=== PATIENT | male | born 1975 | race Caucasian/White ===

== ENCOUNTER → 2023-05-13 | Emergency (ER) | payer SELFPAY ==
[~2023-05-13] MED LIST: AZITHROMYCIN 500 MG INJ IVPB ONE; CEFTRIAXONE 1000 MG/VIAL ONE; EPINEPHRINE INH 0.5 ML VIAL IH ONE; IPRATROPIUM BROM 0.5MG/2.5ML ONE; LEVALBUTEROL 1.25 MG/3 ML NEB ONE; METHYLPREDNISOLONE 125 MG INJ ONE; NA CHLORIDE 0.9% 250 ML ONE; NS 0.9% VIAL 10 ML ONE
[2023-05-13 12:35] LABS: Absolute Lymphocytes (CBC) 1.3 K/uL (0.7-4.9); Hematocrit 36.7 % (39.6-49.0); Lymphocytes % 9.1 % (15.3-44.8); MCV 81.8 fL (80-100); MPV 6.8 fL (7.6-11.3); Platelets 666 thou/uL (152-406); RBC Red Blood Cell Count 4.48 M/uL (4.33-5.43)
[2023-05-13 12:47] LABS: Protime INR 1.26
[2023-05-13 12:55] LABS: Albumin 3.1 g/dL (3.4-5.0); Bilirubin Total 0.5 mg/dL (0.2-1.0); Potassium 4.2 mEq/L (3.5-5.1); Protein, Total 8.4 g/dL (6.4-8.2); Troponin High Sensitivity 4.7 pg/mL (<58.9)
[2023-05-13 13:06] LABS: SARS-CoV-2 Antigen Rapid Res Negative (Negative)
--- NOTE | 2023-05-13 13:45 | RAD REPORT ---
EXAM DESCRIPTION: CT - Soft Tissue Neck W/Contr - 05/13/2023 1:13 pm CLINICAL HISTORY: Neck pain, shortness of breath, stridor COMPARISON: None. TECHNIQUE: Computed axial tomography of the neck was obtained. 50 cc Isovue 300 was administered in travenously. Coronal and sagittal reconstruction was performed. All CT scans are performed using dose optimization technique as appropriate and may include automated exposure control or mA/KV adjustment according to patient size. FINDINGS: Thickening of the left area epiglottic fold with medialization. Anteromedial deviation of the arachnoid cartilage. Prominent left piriform sinus. These findings can be seen with left vocal c ord paralysis. Remainder of the airway unremarkable The parotid, submandibular and thyroid glands appear unremarkable. 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
--- NOTE | 2023-05-13 13:47 | ER ---
Nurse's Notes [facility] Name: Yeison Zheng Age: 48 yrs Sex: Male : 1975 Arrival Date: 05/13/2023 Time: 12:02 Bed 17 Private MD: Diagnosis: Pleural effusion, not elsewhere classified;Dyspnea, unspecified Presentation: 05/13 12:10 Chief complaint: Patient states: SOB x 4-5 days. Pt reports quitting smoking 3 months ld1 ago. Coronavirus screen: Client presents with at least one sign or symptom that may indicate coronavirus-19. Standard/surgical mask placed on the client. Ebola Screen: No symptoms or risks identified at this time. Initial Sepsis Screen: Does the patient meet any 2 criteria? No. Patient's initial sepsis screen is negative. Does the patient have a suspected source of infection? No. Patient's initial sepsis screen is negative. Risk Assessment: Do you want to hurt yourself or someone else? Patient reports no desire to harm self or others. Onset of symptoms was May 13, 2023. 12:10 Method Of Arrival: Ambulatory ld1 12:10 Acuity: JOEL 2 ld1 Triage Assessment: 12:11 General: Appears in no apparent distress. comfortable, Behavior is calm, cooperative, ld1 appropriate for age. Pain: Denies pain. EENT: No signs and/or symptoms were reported regarding the EENT system. Neuro: Level of Consciousness is awake, alert, obeys commands, Oriented to person, place, time, situation. Cardiovascular: Capillary refill < 3 seconds Patient's skin is warm and dry. Rhythm is sinus tachycardia. Respiratory: Reports shortness of breath at rest on exertion Airway is patent Respiratory effort is even, labored, Onset: The symptoms/episode began/occurred 5 days, the patient has moderate shortness of breath. GI: Abdomen is round non-distended. : No signs and/or symptoms were reported regarding the genitourinary system. Derm: No signs and/or symptoms reported regarding the dermatologic system. Musculoskeletal: No signs and/or symptoms reported regarding the musculoskeletal system. 12:11 Respiratory: Breath sounds with wheezes bilaterally. ld1 Historical: - Allergies: 12:11 No Known Allergies; ld1 - Home Meds: 12:11 None [Active]; ld1 - PMHx: 12:11 None; ld1 - PSHx: 12:11 None; ld1 - Immunization history:: Adult Immunizations up to date. - Social history:: Smoking status: Patient/guardian denies using tobacco, Stopped _ months ago 3 Patient/guardian denies using alcohol. - Family history:: not pertinent. - Hospitalizations: : No recent hospitalization is reported. Screenin:10 [facility] ED Fall Risk Assessment (Adult) History of falling in the last 3 months, rs5 including since admission No falls in past 3 months (0 pts) Confusion or Disorientation No (0 pts) Intoxicated or Sedated No (0 pts) Impaired Gait No (0 pts) Mobility Assist Device Used No (0 pt) Altered Elimination No (0 pt) Score/Fall Risk Level 0 - 2 = Low Risk Oriented to surroundings, Maintained a safe environment. Abuse screen: Denies threats or abuse. Nutritional screening: No deficits noted. Tuberculosis screening: No symptoms or risk factors identified. Assessment: 12:10 General: Appears in no apparent distress. uncomfortable, Behavior is cooperative, rs5 anxious. 12:10 Pain: Complains of pain in chest Pain does not radiate. Pt states "my chest only hurts rs5 when I cough" Pain currently is 6 out of 10 on a pain scale. Quality of pain is described as aching, Pain began 5 days ago, worse today, Is intermittent. Neuro: Level of Consciousness is awake, alert, obeys commands, Oriented to person, place, time, situation. Cardiovascular: Heart tones S1 S2 present Patient's skin is warm and dry. Rhythm is regular. Respiratory: Reports shortness of breath at rest cough that is non-productive. Respiratory: Airway is patent Respiratory effort is even, labored, Respiratory pattern is regular, symmetrical, Breath sounds are diminished in left lower lobe Stridor noted. GI: Bowel sounds present X 4 quads. Abd is soft and non tender X 4 quads. : No signs and/or symptoms were reported regarding the genitourinary system. EENT: No signs and/or symptoms were reported regarding the EENT system. Derm: Skin is intact, Skin is pink, warm \\T\\ dry. Musculoskeletal: Capillary refill < 3 seconds, is brisk, in bilateral fingers. toes. Range of motion: intact in all extremities. 13:01 Reassessment: Patient and/or family updated on plan of care and expected duration. Pain rs5 level reassessed. Patient is alert, oriented x 3, equal unlabored respirations, skin warm/dry/pink. Reassessment: Patient states feeling better. Patient states symptoms have improved. Pt states "my chest only hurts when I cough". Pain: Complains of pain in chest Pain does not radiate. Pain currently is 3 out of 10 on a pain scale. Quality of pain is described as aching, Is intermittent. Cardiovascular: Heart tones S1 S2 present Patient's skin is warm and dry. Rhythm is regular. Respiratory: Airway is patent Respiratory effort is even, unlabored, Respiratory pattern is regular, symmetrical, Breath sounds are diminished in left lower lobe. 14:10 Reassessment: No changes from previously documented assessment. rs5 14:38 Reassessment: Provider at bedside. rs5 16:15 Reassessment: Patient and/or family updated on plan of care and expected duration. Pain rs5 level reassessed. Patient is alert, oriented x 3, equal unlabored respirations, skin warm/dry/pink. Reassessment: Patient states feeling better. Cardiovascular: Denies chest pain, Rhythm is regular. Respiratory: Respiratory effort is even, unlabored, Respiratory pattern is regular, symmetrical. 17:10 Reassessment: Patient and/or family updated on plan of care and expected duration. Pain rs5 level reassessed. Patient is alert, oriented x 3, equal unlabored respirations, skin warm/dry/pink. 18:11 Reassessment: No changes from previously documented assessment. rs5 19:00 Pain: Denies pain. Cardiovascular: Rhythm is regular. Respiratory: Airway is patent rs5 Respiratory effort is even, unlabored, Respiratory pattern is regular, symmetrical. Vital Signs: 12:06 BP 153 / 94; Pulse 98; Resp 20; Temp 98.3(O); Pulse Ox 98% on R/A; rs5 12:10 BP 153 / 94; Pulse 109; Resp 20; Temp 98.4(TE); Pulse Ox 99% on R/A; Weight 81.65 kg; ld1 Height 5 ft. 8 in. ; Pain 0/10; 13:05 BP 129 / 82; Pulse 91; Resp 19; Pulse Ox 98% on R/A; rs5 14:00 BP 125 / 86; Pulse 93; Resp 18; Pulse Ox 98% on R/A; rs5 15:01 BP 115 / 67; Pulse 86; Resp 18; Pulse Ox 98% on R/A; rs5 16:17 BP 117 / 76; Pulse 85; Resp 18; Pulse Ox 97% on R/A; rs5 18:40 BP 125 / 81; Pulse 80; Resp 18; Pulse Ox 99% on R/A; rs5 12:10 Body Mass Index 27.37 (81.65 kg, 172.72 cm) ld1 12:10 Pain Scale: Adult ld1 ED Course: 12:06 Patient arrived in ED. ld1 12:07 Andrey Louis MD is Attending Physician. rn 12:10 Patient has correct armband on for positive identification. Placed in gown. Bed in low rs5 position. Call light in reach. Side rails up X2. 12:10 No provider procedures requiring assistance completed. rs5 12:11 Triage completed. ld1 12:11 Arm band placed on right wrist. EKG completed in triage. Results shown to MD. ld1 12:17 Spenser De Anda, ASHLEY is Primary Nurse. rs5 12:19 Inserted saline lock: 20 gauge in right antecubital area, using aseptic technique. rs5 Blood collected. 12:54 SARS RAPID Sent. rs5 12:54 Flu Sent. rs5 13:07 Chest Single View XRAY In Process Unspecified. EDMS 13:15 CT Soft Tissue Neck W/contr In Process Unspecified. EDMS 13:15 CT Chest For PE Angio In Process Unspecified. EDMS 14:11 transfer initiated with [facility] transfer center; transfer denied due to em1 capacity. 14:17 transfer initiated with [facility] transfer center; transfer denied due to em1 capacity. 19:00 Patient transferred, IV remains in place. rs5 Administered Medications: 12:28 Drug: Racepinephrine Inhalation 0.5 ml Inhalation once Route: Inhalation; rs5 13:01 Follow up: Response: No adverse reaction; Wheezing diminished rs5 12:28 Drug: MethylPrednisoLONE IVP 125 mg IVP once Route: IVP; Site: right antecubital; rs5 13:01 Follow up: Response: No adverse reaction rs5 12:45 Drug: Levalbuterol Inhalation 1.25 mg Inhalation once Route: Inhalation; rs5 13:01 Follow up: Response: No adverse reaction; Wheezing diminished rs5 12:45 Drug: Ipratropium Inhalation Aerosol 0.5 mg Inhalation once Route: Inhalation; rs5 13:01 Follow up: Response: No adverse reaction; Wheezing diminished rs5 13:40 Drug: Rocephin IV 1 grams IV at calculated rate once; Given slow IV push per pharmacy rs5 instructions Route: IV; Rate: calculated rate; Site: right antecubital; 14:00 Follow up: Response: No adverse reaction rs5 13:40 Drug: Zithromax IVPB 500 mg IVPB once over 1 hrs; mix in 250 mL NS Route: IVPB; Infused rs5 Over: 1 hrs; Site: right antecubital; 14:04 Follow up: Response: No adverse reaction rs5 Medication: 12:10 VIS not applicable for this client. rs5 Outcome: 13:47 ER care complete, transfer ordered by . rn 19:00 Transferred by ground EMS to [facility], Transfer form rs5 completed. X-rays sent w/ patient. 19:00 Condition: stable 19:00 Instructed on the need for transfer, Demonstrated understanding of instructions, follow-up care, 19:19 Patient left the ED. rs5 Signatures: Dispatcher [employer] EDMS Andrey Louis MD MD rn Martinez, Eric em1 Kelly Barros RN RN ld1 Spenser De Anda RN RN rs5 Corrections: (The following items were deleted from the chart) 16:15 12:10 Respiratory: Airway is patent Respiratory effort is even, labored, Respiratory rs5 pattern is regular, symmetrical, Breath sounds are diminished in left lower lobe rs5
--- NOTE | 2023-05-13 13:47 | EDPHYS ---
Physician Documentation [facility] Name: Yeison Zheng Age: 48 yrs Sex: Male : 1975 Arrival Date: 05/13/2023 Time: 12:02 Bed 17 Private MD: ED Physician Andrey Louis HPI: 05/13 12:15 This 48 yrs old Male presents to ER via Ambulatory with complaints of Shortness Of rn Breath. 12:15 The patient has shortness of breath at rest, with light activity. Onset: The rn symptoms/episode began/occurred 2 week(s) ago. Duration: The symptoms are continuous. The patient's shortness of breath is aggravated by exertion, light activity, is alleviated by nothing. Severity of symptoms: At their worst the symptoms were moderate in the emergency department the symptoms are unchanged. The patient has not experienced similar symptoms in the past. Patient reports shortness of breath that began 2 weeks ago, getting worse, associated with productive cough and feeling ill. Reports 30-year smoking history. No history of cancer. Reports worse with exertion. No chest pain. No hemoptysis. No history of DVT or PE. No trauma. No recent surgery.. Historical: - Allergies: 12:11 No Known Allergies; ld1 - Home Meds: 12:11 None [Active]; ld1 - PMHx: 12:11 None; ld1 - PSHx: 12:11 None; ld1 - Immunization history:: Adult Immunizations up to date. - Social history:: Smoking status: Patient/guardian denies using tobacco, Stopped _ months ago 3 Patient/guardian denies using alcohol. - Family history:: not pertinent. - Hospitalizations: : No recent hospitalization is reported. ROS: 12:15 Constitutional: Negative for fever, chills, and weight loss, ENT: Positive for rn congestion Neck: Negative for neck swelling or difficulty swallowing Cardiovascular: Negative for chest pain, palpitations, and edema, Respiratory: Positive for cough and shortness of breath Abdomen/GI: Negative for abdominal pain, nausea, vomiting, diarrhea, and constipation, MS/Extremity: Negative for injury and deformity, Skin: Negative for injury, rash, and discoloration, Neuro: Positive for generalized weakness Exam: 12:15 Constitutional: This is a well developed, well nourished patient who is awake, alert, rn moderate tachypnea with stridor Head/Face: Normocephalic, atraumatic. ENT: Positive for stridor, no oral swelling noted. No tongue swelling. No evidence of peritonsillar abscess Neck: No asymmetric neck swelling or significant lymphadenopathy noted. No crepitus. No meningismus. Cardiovascular: Tachycardic, regular. Respiratory: Moderate tachypnea with inspiratory and expiratory wheezing noted Abdomen/GI: Soft, non-tender MS/ Extremity: Pulses equal, no cyanosis. Neurovascular intact. Full, normal range of motion. Equal circumference. Neuro: Awake and alert, GCS 15 17:13 ECG was reviewed by the Attending Physician. rn Vital Signs: 12:06 BP 153 / 94; Pulse 98; Resp 20; Temp 98.3(O); Pulse Ox 98% on R/A; rs5 12:10 BP 153 / 94; Pulse 109; Resp 20; Temp 98.4(TE); Pulse Ox 99% on R/A; Weight 81.65 kg; ld1 Height 5 ft. 8 in. ; Pain 0/10; 13:05 BP 129 / 82; Pulse 91; Resp 19; Pulse Ox 98% on R/A; rs5 14:00 BP 125 / 86; Pulse 93; Resp 18; Pulse Ox 98% on R/A; rs5 15:01 BP 115 / 67; Pulse 86; Resp 18; Pulse Ox 98% on R/A; rs5 16:17 BP 117 / 76; Pulse 85; Resp 18; Pulse Ox 97% on R/A; rs5 18:40 BP 125 / 81; Pulse 80; Resp 18; Pulse Ox 99% on R/A; rs5 12:10 Body Mass Index 27.37 (81.65 kg, 172.72 cm) ld1 12:10 Pain Scale: Adult ld1 MDM: 12:07 Patient medically screened. rn 13:45 Differential diagnosis: Myocardial Infarction Pneumothorax pulmonary edema, Pulmonary rn Embolism . Data reviewed: vital signs, nurses notes, lab test result(s), EKG, radiologic studies, plain films, and as a result, I will admit patient. Consideration of Admission/Observation Patient was admitted/placed on observation. Escalation of care including admission/observation considered. Independent interpretation of the following test(s) in the Emergency Department X-Ray: My interpretation is X-ray chest shows complete opacification of the left hemithorax per my interpretation. Counseling: I had a detailed discussion with the patient and/or guardian regarding the historical points, exam findings, and any diagnostic results supporting the discharge/admit diagnosis, lab results, radiology results, the need for further work-up and treatment in the hospital. 05/13 12:13 Order name: Blood Culture Adult (2) rn 05/13 12:13 Order name: CBC with Diff; Complete Time: 12:57 rn 05/13 12:13 Order name: CMP; Complete Time: 12: rn 05/13 12:13 Order name: Lactate w/ 2H reflex if indic.; Complete Time: 13: rn 05/13 12:13 Order name: Protime (+inr); Complete Time: 12: rn 05/13 12:13 Order name: Ptt, Activated; Complete Time: 12: rn 05/13 12:13 Order name: Flu; Complete Time: 13: rn 05/13 12:13 Order name: SARS RAPID; Complete Time: 13: rn 05/13 12:14 Order name: BNP; Complete Time: 12: rn 05/13 12:14 Order name: Troponin High Sensitivity; Complete Time: 12: rn 05/13 12:13 Order name: Chest Single View XRAY; Complete Time: 13:55 rn 05/13 12:13 Order name: CT Soft Tissue Neck W/contr; Complete Time: 13:47 rn 05/13 12:13 Order name: CT Chest For PE Angio; Complete Time: 13:55 rn 05/13 12:13 Order name: EKG; Complete Time: 12: rn 05/13 12:13 Order name: Cardiac monitoring; Complete Time: 12: rn 05/13 12:13 Order name: EKG - Nurse/Tech; Complete Time: 12: rn 05/13 12:13 Order name: IV Saline Lock - Large Bore; Complete Time: 13: rn 05/13 12:13 Order name: Labs collected and sent; Complete Time: 13: rn 05/13 12:13 Order name: O2 Per Protocol; Complete Time: 12: rn 05/13 12:13 Order name: O2 Sat Monitoring; Complete Time: 12: rn 05/13 12:13 Order name: Vital Signs; Complete Time: 12:14 rn EC:13 Rate is 101 beats/min. Rhythm is regular. QRS [place] is Normal. DC interval is normal. rn QRS interval is normal. QT interval is normal. No Q waves. T waves are Normal. No ST changes noted. Clinical impression: Sinus tachycardia. Interpreted by me. Reviewed by me. Administered Medications: 12:28 Drug: Racepinephrine Inhalation 0.5 ml Inhalation once Route: Inhalation; rs5 13:01 Follow up: Response: No adverse reaction; Wheezing diminished rs5 12:28 Drug: MethylPrednisoLONE IVP 125 mg IVP once Route: IVP; Site: right antecubital; rs5 13:01 Follow up: Response: No adverse reaction rs5 12:45 Drug: Levalbuterol Inhalation 1.25 mg Inhalation once Route: Inhalation; rs5 13:01 Follow up: Response: No adverse reaction; Wheezing diminished rs5 12:45 Drug: Ipratropium Inhalation Aerosol 0.5 mg Inhalation once Route: Inhalation; rs5 13:01 Follow up: Response: No adverse reaction; Wheezing diminished rs5 13:40 Drug: Rocephin IV 1 grams IV at calculated rate once; Given slow IV push per pharmacy rs5 instructions Route: IV; Rate: calculated rate; Site: right antecubital; 14:00 Follow up: Response: No adverse reaction rs5 13:40 Drug: Zithromax IVPB 500 mg IVPB once over 1 hrs; mix in 250 mL NS Route: IVPB; Infused rs5 Over: 1 hrs; Site: right antecubital; 14:04 Follow up: Response: No adverse reaction rs5 Disposition Summary: 05/13/23 13:47 Transfer Ordered Notes: Reason: Higher level of care rn Condition: Fair rn Problem: new rn 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 bills rs5
--- NOTE | 2023-05-13 13:52 | RAD REPORT ---
EXAM DESCRIPTION: [place] Single View05/13/2023 1:06 pm CLINICAL HISTORY: cough COMPARISON: none FINDINGS: Complete opacification left hemithorax. The right lung appears clear of acute infiltrate. Heart size cannot accurately be evaluated IMPRESSION: Complete opacification left hemithorax represents a combination of atelectasis and large pleural effusion
--- NOTE | 2023-05-13 13:52 | RAD REPORT ---
EXAM DESCRIPTION: CT - Chest For Pe Angio - 05/13/2023 1:13 pm CLINICAL HISTORY: sob COMPARISON: None. TECHNIQUE: Dynamically enhanced axial 3 mm thick images of the chest were obtained during administra tion of 100 mL Isovue 370 IV contrast. Coronal and oblique reconstruction images were generated and r eviewed. Exam utilizes a protocol for optimal evaluation of pulmonary arterial tree. Maximum intensity projections 3D imaging was utilized All CT scans are performed using dose optimization technique as appropriate and may include automated exposure control or mA/KV adjustment according to patient size. FINDINGS: Suboptimal opacification of pulmonary artery. No gross pulmonary embolus seen. 7.5 centimeter mass posterior mediastinum extends into the left lower lobe. Soft tissue fills the lef t mainstem bronchus and more distal left tracheobronchial tree. Left main pulmonary artery is encased by the mass. Soft tissue is present in the region of left recurrent laryngeal nerve There is marked additional mediastinal and left hilar lymphadenopathy. Soft tissue surrounds the mid and distal esophagus. Left lung atelectasis with large left pleural effusion. Right lung is clear. Several small hypodense hepatic lesions. Most inferior slice demonstrates possible pancreatic body mass. Mild upper abdominal lymphadenopathy IMPRESSION: Suboptimal opacification of pulmonary artery. No gross pulmonary embolus seen Large mediastinal mass extends into the left lower lobe infiltrating the left mainstem bronchus and l eft tracheobronchial tree. Additional mediastinal and left hilar lymphadenopathy Left lung atelectasis with large left pleural effusion Soft tissue is present in the region of left recurrent laryngeal nerve near the AP window which may r esult in paralysis of the left vocal cord Several small hypodense hepatic lesions may represent metastases Possible pancreatic mass with mild upper abdominal lymphadenopathy
[2023-05-13 20:43] VITALS: TEMP 98.4
[2023-05-13 21:09] VITALS: BP 117/76; O2SAT 97
== END ==
LOC: ER 12:02
DX: J90 Pleural effusion, not elsewhere classified (principal); Z87.891 Personal history of nicotine dependence; Z11.52 Encounter for screening for COVID-19
CPT/HCPCS: 36415; 70491; 71045; 71275; 80053; 83605; 83880; 84484; 85025; 85610; 85730; 87040; 87804; 87811; 93005; A4216; J0696; J2930; J7050; J7614; J7644; Q9967

== ENCOUNTER 2024-02-07 14:06 | Emergency (ER) | payer OTHER, SELFPAY ==
[2024-02-07] MEDS ORDERED: KETOROLAC 30 MG/ML INJ ONE (14:38)
[2024-02-07] MEDS ORDERED: MORPHINE 4 MG/ML SYR ONE (15:50)
[2024-02-07] MEDS ORDERED: ONDANSETRON 4 MG/2 ML VIAL ONE (15:50)
--- OUTSIDE RECORDS SUMMARY | 2024-02-07 16:38 | XMS REPORT | Continuity of Care Document ---
Author Name Unknown Address [address] [facility] [address] [place] [address] [facility] thconnect Address [address] [facility] [address] [place] [address] Care Team Providers Care Manhole Builder Name Role Phone Pcp, Patient Does Not Have A Primary Care Physic elisa HIMA LOMBARDO Attending Clinician Unavailable HIMA LOMBARDO Attending Clinician Unavailable Doctor Unassigned, [place] Attending Clinician U renny Foster [facility] Clinician Hima Fox MD Attending Clinician [phone] Rudy Ca MD Attending Clinician + [phone] RUDY CA Attending Clinician Unavaila ble 9, [facility] Infusion Chair Attending Clinician MARIANNE Allan Attending Clinician UnavailMarianne العراقي PA-C Attending Clinician [phone], [facility] Attending Clinician Unavailable Lynn Rodriguez RN Attending Clinician [phone], [facility] Infusion Chair Attending Clinician LUKASZ Wolfe Attending Clinician Unavailable Lukasz Kyle MD Attending Clinician [phone] [facility] Attending Clinician Unavailable 4, [facility] Infusion Chair Attending Clinician Lynn Marques RN Attending Clinician [phone] [facility] Attending Clinician Unavailable Minerva Gutierrez Attending Clinician Misha velez 2, [facility] Attending Clinician Unavailable OSEI LOMBARDO Attending Clinician Unavailable OSEI LOMBARDO Attending Clinician Unavailable 6, [facility] Infusion Chair Attending Clinician Misha Raza MD, Erendira Attending Clinician [phone] Aileen BURK, Rudy Graff Attending Clinician + [phone] Regan BURK, Danielito Attending Clinician [phone], [facility] Infusion Chair Attending Clinician ERENDIRA Crump Attending Clinician Unavailkamila Clement MD, Erendira Attending Clinician [phone] Doctor Unassigned, [place] Attending Clinician U renny Tilley PA-C, Marianne Attending Clinician [phone] Osei Lombardo DO Attending Clinician [phone] YUMIKO HESS Attending Clinician UnavailYUMIKO Celaya Attending Clinician Unavailabl NOY Mojica Attending Clinician Unavailable Ifeanyi BURK, Lucia Attending Clinician [phone] Shanell BURK, Betty White Attending Clinician [phone] Moe Byers MD Attending Clinician [phone] Jennyfer Maynard DO Attending Clinician [phone] Vladimir [facility], Manish Quintanilla Attending Clinician U renny Price [employer]OR, Fatuma Guerrero Attending Clinician Unaanthony GAXIOLA, Jose Manuel Attending Clinician +- [phone] Diana Garcia LVN Attending Clinician [phone] Sandip Mullins MD Attending Clinician [phone] Erendira Main MD Attending Clinician [phone] ERENDIRA MAIN Attending Clinician Unavailkamila Bautista MD, Sung Kerr Attending Clinician [phone] DENNIS SHELTON Admitting Clinician Unavailab Sandip Carmen MD Admitting Clinician [phone] SANDIP MULLINS Admitting Clinician Unavailable Payers Payer Name Policy Type Policy Number Effective Date Expirati on Date Source [facility] [id number] 2023 00:00:00 Problems Condition Name Condition Details Condition Category Status Onset Date Resolution Date Last Treatment Date Treating Clinician Comments Source Squamous cell lung cancer, right Squamous cell lung cancer, right Disease Active 06-27 00:00: 00 [facility] E46 Unspecifie d severe protein-ca kaitlynn malnutriti on E46 Unspecifie d severe protein-ca kaitlynn malnutriti on Disease Active 06-27 00:00: 00 [facility] Cardiac arrest Cardiac arrest Disease Active 06-27 00:00: 00 [facility] 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 Disease Active 06-25 00:00: 00 [facility] 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 Disease Active 06-25 00:00: 00 [facility] Metastatic malignant neoplasm, unspecifie d site Metastatic malignant neoplasm, unspecifie d site Disease Active 06-25 00:00: 00 [facility] Mediastina l mass Mediastina l mass Disease Active 06-25 00:00: 00 [facility] Leukocytos is, unspecifie d type Leukocytos is, unspecifie d type Disease Active 06-25 00:00: 00 [facility] SOB (shortness of breath) SOB (shortness of breath) Disease Active 06-25 00:00: 00 [facility] 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 Disease Active 06-25 00:00: 00 [facility] Pancreatic mass Pancreatic mass Disease Active 06-25 00:00: 00 [facility] E44.0 Moderate protein calorie malnutriti on E44.0 Moderate protein calorie malnutriti on Disease Active 05-16 00:00: 00 [facility] Stridor Stridor Disease Active - 00:00: 00 [facility] Mass of lower lobe of left lung Mass of lower lobe of left lung Disease Active 05-13 00:00: 00 [facility] Allergies, Adverse Reactions, Alerts Allergy Name Allergy Type Status Severity Reaction(s) Onset Date Inactive Date Treating Clinician Comments Source NO KNOWN ALLERGIE S Drug Class Active [facility] Social History Social Habit Start Date Stop Date Quantity Comments Source History of tobacco use Cigarette Smoker [facility] Sexual orientation [facility] Tobacco use and exposure 2023-09-22 00:00:00 2023-09-22 00:00:00 Smokeless tobacco non-user [facility] Cigarettes smoked current (pack per day) - Reported 2023-09-22 00:00:00 2023-09-22 00:00:00 [facility] Cigarette pack-years 2023-09-22 00:00:00 2023-09-22 00:00:00 [facility] History of Social function 2023-05-20 00:00:00 2023-05-20 00:00:00 [facility] Sex assigned at 1975 00:00:00 1975 00:00:00 [facility] Smoking Status Start Date Stop Date Source Ex-smoker 2023-09-22 00:00:00 2023-09-22 00:00:00 [facility] Medications Ordered Medication Name Filled Medication Name Start Date Stop Date Current Medication? Ordering Clinician Indication Dosage Frequency Signature (SIG) Comments Components Source HYDROcodone -acetaminop hen 10-325 mg tablet 2023-04 0-04 00:00: 00 Yes 2745 1{tbl} Take 1 tablet by mouth every 6 (six) hours as needed for Pain (scale 4-6) or Pain (scale 7-10). Indication s: chronic pain, Metastatic Cancer [facility] FENTanyl 25 mcg/hr patch 01-06 00:00: 00 Yes 5224 1{patch } Apply 1 Patch to skin every 72 (seventy-t wo) hours. Indication s: chronic pain [facility] dexAMETHaso ne 2 mg tablet 12-28 00:00: 00 Yes [id number] 2mg Take 1 tablet by mouth in the morning and 1 tablet in the evening. Take with meals. [facility] dexAMETHaso ne 1 mg tablet 12-28 00:00: 00 Yes [id number] 2mg Take 2 tablets by mouth in the morning and 2 tablets in the evening. Take with meals. [facility] gadobenate dimeglumine (MULTIHANCE -15 mL) injection 12.8 mL 12-22 20:30: 00 12-22 20:23 :00 No [id number] .2mL/kg 12.8 mL (0.2 mL/kg ?64 kg), Intravenou s, ONCE, 1 dose, On Wed12/23/23 at 1530, Routine [facility] gadobenate dimeglumine (MULTIHANCE -15 mL) injection 12.8 mL 12-21 19:45: 00 12-21 19:32 :00 No [id number] .2mL/kg 12.8 mL (0.2 mL/kg ?64 kg), Intravenou s, ONCE, 1 dose, On Wed12/22/23 at 1445, Routine [facility] DOCEtaxeL (TAXOTERE) 132.76 mg in NaCl 0.9% (NS) 250 mL infusion 12-20 18:15: 00 12-20 20:32 :00 No [id number] 75mg/m2 132.76 mg (rounded from 132.75 mg = 75 mg/m2 ?1.77 m2 Treatment Plan BSA from Recorded weight), IV Infusion, ONCE, Administer over 60 Minutes, On Wed12/21/23 at 1315, For 1 dose, Non-DEHP tubing required. Non-PVC bag required. Do not use inline filter. [facility] atropine injection 0.25 mg 12-20 17:54: 40 12-21 17:53 :40 Yes [id number] .25mg 0.25 mg, IV Push, PRN, Starting on Wed12/21/23 at 1254, Until Wed12/22/23 at 1253, Routine, Stomach cramping, acute flushing. [facility] albuterol (PROVENTIL) 2.5 mg /3 mL (0.083 %) nebulizer solution 2.5 mg 12-20 17:54: 40 12-21 17:53 :40 Yes [id number] 2.5mg 2.5 mg, Inhalation , PRN - SEE INSTRUCTIO NS, Starting on Wed12/21/23 at 1254, Until Wed12/22/23 at 1253, Routine, Shortness of Breath, Wheezing, As needed for chemothera py reactions [facility] methylpredn isolone sod succ (SOLU-MEDRO L) injection 125 mg 12-20 17:54: 40 12-21 17:53 :40 Yes [id number] 125mg 125 mg, Slow IV Push, Administer over 3 Minutes, PRN - SEE INSTRUCTIO NS, Starting on Wed12/21/23 at 1254, Until Wed12/22/23 at 1253, Routine, As needed for chemothera py reactions [facility] EPINEPHrine (EPIPEN AUTO-INJECT OR) 0.3 mg/0.3 mL injection 0.3 mg 12-20 17:54: 40 12-21 17:53 :40 Yes [id number] .3mg 0.3 mg, Intramuscu lar, PRN - SEE INSTRUCTIO NS, Starting on Wed12/21/23 at 1254, Until Wed12/22/23 at 1253, Routine, As needed for chemothera py reactions [facility] diphenhydrA MINE (BENADRYL) injection 50 mg 12-20 17:54: 40 12-21 17:53 :40 Yes [id number] 50mg 50 mg, Slow IV Push, Administer over 2 Minutes, PRN - SEE INSTRUCTIO NS, Starting on Wed12/21/23 at 1254, Until Wed12/22/23 at 1253, Routine, As needed for chemothera py reactions, INDICATION : ANAPHYLAXI S [facility] proCHLORper azine (COMPAZINE) tablet 10 mg 12-20 17:54: 40 12-21 17:53 :40 Yes [id number] 10mg 10 mg, Oral, Q6HPRN, Starting on Wed12/21/23 at 1254, Until Wed12/22/23 at 1253, Routine, Nausea and Vomiting (N/V) [facility] heparin lock flush (HEPARIN LOCKFLUSH(P ORCINE)(PF) ) 100 unit/mL injection 500 Units 12-20 17:54: 40 12-21 17:53 :40 Yes [id number] 500U 500 Units, IV Push, PRN, Starting on Wed12/21/23 at 1254, Until Wed12/22/23 at 1253, Routine [facility] ramucirumab (CYRAMZA) 650 mg in NaCl 0.9% (NS) 250 mL infusion 12-20 17:15: 00 12-20 19:00 :00 No [id number] 10mg/kg 650 mg (10 mg/kg ?65 kg Treatment plan Recorded weight), IV Infusion, ONCE, Administer over 60 Minutes, On Wed12/21/23 at 1215, For 1 dose, Administer over 60 minutes through a separate infusion line. 0.22 micron filter is recommende d. For intravenou s infusion only. Do not administer as an intravenou s push or bolus. [facility] diphenhydrA MINE (BENADRYL) injection 25 mg 12-20 16:45: 00 12-20 16:55 :00 No [id number] 25mg 25 mg, Slow IV Push, ONCE, 1 dose, On Wed12/21/23 at 1145, Routine [facility] dexamethaso ne sod phos PF injection 10 mg 12-20 16:45: 00 12-20 16:59 :00 No [id number] 10mg 10 mg, Slow IV Push, ONCE, 1 dose, On Wed12/21/23 at 1145, 1 mL [facility] zoledronic ac-mannitol -0.9NaCl 4 mg/100 mL RTU IV Piggyback 4 mg 12-20 16:45: 00 12-20 17:27 :00 No [id number] 4mg 4 mg, IV Piggyback, ONCE, 1 dose, On Wed12/21/23 at 1145, Administer over 30 Minutes, 100 mL, merchandise flow team member approving Restricted medication : HIMA LOMBARDO [facility] NaCl 0.9% (NS) bolus infusion 1,000 mL 12-20 16:45: 00 12-20 17:36 :00 No [id number] 1000mL at 999 mL/hr, 1,000 mL, IV Piggyback, ONCE, 1 dose, On Wed12/21/23 at 1145, STAT [facility] dexAMETHaso ne 4 mg tablet 12-16 00:00: 00 Yes [id number] Take 1 tab every 8 hours for 7 days then 1 tab every 12 hours for 7 days then 1 tab daily for 7 days. [facility] pantoprazol e 40 mg EC tablet 12-16 00:00: 00 Yes [id number] 40mg Take 1 tablet by mouth in the morning. [facility] sulfamethox azole-trime thoprim (BACTRIM DS) 800-160 mg per tablet 12-16 00:00: 00 Yes [id number] 1{tbl} Take 1 tablet by mouth every Wednesday, Wednesday and Wednesday. [facility] sulfamethox azole-trime thoprim (BACTRIM DS) 800-160 mg per tablet 12-14 00:00: 00 12-16 00:00 :00 No [id number] 1{tbl} Take 1 tablet by mouth every Wednesday, Wednesday and Wednesday for 30 days. [facility] dexAMETHaso ne 4 mg tablet 12-13 00:00: 00 12-16 00:00 :00 No [id number] Take 1 tab every 8 hours for 7 days then 1 tab every 12 hours for 7 days then 1 tab daily for 7 days. [facility] pantoprazol e 40 mg EC tablet 12-13 00:00: 00 2024- 08-30 00:00 :00 No [id number] 40mg Take 1 tablet by mouth in the morning for 60 days. [facility] fludeoxyglu cose F-18 (FDG) injection 10 millicurie 12-12 19:47: 00 12-12 19:54 :00 No [id number] 10mCi 10 millicurie , Intravenou s, ONCE, 1 dose, On Wed12/13/23 at 1500, Routine [facility] HYDROcodone -acetaminop hen 10-325 mg tablet 12-06 00:00: 00 01-19 00:00 :00 Yes [id number] 1{tbl} Take 1 tablet by mouth every 4 (four) hours as needed for Pain (scale 7-10). Indication s: acute pain, chronic pain [facility] FENTanyl 25 mcg/hr patch 12-06 00:00: 00 01-05 00:00 :00 No [id number] 1{patch } Apply 1 Patch to skin every 72 (seventy-t wo) hours. Indication s: chronic pain [facility] pembrolizum ab (KEYTRUDA) 200 mg in NaCl 0.9% (NS) 100 mL infusion 11-25 20:30: 00 11-25 20:41 :00 No [id number] 200mg 200 mg, IV Infusion, ONCE, Administer over 30 Minutes, On Wed11/26/23 at 1530, For 1 dose, Administer through a low-protei n binding 0.2 to 5 micron in-line filter. [facility] atropine injection 0.25 mg 11-25 19:59: 37 11-26 19:58 :37 Yes [id number] .25mg 0.25 mg, IV Push, PRN, Starting on Wed11/26/23 at 1459, Until 11/27/23 at 1458, Routine, Stomach cramping, acute flushing. [facility] albuterol (PROVENTIL) 2.5 mg /3 mL (0.083 %) nebulizer solution 2.5 mg 11-25 19:59: 37 11-26 19:58 :37 Yes [id number] 2.5mg 2.5 mg, Inhalation , PRN - SEE INSTRUCTIO NS, Starting on Wed11/26/23 at 1459, Until 11/27/23 at 1458, Routine, Shortness of Breath, Wheezing, As needed for chemothera py reactions [facility] methylpredn isolone sod succ (SOLU-MEDRO L) injection 125 mg 11-25 19:59: 37 11-26 19:58 :37 Yes [id number] 125mg 125 mg, Slow IV Push, Administer over 3 Minutes, PRN - SEE INSTRUCTIO NS, Starting on Wed11/26/23 at 1459, Until 11/27/23 at 1458, Routine, As needed for chemothera py reactions [facility] EPINEPHrine (EPIPEN AUTO-INJECT OR) 0.3 mg/0.3 mL injection 0.3 mg 11-25 19:59: 37 11-26 19:58 :37 Yes [id number] .3mg 0.3 mg, Intramuscu lar, PRN - SEE INSTRUCTIO NS, Starting on Wed11/26/23 at 1459, Until 11/27/23 at 1458, Routine, As needed for chemothera py reactions [facility] diphenhydrA MINE (BENADRYL) injection 50 mg 11-25 19:59: 37 11-26 19:58 :37 Yes [id number] 50mg 50 mg, Slow IV Push, Administer over 2 Minutes, PRN - SEE INSTRUCTIO NS, Starting on Wed11/26/23 at 1459, Until 11/27/23 at 1458, Routine, As needed for chemothera py reactions, INDICATION : ANAPHYLAXI S [facility] heparin lock flush (HEPARIN LOCKFLUSH(P ORCINE)(PF) ) 100 unit/mL injection 500 Units 11-25 19:59: 37 11-26 19:58 :37 Yes [id number] 500U 500 Units, IV Push, PRN, Starting on Wed11/26/23 at 1459, Until 11/27/23 at 1458, Routine [facility] NaCl 0.9% (NS) bolus infusion 1,000 mL 11-25 19:00: 00 11-25 19:37 :00 No 1000mL at 999 mL/hr, 1,000 mL, IV Infusion, ONCE, 1 dose, On Wed11/26/23 at 1400, MOMO [facility] HYDROcodone -acetaminop hen 10-325 mg tablet 11-15 00:00: 00 12-06 00:00 :00 No [id number] 1{tbl} Take 1 tablet by mouth every 6 (six) hours as needed for Pain (scale 4-6) or Pain (scale 7-10). Indication s: chronic pain, Metastatic Cancer [facility] pembrolizum ab (KEYTRUDA) 200 mg in NaCl 0.9% (NS) 100 mL infusion 11-03 20:30: 00 11-03 20:41 :00 No [id number] 200mg 200 mg, IV Infusion, ONCE, Administer over 30 Minutes, On Wed11/04/23 at 1530, For 1 dose, Administer through a low-protei n binding 0.2 to 5 micron in-line filter. [facility] atropine injection 0.25 mg 11-03 19:53: 50 11-04 19:52 :50 No [id number] .25mg 0.25 mg, IV Push, PRN, Starting on Wed11/04/23 at 1453, Until Wed11/05/23 at 1452, Routine, Stomach cramping, acute flushing. [facility] albuterol (PROVENTIL) 2.5 mg /3 mL (0.083 %) nebulizer solution 2.5 mg 11-03 19:53: 50 11-04 19:52 :50 No [id number] 2.5mg 2.5 mg, Inhalation , PRN - SEE INSTRUCTIO NS, Starting on Wed11/04/23 at 1453, Until Wed11/05/23 at 1452, Routine, Shortness of Breath, Wheezing, As needed for chemothera py reactions [facility] methylpredn isolone sod succ (SOLU-MEDRO L) injection 125 mg 11-03 19:53: 50 11-04 19:52 :50 No [id number] 125mg 125 mg, Slow IV Push, Administer over 3 Minutes, PRN - SEE INSTRUCTIO NS, Starting on Wed11/04/23 at 1453, Until Wed11/05/23 at 1452, Routine, As needed for chemothera py reactions [facility] EPINEPHrine (EPIPEN AUTO-INJECT OR) 0.3 mg/0.3 mL injection 0.3 mg 11-03 19:53: 50 11-04 19:52 :50 No [id number] [id number] .3mg 0.3 mg, Intramuscu lar, PRN - SEE INSTRUCTIO NS, Starting on Wed11/04/23 at 1453, Until Wed11/05/23 at 1452, Routine, As needed for chemothera py reactions [facility] diphenhydrA MINE (BENADRYL) injection 50 mg 11-03 19:53: 50 11-04 19:52 :50 No [id number] 50mg 50 mg, Slow IV Push, Administer over 2 Minutes, PRN - SEE INSTRUCTIO NS, Starting on Wed11/04/23 at 1453, Until Wed11/05/23 at 1452, Routine, As needed for chemothera py reactions, INDICATION : ANAPHYLAXI S [facility] heparin lock flush (HEPARIN LOCKFLUSH(P ORCINE)(PF) ) 100 unit/mL injection 500 Units 11-03 19:53: 50 11-04 19:52 :50 No [id number] 500U 500 Units, IV Push, PRN, Starting on Wed11/04/23 at 1453, Until Wed11/05/23 at 1452, Routine [facility] HYDROcodone -acetaminop hen 10-325 mg tablet 10-13 00:00: 00 Yes [id number] 1{tbl} Take 1 tablet by mouth every 6 (six) hours as needed for Pain (scale 4-6) or Pain (scale 7-10). Indication s: chronic pain, Metastatic Cancer [facility] pembrolizum ab (KEYTRUDA) 200 mg in NaCl 0.9% (NS) 100 mL infusion 10-06 16:45: 00 10-06 16:50 :00 No [id number] 200mg 200 mg, IV Infusion, ONCE, Administer over 30 Minutes, On Catina 10/07/23 at 1145, For 1 dose, Administer through a low-protei n binding 0.2 to 5 micron in-line filter. [facility] HYDROcodone -acetaminop hen 10-325 mg tablet 09-19 00:00: 00 10-12 00:00 :00 No 2745 1{tbl} Take 1 tablet by mouth every 6 (six) hours as needed for Pain (scale 4-6) or Pain (scale 7-10). Indication s: chronic pain, Metastatic Cancer [facility] CARBOplatin (PARAPLATIN ) 750 mg in NaCl 0.9% (NS) 250 mL infusion 09-15 17:30: 00 09-15 19:25 :00 No [id number] 750mg 750 mg (Target AUC = 5), IV Infusion, ONCE, Administer over 60 Minutes, On Wed09/16/23 at 1230, For 1 dose, Taxane derivative s should be given before [place] derivative s. [facility] PACLitaxeL (TAXOL) 299.28 mg in NaCl 0.9% (NS) 250 mL IV infusion 09-15 14:30: 00 09-15 18:15 :00 No [id number] 175mg/m 2 299.28 mg (rounded from 299.25 mg = 175 mg/m2 ?1.71 m2 Treatment Plan BSA from Recorded weight), IV Infusion, ONCE, Administer over 180 Minutes, On Catina 09/16/23 at 0930, For 1 dose, Administer taxanes prior to [place] compounds. Administer through a 0.22 micron in-line filter and nonsorbing administra tion set. [facility] sodium polystyrene sulf-sorbtL (SPS (WITH SORBITOL)) 15-20 gram/60 mL suspension 15 g 09-15 14:00: 00 09-16 01:59 :00 No [id number] [facility] pembrolizum ab (KEYTRUDA) 200 mg in NaCl 0.9% (NS) 100 mL infusion 09-15 14:00: 00 09-15 15:10 :00 No [id number] 200mg 200 mg, IV Infusion, ONCE, Administer over 30 Minutes, On Catina 09/16/23 at 0900, For 1 dose, Administer with an infusion set and 0.2 to 1.2 micron filter. [facility] palonosetro n (ALOXI) injection 0.25 mg 09-15 14:00: 09-15 13:59 :00 No [id number] .25mg 0.25 mg, Intravenou s, ONCE, 1 dose, On Catina 09/16/23 at 0900, Routine, merchandise flow team member approving Restricted medication : [facility] famotidine (PEPCID (PF)) injection 20 mg 09-15 14:00: 09-15 13:57 :00 No [id number] 20mg 20 mg, Slow IV Push, ONCE, 1 dose, On Wed09/16/23 at 0900, Routine [facility] diphenhydrA MINE (BENADRYL) injection 25 mg 09-15 14:00: 09-15 13:53 :00 No [id number] 25mg 25 mg, Slow IV Push, ONCE, 1 dose, On Catina 09/16/23 at 0900, Routine [facility] dexamethaso ne 20 mg in 0.9% NaCl 50 mL IV piggyback (CNR) 09-15 14:00: 00 09-15 14:33 :00 No [id number] 20mg 20 mg, IV Piggyback, ONCE, 1 dose, On Catina 09/16/23 at 0900, Administer over 20 Minutes, 50 mL [facility] atropine injection 0.25 mg 09-15 13:45: 03 09-16 13:44 :03 No [id number] .25mg 0.25 mg, IV Push, PRN, Starting on Wed09/16/23 at 0845, Until Wed09/17/23 at 0844, Routine, Stomach cramping, acute flushing. [facility] albuterol (PROVENTIL) 2.5 mg /3 mL (0.083 %) nebulizer solution 2.5 mg 09-15 13:45: 03 09-16 13:44 :03 No [id number] 2.5mg 2.5 mg, Inhalation , PRN - SEE INSTRUCTIO NS, Starting on Wed09/16/23 at 0845, Until Wed09/17/23 at 0844, Routine, Shortness of Breath, Wheezing, As needed for chemothera py reactions [facility] methylpredn isolone sod succ (SOLU-MEDRO L) injection 125 mg 09-15 13:45: 03 09-16 13:44 :03 No [id number] 125mg 125 mg, Slow IV Push, Administer over 3 Minutes, PRN - SEE INSTRUCTIO NS, Starting on Wed09/16/23 at 0845, Until Wed09/17/23 at 0844, Routine, As needed for chemothera py reactions [facility] EPINEPHrine (EPIPEN AUTO-INJECT OR) 0.3 mg/0.3 mL injection 0.3 mg 09-15 13:45: 03 09-16 13:44 :03 No [id number] [id number] .3mg 0.3 mg, Intramuscu lar, PRN - SEE INSTRUCTIO NS, Starting on Wed09/16/23 at 0845, Until Wed09/17/23 at 0844, Routine, As needed for chemothera py reactions [facility] diphenhydrA MINE (BENADRYL) injection 50 mg 09-15 13:45: 03 09-16 13:44 :03 No [id number] 50mg 50 mg, Slow IV Push, Administer over 2 Minutes, PRN - SEE INSTRUCTIO NS, Starting on Wed09/16/23 at 0845, Until Wed09/17/23 at 0844, Routine, As needed for chemothera py reactions, INDICATION : ANAPHYLAXI S [facility] heparin lock flush (HEPARIN LOCKFLUSH(P ORCINE)(PF) ) 100 unit/mL injection 500 Units 09-15 13:45: 02 09-16 13:44 :02 No [id number] 500U 500 Units, IV Push, PRN, Starting on Wed09/16/23 at 0845, Until Wed09/17/23 at 0844, Routine [facility] fludeoxyglu cose F-18 (FDG) injection 12.09 millicurie 08-23 15:00: 00 08-23 14:01 :00 No [id number] 12.09mC i 12.09 millicurie , Intravenou s, ONCE, 1 dose, On Wed08/24/23 at 1000, Routine [facility] CARBOplatin (PARAPLATIN ) 750 mg in NaCl 0.9% (NS) 250 mL infusion 08-22 20:15: 00 08-22 22:02 :00 No [id number] 750mg 750 mg (Target AUC = 5), IV Infusion, ONCE, Administer over 60 Minutes, On Wed08/23/23 at 1515, For 1 dose, Taxane derivative s should be given before [place] derivative s. [facility] PACLitaxeL (TAXOL) 299.28 mg in NaCl 0.9% (NS) 250 mL IV infusion 08-22 17:15: 00 08-22 20:50 :00 No [id number] 175mg/m 2 299.28 mg (rounded from 299.25 mg = 175 mg/m2 ?1.71 m2 Treatment Plan BSA from Recorded weight), IV Infusion, ONCE, Administer over 180 Minutes, On Wed08/23/23 at 1215, For 1 dose, Administer taxanes prior to [place] compounds. Administer through a 0.22 micron in-line filter and nonsorbing administra tion set. [facility] pembrolizum ab (KEYTRUDA) 200 mg in NaCl 0.9% (NS) 100 mL infusion 08-22 16:45: 00 08-22 17:42 :00 No [id number] 200mg 200 mg, IV Infusion, ONCE, Administer over 30 Minutes, On Wed08/23/23 at 1145, For 1 dose, Administer with an infusion set and 0.2 to 1.2 micron filter. [facility] palonosetro n (ALOXI) injection 0.25 mg 08-22 16:45: 00 08-22 16:39 :00 No [id number] .25mg 0.25 mg, Intravenou s, ONCE, 1 dose, On Wed08/23/23 at 1145, Routine, merchandise flow team member approving Restricted medication : [facility] famotidine (PEPCID (PF)) injection 20 mg 08-22 16:45: 00 08-22 16:36 :00 No [id number] 20mg 20 mg, Slow IV Push, ONCE, 1 dose, On Wed08/23/23 at 1145, Routine [facility] diphenhydrA MINE (BENADRYL) injection 25 mg 08-22 16:45: 00 08-22 16:32 :00 No [id number] 25mg 25 mg, Slow IV Push, ONCE, 1 dose, On Wed08/23/23 at 1145, Routine [facility] dexamethaso ne 20 mg in 0.9% NaCl 50 mL IV piggyback (CNR) 08-22 16:45: 00 08-22 17:03 :00 No [id number] 20mg 20 mg, IV Piggyback, ONCE, 1 dose, On Wed08/23/23 at 1145, Administer over 20 Minutes, 50 mL [facility] heparin lock flush (HEPARIN LOCKFLUSH(P ORCINE)(PF) ) 100 unit/mL injection 500 Units 08-22 16:37: 10 08-23 16:36 :10 No [id number] 500U 500 Units, IV Push, PRN, Starting on Wed08/23/23 at 1137, Until Wed08/24/23 at 1136, Routine [facility] HYDROcodone -acetaminop hen 10-325 mg tablet 08-19 00:00: 00 09-16 00:00 :00 No [id number] 1{tbl} Take 1 tablet by mouth every 6 (six) hours as needed for Pain (scale 4-6) or Pain (scale 7-10). Indication s: chronic pain, Metastatic Cancer [facility] CARBOplatin (PARAPLATIN ) 750 mg in NaCl 0.9% (NS) 250 mL infusion 08-01 17:30: 00 08-01 20:38 :00 No [id number] 750mg 750 mg (Target AUC = 5), IV Infusion, ONCE, Administer over 60 Minutes, On Wed08/02/23 at 1230, For 1 dose
Ta xane derivative s should be given before [place] derivative s.
[facility] PACLitaxeL (TAXOL) 327.24 mg in NaCl 0.9% (NS) 500 mL IV infusion 08-01 14:30: 00 08-01 19:35 :00 No [id number] 175mg/m 2 327.24 mg (rounded from 327.25 mg = 175 mg/m2 ?1.87 m2 Treatment Plan BSA from Recorded weight), IV Infusion, ONCE, Administer over 180 Minutes, On Wed08/02/23 at 0930, For 1 dose
Ad control center operator taxanes prior to [place] compounds. &nbs p;Administ er through a 0.22 micron in-line filter and nonsorbing administra tion set.
[facility] palonosetro n (ALOXI) injection 0.25 mg 08-01 14:00: 00 08-01 14:46 :00 No [id number] .25mg 0.25 mg, Intravenou s, ONCE, 1 dose, On Wed08/02/23 at 0900, Routine
merchandise flow team member approving Restricted medication : [facility] famotidine (PEPCID (PF)) injection 20 mg 08-01 14:00: 00 08-01 14:49 :00 No [id number] 20mg 20 mg, Slow IV Push, ONCE, 1 dose, On Wed08/02/23 at 0900, Routine [facility] diphenhydrA MINE (BENADRYL) injection 25 mg 08-01 14:00: 00 08-01 14:42 :00 No [id number] 25mg 25 mg, Slow IV Push, ONCE, 1 dose, On Wed08/02/23 at 0900, Routine [facility] dexamethaso ne 20 mg in 0.9% NaCl 50 mL IV piggyback (CNR) 08-01 14:00: 00 08-01 15:10 :00 No [id number] 20mg 20 mg, IV Piggyback, ONCE, 1 dose, On Wed08/02/23 at 0900, Administer over 20 Minutes, 50 mL [facility] pembrolizum ab (KEYTRUDA) 200 mg in NaCl 0.9% (NS) 100 mL infusion 08-01 14:00: 00 08-01 15:55 :00 No [id number] 200mg 200 mg, IV Infusion, ONCE, Administer over 30 Minutes, On Wed08/02/23 at 0900, For 1 dose
Ad control center operator with an infusion set and 0.2 to 1.2 micron filter.
[facility] ondansetron 4 mg disintegrat ing tablet 07-28 00:00: 00 Yes [id number] 4mg Take 1 tablet by mouth every 8 (eight) hours as needed for Nausea and Vomiting (N/V). [facility] proCHLORper azine (COMPAZINE) 10 mg tablet 07-28 00:00: 00 Yes [id number] 10mg Take 1 tablet by mouth every 6 (six) hours as needed for Nausea and Vomiting (N/V). [facility] mirtazapine 7.5 mg tablet 07-28 00:00: 00 Yes [id number] 15mg Take 2 tablets by mouth at bedtime. [facility] HYDROcodone -acetaminop hen 10-325 mg tablet 07-11 00:00: 00 08-19 00:00 :00 No [id number] 1{tbl} Take 1 tablet by mouth every 6 (six) hours as needed for Pain (scale 4-6) or Pain (scale 7-10). Indication s: chronic pain, Metastatic Cancer [facility] predniSONE (DELTASONE) tablet 30 mg 06-29 14:00: 00 07-01 13:59 :00 No 30mg [Order 1 Start] Name: predniSONE (DELTASONE ) tablet 30 mg Signed Summary: 30 mg, Oral, DAILY, 2 doses, First dose on Wed06/30/23 at 0900, Last dose on Wed07/01/23 at 0900, Routine [Order 1 End] [Order 2 Start] Name: predniSONE (DELTASONE ) tablet 20 mg Signed Summary: 20 mg, Oral, DAILY, 2 doses, First dose on Wed07/02/23 at 0900, Last dose on Wed07/03/23 at 0900, Routine [Order 2 End] [Order 3 Start] Name: predniSONE (DELTASONE ) tablet 10 mg Signed Summary: 10 mg, Oral, DAILY, 2 doses, First dose on Wed07/04/23 at 0900, Last dose on Wed07/05/23 at 0900, Routine [Order 3 End] [facility] midazolam (VERSED) STD 50mg in NaCl 0.9% (NS) 50 mL infusion RTU 06-28 16:29: 55 Yes 1mg/h 1-10 mg/hr (1-10 mL/hr), IV Infusion, TITRATE, Sedation-R ASS score (-1 to -2), Starting on Wed06/29/23 at 1129
In itiate infusion at 2 mg/hr and titrate by 1 mg/hr every 3 minutes to 10 minutes to goal sedation score. Maximum dose = 10 mg/hr.&nbs p; If goal not maintained at maximum allowed dose, contact prescriber .
[facility] pantoprazol e (PROTONIX) injection 40 mg 06-28 15:30: 00 Yes 40mg 40 mg, Slow IV Push, Q24H, First dose on Wed06/29/23 at 1030, Until Discontinu ed [facility] chlorhexidi ne (PERIDEX) 0.12 % mouthwash 15 mL 06-28 13:00: 00 Yes 15mL 15 mL, Oral (Swish And Spit Out), BID, First dose on Wed06/29/23 at 0800, Until Discontinu ed, Routine [facility] NORepinephr ine 16 mg in NS 250 mL infusion RTU 06-28 02:50: 59 Yes .05ug/k g/min 0.05-1.5 mcg/kg/min ?72.6 kg (3.4031-10 2.0938 mL/hr, rounded to 3.4-102.09 mL/hr), IV Infusion, TITRATE, MAP Goal > or = 65 mmHg, Starting on Wed06/28/23 at 2150
In itiate titration at 0.05 mcg/kg/min . &nb sp;Increas e by 0.01 mcg/kg/min every 30 seconds to 5 minutes as needed to reach and maintain goal blood pressure.& nbsp;&nbsp ;Maximum dose = 1.5 mcg/kg/min .&nbsp ; If goal not maintained at maximum allowed dose, contact prescriber .
[facility] dexMEDEtomi dine 200 mcg in 0.9 % NaCl 50 mL (PRECEDEX) RTU IV infusion 06-28 01:40: 41 Yes .2ug/kg /h 0.2-1.5 mcg/kg/hr ?72.6 kg (3.63-27.2 25 mL/hr, rounded to 3.63-27.23 mL/hr), IV Infusion, TITRATE, Sedation-R ASS score (0 to -1), Starting on Wed06/28/23 at 2040
In itiate infusion at 0.4 mcg/kg/hr and titrate by 0.1 mcg/kg/hr every 30 minutes to goal sedation score. Maximum dose = 1.5 mcg/kg/hr. If goal not maintained at maximum allowed dose, contact prescriber .
[facility] fentaNYL PF (SUBLIMAZE) STD 2,500 mcg in NaCl 0.9% (NS) 250 mL infusion RTU 06-28 01:40: 12 Yes 25ug/h 25-200 mcg/hr (2.5-20 mL/hr), IV Infusion, TITRATE, Sedation-R ASS score (0 to -1), Starting on Wed06/28/23 at 2039
In itiate infusion at 25 mcg/hr. Titrate by 50 mcg/hr every 1 minute to 15 minutes to identified goal pain and/or sedation scores. Maximum dose = 200 mcg/hr. If goal not maintained at maximum allowed dose, contact prescriber .
[facility] propofoL IV infusion 06-28 01:36: 21 Yes 5ug/kg/ min 5-50 mcg/kg/min ?72.6 kg (2.178-21. 78 mL/hr, rounded to 2.18-21.78 mL/hr), IV Infusion, TITRATE, Sedation-R ASS score (-3 to -4), Starting on Wed06/28/23 at 2035
In itiate infusion at 10 mcg/kg/min and titrate by 5 mcg/kg/min every 30 seconds to 10 minutes to goal sedation score. Maximum dose = 50 mcg/kg/min . If goal not maintained at maximum allowed dose, contact prescriber . &amp ;nbsp;Tubi ng and unused portions of vials should be discarded after 12 hours.
[facility] albuterol (PROVENTIL) 2.5 mg /3 mL (0.083 %) nebulizer solution 2.5 mg 06-28 01:00: 00 Yes 2.5mg 2.5 mg, Inhalation , Q4H, First dose on Wed06/28/23 at 2000, Until Discontinu ed, Routine [facility] albuterol (VENTOLIN) inhaler 06-27 23:40: 00 06-28 01:07 :40 No Inhalation , ONCE INTRA PROCEDURE, Starting on Wed06/28/23 at 1840, Until Discontinu ed, Routine, [facility]op [facility] rocuronium (ZEMURON) injection 06-27 23:32: 00 06-28 01:07 :40 No IV Push, ONCE INTRA PROCEDURE, Starting on Wed06/28/23 at 1832, Until Discontinu ed, Routine, Intra-op [facility] NORepinephr ine (LEVOPHED) 16 mg in NaCl 0.9% (NS) 250 mL infusion 06-27 23:04: 00 06-28 01:07 :40 No IV Infusion, CONTINUOUS PRN, Starting on Wed06/28/23 at 1804, Intra-op [facility] dexamethaso ne (DECADRON PHOSPHATE) injection 06-27 22:57: 00 06-28 01:07 :40 No Intravenou s, ONCE INTRA PROCEDURE, Starting on Wed06/28/23 at 1757, Until Discontinu ed, Routine, Intra-op [facility] EPINEPHrine 1:1,000 (1 mg/mL) (ADRENALIN) injection 06-27 22:51: 00 06-28 01:07 :40 No Buccal, ONCE INTRA PROCEDURE, Starting on Wed06/28/23 at 1751, Until Discontinu ed, Routine, Intra-op [facility] atropine injection 06-27 22:45: 00 06-28 01:07 :40 No Intravenou s, ONCE INTRA PROCEDURE, Starting on Wed06/28/23 at 1745, Until Discontinu ed, Routine, Intra-op [facility] propofoL IV infusion 06-27 22:40: 00 06-28 01:07 :40 No Intravenou s, CONTINUOUS PRN, Starting on Wed06/28/23 at 1740, Until Discontinu ed, Routine, Intra-op [facility] remifentani L (ULTIVA) injection 06-27 22:39: 00 06-28 01:07 :40 No Slow IV Push, CONTINUOUS PRN, Starting on Wed06/28/23 at 1739, Until Discontinu ed, Routine, Intra-op [facility] succinylcho line (QUELICIN) injection 06-27 22:31: 00 06-28 01:07 :40 No IV Push, ONCE INTRA PROCEDURE, Starting on Wed06/28/23 at 1731, Until Discontinu ed, Routine, Intra-op [facility] lactated ringers IV infusion 06-27 22:23: 00 06-28 01:07 :40 No IV Infusion, CONTINUOUS PRN, Starting on Wed06/28/23 at 1723, Until Discontinu ed, Routine, Intra-op [facility] ketamine (KETALAR) 50 mg/5 mL (10 mg/mL) injection 06-27 22:23: 00 06-28 01:07 :40 No Intravenou s, ONCE INTRA PROCEDURE, Starting on Wed06/28/23 at 1723, Until Discontinu ed, Routine, Intra-op [facility] dexmedeTOMI Dine (PRECEDEX) injection 06-27 22:15: 00 06-28 01:07 :40 No Intravenou s, ONCE INTRA PROCEDURE, Starting on Wed06/28/23 at 1715, Until Discontinu ed, Routine, Intra-op [facility] lactated ringers IV infusion 06-27 22:05: 00 06-28 01:07 :40 No IV Infusion, CONTINUOUS PRN, Starting on Wed06/28/23 at 1705, Until Discontinu ed, Routine, Intra-op [facility] midazolam (VERSED) injection 06-27 22:01: 00 06-28 01:07 :40 No IV Push, ONCE INTRA PROCEDURE, Starting on Wed06/28/23 at 1701, Until Discontinu ed, Routine, Intra-op [facility] glycopyrrol ate (ROBINUL) injection 06-27 22:01: 00 06-28 01:07 :40 No Intravenou s, ONCE INTRA PROCEDURE, Starting on Wed06/28/23 at 1701, Until Discontinu ed, Routine, Intra-op [facility] atropine injection 0.25 mg 06-27 19:59: 55 06-28 19:58 :55 No [id number] .25mg 0.25 mg, IV Push, PRN, Starting on Wed06/28/23 at 1459, Until Wed06/29/23 at 1458, Routine, Stomach cramping, acute flushing. [facility] albuterol (PROVENTIL) 2.5 mg /3 mL (0.083 %) nebulizer solution 2.5 mg 06-27 19:59: 55 06-28 19:58 :55 No [id number] 2.5mg 2.5 mg, Inhalation , PRN - SEE INSTRUCTIO NS, Starting on Wed06/28/23 at 1459, Until Wed06/29/23 at 1458, Routine, Shortness of Breath, Wheezing, As needed for chemothera py reactions [facility] methylpredn isolone sod succ (SOLU-MEDRO L) injection 125 mg 06-27 19:59: 55 06-28 19:58 :55 No [id number] 125mg 125 mg, Slow IV Push, Administer over 3 Minutes, PRN - SEE INSTRUCTIO NS, Starting on Wed06/28/23 at 1459, Until Wed06/29/23 at 1458, Routine, As needed for chemothera py reactions [facility] EPINEPHrine (EPIPEN AUTO-INJECT OR) 0.3 mg/0.3 mL injection 0.3 mg 06-27 19:59: 55 06-28 19:58 :55 No [id number] .3mg 0.3 mg, Intramuscu lar, PRN - SEE INSTRUCTIO NS, Starting on Wed06/28/23 at 1459, Until Wed06/29/23 at 1458, Routine, As needed for chemothera py reactions [facility] diphenhydrA MINE (BENADRYL) injection 50 mg 06-27 19:59: 55 06-28 19:58 :55 No [id number] 50mg 50 mg, Slow IV Push, Administer over 2 Minutes, PRN - SEE INSTRUCTIO NS, Starting on Wed06/28/23 at 1459, Until Wed06/29/23 at 1458, Routine, As needed for chemothera py reactions< br>INDICAT ION: ANAPHYLAXI S [facility] heparin lock flush (HEPARIN LOCKFLUSH(P ORCINE)(PF) ) 100 unit/mL injection 500 Units 06-27 19:59: 55 06-28 19:58 :55 No [id number] 500U 500 Units, IV Push, PRN, Starting on Wed06/28/23 at 1459, Until Wed06/29/23 at 1458, Routine [facility] sodium chloride 7% (HYPER-WILEY) nebulizer solution 4 mL 06-27 18:00: 00 Yes 4mL 4 mL, Inhalation , BID, First dose on Wed06/28/23 at 1300, Until Discontinu ed, MOMO [facility] mirtazapine (REMERON) tablet 15 mg 06-27 02:00: 00 Yes 15mg 15 mg, Oral, QHS, First dose on 06/27/23 at 2100, Until Discontinu ed, Routine [facility] Lidocaine (LIDOCARE) 4 % patch 1 Patch 06-26 14:00: 00 Yes 1{patch } 1 Patch, Topical, Administer over 12 Hours, DAILY, First dose on 06/27/23 at 0900, Until Discontinu ed, Routine [facility] multivitami n tablet 06-26 14:00: 00 Yes 1{tbl} 1 tablet, Oral, DAILY, First dose on 06/27/23 at 0900, Until Discontinu ed, Routine [facility] enoxaparin (LOVENOX) injection 40 mg 06-26 14:00: 00 Yes 40mg 40 mg, Subcutaneo us, DAILY, First dose on 06/27/23 at 0900, Until Discontinu ed, Routine [facility] polyethylen e glycol 3350 powder 17 g 06-26 13:00: 00 Yes 17g 17 g, Oral, BID, First dose on 06/27/23 at 0800, Until Discontinu ed, Routine [facility] ipratropium (ATROVENT) 0.02 % nebulizer solution 0.5 mg 06-26 13:00: 00 Yes .5mg 0.5 mg, Inhalation , QID, First dose on 06/27/23 at 0800, Until Discontinu ed [facility] HYDROcodone -acetaminop hen (NORCO) 10-325 mg tablet 1 tablet 06-26 05:03: 51 Yes 1{tbl} 1 tablet, Oral, Q6HPRN, Starting on 06/26/23 at 2303, Until Discontinu ed, Routine, Pain (scale 7-10) [facility] benzonatate (TESSALON PERLES) capsule 100 mg 06-26 05:03: 28 Yes 100mg 100 mg, Oral, Q8HPRN, Starting on 06/26/23 at 2303, Until Discontinu ed, Routine, Cough [facility] guaiFENesin 100 mg/5 mL solution 200 mg 06-26 05:03: 28 Yes 200mg 200 mg, Oral, Q4HPRN, Starting on 06/26/23 at 2303, Until Discontinu ed, Routine, Cough [facility] albuterol (VENTOLIN) inhaler 2 Puff 06-26 05:03: 28 Yes 2{puff} 2 Puff, Inhalation , Q4HPRN, Starting on 06/26/23 at 2303, Until Discontinu ed, Routine, Wheezing, Shortness of Breath [facility] acetaminoph en (TYLENOL) tablet 650 mg 06-26 05:03: 28 Yes 650mg 650 mg, Oral, Q6HPRN, Starting on 06/26/23 at 2303, Until Discontinu ed, Routine, Pain (scale 1-3) [facility] HYDROcodone -acetaminop hen 10-325 mg tablet 2- 00:00: 00 Yes [id number] 1{tbl} Take 1 tablet by mouth every 4 (four) hours as needed for Pain (scale 4-6) or Pain (scale 7-10). Indication s: chronic pain, Metastatic Cancer [facility] albuterol 90 mcg/actuati on inhaler 06-09 00:00: 00 Yes [id number] 2{puff} Inhale 2 Puffs every 4 (four) hours as needed for Wheezing or Shortness of Breath. [facility] ipratropium 17 mcg/actuati on inhaler 06-09 00:00: 00 Yes [id number] 2{puff} Inhale 2 Puffs 4 (four) times daily. [facility] guaiFENesin 100 mg/5 mL solution 06-09 00:00: 00 12-20 00:00 :00 No [id number] 200mg Take 10 mL by mouth every 4 (four) hours as needed for Cough. [facility] mirtazapine 7.5 mg tablet 06-09 00:00: 00 07-28 00:00 :00 No [id number] 15mg Take 2 tablets by mouth at bedtime. [facility] polyethylen e glycol 3350 powder 17 g 05-21 02:00: 00 Yes 17g 17 g, Oral, BID, First dose (after last modificati on) on Wed05/20/23 at 1999, Until Discontinu ed, Routine [facility] sennosides- docusate sodium (SENOKOT-S) 8.6-50 mg per tablet 1 tablet 05-21 02:00: 00 Yes 1{tbl} 1 tablet, Oral, BID, First dose on Wed05/20/23 at 1999, Until Discontinu ed, Routine [facility] sennosides- docusate sodium 8.6-50 mg per tablet 05-21 00:00: 00 Yes [id number] 1{tbl} Take 1 tablet by mouth in the morning and 1 tablet in the evening. [facility] polyethylen e glycol 3350 (CLEARLAX) 17 gram/dose powder 05-21 00:00: 00 Yes [id number] 17g Take 17 g by mouth in the morning and 17 g in the evening. [facility] mirtazapine 7.5 mg tablet 05-21 00:00: 00 Yes [id number] 15mg Take 2 tablets by mouth at bedtime. [facility] ipratropium 17 mcg/actuati on inhaler 05-21 00:00: 00 Yes [id number] 2{puff} Inhale 2 Puffs 4 (four) times daily. [facility] albuterol 90 mcg/actuati on inhaler 05-21 00:00: 00 Yes [id number] 2{puff} Inhale 2 Puffs every 4 (four) hours for Wheezing or Shortness of Breath. [facility] guaiFENesin 100 mg/5 mL solution 05-21 00:00: 00 Yes [id number] 200mg Take 10 mL by mouth every 4 (four) hours as needed for Cough. [facility] HYDROcodone -acetaminop hen 10-325 mg tablet 05-21 00:00: 00 06-20 05:59 :00 No [id number] 1{tbl} Take 1 tablet by mouth every 6 (six) hours as needed for Pain (scale 4-6) or Pain (scale 7-10) for up to 30 days. Indication s: chronic pain, Metastatic Cancer [facility] albuterol (PROVENTIL) 2.5 mg /3 mL (0.083 %) nebulizer solution 2.5 mg 05-20 17:00: 05-20 17:35 :00 No 2.5mg 2.5 mg, Inhalation , ONCE NOW, 1 dose, On Catina 05/20/23 at 1100, Routine [facility] albuterol (PROVENTIL) 2.5 mg /3 mL (0.083 %) nebulizer solution 05-20 16:01: 00 05-20 16:56 :23 No PRN, Starting on Catina 05/20/23 at 1001, Until Catina 05/20/23 at 1056, Routine, Intra-op [facility] EPINEPHrine 1:1,000 (1 mg/mL) (ADRENALIN) injection 05-20 15:35: 00 05-20 16:56 :23 No PRN, Starting on Catina 05/20/23 at 0935, Until Catina 05/20/23 at 1056, Routine[facility] 05-20 15:14: 00 05-20 16:56 :23 No CONTINUOUS PRN, Starting on Catina 05/20/23 at 0914, Until Catina 05/20/23 at 1056, Routine, Intra-op [facility] lidocaine (XYLOCAINE) 2 % mucosal jelly 05-20 15:14: 00 05-20 16:56 :23 No PRN, Starting on Catina 05/20/23 at 0914, Until Catina 05/20/23 at 1056, Routine, [facility] lidocaine 1% (PF) (XYLOCAINE) injection 05-20 15:14: 00 05-20 16:56 :23 No PRN, Starting on Catina 05/20/23 at 0914, Until Catina 05/20/23 at 1056, Routine, Intra-op [facility] mirtazapine (REMERON) tablet 7.5 mg 05-20 03:00: 00 Yes 7.5mg 7.5 mg, Oral, QHS, First dose on Wed05/19/23 at 2100, Until Discontinu ed, Routine [facility] morpHINE (2 mg/mL) injection 2 mg 05-18 13:48: 07 Yes 2mg 2 mg, Slow IV Push, Q6HPRN, Starting on Wed05/18/23 at 0748, Until Discontinu ed, Routine, Pain (scale 7-10) [facility] HYDROcodone -acetaminop hen (NORCO) 10-325 mg tablet 1 tablet 05-18 13:47: 49 Yes 1{tbl} 1 tablet, Oral, Q6HPRN, Starting on Wed05/18/23 at 0747, Until Discontinu ed, Routine, Pain (scale 4-6), Pain (scale 7-10) [facility] barium sulfate-NO CHARGE- (VARIBAR NECTOR) 40 % (w/v) oral suspension 30 mL 05-17 19:15: 00 05-17 19:15 :00 No [id number] 30mL 30 mL, Oral, ONCE, 1 dose, On Wed05/17/23 at 1315, [facility] barium sulfate (VARIBAR THIN LIQUID) 81 % (w/w) oral powder 40 g 05-17 19:15: 00 05-17 19:15 :00 No [id number] 40g 40 g, Oral, ONCE, 1 dose, On Wed05/17/23 at 1315, Routine [facility] acetaminoph en (TYLENOL) tablet 650 mg 05-17 14:49: 48 Yes 650mg 650 mg, Oral, Q6HPRN, Starting on Wed05/17/23 at 0849, Until Discontinu ed, Routine, Pain (scale 1-3) [facility] HYDROcodone -acetaminop hen (NORCO 5) 5-325 mg tablet 1 tablet 05-17 14:49: 30 05-18 13:47 :58 No 1{tbl} 1 tablet, Oral, Q6HPRN, Starting on Wed05/17/23 at 0849, Until Wed05/18/23 at 0747, Routine, Pain (scale 4-6), Pain (scale 7-10) [facility] gadobenate dimeglumine (MULTIHANCE -15 mL) injection 16.32 mL 05-17 05:45: 00 05-17 05:10 :00 No [id number] .2mL/kg 16.32 mL (0.2 mL/kg ?81.6 kg), Intravenou s, ONCE, 1 dose, On Wed05/16/23 at 2345, Routine [facility] morpHINE (2 mg/mL) injection 2 mg 05-16 21:50: 39 05-17 14:49 :55 No 2mg 2 mg, Slow IV Push, Q4HPRN, Starting on 05/16/23 at 1550, Until 05/17/23 at 0849, Routine, Pain (scale 7-10) [facility] HYDROcodone -acetaminop hen (NORCO 5) 5-325 mg tablet 1 tablet 05-16 21:50: 27 05-17 14:49 :55 No 1{tbl} 1 tablet, Oral, Q6HPRN, Starting on 05/16/23 at 1550, Until 05/17/23 at 0849, Routine, Pain (scale 4-6) [facility] ipratropium -albuteroL (DUONEB) 0.5 mg-3 mg(2.5 mg base)/3 mL nebulizer solution 3 mL 05-15 23:20: 18 Yes 3mL 3 mL, Inhalation , QIDPRN, Starting on 05/15/23 at 1720, Until Discontinu ed, Routine, Wheezing, Shortness of Breath [facility] guaiFENesin 100 mg/5 mL solution 200 mg 05-15 16:55: 41 Yes 200mg 200 mg, Oral, Q4HPRN, Starting on 05/15/23 at 1055, Until Discontinu ed, Routine, Cough [facility] iopamidol (ISOVUE 370-500 mL) injection 80 mL 05-15 16:35: 00 05-15 16:35 :00 No [id number] 80mL 80 mL, Intravenou s, ONCE, 1 dose, On 05/15/23 at 1100, Routine [facility] acetaminoph en (TYLENOL) tablet 650 mg 05-15 15:25: 29 05-17 14:49 :55 No 650mg 650 mg, Oral, Q6HPRN, Starting on 05/15/23 at 0925, Until 05/17/23 at 0849, Routine, Pain (scale 1-3), Pain (scale 4-6) [facility] polyethylen e glycol 3350 powder 17 g 05-15 15:00: 00 05-21 01:13 :52 No 17g 17 g, Oral, DAILY, First dose on Wed05/15/23 at 0900, Until Discontinu ed, Routine [facility] enoxaparin (LOVENOX) injection 40 mg 05-14 15:00: 00 Yes 40mg 40 mg, Subcutaneo us, DAILY, First dose on Wed05/14/23 at 0900, Until Discontinu ed, Routine [facility] ipratropium -albuteroL (DUONEB) 0.5 mg-3 mg(2.5 mg base)/3 mL nebulizer solution 3 mL 05-14 14:00: 00 Yes 3mL 3 mL, Inhalation , QID, First dose on Wed05/14/23 at 0800, Until Discontinu ed, Routine [facility] famotidine (PEPCID AC) tablet 20 mg 05-14 14:00: 00 Yes 20mg 20 mg, Oral, BID, First dose on Wed05/14/23 at 0800, Until Discontinu ed, Routine
Indicatio n for use: None of the above [facility] racEPINEPHr ine (S2 RACEMIC) 2.25 % nebulizer solution 0.25 mL 05-14 03:33: 45 Yes .25mL 0.25 mL, Inhalation , Q15MIN PRN, Starting on Catina 05/13/23 at 2133, Until Discontinu ed, Routine, Stridor [facility] Vital Signs Vital Name Observation Time Observation Value Comments Nini stallings Systolic blood pressure 2023-12-29 13:55:00 99 mm[Hg] Dr. Huston made aware [facility] Diastolic blood pressure 2023-12-29 13:55:00 65 mm[Hg] Dr. Huston made aware [facility] Heart rate 2023-12-29 13:47:00 99 /min [facility] Body temperature 2023-12-29 13:47:00 36.56 Emilie [facility] Respiratory rate 2023-12-29 13:47:00 16 /min [facility] Body height 2023-12-29 13:47:00 170.5 cm verified by TARIQ Varma [facility] Body weight 2023-12-29 13:47:00 63.095 kg verified by TARIQ Varma [facility] BMI 2023-12-29 13:47:00 21.70 kg/m2 [facility] Oxygen saturation in Arterial blood by Pulse oximetry 2023-12-29 13:47:00 100 /min [facility] Systolic blood pressure 2023-12-21 15:55:00 113 mm[Hg] [facility] Diastolic blood pressure 2023-12-21 15:55:00 70 mm[Hg] [facility] Heart rate 2023-12-21 15:55:00 85 /min [facility] Body temperature 2023-12-21 15:55:00 36.67 Emilie [facility] Respiratory rate 2023-12-21 15:55:00 16 /min [facility] Body height 2023-12-21 15:55:00 169.5 cm verified with Art Curiel RN [facility] Body weight 2023-12-21 15:55:00 64 kg verified with Art Curiel RN [facility] BMI 2023-12-21 15:55:00 22.28 kg/m2 [facility] Oxygen saturation in Arterial blood by Pulse oximetry 2023-12-21 15:55:00 96 /min [facility] Systolic blood pressure 2023-12-21 14:16:00 103 mm[Hg] [facility] Diastolic blood pressure 2023-12-21 14:16:00 64 mm[Hg] [facility] Heart rate 2023-12-21 14:16:00 85 /min [facility] Body temperature 2023-12-21 14:16:00 36.94 Emilie [facility] Respiratory rate 2023-12-21 14:16:00 16 /min [facility] Body weight 2023-12-21 14:16:00 64.955 kg [facility] BMI 2023-12-21 14:16:00 21.77 kg/m2 [facility] Oxygen saturation in Arterial blood by Pulse oximetry 2023-12-21 14:16:00 100 /min [facility] Systolic blood pressure 2023-12-07 15:24:00 119 mm[Hg] [facility] Diastolic blood pressure 2023-12-07 15:24:00 77 mm[Hg] [facility] Heart rate 2023-12-07 15:24:00 95 /min [facility] Body temperature 2023-12-07 15:24:00 36.39 Emilie [facility] Respiratory rate 2023-12-07 15:24:00 18 /min [facility] Body height 2023-12-07 15:24:00 172.7 cm [facility] Body weight 2023-12-07 15:24:00 65 kg [facility] BMI 2023-12-07 15:24:00 21.79 kg/m2 [facility] Oxygen saturation in Arterial blood by Pulse oximetry 2023-12-07 15:24:00 100 /min [facility] Systolic blood pressure 2023-11-26 19:54:00 120 mm[Hg] [facility] Diastolic blood pressure 2023-11-26 19:54:00 78 mm[Hg] [facility] Heart rate 2023-11-26 19:54:00 90 /min [facility] Body temperature 2023-11-26 19:54:00 35.72 Emilie [facility] Respiratory rate 2023-11-26 19:54:00 18 /min [facility] Body weight 2023-11-26 19:54:00 66.588 kg [facility] BMI 2023-11-26 19:54:00 22.32 kg/m2 [facility] Oxygen saturation in Arterial blood by Pulse oximetry 2023-11-26 19:54:00 100 /min [facility] Systolic blood pressure 2023-11-26 18:12:00 120 mm[Hg] [facility] Diastolic blood pressure 2023-11-26 18:12:00 78 mm[Hg] [facility] Heart rate 2023-11-26 18:12:00 83 /min [facility] Body temperature 2023-11-26 18:12:00 36.39 Emilie [facility] Respiratory rate 2023-11-26 18:12:00 16 /min [facility] Oxygen saturation in Arterial blood by Pulse oximetry 2023-11-26 18:12:00 98 /min [facility] Body height 2023-11-26 18:10:00 172.7 cm [facility] Body weight 2023-11-26 18:10:00 68.04 kg [facility] BMI 2023-11-26 18:10:00 22.81 kg/m2 [facility] Systolic blood pressure 2023-11-16 19:14:00 100 mm[Hg] [facility] Diastolic blood pressure 2023-11-16 19:14:00 64 mm[Hg] [facility] Heart rate 2023-11-16 19:14:00 86 /min [facility] Body temperature 2023-11-16 19:14:00 36.22 Emilie [facility] Respiratory rate 2023-11-16 19:14:00 17 /min [facility] Body height 2023-11-16 19:14:00 171.5 cm [facility] Body weight 2023-11-16 19:14:00 67.314 kg [facility] BMI 2023-11-16 19:14:00 22.89 kg/m2 [facility] Oxygen saturation in Arterial blood by Pulse oximetry 2023-11-16 19:14:00 100 /min [facility] Systolic blood pressure 2023-11-04 19:35:00 118 mm[Hg] [facility] Diastolic blood pressure 2023-11-04 19:35:00 64 mm[Hg] [facility] Heart rate 2023-11-04 19:35:00 86 /min [facility] Body temperature 2023-11-04 19:35:00 36.39 Emilie [facility] Respiratory rate 2023-11-04 19:35:00 17 /min [facility] Body weight 2023-11-04 19:35:00 68.493 kg [facility] BMI 2023-11-04 19:35:00 23.29 kg/m2 [facility] Oxygen saturation in Arterial blood by Pulse oximetry 2023-11-04 19:35:00 98 /min [facility] Systolic blood pressure 2023-10-07 15:19:00 118 mm[Hg] [facility] Diastolic blood pressure 2023-10-07 15:19:00 73 mm[Hg] [facility] Heart rate 2023-10-07 15:19:00 83 /min [facility] Body temperature 2023-10-07 15:19:00 36.72 Emilie [facility] Respiratory rate 2023-10-07 15:19:00 17 /min [facility] Body weight 2023-10-07 15:19:00 68.901 kg [facility] BMI 2023-10-07 15:19:00 23.43 kg/m2 [facility] Oxygen saturation in Arterial blood by Pulse oximetry 2023-10-07 15:19:00 100 /min [facility] Systolic blood pressure 2023-10-07 15:46:00 123 mm[Hg] [facility] Diastolic blood pressure 2023-10-07 15:46:00 85 mm[Hg] [facility] Heart rate 2023-10-07 15:46:00 87 /min [facility] Body temperature 2023-10-07 15:46:00 35.94 Emilie [facility] Respiratory rate 2023-10-07 15:46:00 17 /min [facility] Body weight 2023-10-07 15:46:00 69.219 kg [facility] BMI 2023-10-07 15:46:00 23.53 kg/m2 [facility] Oxygen saturation in Arterial blood by Pulse oximetry 2023-10-07 15:46:00 98 /min [facility] Systolic blood pressure 2023-09-22 14:02:00 125 mm[Hg] [facility] Diastolic blood pressure 2023-09-22 14:02:00 72 mm[Hg] [facility] Heart rate 2023-09-22 14:02:00 96 /min [facility] Body temperature 2023-09-22 14:02:00 36.06 Emilie [facility] Respiratory rate 2023-09-22 14:02:00 14 /min [facility] Body height 2023-09-22 14:02:00 171.5 cm verified by ASHLEY KIM [facility] Body weight 2023-09-22 14:02:00 65.137 kg verified by ASHLEY KIM [facility] BMI 2023-09-22 14:02:00 22.15 kg/m2 [facility] Oxygen saturation in Arterial blood by Pulse oximetry 2023-09-22 14:02:00 97 /min [facility] Systolic blood pressure 2023-09-16 13:21:00 122 mm[Hg] [facility] Diastolic blood pressure 2023-09-16 13:21:00 74 mm[Hg] [facility] Heart rate 2023-09-16 13:21:00 83 /min [facility] Body temperature 2023-09-16 13:21:00 36.44 Emilie [facility] Respiratory rate 2023-09-16 13:21:00 18 /min [facility] Body weight 2023-09-16 13:21:00 66.906 kg [facility] BMI 2023-09-16 13:21:00 23.09 kg/m2 [facility] Oxygen saturation in Arterial blood by Pulse oximetry 2023-09-16 13:21:00 99 /min [facility] Body height 2023-09-09 15:23:00 170.2 cm [facility] Body weight 2023-09-09 15:23:00 66.134 kg [facility] BMI 2023-09-09 15:23:00 22.83 kg/m2 [facility] Oxygen saturation in Arterial blood by Pulse oximetry 2023-09-09 15:23:00 99 /min [facility] Systolic blood pressure 2023-09-09 15:23:00 121 mm[Hg] [facility] Diastolic blood pressure 2023-09-09 15:23:00 82 mm[Hg] [facility] Heart rate 2023-09-09 15:23:00 92 /min [facility] Body temperature 2023-09-09 15:23:00 36.78 Emilie [facility] Respiratory rate 2023-09-09 15:23:00 17 /min [facility] Systolic blood pressure 2023-08-23 16:28:00 109 mm[Hg] [facility] Diastolic blood pressure 2023-08-23 16:28:00 73 mm[Hg] [facility] Heart rate 2023-08-23 16:28:00 91 /min [facility] Body temperature 2023-08-23 16:28:00 36.11 Emilie [facility] Respiratory rate 2023-08-23 16:28:00 18 /min [facility] Body weight 2023-08-23 16:28:00 62.007 kg [facility] BMI 2023-08-23 16:28:00 21.40 kg/m2 [facility] Oxygen saturation in Arterial blood by Pulse oximetry 2023-08-23 16:28:00 98 /min [facility] Systolic blood pressure 2023-08-20 14:28:00 115 mm[Hg] [facility] Diastolic blood pressure 2023-08-20 14:28:00 80 mm[Hg] [facility] Heart rate 2023-08-20 14:28:00 103 /min [facility] Body temperature 2023-08-20 14:28:00 36.67 Emilie [facility] Respiratory rate 2023-08-20 14:28:00 18 /min [facility] Body height 2023-08-20 14:28:00 170.2 cm [facility] Body weight 2023-08-20 14:28:00 60.782 kg [facility] BMI 2023-08-20 14:28:00 20.98 kg/m2 [facility] Oxygen saturation in Arterial blood by Pulse oximetry 2023-08-20 14:28:00 98 /min [facility] Systolic blood pressure 2023-08-02 13:49:00 109 mm[Hg] [facility] Diastolic blood pressure 2023-08-02 13:49:00 73 mm[Hg] [facility] Heart rate 2023-08-02 13:49:00 89 /min [facility] Body temperature 2023-08-02 13:49:00 36.28 Emilie [facility] Respiratory rate 2023-08-02 13:49:00 18 /min [facility] Body weight 2023-08-02 13:49:00 61.1 kg [facility] BMI 2023-08-02 13:49:00 21.09 kg/m2 [facility] Oxygen saturation in Arterial blood by Pulse oximetry 2023-08-02 13:49:00 100 /min [facility] Systolic blood pressure 2023-07-29 15:16:00 111 mm[Hg] [facility] Diastolic blood pressure 2023-07-29 15:16:00 69 mm[Hg] [facility] Heart rate 2023-07-29 15:16:00 105 /min [facility] Body temperature 2023-07-29 15:16:00 35.78 Emilie [facility] Respiratory rate 2023-07-29 15:16:00 18 /min [facility] Body height 2023-07-29 15:16:00 170.2 cm [facility] Body weight 2023-07-29 15:16:00 59.603 kg [facility] BMI 2023-07-29 15:16:00 20.58 kg/m2 [facility] Oxygen saturation in Arterial blood by Pulse oximetry 2023-07-29 15:16:00 98 /min [facility] Systolic blood pressure 2023-06-28 17:56:00 126 mm[Hg] [facility] Diastolic blood pressure 2023-06-28 17:56:00 75 mm[Hg] [facility] Heart rate 2023-06-28 17:56:00 116 /min [facility] Body temperature 2023-06-28 17:56:00 36.44 Emilie [facility] Oxygen saturation in Arterial blood by Pulse oximetry 2023-06-28 17:56:00 99 /min [facility] Respiratory rate 2023-06-28 17:49:00 20 /min [facility] Body height 2023-06-27 05:48:00 172.7 cm [facility] Body weight 2023-06-27 05:48:00 72.576 kg [facility] BMI 2023-06-27 05:48:00 24.33 kg/m2 [facility] Heart rate 2023-05-21 21:10:00 98 /min [facility] Respiratory rate 2023-05-21 21:10:00 18 /min [facility] Oxygen saturation in Arterial blood by Pulse oximetry 2023-05-21 21:10:00 95 /min [facility] Systolic blood pressure 2023-05-21 18:13:00 119 mm[Hg] [facility] Diastolic blood pressure 2023-05-21 18:13:00 67 mm[Hg] [facility] Body temperature 2023-05-21 18:13:00 37.28 Emilie [facility] Body height 2023-05-20 14:12:00 172.7 cm [facility] Body weight 2023-05-20 14:12:00 81.647 kg [facility] BMI 2023-05-20 14:12:00 27.37 kg/m2 [facility] Systolic blood pressure 2023-05-20 14:12:00 111 mm[Hg] [facility] Diastolic blood pressure 2023-05-20 14:12:00 66 mm[Hg] [facility] Heart rate 2023-05-20 14:12:00 96 /min [facility] Body temperature 2023-05-20 14:12:00 36.11 Emilie [facility] Respiratory rate 2023-05-20 14:12:00 18 /min [facility] Body height 2023-05-20 14:12:00 172.7 cm [facility] Body weight 2023-05-20 14:12:00 81.647 kg [facility] BMI 2023-05-20 14:12:00 27.37 kg/m2 [facility] Oxygen saturation in Arterial blood by Pulse oximetry 2023-05-20 14:12:00 98 /min [facility] Procedures Procedure Date / Time Performed Performing Clinician Source MR CERVICAL SPINE W WO CONTRAST 2023-12-23 20:53:18 Hima Lombardo [facility] MR LUMBAR SPINE W WO CONTRAST 2023-12-23 20:22:30 Hima Lombardo [facility] MR THORACIC SPINE W WO CONTRAST 2023-12-22 19:34:18 Hima Lombardo [facility] MR BRAIN W WO CONTRAST 2023-12-22 19:28:51 Bhavin Lombardo [facility] BASIC METABOLIC PANEL (NA, K, CL, CO2, GLUCOSE, BUN, CREATININE, CA) 2023-11-26 18:48:00 Jorge Barker [facility] BASIC METABOLIC PANEL (NA, K, CL, CO2, GLUCOSE, BUN, CREATININE, CA) 2023-09-16 13:35:00 Hima Lombardo [facility] POCT GLUCOSE (AUTOMATED) 2023-08-24 13:27:00 Alton Lombardo [facility] HB ABO GROUPING 2023-08-02 14:25:00 Hima Lombardo [facility] LACTIC ACID WHOLE BLOOD 2023-06-29 14:04:00 Blaze Austin [facility] AC PANEL 20 + LACTIC ACID 2023-06-29 07:39:00 Julius Calhoun [facility] ACUTE CARE ARTERIAL BLOOD GAS 2023-06-29 03:34:00 Sravan Gardiner [facility] MRSA / MSSA SCREEN BY PCR, ANUPAMA 2023-06-29 03:12:00 Jackeline Austin [facility] XR CHEST 1 VW 2023-06-29 01:00:00 Herbie Mcdonald [facility] INTUBATION 2023-06-28 22:34:00 Betty Reece [facility] ARTERIAL LINE 2023-06-28 22:19:00 Betty Reece [facility] ABORH CONFIRMATION (LAB ONLY) 2023-06-28 21:50:00 Betty Reece [facility] RIGID BRONCHOSCOPY 2023-06-28 21:48:00 Osei [facility] HB ABO GROUPING 2023-06-28 21:34:00 Betty Reece i [facility] LACTATE DEHYDROGENASE 2023-06-28 16:34:00 Elio Shaw [facility] TRANSTHORACIC ECHO (TTE) COMPLETE W/ CONTRAST 2023-06-28 15:30:00 Pam Hollins [facility] URIC ACID 2023-06-28 09:41:00 Alf Shaw [facility] BASIC METABOLIC PANEL (NA, K, CL, CO2, GLUCOSE, BUN, CREATININE, CA) 2023-06-28 09:41:00 Uzair Louis [facility] CBC WITH DIFF 2023-06-28 09:41:00 Lala Louis [facility] HIV 1/2 AG-AB WITH REFLEX 2023-06-28 09:41:00 Yumiko Hi [facility] OSMOLALITY URINE 2023-06-27 22:37:00 Uzair Louis [facility] SODIUM, URINE RANDOM 2023-06-27 22:37:00 Uzair Martinez Levy [facility] LACTATE DEHYDROGENASE 2023-06-27 09:08:00 Pam Hollins [facility] MAGNESIUM 2023-06-27 09:08:00 Pam Hollisn [facility] OSMOLALITY, SERUM OR PLASMA 2023-06-27 09:08:00 Uzair Louis [facility] BASIC METABOLIC PANEL (NA, K, CL, CO2, GLUCOSE, BUN, CREATININE, CA) 2023-06-27 09:08:00 Pam Hollins [facility] DIFF CONSULT BY PATHOLOGIST 2023-06-27 09:08:00 Pam Hollins [facility] CBC WITH DIFF 2023-06-27 09:08:00 Pam Hollins [facility] PROTHROMBIN TIME / INR 2023-06-27 09:08:00 Jacob Hollins i [facility] DIFF CONSULT INTERPRETATION 2023-06-27 09:08:00 Pam Hollisn [facility] CT THORAX W CONTRAST 2023-06-26 23:44:00 Chava Luna [facility] MAGNESIUM 2023-06-26 23:28[facility] 23:28:[address] [facility] VITAMIN B12, LEVEL 2023-06-26 23:28:00 [facility] 2023-06-26 23:28:00 Gurvinder, Shini [facility] HAPTOGLOBIN, SERUM 2023-06-26 23:28:00 [facility] COMP. METABOLIC PANEL (54412) 2023-06-26 23:28:00 Anita Luna [facility] IRON PANEL 2023-06-26 23:28:00 Pam Hollins [facility] CBC WITH DIFF 2023-06-26 23:28:00 [facility]TIBODY 2023-06-26 23:28:00 DeshawnYumiko frias Jennifer [facility] RETICULOCYTES AUTOMATED 2023-06-26 23:28:00 Milagros Hollins [facility] CONSENT/REFUSAL FOR DIAGNOSIS AND TREATMENT 2023-06-26 22:53:38 Doctor Unassigned, [place] [facility] EXTERNAL PROVIDER RECORDS 2023-05-26 06:01:00 Do ctor Unassigned, [place] [facility] MAGNESIUM 2023-05-21 10:23:00 Judith Bryant [facility] BASIC METABOLIC PANEL (NA, K, CL, CO2, GLUCOSE, BUN, CREATININE, CA) 2023-05-21 10:23:00 Judith Bryant [facility] CBC WITH DIFF 2023-05-21 10:23:00 Judith Bryant [facility] MAGNESIUM 2023-05-21 10:23:00 Judith Bryant [facility] BASIC METABOLIC PANEL (NA, K, CL, CO2, GLUCOSE, BUN, CREATININE, CA) 2023-05-21 10:23:00 Judith Bryant [facility] CBC WITH DIFF 2023-05-21 10:23:00 Judith Bryant [facility] FUNGUS (ROUTINE) CULTURE 2023-05-20 16:03:00 Sung Potter [facility] TISSUE CULTURE(AEROBIC/ANAEROBIC) 2023-05-20 16:03:00 Erendira Main [facility] FUNGUS (ROUTINE) CULTURE 2023-05-20 16:03:00 Sung Potter [facility] TISSUE CULTURE(AEROBIC/ANAEROBIC) 2023-05-20 16:03:00 Erendira Main [facility] FLEXIBLE BRONCHOSCOPY 2023-05-20 14:48:00 Sung Mathur [facility] FLEXIBLE BRONCHOSCOPY 2023-05-20 14:48:00 Sung Mathur [facility] BRONCHOSCOPY (ENDO) 2023-05-20 14:42:41 Josef Main [facility] BRONCHOSCOPY (ENDO) 2023-05-20 14:42:41 Josef Main [facility] MAGNESIUM 2023-05-20 10:31:00 Judith Bryant [facility] BASIC METABOLIC PANEL (NA, K, CL, CO2, GLUCOSE, BUN, CREATININE, CA) 2023-05-20 10:31:00 Judith Bryant [facility] CBC WITH DIFF 2023-05-20 10:31:00 Judith Bryant [facility] MAGNESIUM 2023-05-20 10:31:00 Judith Bryant [facility] BASIC METABOLIC PANEL (NA, K, CL, CO2, GLUCOSE, BUN, CREATININE, CA) 2023-05-20 10:31:00 Judith Bryant [facility] CBC WITH DIFF 2023-05-20 10:31:00 Judith Bryant [facility] ENDOSCOPY PROCEDURE DOCUMENTATION 2023-05-20 06:01:00 Doctor Unassigned, [place] [facility] ENDOSCOPY PROCEDURE DOCUMENTATION 2023-05-20 06:01:00 Doctor Unassigned, [place] [facility] MAGNESIUM 2023-05-19 10:55:00 Judith Bryant [facility] BASIC METABOLIC PANEL (NA, K, CL, CO2, GLUCOSE, BUN, CREATININE, CA) 2023-05-19 10:55:00 Judith Bryant [facility] CBC WITH DIFF 2023-05-19 10:55:00 Judith Bryant [facility] MAGNESIUM 2023-05-19 10:55:00 Judith Bryant [facility] BASIC METABOLIC PANEL (NA, K, CL, CO2, GLUCOSE, BUN, CREATININE, CA) 2023-05-19 10:55:00 Judith Bryant [facility] CBC WITH DIFF 2023-05-19 10:55:00 Judith Bryant [facility] CANCER ANTIGEN-GI (CA 19-9) 2023-05-18 21:04:00 Judith Bryant [facility] CARCINOEMBRYONIC ANTIGEN 2023-05-18 21:04:00 Sarai Bryant garrett [place] [facility] CANCER ANTIGEN-GI (CA 19-9) 2023-05-18 21:04:00 Judith Bryant [facility] CARCINOEMBRYONIC ANTIGEN 2023-05-18 21:04:00 Sarai Bryant [facility] BASIC METABOLIC PANEL (NA, K, CL, CO2, GLUCOSE, BUN, CREATININE, CA) 2023-05-18 15:47:00 Judith Bryant [facility] CBC WITH DIFF 2023-05-18 15:47:00 Judith Bryant [facility] BASIC METABOLIC PANEL (NA, K, CL, CO2, GLUCOSE, BUN, CREATININE, CA) 2023-05-18 15:47:00 Judith Bryant [facility] CBC WITH DIFF 2023-05-18 15:47:00 Judith Bryant [facility] PROTHROMBIN TIME / INR 2023-05-18 08:55:00 Blackt javier [facility] PROTHROMBIN TIME / INR 2023-05-18 08:55:00 Blackt javier Tapia [facility] FL MODIFIED BARIUM SWALLOW 2023-05-17 17:31:00 Dharmesh Watt [facility] [place] MODIFIED BARIUM SWALLOW 2023-05-17 17:31:00 Dharmesh Watt [facility] MAGNESIUM 2023-05-17 07:50:00 Judith Bryant [facility] HEPATIC FUNCTION PANEL ([id number]) (ALB,T.PRO,BILI T,BU/BC,ALT,AST,ALK PHOS) 2023-05-17 07:50:00 Willie Jolly [facility] BASIC METABOLIC PANEL (NA, K, CL, CO2, GLUCOSE, BUN, CREATININE, CA) 2023-05-17 07:50:00 Judith Bryant [facility] CBC WITH DIFF 2023-05-17 07:50:00 Judith Bryant [facility] MAGNESIUM 2023-05-17 07:50:00 Judith Bryant [facility] HEPATIC FUNCTION PANEL ([id number]) (ALB,T.PRO,BILI T,BU/BC,ALT,AST,ALK PHOS) 2023-05-17 07:50:00 Mady Jollymad [facility] BASIC METABOLIC PANEL (NA, K, CL, CO2, GLUCOSE, BUN, CREATININE, CA) 2023-05-17 07:50:00 Judith Bryant [facility] CBC WITH DIFF 2023-05-17 07:50:00 Judith Bryant [facility] MR BRAIN W WO CONTRAST 2023-05-17 05:15:00 Sidiq [facility] MR BRAIN W WO CONTRAST 2023-05-17 05:15:00 Cathy [facility] MAGNESIUM 2023-05-17 01:18:00 [facility] BASIC METABOLIC PANEL (NA, K, CL, CO2, GLUCOSE, BUN, CREATININE, CA) 2023-05-17 01:18:00 Willie Jolly [facility] CBC WITH DIFF 2023-05-17 01:18:00 Eren Jolly [facility] MAGNESIUM 2023-05-17 01:18:00 Eren Jolly [facility] BASIC METABOLIC PANEL (NA, K, CL, CO2, GLUCOSE, BUN, CREATININE, CA) 2023-05-17 01:18:00 Willie Jolly [facility] CBC WITH DIFF 2023-05-17 01:18[facility] 2023-05-15 16:39:00 Cathy [facility] ABDOMEN PELVIS W CONTRAST 2023-05-15 16:39:00 Cathy Jose Torres [facility] XR CHEST 1 VW 2023-05-15 16:13:00 Neal Chanel [facility] XR CHEST 1 VW 2023-05-15 16:13:00 Nela Chanel [facility] MAGNESIUM 2023-05-15 09:30:00 Humera Pacheco [facility] BASIC METABOLIC PANEL (NA, K, CL, CO2, GLUCOSE, BUN, CREATININE, CA) 2023-05-15 09:30:00 Tara [facility] CBC WITH DIFF 2023-05-15 09:30:00 Tara [facility] MAGNESIUM 2023-05-15 09:30:00 Humera Pacheco [facility] BASIC METABOLIC PANEL (NA, K, CL, CO2, GLUCOSE, BUN, CREATININE, CA) 2023-05-15 09:30:00 Tara [facility] CBC WITH DIFF 2023-05-15 09:30:00 Tara [facility] XR CHEST 1 VW 2023-05-14 21:38:00 Herbie Mcdonald [facility] XR CHEST 1 VW 2023-05-14 21:38:00 Herbie Mcdonald Alexey [facility] CYTO PLEURAL FLUID 2023-05-14 21:21:00 Akhil Wheeler [facility] CYTO PLEURAL FLUID 2023-05-14 21:21:00 Liam [facility] BODY FLUID (BACTEC BOTTLE) 2023-05-14 21:07:00 Sandip Mullins [facility] WOUND/ASPIRATE OR ABSCESS CULTURE 2023-05-14 21:07:00 Akhil Wheeler [facility] LDH TOTAL BODY FLUID 2023-05-14 21:07:00 Luann Wheeler [facility] GLUCOSE BODY FLUID 2023-05-14 21:07:00 Akhil Wheeler [facility] TRIGLYCERIDE BODY FLUID 2023-05-14 21:07:00 Pat Wheeler [facility] T.PROTEIN BODY FLUID 2023-05-14 21:07:00 Luann Wheeler [facility] BODY FLUID DIRECT COUNT 2023-05-14 21:07:00 Pat [facility] FLOW CYTOMETRY IMMUNOPHENOTYP 2023-05-14 21:07:00 Akhil [facility] ASPIRATE OR ABSCESS CULTURE(AEROBIC/ANAEROBIC) 2023-05-14 21:07:00 Akhil [facility] BODY FLUID (BACTEC BOTTLE) 2023-05-14 21:07:00 Sandip Mullins [facility] WOUND/ASPIRATE OR ABSCESS CULTURE 2023-05-14 21:07:00 Liam [facility] LDH TOTAL BODY FLUID 2023-05-14 21:07:00 Luann [facility] GLUCOSE BODY FLUID 2023-05-14 21:07:00 Liam [facility] TRIGLYCERIDE BODY FLUID 2023-05-14 21:07:00 Pat [facility] T.PROTEIN BODY FLUID 2023-05-14 21:07:00 Luann Wheeler [facility] BODY FLUID DIRECT COUNT 2023-05-14 21:07:00 Pat [facility] FLOW CYTOMETRY IMMUNOPHENOTYP 2023-05-14 21:07:00 Liam [facility] ASPIRATE OR ABSCESS CULTURE(AEROBIC/ANAEROBIC) 2023-05-14 21:07:00 Akhil Wheeler [facility] COVID-19 (MOLECULAR TESTING NUCLEIC ACID AMPLIFICATION) 2023-05-14 20:32:00 Dharmesh Watt [facility] LAB ONLY COVID INTERPRETATION 2023-05-14 20:32:00 Dharmesh Watt [facility] COVID-19 (MOLECULAR TESTING NUCLEIC ACID AMPLIFICATION) 2023-05-14 20:32:00 Alysa Dharmesh [facility] LAB ONLY COVID INTERPRETATION 2023-05-14 20:32:00 Dharmesh Watt [facility] ACTIVATED PARTIAL THRMPLAS MARIA D 2023-05-14 17:01:[facility] MARIA D 2023-05-14 17:01:00 Dharmesh Watt [facility] BLOOD CULTURE SCREEN 2023-05-14 12:41:00 [facility]14 12:41[facility]00 [facility] 2023-05-14 12:34:00 [facility] 2023-05-14 12:34:00 Lala Pacheco [facility] PROTEIN TOTAL 2023-05-14 10:14:00 Akhil Wheeler [facility] MAGNESIUM 2023-05-14 10:14:00 Lala Louis [facility] BASIC METABOLIC PANEL (NA, K, CL, CO2, GLUCOSE, BUN, CREATININE, CA) 2023-05-14 10:14:00 Uzair Louis [facility] CBC WITH DIFF 2023-05-14 10:14:[facility] 2023-05-14 10:14:00 Akhil Wheeler [facility] MAGNESIUM 2023-05-14 10:14:00 Lala Louis [facility] BASIC METABOLIC PANEL (NA, K, CL, CO2, GLUCOSE, BUN, CREATININE, CA) 2023-05-14 10:14:00 Uzair Louis [facility] CBC WITH DIFF 2023-05-14 10:14:00 Lala Louis [facility] MRSA / MSSA SCREEN BY PCRANUPAMA 2023-05-14 03:50:00 Tara [facility] PHOSPHORUS 2023-05-14 03:50:00 Humera Pacheco [facility] LACTATE DEHYDROGENASE 2023-05-14 03:50:00 Tara [facility] MAGNESIUM 2023-05-14 03:50:00 Humera Pacheco [facility] THYROID STIMULATING HORMONE 2023-05-14 03:50:00 Tara [facility] HEPATIC FUNCTION PANEL (58232) (ALB,T.PRO,BILI T,BU/BC,ALT,AST,ALK PHOS) 2023-05-14 03:50:00 Tara [facility] BASIC METABOLIC PANEL (NA, K, CL, CO2, GLUCOSE, BUN, CREATININE, CA) 2023-05-14 03:50:00 Tara [facility] CBC WITH DIFF 2023-05-14 03:50:00 Tara [facility] GLYCOSYLATED HEMOGLOBIN (A1C) 2023-05-14 03:50:00 Tara [facility] PROTHROMBIN TIME / INR 2023-05-14 03:50:00 Tara [facility] ACTIVATED PARTIAL THRMPLAS MARIA D 2023-05-14 03:50:00 Tara [facility] URINALYSIS 2023-05-14 03:50:00 [facility] MRSA / MSSA SCREEN BY PCR, ANUPAMA 2023-05-14 03:50:00 Tara [facility] PHOSPHORUS 2023-05-14 03:50:00 [facility] LACTATE DEHYDROGENASE 2023-05-14 03:50:00 Tara [facility] MAGNESIUM 2023-05-14 03:50:00 [facility] THYROID STIMULATING HORMONE 2023-05-14 03:50:00 Tara [facility] HEPATIC FUNCTION PANEL (53709) (ALB,T.PRO,BILI T,BU/BC,ALT,AST,ALK PHOS) 2023-05-14 03:50:00 Tara [facility] BASIC METABOLIC PANEL (NA, K, CL, CO2, GLUCOSE, BUN, CREATININE, CA) 2023-05-14 03:50:00 Tara [facility] CBC WITH DIFF 2023-05-14 03:50:00 Tara [facility] GLYCOSYLATED HEMOGLOBIN (A1C) 2023-05-14 03:50:00 Tara [facility] PROTHROMBIN TIME / INR 2023-05-14 03:50:00 Tara [facility] ACTIVATED PARTIAL THRMPLAS MARIA D 2023-05-14 03:50:00 Tara [facility] URINALYSIS 2023-05-14 03:50:00 [facility] T[facility]UE NEC[facility] W CONTRAST 2023-05-14 03:07:24 Uzair Louis [facility] CT SOFT TISSUE NECK W CONTRAST 2023-05-14 03:07:24 Uzair Louis [facility] CT CHEST PULMONARY ANGIOGRAM 2023-05-14 03:06:50 Uzair Louis [facility] CT CHEST PULMONARY ANGIOGRAM 2023-05-14 03:06:50 Uzair Louis [facility] Encounters Start Date/Time End Date/Time Encounter Type Admission Type Attending Clinicians Care Facility Care Department Encounter ID Source 2024-02-08 13:00:00 2024-02-08 13:00:00 Outpatient HIMA REICH CHINTAN [facility] [id number] [facility] 2024-02-07 11:15:00 2024-02-07 11:15:00 Outpatient HIMA REICH CHINTAN [facility] [id number] [facility] 2024-01-04 00:00:00 2024-02-05 18:22:12 Patient Secure Msg Doctor Unassigned, [place] Doctor Unassigned, [place] [facility] 1.2.840.114 350.1.13.10 4.2.7.2.686 [id number] [facility] 2024-01-21 00:00:00 2024-01-25 16:08:55 Patient Outreach [facility] 1.2.840.114 350.1.13.10 4.2.7.2.686 [id number] [facility] 2024-01-17 11:15:00 2024-01-17 11:15:00 Outpatient R [facility] [id number] [facility] 2024-01-11 13:00:00 2024-01-11 13:00:00 Outpatient R HIMA LOMBARDO CHINTAN [facility] [id number] [facility] 2024-01-10 11:15:00 2024-01-10 11:15:00 Outpatient R HIMA LOMBARDO CHINTAN [facility] [id number] [facility] 2024-01-06 00:00:00 2024-01-07 09:35:31 [facility] 1.2.840.114 350.1.13.10 4.2.7.2.686 [id number] [id number] [facility] 2024-01-04 10:00:00 2024-01-04 10:00:00 Outpatient R [facility] [id number] [facility] 2024-01-04 00:00:00 2024-01-04 09:23:27 [facility] 1.2.840.114 350.1.13.10 4.2.7.2.686 [id number] [facility] 2023-12-29 09:00:00 2023-12-29 11:47:37 Outpatient R RUDY CA [facility] [id number] [facility] 2023-12-29 09:00:00 2023-12-29 11:47:37 [facility] 1..840.114 350.1.13.10 4.2.7.2.686 [id number] [facility] 2023-11-23 00:00:00 2023-12-25 18:20:25 Patient Secure Msg Doctor Unassigned, [place] Doctor Unassigned, [place] [facility] 1.2.840.114 350.1.13.10 4.2.7.2.686 [id number] [facility] 2023-12-23 12:11:19 2023-12-23 23:59:00 Hospital Encounter [facility] 1.2.840.114 350.1.13.10 4.2.7.2.686 [id number] [facility] 2023-12-23 12:10:58 2023-12-23 12:10:58 Outpatient R HIMA LOMBARDO CHINTAN [facility] [id number] [facility] 2023-12-23 12:10:58 2023-12-23 12:10:58 Hospital Encounter [facility] 1.2.840.114 350.1.13.10 4.2.7.2.686 [id number] [facility] 2023-12-22 12:16:36 2023-12-22 23:59:00 Hospital Encounter [facility] 1.2.840.114 350.1.13.10 4.2.7.2.686 [id number] [facility] 2023-12-17 00:00:00 2023-12-22 14:39:18 Telephone [facility] 1.2.840.114 350.1.13.10 4.2.7.2.686 [id number] [facility] 2023-12-22 12:15:34 2023-12-22 12:15:34 Outpatient R HIMA LOMBARDO CHINTAN [facility] [id number] [facility] 2023-12-22 12:15:34 2023-12-22 12:15:34 Hospital Encounter [facility] 1.2.840.114 350.1.13.10 4.2.7.2.686 [id number] [facility] 2023-12-21 10:30:00 2023-12-21 15:37:59 Outpatient R HIMA LOMBARDO CHINTAN [facility] [id number] [facility] 2023-12-21 10:30:00 2023-12-21 15:37:59 Nurse Visit 9, [facility] In[facility] 9, [facility] In[facility] 1.2.840.114 350.1.13.10 4.2.7.2.686 [id number] 053 [id number] [facility] 2023-12-20 00:00:00 2023-12-21 15:02:22 Case Management [facility] 1.2.840.114 350.1.13.10 4.2.7.2.686 [id number] [facility] 2023-12-21 13:30:00 2023-12-21 13:30:00 Outpatient R MARIANNE TILLEY [facility] [id number] [facility] 2023-12-21 09:30:00 2023-12-21 10:00:43 Office Visit Marianne Tilley BUILDING 1.2.840.114 350.1.13.10 4.2.7.2.686 [id number] [id number] [facility] 2023-12-17 00:00:00 2023-12-17 12:54:54 Case Management [facility] 1.2.840.114 350.1.13.10 4.2.7.2.686 [id number] [facility] 2023-12-17 00:00:00 2023-12-17 12:53:43 Case Management [facility] 1.2.840.114 350.1.13.10 4.2.7.2.686 [id number] [id number] [facility] 2023-12-17 11:30:00 2023-12-17 11:45:00 Punch Card Operator Visit 2, [facility] 2, [facility] 1.2.840.114 350.1.13.10 4.2.7.2.686 [id number] [facility] 2023-12-17 11:30:00 2023-12-17 11:30:00 Outpatient R HIMA LOMBARDO CHINTAN [facility] [id number] [facility] 2023-12-16 09:30:00 2023-12-16 09:30:00 Outpatient R MARIANNE TILLEY [facility] [id number] [facility] 2023-12-14 00:00:00 2023-12-14 22:05:39 Case Management [facility] 1.2.840.114 350.1.13.10 4.2.7.2.686 [id number] [facility] 2023-12-14 11:00:00 2023-12-14 11:00:00 Outpatient R HIMA LOMBARDO CHINTAN [facility] [id number] [facility] 2023-12-13 14:08:36 2023-12-13 23:59:00 Hospital Encounter Marianne Tilley [facility] 1.2.840.114 350.1.13.10 4.2.7.2.686 [id number] [facility] 2023-12-13 14:08:21 2023-12-13 14:07:00 Outpatient R MARIANNE TILLEY [facility] [id number] [facility] 2023-12-13 14:00:00 2023-12-13 14:07:00 Hospital Encounter Jarek Marianne [facility] 1.2.840.114 350.1.13.10 4.2.7.2.686 [id number] [facility] 2023-12-07 00:00:00 2023-12-07 14:50:33 Telephone [facility] 1.2.840.114 350.1.13.10 4.2.7.2.686 [id number] 080 [id number] [facility] 2023-12-07 11:00:00 2023-12-07 11:15:07 Outpatient R HIMA LOMBARDO CHINTAN [facility] [id number] [facility] 2023-12-07 11:00:00 2023-12-07 11:15:07 Office Visit [facility] 1.2.840.114 350.1.13.10 4.2.7.2.686 [id number] 080 [id number] [facility] 2023-12-06 00:00:00 2023-12-06 16:12:35 Patient Outreach Lynn Rodriguez Mary [facility] 1.2.840.114 350.1.13.10 4.2.7.2.686 [id number] [facility] 2023-12-06 00:00:00 2023-12-06 00:00:00 Outpatient R MARIANNE TILLEY [facility] [id number] [facility] 2023-11-26 15:00:00 2023-11-26 15:54:20 Outpatient R HIMA LOMBARDO CHINTAN [facility] [id number] [facility] 2023-11-26 15:00:00 2023-11-26 15:54:20 Nurse Visit 1, [facility] Infusion Chair [facility] 1.2.840.114 350.1.13.10 4.2.7.2.686 [id number] [facility] 2023-11-26 13:11:00 2023-11-26 14:41:00 Emergency X LUKASZ KYLE [facility] [id number] [facility] 2023-11-26 13:11:00 2023-11-26 14:41:00 Emergency Lukasz Kyle [facility] 1.2.840.114 350.1.13.10 4.2.7.2.686 [id number] [facility] 2023-11-26 00:00:00 2023-11-26 12:59:01 Case Management [facility] Lomb[facility] 1.2.840.114 350.1.13.10 4.2.7.2.686 [id number] [id number] [facility] 2023-11-26 11:00:00 2023-11-26 11:15:00 Punch Card Operator Visit [facility] 1.2.840.114 350.1.13.10 4.2.7.2.686 [id number] [facility] 2023-11-25 14:00:00 2023-11-25 14:00:00 Outpatient R HIMA LOMBARDO CHINTAN [facility] [id number] [facility] 2023-11-23 11:00:00 2023-11-23 11:00:00 Outpatient R HIMA LOMBARDO CHINTAN [facility] [id number] [facility] 2023-11-16 14:40:00 2023-11-16 14:44:22 Outpatient R HIMA LOMBARDO CHINTAN [facility] [id number] [facility] 2023-11-16 14:40:00 2023-11-16 14:44:22 Office Visit [facility] 1.840.114 350.1.13.10 4.2.7.2.686 [id number] [facility] 2023-11-12 13:00:00 2023-11-12 13:00:00 Outpatient R [facility] [id number] [facility] 2023-11-09 13:15:00 2023-11-09 13:15:00 Outpatient R [facility] [id number] [facility] 2023-11-08 13:15:00 2023-11-08 13:15:00 Outpatient R [facility] [id number] [facility] 2023-11-04 15:00:00 2023-11-04 16:03:56 Outpatient R HIMA LOMBARDO CHINTAN [facility] [id number] [facility] 2023-11-04 15:00:00 2023-11-04 16:00:00 Nurse Visit 4, [facility] Infusion Chair [facility] 1..114 350.1.13.10 4.2.7.2.686 [id number] [id number] [facility] 2023-11-04 00:00:00 2023-11-04 11:00:56 Case Management [facility] 1.2840.114 350.1.13.10 4.2.7.2.686 [id number] [facility] 2023-11-03 00:00:00 2023-11-03 10:20:35 Patient Outreach Lynn Rodriguez 1.2840.114 350.1.13.10 4.2.7.2.686 [id number] [facility] 2023-11-02 00:00:00 2023-11-03 08:59:10 Patient Outreach Lynn Rodriguez [facility] 1.2.840.114 350.1.13.10 4.2.7.2.686 [id number] [facility] 2023-11-02 11:00:00 2023-11-02 11:15:00 Punch Card Operator Visit [facility] 1.2840.114 350.1.13.10 4.2.7.2.686 [id number] [facility] 2023-11-02 11:00:00 2023-11-02 11:00:00 Outpatient HIMA REICH CHINTAN [facility] [id number] [facility] 2023-10-28 00:00:00 2023-10-28 12:36:43 Case Management [facility] Lomb[facility] 1.2840.114 350.1.13.10 4.2.7.2.686 [id number] 080 [id number] [facility] 2023-10-28 00:00:00 2023-10-28 11:32:19 Patient Outreach Minerva Emery [facility] 1.2.840.114 350.1.13.10 4.2.7.2.686 [id number] [facility] 2023-10-28 11:30:00 2023-10-28 11:30:00 Outpatient HIMA REICH CHINTAN [facility] [id number] [facility] 2023-10-27 00:00:00 2023-10-27 14:14:02 Patient Outreach Lynn Rodriguez [facility] 1.2.840.114 350.1.13.10 4.2.7.2.686 [id number] [facility] 2023-10-26 11:00:00 2023-10-26 11:00:00 Outpatient HIMA REICH CHINTAN [facility] [id number] [facility] 2023-10-13 00:00:00 2023-10-14 11:11:12 Refill [facility] 1.2.840.114 350.1.13.10 4.2.7.2.686 [id number] [facility] 2023-10-11 14:00:00 2023-10-11 14:15:00 Punch Card Operator Visit 2, [facility] 1.2.840.114 350.1.13.10 4.2.7.2.686 [id number] [facility] 2023-10-11 14:00:00 2023-10-11 14:01:35 Outpatient R HIMA LOMBARDO CHINTAN [facility] [id number] [facility] 2023-10-08 00:00:00 2023-10-11 10:21:24 Case Management [facility] 1.2840.114 350.1.13.10 4.2.7.2.686 [id number] [facility] 2023-10-08 00:00:00 2023-10-08 11:28:12 Patient Outreach Lynn Rodriguez 1.2840.114 350.1.13.10 4.2.7.2.686 [id number] [facility] 2023-10-07 10:40:00 2023-10-07 12:12:25 Outpatient R HIMA LOMBARDO CHINTAN [facility] [id number] [facility] 2023-10-07 10:40:00 2023-10-07 12:12:25 [facility] 1.2840.114 350.1.13.10 4.2.7.2.686 [id number] 080 [id number] [facility] 2023-10-07 11:00:00 2023-10-07 12:00:00 Nurse Visit 6, [facility] Infusion Chair Altagracia [facility] 1.2.840.114 350.1.13.10 4.2.7.2.686 [id number] 053 [id number] [facility] 2023-10-05 10:45:00 2023-10-05 11:00:00 Punch Card Operator Visit [facility] 1.2.840.114 350.1.13.10 4.2.7.2.686 [id number] [facility] 2023-10-05 10:45:00 2023-10-05 10:45:00 Outpatient R HIMA LOMBARDO CHINTAN [facility] [id number] [facility] 2023-09-29 00:00:00 2023-09-29 13:30:55 Patient Outreach Minerva Emery 1.2.840.114 350.1.13.10 4.2.7.2.686 [id number] [facility] 2023-09-27 00:00:00 2023-09-27 12:29:15 Patient Outreach Minerva Emery 1.2.840.114 350.1.13.10 4.2.7.2.686 [id number] [facility] 2023-08-20 00:00:00 2023-09-25 18:04:14 Patient Secure MsErendira Byrnes [facility] 1.2.840.114 350.1.13.10 4.2.7.2.686 [id number] 084 [id number] [facility] 2023-09-22 09:30:00 2023-09-22 13:29:29 Outpatient R RUDY CA [facility] [id number] [facility] 2023-09-22 09:30:00 2023-09-22 13:29:29 [facility] 1.2.840.114 350.1.13.10 4.2.7.2.686 [id number] [facility] 2023-09-17 00:00:00 2023-09-20 11:08:07 Danielito Blanca [facility] 1.2.840.114 350.1.13.10 4.2.7.2.686 [id number] 080 [id number] [facility] 2023-09-16 08:00:00 2023-09-16 14:45:35 Nurse Visit 12, [facility] Infusion Chair [facility] 1.2.840.114 350.1.13.10 4.2.7.2.686 [id number] 053 [id number] [facility] 2023-09-16 08:00:00 2023-09-16 14:45:35 Outpatient R HIMA LOMBARDO CHINTAN [facility] [id number] [facility] 2023-09-16 00:00:00 2023-09-16 08:08:01 Case Management [facility] 1.2.840.114 350.1.13.10 4.2.7.2.686 [id number] [facility] 2023-09-15 00:00:00 2023-09-15 15:11:23 Patient Outreach Lynn Rodriguez 1.2.840.114 350.1.13.10 4.2.7.2.686 [id number] [facility] 2023-09-15 14:30:00 2023-09-15 15:03:04 Outpatient R ERENDIRA CLEMENT [facility] [id number] [facility] 2023-09-15 14:30:00 2023-09-15 15:03:04 Punch Card Operator Visit 2, [facility] Erendira Clement [facility] JAYDEN [facility] BU[facility] 1..114 350.1.13.10 4.2.7.2.686 [id number] [facility] 2023-09-14 00:00:00 2023-09-14 11:32:48 Patient Outreach Lynn Rodriguez 1..114 350.1.13.10 4.2.7.2.686 [id number] [facility] 2023-09-14 00:00:00 2023-09-14 10:18:18 Case Management [facility] 1.114 350.1.13.10 4.2.7.2.686 [id number] [facility] 2023-09-14 08:45:00 2023-09-14 08:45:00 Outpatient R HIMA LOMBARDO CHINTAN [facility] [id number] [facility] 2023-08-09 00:00:00 2023-09-11 18:09:12 Patient Secure Msg Doctor Unassigned, [place] [facility] 1.114 350.1.13.10 4.2.7.2.686 [id number] [id number] [facility] 2023-09-10 10:30:00 2023-09-10 10:30:00 Outpatient R OSEI LOMBARDO SHIWAN [facility] [id number] [facility] 2023-09-09 10:40:00 2023-09-09 11:02:09 Outpatient R HIMA LOMBARDO CHINTAN [facility] [id number] [facility] 2023-09-09 10:40:00 2023-09-09 11:02:09 Office Visit [facility] 1..114 350.1.13.10 4.2.7.2.686 [id number] 080 [id number] [facility] 2023-09-07 00:00:00 2023-09-07 15:10:45 Patient Outreach Lynn Rodriguez 1.2.840.114 350.1.13.10 4.2.7.2.686 [id number] [facility] 2023-09-07 10:00:00 2023-09-07 10:00:00 Outpatient R RUDY CA [facility] [id number] [facility] 2023-07-30 00:00:00 2023-09-04 18:09:43 Patient Secure Msg Doctor Unassigned, [place] [facility] 1.2840.114 350.1.13.10 4.2.7.2.686 [id number] [facility] 2023-08-24 08:19:35 2023-08-24 23:59:00 Hospital Encounter [facility] 1.840.114 350.1.13.10 4.2.7.2.686 [id number] [facility] 2023-08-24 08:18:48 2023-08-24 08:18:48 Outpatient R HIMA LOMBARDO CHINTAN [facility] [id number] [facility] 2023-08-24 08:18:48 2023-08-24 08:18:48 Hospital Encounter [facility] 1.840.114 350.1.13.10 4.2.7.2.686 [id number] [facility] 2023-08-23 11:30:00 2023-08-24 07:44:51 Outpatient R HIMA LOMBARDO CHINTAN [facility] [id number] [facility] 2023-08-23 11:30:00 2023-08-23 16:00:00 Nurse Visit 1, [facility] Infusion Chair [facility] 1.2.840.114 350.1.13.10 4.2.7.2.686 [id number] [facility] 2023-08-23 00:00:00 2023-08-23 11:50:34 Patient Outreach Minerva Emery 1.2.840.114 350.1.13.10 4.2.7.2.686 [id number] [facility] 2023-08-20 10:30:00 2023-08-20 11:00:00 [facility] 1.2.840.114 350.1.13.10 4.2.7.2.686 [id number] [facility] 2023-08-20 09:15:00 2023-08-20 09:30:00 Punch Card Operator [facility] 1.2840.114 350.1.13.10 4.2.7.2.686 [id number] [facility] 2023-08-20 09:15:00 2023-08-20 09:15:00 Outpatient R HIMA LOMBARDO CHINTAN [facility] [id number] [facility] 2023-08-20 00:00:00 2023-08-20 00:00:00 Patient Outreach Minerva Emery 1.2.840.114 350.1.13.10 4.2.7.2.686 [id number] [facility] 2023-08-20 00:00:00 2023-08-20 00:00:00 Patient Outreach Minerva Emery 1.2.840.114 350.1.13.10 4.2.7.2.686 [id number] [facility] 2023-08-19 00:00:00 2023-08-19 00:00:00 Patient Outreach Lynn Rodriguez 1.2.840.114 350.1.13.10 4.2.7.2.686 [id number] [facility] 2023-08-18 00:00:00 2023-08-18 00:00:00 Patient Outreach Minerva Emery 1.2.840.114 350.1.13.10 4.2.7.2.686 [id number] [facility] [facility]:00 2023-08-17 00:00:00 Patient Outreach Lynn Rodriguez 1.2.840.114 350.1.13.10 4.2.7.2.686 [id number] 403 [id number] [facility] 2023-08-17 00:00:00 2023-08-17 00:00:00 Patient Outreach Minerva Emery 1.2.840.114 350.1.13.10 4.2.7.2.686 [id number] 403 [id number] [facility] 2023-08-16 00:00:00 2023-08-16 00:00:00 Patient Outreach Minerva Emery 1.2.840.114 350.1.13.10 4.2.7.2.686 [id number] 403 [id number] [facility] 2023-08-16 00:00:00 2023-08-16 00:00:00 Patient Outreach Lynn Rodriguez 1.2.840.114 350.1.13.10 4.2.7.2.686 [id number] [facility] 2023-08-16 00:00:00 2023-08-16 00:00:00 Patient Outreach Minerva Emery [facility] 1.2.840.114 350.1.13.10 4.2.7.2.686 [id number] 403 [id number] [facility] 2023-08-11 13:00:00 2023-08-11 13:00:00 [facility] 1.2.840.114 350.1.13.10 4.2.7.2.686 [id number] [facility] 2023-08-11 00:00:00 2023-08-11 00:00:00 Outpatient R HIMA LOMBARDO CHINTAN [facility] [id number] [facility] 2023-08-10 00:00:00 2023-08-10 00:00:00 Patient Outreach EmeryMinerva green [place] 1.2.840.114 350.1.13.10 4.2.7.2.686 [id number] [facility] 2023-08-10 00:00:00 2023-08-10 00:00:00 Telephone Osei Lombardo [facility] 1.2.840.114 350.1.13.10 4.2.7.2.686 [id number] [facility] 2023-08-06 00:00:00 2023-08-06 00:00:00 Patient Outreach Minerva Emery [place] 1.2.840.114 350.1.13.10 4.2.7.2.686 [id number] 403 [id number] [facility] 2023-08-06 00:00:00 2023-08-06 00:00:00 Patient Outreach Minerva Emery [place] 1.2.840.114 350.1.13.10 4.2.7.2.686 [id number] [facility] 2023-08-05 10:00:00 2023-08-05 10:45:00 Patient Outreach Minerva Emery 1.2840.114 350.1.13.10 4.2.7.2.686 [id number] [facility] 2023-08-05 10:00:00 2023-08-05 10:30:00 Patient Outreach Lynn Rodriguez 1.2840.114 350.1.13.10 4.2.7.2.686 [id number] [facility] 2023-08-04 13:00:00 2023-08-04 13:00:00 Outpatient R [facility] [id number] [facility] 2023-08-02 08:00:00 2023-08-02 15:43:13 Outpatient R YUMIKO HESS ROHIT [facility] [id number] [facility] 2023-08-02 08:00:00 2023-08-02 15:43:13 Nurse Visit 12, [facility] Infusion Chair Yumiko Hess [facility] 1.0.114 350.1.13.10 4.2.7.2.686 [id number] [facility] 2023-08-02 00:00:00 2023-08-02 00:00:00 Patient Outreach Lynn Rodriguez 1.2840.114 350.1.13.10 4.2.7.2.686 [id number] 403 [id number] [facility] 2023-08-02 00:00:00 2023-08-02 00:00:00 Case Management [facility]ima Lombardo [facility] 1.2840.114 350.1.13.10 4.2.7.2.686 [id number] [facility] 2023-07-30 12:30:00 2023-07-30 13:00:00 Patient Outreach Lynn RodriguezLg LEVINE [facility] 1.2840.114 350.1.13.10 4.2.7.2.686 [id number] [facility] 2023-07-30 08:30:00 2023-07-30 08:31:45 Outpatient R DESHAWN YUMIKODEISI DELAROSADESHAWN, ROHIT [facility] [id number] [facility] 2023-07-30 08:30:00 2023-07-30 08:31:45 Punch Card Operator Visit 2, [facility] 1.2.840.114 350.1.13.10 4.2.7.2.686 [id number] [facility] 2023-07-29 10:00:00 2023-07-29 10:40:00 Office Visit [facility] 1.2840.114 350.1.13.10 4.2.7.2.686 [id number] [facility] 2023-07-29 10:00:00 2023-07-29 10:00:00 Outpatient R HIMA LOMBARDO CHINTAN [facility] [id number] [facility] 2023-07-29 00:00:00 2023-07-29 00:00:00 Patient Outreach Minerva Emery 1.2840.114 350.1.13.10 4.2.7.2.686 [id number] [facility] 2023-07-29 00:00:00 2023-07-29 00:00:00 Patient Outreach Minerva Emery [facility] 1.2840.114 350.1.13.10 4.2.7.2.686 [id number] 403 [id number] [facility] 2023-07-28 00:00:2023-07-28 00:00:00 Case Management [facility] Lombardo [facility] 1.2.840.114 350.1.13.10 4.2.7.2.686 [id number] 053 [id number] [facility] 2023-07-28 00:00:00 2023-07-28 00:00:00 Patient Outreach Lynn Rodriguez [facility] 1.2.840.114 350.1.13.10 4.2.7.2.686 [id number] [facility] 2023-07-27 00:00:00 2023-07-27 00:00:00 Patient Outreach Lynn RodriguezIsrael [facility] 1.2.840.114 350.1.13.10 4.2.7.2.686 [id number] [facility] 2023-07-23 00:00:00 2023-07-23 00:00:00 Patient Outreach Minerva EmeryIsrael [place] 1.2.840.114 350.1.13.10 4.2.7.2.686 [id number] 403 [id number] [facility] 2023-06-26 16:58:00 2023-07-12 17:02:00 Inpatient X NOY MALCOLM [facility] [id number] [facility] 2023-07-09 00:00:00 2023-07-09 00:00:00 Patient Outreach Lynn RodriguezIsrael [place] 1.2.840.114 350.1.13.10 4.2.7.2.686 [id number] [facility] 2023-07-07 00:00:00 2023-07-07 00:00:00 Patient Outreach Lynn RodriguezLg LEVINE [place]AS[place]I 1.2.840.114 350.1.13.10 4.2.7.2.686 [id number] [facility] 2023-06-28 17:04:00 2023-06-28 19:20:00 Anesthesia Event Lucia Suggs Betty Carmeni [facility] 1.2.840.114 350.1.13.10 4.2.7.2.686 [id number] [facility] 2023-06-28 15:51:00 2023-06-28 19:07:00 Surgery Osei Lombardo [facility] 1.2.840.114 350.1.13.10 4.2.7.2.686 [id number] [facility] 2023-06-28 00:00:00 2023-06-28 00:00:00 Patient Outreach Minerva Emery 1.2.840.114 350.1.13.10 4.2.7.2.686 [id number] [facility] 2023-06-23 00:00:00 2023-06-23 00:00:00 Patient Outreach Minerva Emery 1.2.840.114 350.1.13.10 4.2.7.2.686 [id number] [facility] 2023-06-21 00:00:00 2023-06-21 00:00:00 Patient Outreach Minerva Emery 1.2.840.114 350.1.13.10 4.2.7.2.686 [id number] [facility] 2023-06-18 00:00:00 2023-06-18 00:00:00 Patient Outreach Minerva Emery 1.2.840.114 350.1.13.10 4.2.7.2.686 [id number] [facility] 2023-06-17 00:00:00 2023-06-17 00:00:00 Patient Outreach Minerva Emery 1.2.840.114 350.1.13.10 4.2.7.2.686 [id number] [facility] 2023-06-15 00:00:00 2023-06-15 00:00:00 Telephone Altagracia Aimeelg [facility] 1.2.840.114 350.1.13.10 4.2.7.2.686 [id number] [facility] 2023-06-14 00:00:00 2023-06-14 00:00:00 Telephone Moe Byers [facility] 1.2.840.114 350.1.13.10 4.2.7.2.686 [id number] [facility] 2023-06-11 00:00:00 2023-06-11 00:00:00 Patient Outreach Minerva Emery 1.2.840.114 350.1.13.10 4.2.7.2.686 [id number] [facility] 2023-06-09 00:00:00 2023-06-09 00:00:00 Patient Outreach Lynn Rodriguez 1.2.840.114 350.1.13.10 4.2.7.2.686 [id number] [facility] 2023-06-08 00:00:00 2023-06-08 00:00:00 Case Management Jennyfer Maynard [facility] 1.2.840.114 350.1.13.10 4.2.7.2.686 [id number] [facility] 2023-06-07 11:45:00 2023-06-07 12:45:00 Patient Outreach Lynn Rodriguez 1.2.840.114 350.1.13.10 4.2.7.2.686 [id number] [facility] 2023-06-07 11:30:00 2023-06-07 12:15:00 Patient Outreach Emery, Minerva DEANNE LEVINE [place] 1.2.840.114 350.1.13.10 4.2.7.2.686 [id number] [facility] 2023-06-07 00:00:00 2023-06-07 00:00:00 Patient Outreach Manish Gilbert 1.2.840.114 350.1.13.10 4.2.7.2.686 [id number] [facility] 2023-06-03 00:00:00 2023-06-03 00:00:00 Patient Outreach Fatuma Price [facility] 1.2840.114 350.1.13.10 4.2.7.2.686 [id number] [facility] 2023-06-03 00:00:00 2023-06-03 00:00:00 Case Management Osei Lombardo [facility] 1.2.840.114 350.1.13.10 4.2.7.2.686 [id number] [id number] [facility] 2023-06-03 00:00:00 2023-06-03 00:00:00 Patient Outreach Emery, Minerva DEANNE LEVINE [place] 1.2840.114 350.1.13.10 4.2.7.2.686 [id number] [facility] 2023-06-02 00:00:00 2023-06-02 00:00:00 Telephone Ry [facility] 1.2840.114 350.1.13.10 4.2.7.2.686 [id number] [id number] [facility] 2023-06-02 00:00:00 2023-06-02 00:00:00 Case Management Ry [facility] 1.2.840.114 350.1.13.10 4.2.7.2.686 [id number] [facility] 2023-05-26 00:00:00 2023-05-26 00:00:00 Telephone Jose Manuel Huynh [facility] 1.2.840.114 350.1.13.10 4.2.7.2.686 [id number] [id number] [facility] 2023-05-26 00:00:00 2023-05-26 00:00:00 Orders Only Doctor Unassigned, [place] [facility] 1.2.840.114 350.1.13.10 4.2.7.2.686 [id number] [facility] 2023-05-25 00:00:00 2023-05-25 00:00:00 Transition of Care GarciaVirgen arriazaDiana DUSTINLg [facility]IL[facility] 1.2.840.114 350.1.13.10 4.2.7.2.686 [id number] [facility] 2023-05-25 00:00:00 2023-05-25 00:00:00 Patient Outreach Lynn Rodriguez DEANNE [facility] 1.2.840.114 350.1.13.10 4.2.7.2.686 [id number] [facility] 2023-05-24 00:00:00 2023-05-24 00:00:00 Transition of Care Diana Garcia DEANNE LEVINEIsrael [facility] 1.2.840.114 350.1.13.10 4.2.7.2.686 [id number] [facility] 2023-05-13 20:15:00 2023-05-21 16:35:00 Hospital Encounter [facility] 1.2.840.114 350.1.13.10 4.2.7.2.686 [id number] [facility] 2023-05-13 20:15:00 2023-05-21 16:35:00 Inpatient ERENDIRA CHILDRESS [facility] [id number] [facility] 2023-05-20 09:00:00 2023-05-20 10:08:00 Surgery Sung Bautista [facility] 1.2.840.114 350.1.13.10 4.2.7.2.686 [id number] [facility] Results Test Description Test Time Test Comments Results Result Comments Source MR LUMBAR SPINE W WO CONTRAST 22:31:49 MR CERVICAL SPINE W WO CONTRAST, MR LUMBAR SPINE W WO CONTRAST HISTORY: 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 TECHNIQUE: Multiplanar multisequence MRI cervical and lumbar spines wasperformed with and without extrusion of IV contrast. FINDINGS: Slight reversal of the normal cervical curvature. The vertebral bodies arenormal in height and in normal alignment. The cervical cord is normal incaliber and demonstrates normal signal intensity.No focus of abnormal cordenhancement is present. The background marrow signal is unremarkable. T1 hypo-/T2 isointenseenhancing lesions involving the anterior arch of C1, C5 vertebral body, W0hlldyub process represent metastatic lesions. Modic type II degenerativechanges are noted at C6-C7. Disc desiccation is associated with mild discheight loss at this level. C2/C3: Right facet arthrosis result in mild right and no left neuralforaminal narrowing. No significant spinal canal stenosis. C3/C4: No significant spinal canal stenosis or neural foraminal narrowing. C4/C5: Posterior disc osteophyte complex, facet and uncovertebral arthrosisresult in mild spinal canal stenosis, moderate right and no left neuralforaminal narrowing. C5/C6: No significant spinal canal stenosis or neural foraminal narrowing. C6/C7: Posterior disc osteophyte complex, bilateral facet and uncovertebralarthrosis result in no significant spinal canal stenosis and mild bilateralneural foraminal narrowing. C7/T1: No significant spinal canal stenosis or neural foraminal narrowing. Partially visualized enhancing T1/T2 isointense lesion involving theposterior elements of C4 vertebra is best evaluated on MRI thoracic spinedated 12/22/2023. T1 isointense left upper lobe masses partially visualized. LUMBAR SPINE: The lumbar curvature is normal. Grade 1 anterior listhesis of L5 over S1with chronic bilateral L5 pars interarticularis defects. The vertebralbodies are normal in height. The conus medullaris terminates at the levelof L1. The cauda equina nerve roots are unremarkable. No enhancement isseen within the conus or along the cauda equina. The background marrow signal is unremarkable. Disc desiccation is noted atL4-L5/L5-S1 with associated mild to moderate disc height loss. Partiallyimaged T12 vertebral body T1 hypo-/T2 isointense enhancing lesion is bestevaluated on MR thoracic spine dated 12/22/2023. Additional T1 hypo-/P1pdlwujrods enhancing lesions involving the iliac bones bilaterally. Thesedemonstrate early extraosseous extension into the adjacent musculature. At L5-S1, spondylolisthesis results in uncovering of the intervertebraldisc. Spondylolisthesis and disc height loss at this level result in nosignificant spinal canal stenosis and moderate to severe bilateral neuralforaminal narrowing, more pronounced on the left. 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 TECHNIQUE: Multiplanar multisequence MRI cervical and lumbar spines wasperformed with and without extrusion of IV contrast. FINDINGS: Slight reversal of the normal cervical curvature. The vertebral bodies arenormal in height and in normal alignment. The cervical cord is normal incaliber and demonstrates normal signal intensity.No focus of abnormal cordenhancement is present. The background marrow signal is unremarkable. T1 hypo-/T2 isointenseenhancing lesions involving the anterior arch of C1, C5 vertebral body, R2dnzpgcr process represent metastatic lesions. Modic type II degenerativechanges are noted at C6-C7. Disc desiccation is associated with mild discheight loss at this level. C2/C3: Right facet arthrosis result in mild right and no left neuralforaminal narrowing. No significant spinal canal stenosis. C3/C4: No significant spinal canal stenosis or neural foraminal narrowing. C4/C5: Posterior disc osteophyte complex, facet and uncovertebral arthrosisresult in mild spinal canal stenosis, moderate right and no left neuralforaminal narrowing. C5/C6: No significant spinal canal stenosis or neural foraminal narrowing. C6/C7: Posterior disc osteophyte complex, bilateral facet and uncovertebralarthrosis result in no significant spinal canal stenosis and mild bilateralneural foraminal narrowing. C7/T1: No significant spinal canal stenosis or neural foraminal narrowing. Partially visualized enhancing T1/T2 isointense lesion involving theposterior elements of C4 vertebra is best evaluated on MRI thoracic spinedated 12/22/2023. T1 isointense left upper lobe masses partially visualized. LUMBAR SPINE: The lumbar curvature is normal. Grade 1 anterior listhesis of L5 over S1with chronic bilateral L5 pars interarticularis defects. The vertebralbodies are normal in height. The conus medullaris terminates at the levelof L1. The cauda equina nerve roots are unremarkable. No enhancement isseen within the conus or along the cauda equina. The background marrow signal is unremarkable. Disc desiccation is noted atL4-L5/L5-S1 with associated mild to moderate disc height loss. Partiallyimaged T12 vertebral body T1 hypo-/T2 isointense enhancing lesion is bestevaluated on MR thoracic spine dated 12/22/2023. Additional T1 hypo-/M7pryherctaj enhancing lesions involving the iliac bones bilaterally. Thesedemonstrate early extraosseous extension into the adjacent musculature. At L5-S1, spondylolisthesis results in uncovering of the intervertebraldisc. Spondylolisthesis and disc height loss at this level result in nosignificant spinal canal stenosis and moderate to severe bilateral neuralforaminal narrowing, more pronounced on the left. [facility] MR BRAIN W WO CONTRAST 20:29:10 MR BRAIN W WO CONTRAST COMPARISON: MRI brain dated 05/16/2023. HISTORY: non small cell lung cancer; staging. TECHNIQUE: Multiplanar multisequence MRI brain with and withoutadministration of IV contrast was performed. FINDINGS: The ventricles and cerebral sulci are normal in caliber and configuration.No midline shift, hydrocephalus or pathological extra-axial fluidcollection is present. The basal cisterns are unremarkable. No restricted diffusion is present to suggest acute infarct. Small chronicinfarct in the left postcentral gyrus. Scattered deep white matter andperiventricular T2/FLAIR hyperintensities, nonspecific, likely sequelae ofminimal ischemic microvascular disease. No abnormal gradient blooming. Noabnormal parenchymal enhancement. There is a new T2 hyperintense enhancing lesion measuring approximately 10mm in the right parietal bone. The T2 flow voids for the major intracranial vessels are unremarkable. Noabnormal fluid signal is present in the mastoid air cells or paranasal airsinuses. [facility] MR THORACIC SPINE W WO CONTRAST 19:59:21 EXAM: MR THORACIC SPINE W WO CONTRAST HISTORY: back pain, neck pain. non small cell lung cancer. with vertebralmetastasis TECHNIQUE: MRI of thoracic spine was performed on 1.5 Rissa before andafter intravenous administration of contrast. COMPARISON: PET CT scan dated . FINDINGS: Normal thoracic kyphosis. Thoracic dextroscoliosis noted. The vertebralbodies are normal in height and alignment. An expansile enhancing T1/T2 isointense lesion is involving the C4 pedicle,transverse process, lamina on the left side with extension into the spinousprocess. Extension into the epidural space with mild narrowing of thespinal canal noted. Enhancing lesions with STIR hyperintensity is noted in T10 and P79xvacbkjsf body likely representing additional metastasis. Focal abnormalenhancement of the right T8 rib which correlates to abnormal uptake andlytic lesion on the comparison PET CT scan. The thoracic spinal cord is normal in morphology and signal intensity. Thoracic discs are normal in height and signal intensity. No posterior discherniation, high-grade spinal canal stenosis or significant neuralforaminal narrowing. Partially imaged hilar and mediastinal mass and left lung collapse withloculated pleural effusion. [facility] Lkbsi3785-12-31 14:10:26* Test Item Value Reference Range Interpretation Comme nts LACTIC ACID (test code = 1412811657) 2.91 mmol/L 0.50-2.20 H QUES Lab Interpretation (test cod e = 07146-2) [facility]normal [facility] + Lactic Aagn2540-17-12 07:44:16* Test Item Value Reference Range Interpretation Comme nts PH (test code = 2) 7.41 7.35-7.45 PCO2 (test code = 9894167931) 44 35-45 PO2 (test code = 7978058368) 121 80-100 H HCO3 (test code = 7686876996) 27 22-26 H BE (test code = 9713767903) 2.0 -3.0-3.0 THB (test code = 3247905050) 10.0 g/dL 13.5-18.0 L %O2HB (test code = 8172852811) 98.2 % 94.0-99.0 %COHB ART (test code = 2662604650) 0.3 % 0.0-1.5 %METHB ART (test code = 3299799764) 0.1 % 0.4-1.5 L VOL%O2 ART (test code = 4976018129) 14.0 % 15.0-23.0 L NA (test code = 7876520873) 132 mmol/L 135-145 L K+ (test code = 3516384126) 5.1 mmol/L 3.5-5.0 H AC CA IONZ (test code = 5364585048) 5.70 mg/dL 4.50-5.30 H GLUCOSE (test code = 7342686458) 182 mg/dL 70-110 H LACTIC ACID (test code = 0403760614) 3.35 mmol/L 0.50-2.20 H QUES Lab Interpretation (test cod e = 51695-9) Abnormal [facility] Arterial Blood Gas.2023-06-29 03:37:55* Test Item Value Reference Range Interpretation Comme nts PH (test code = 2) 7.45 7.35-7.45 PCO2 (test code = 5534616262) 41 35-45 PO2 (test code = 6095652751) 85 80-100 QUES HCO3 (test code = 4203177115) 28 22-26 H BE (test code = 4448863019) 3.4 -3.0-3.0 H Lab Interpretation (test cod e = 65557-1) Abnormal [facility] Hospital[facility] CHEST 1 [id number] 03:09:11EXAM: XR CHEST 1 VW COMPARISON: 05/15/2023. CT 04/27/2023 HISTORY: codeResolute [facility] HospitalIntubation2024-03-11 22:34:00Betty Reece MD ? ? 06/28/2023 ?8:12 PMIntubationDate/Time: 06/28/2023 5:34 PMUrgency: emergent Airway not difficult General Information and Staff Patient location during procedure: ORPerformed: resident/COUNTER STITCHER Performed by: Betty Reece MDAuthorized by: Betty Reece MD ? Consent for Airway (if performed for an anesthetic, see related documentation for consents)Consent: The procedure was performed in an emergent situation. Verbal consent obtained. Written consent obtained.Risks and benefits: risks, benefits and alternatives were discussedConsent given by: patient Indications and Patient ConditionIndications for airway management: anesthesiaSpontaneous ventilation: presentSedation level: deepPreoxygenated: yesPatient position: sniffingMILS maintained throughoutMask difficulty assessment: 0 - not attempted Final Airway DetailsFinal airway type: endotracheal airway Successful airway: ETTCuffed: yes Successful intubation technique: video laryngoscopyFacilitating devices/methods: intubating styletEndotracheal tube insertion site: oralBlade: MacintoshBlade size: #3ETT s ize (mm): 8.0Cormack-Lehane Classification: grade I - full view of glottisPlacement verified by: chest auscultation and capnometry Measured from: gumsETT to gums (cm): 24Number of attempts at approach: 1Ventilation between attempts: noneNumber of other approaches attempted: 0 Additional CommentsSmooth, atraumatic, dentition and lips unchanged from pre-op.[facility] HospitalIntubation2024-03-11 22:34:00Betty Reece MD ? ? 06/28/2023 ?8:12 PMIntubationDate/Time: 06/28/2023 5:34 PMUrgency: emergent Airway not difficult General Information and Staff Patient location during procedure: ORPerformed: resident/COUNTER STITCHER Performed by: Betty Reece MDAuthorized by: Betty Reece MD ? Consent for Airway (if performed for an anesthetic, see related documentation for consents)Consent: The procedure was performed in an emergent situation. Verbal consent obtained. Written consent obtained.Risks and benefits: risks, benefits and alternatives were discussedConsent given by: patient Indications and Patient ConditionIndications for airway management: anesthesiaSpontaneous ventilation: presentSedation level: deepPreoxygenated: yesPatient position: sniffingMILS maintained throughoutMask difficulty assessment: 0 - not attempted Final Airway DetailsFinal airway type: endotracheal airway Successful airway: ETTCuffed: yes Successful intubation technique: video laryngoscopyFacilitating devices/methods: intubating styletEndotracheal tube insertion site: oralBlade: MacintoshBlade size: #3ETT s ize (mm): 8.0Cormack-Lehane Classification: grade I - full view of glottisPlacement verified by: chest auscultation and capnometry Measured from: gumsETT to gums (cm): 24Number of attempts at approach: 1Ventilation between attempts: noneNumber of other approaches attempted: 0 Additional CommentsSmooth, atraumatic, dentition and lips unchanged from pre-op.[facility] HospitalHcv Ozjpxzlh9280-32-17 22:25:15* Test Item Value Reference Range Interpretation Comme nts HCV Ab (test code = 06211-4) Negative HCV Semi-Quantitative (test code = 50536-7) 0.01 [facility] HospitalArterial [id number] 22:19:00Betty Reece MD ? ? 06/28/2023 ?8:11 PM Arterial Line Date/Time: 06/28/2023 5:19 PM Performedby: Betty Reece MDArterial Line Placement: ?Ultrasound-Guided: ultrasound guided and surface landmarks ? ?Indication: continuous blood pressure monitoring and blood sampling needed ?Staff: ?Supervising Anesthesiologist: ?Betty Reece MD ?Resident: ?Phong Mohan, MDProcedure Detail:?Catheter Size: ?20 gauge ?Catheter Length: ?1 and 1/4 inch ?Catheter Type: ?Arrow ?Seldinger Technique?: Yes ? ?Laterality: ?Right ?Site: ?Radial artery ?Line Secured: ?Tape, Tegaderm and biopatch ?Preparation: ?Chloroprep, sterile gloves, guidewire removed intact, biopatch applied and drapeEvents: ?Events: ?Patient tolerated procedure well with no complications and all wires accounted forComments: ? (+) Local infiltration with Lidocaine, STF, smooth and atraumatic. [facility] BranchArterial Cter6180-11-12 22:19:00Betty Reece MD ? ? 06/28/2023 ?8:11 PM Arterial Line Date/Time: 06/28/2023 5:19 PM Performedby: Betty Reece MDArtsierra vista hospitalrebecca Line Placement: ?Ultrasound-Guided: ultrasound guided and surface landmarks ? ?Indication: continuous blood pressure monitoring and blood sampling needed ?Staff: ?Supervising Anesthesiologist: ?Betty Reece MD ?Resident: ?Phong Mohan, MDProcedure Detail:?Catheter Size: ?20 gauge ?Catheter Length: ?1 and 1/4 inch ?Catheter Type: ?Arrow ?Seldinger Technique?: Yes ? ?Laterality: ?Right ?Site: ?Radial artery ?Line Secured: ?Tape, Tegaderm and biopatch ?Preparation: ?Chloroprep, sterile gloves, guidewire removed intact, biopatch applied and drapeEvents: ?Events: ?Patient tolerated procedure well with no complications and all wires accounted forComments: ? (+) Local infiltration with Lidocaine, STF, smooth and atraumatic. [facility] HospitalTransthoracic echo (TTE)2023-06-28 20:31:20* Test Item Value Reference Range Interpretation Comme nts Height (test code = 0392675278) 68 in Weight (test code = 0942651494) 160 lbs Systolic BP (test code = 8255789519) 127 mmHg Diastolic BP (test code = 6776607421) 78 mmHg Heart Rate (test code = 8814842243) 114 bpm LVOT stroke volume (test code = 1368814165) 50.80 cm3 EF(Teich) (test code = 7189859078) 67.20 % LVIDD (test code = 3144032637) 4.10 cm LVIDS (test code = 9106054291) 2.60 cm Left Ventricular End Systolic Volume by Teichholz Method (test code = 2707865) 24.8 mL Left Ventricular End Diastolic Volume by Teichholz Method (test code = 1241682) 75.4 mL IVS (test code = 0529518970) 0.98 cm LVPWD (test code = 8136223902) 0.96 cm LVOT diameter (test code = 5013472852) 2.05 cm LVOT area (test code = 4018414551) 3.30 cm2 FS (test code = 2368755814) 37 % MV Peak E Alexi (test code = 7368384871) 117.4 cm/s MV Peak A Alexi (test code = 0311958831) 102.9 cm/s E/A ratio (test code = 9514760125) 1.14 ratio E wave decelartion time (test code = 2097803922) 0.08 s MV E/e' septal (test code = 6314017914) 10.7 cm/s LVOT peak alexi (test code = 2262003781) 89.3 cm/s LVOT mn grad (test code = 6092158494) 1.7 mmHg BSA (test code = 0094057087) 1.86 m2 LA size (test code = 5429066299) 3.3 cm LAV(MOD-sp4) (test code = 0994478296) 13.60 mL Tapse (test code = 7594473533) 3.4 cm AV LVOT peak gradient (test code = 5792348707) 3.2 mmHg LVOT peak VTI (test code = 7149014412) 15.5 cm LV V1 mean (test code = 1824893625) 61.80 cm/s MV Prop V (test code = 4956265320) 44.10 cm/s Ao root diam (test code = 9563807769) 3.20 cm Aortic root (test code = 9867688983) 3.2 cm Ao root annulus (test code = 3033479517) 3.2 cm PW (test code = 2968601841) 0.96 cm 0.6-1.1 EF - 2D (test code = 13247016) 67.20 % Interventricular Septum Diastolic Thickness by 2D (test code = 0921039) 0.98 cm A4C EF (test code = 0752213176) 84.30 % EF(sp4-el) (test code = 0541255269) 84.40 % SV(MOD-sp4) (test code = 2279372368) 71.80 mL SV(sp4-el) (test code = 3003435365) 73.80 mL LV Diastolic Volume (BP) (test code = 2206194061) 78.4 mL A2C EF (test code = 4819372891) 60.80 % EF(MOD-bp) (test code = 0169500812) 76.60 % EF(sp2-el) (test code = 7984649130) 61.60 % LV Systolic Volume (BP) (test code = 2340585530) 18.3 mL SV(MOD-bp) (test code = 3111114799) 60.10 mL SV(MOD-sp2) (test code = 9956611882) 39.90 mL EF (test code = 8013425155) 77 Left Ventricular Stroke Volume by 2-D Biplane-MOD (test code = 4409601) 60.1 mL LA Volume Index (BP) (test code = 3891240111) 8.4 mL/m2 LA volume (BP) (test code = 6293320411) 15.6 mL LAV(MOD-sp2) (test code = 9389490728) 15.30 mL LV Diastolic Volume Index (BP) (test code = 2436973722) 42.2 mL/m2 LV Systolic Volume Index (BP) (test code = 9590185130) 9.8 mL/m2 Radiology Study observation (narrative) (test code = 03436-1) NIYAH (test code = NIYAH) ?Left?Ventricle: Left ventricle size is normal. Normal wall thickness. Normal wall motion. Hyperdynamic systolic function with a visually estimated EF of greater than 65%. EF by 2D Aguilera biplane is 77%. Indeterminate diastolic function. ?Right?Ventricle: Right ventricle size is normal. Normal systolic function. ?Left?Atrium: Left atrium size is normal. Left atrium volume index is 8.4 mL/m2. ?IVC/SVC: IVC diameter is less than or equal to 21 mm and decreases less than 50% during inspiration; therefore the estimated right atrial pressure is intermediate (~8 mmHg). ?Pericardium: Small pericardial effusion present. No indication of cardiac tamponade. Left pleural effusion. Darci Leavitt MD, FESCCardiology FellowDivision of Cardiovascular MedicineEastern New Mexico Medical Center VentricleLeft ventricle size is normal. Normal wall thickness. Normal wall motion. Hyperdynamic systolic function with a visually estimated EF of greater than 65%. EF by 2D Aguilera biplane is 77%. Indeterminate diastolic function.Right VentricleRight ventricle size is normal. Normal systolic function.Left AtriumLeft atrium size is normal. Left atrium volume index is 8.4 mL/m2.Right AtriumRight atrium size is normal.IVC/SVCIVC diameter is less than or equal to 21 mm and decreases less than 50% during inspiration; therefore the estimated right atrial pressure is intermediate (~8 mmHg).Mitral ValveMitral valve is normal in structure and function.Tricuspid ValveTricuspid valve structure is normal. No transvalvular regurgitation. Insufficient tricuspid regurgitation jet to estimate RVSP . No stenosis.Aortic ValveTricuspid. No restricted motion. No transvalvular regurgitation. No hemodynamically significant .Pulmonic ValveNot well visualized. Trace transvalvular regurgitation. No stenosis.Ascending AortaNormal sized annulus and aortic root.PericardiumSmall pericardial effusion present. No indication of cardiac tamponade. Left pleural effusion.Study DetailsStudy quality experienced technical difficulty. A complete echocardiogram was performed using 2D, color flow Doppler and spectral Doppler. 5 mL of Lumason ultrasound enhancing agent used. Technical difficulties due to patient's clinical status.Wall Scoring BaselineScore Index: 1.00The left ventricular wall motion is globally hyperkinetic. [facility] HospitalCT THORAX W [id number] 15:10:36 PROCEDURE: CT CHEST WITH CONTRAST - CHEST PROTOCOL CLINICAL INDICATION: ?48 years-old Male; lung mass with worsening sob ? Comparison: ?05/13/2023 TECHNIQUE: Volumetric images of the chest were acquired (from lung apicesto bases) following administration of iodine contrast. Images werereconstructed at 2.5 mm slice thickness. MIP axial images, coronal andsagittal reformats were also submitted for interpretation. FINDINGS: Devices: None LUNGS AND PLEURA: Redemonstrated complete collapse and atelectasis of theleft lung. Grossly unchanged size of the 12.0 x 10.6 x 13.5 cm (AP x TR xCC) left lung hilar and mediastinal mass with significant mass effect onthe distal trachea and severe narrowing of the left main pulmonary artery.Redemonstrated left large pleural effusion. There has been intervalincrease in the degree of adjacent pleural wall thickening with developmentof pleural irregularity. There is also an intraluminal soft tissue density likely extending from thetumor to the tabby and theproximal right bronchus (3:53) that couldindicate further tumor extension. The mass also encases the esophagus withslight upstream dilatation and some fluid.The right lung is well-expanded and clear.LYMPH NODES: There are diffusely enlarged lymph nodes in both sides of themediastinum, increased from prior exam, for example right lowerparatracheal lymph node now measures 2.5 cm and previously 1.8cm.Additional right proximal paratracheal lymph node enlargement up to 1.6 cmand previously 1.3 cm.MEDIASTINUM AND LOWER NECK: There has been interval . The esophagus iswithin normal limits. The included thyroid gland appears normal. HEART AND GREAT VESSELS: The heart is normal in size. There has beeninterval development of a small pericardial effusion. The RV to LV isnormal. The thoracic aorta is normal in caliber with no significant atheroscleroticplaque. No significant atherosclerotic calcifications of the coronary vessels. The main pulmonary trunk is normal in caliber. VISUALIZED UPPER ABDOMEN: The hypoattenuating pancreatic mass is betterdelineated on the recent CT abdomen on 05/15/2023. There is a 6 mmhypoattenuating incompletely characterized spleen lesion (3:136). OSSEOUS STRUCTURES AND SOFT TISSUES: No focal osseous lesions are detected.The soft tissues appear normal.[facility] HospitalHaptoglobin, [id number] 14:11:30* Test Item Value Reference Range Interpretation Comme nts HAPTOGLOB (test code = 2554685416) 705 mg/dL 16-200 H Lab Interpretation (test cod e = 65264-3) Abnormal [facility] HospitalVitamin B12, [id number] 08:20:17* Test Item Value Reference Range Interpretation Comme nts VIT B12 (test code = 1708293467) 314 pg/mL 240-930 NIYAH (test code = NIYAH) Biotin has been reported to cause a positive bias, interpret results relative to patient's use of biotin. Lab Interpretation (test code = 24076-8) Normal [facility] HospitalFolate2024-03-10 08:20:17* Test Item Value Reference Range Interpretation Comme nts FOLATE SER (test code = 9266853918) 4.6 ng/mL 3.0-20.0 Lab Interpretation (test cod e = 45475-6) Normal [facility] HospitalFerritin Iqjrh3502-33-59 07:48:55* Test Item Value Reference Range Interpretation Comme nts FERRITIN (test code = 8174719735) 561.0 ng/mL 18.0-464.0 H NIYAH (test code = NIYAH) Biotin has been reported to cause a negative bias, interpret results relative to patient's use of biotin. Lab Interpretation (test code = 20675-9) Abnormal [facility] HospitalIron Ekwtz3119-57-23 07:21:55* Test Item Value Reference Range Interpretation Comme nts IRON (test code = 7822803228) 29 ug/dL 50-160 L TIBC (test code = 9132550904) 196 ug/dL 250-410 L % FE SAT (test code = 8725158584) 15 % 20-50 L Lab Interpretation (test cod e = 46121-4) Abnormal [facility] HospitalMagnesium2024-03-10 07:12:32* Test Item Value Reference Range Interpretation Comme nts MAGNESIUM (test code = 9718456162) 2.1 mg/dL 1.7-2.4 Lab Interpretation (test cod e = 86359-5) Normal [facility] HospitalReticulocytes Zwunsccwh2618-13-07 06:44:52* Test Item Value Reference Range Interpretation Comme nts RETIC Count Automated (test code = 8876824907) 2.53 % 0.59-2.24 H RETIC Absolute Count (test c ode = 0007903379) 0.1012 0.0260-0.1170 IRF % (test code = 2118116642) 32.20 % 2.00-19.10 H RETIC-HE (test code = 8820765828) 24.6 pg 27.3-36.4 L Lab Interpretation (test cod e = 07758-5) Abnormal [facility]. METABOLIC PANEL (20734)2023-06-26 23:55:15* Test Item Value Reference Range Interpretation Comme nts NA (test code = 9531498730) 133 mmol/L 135-145 L K (test code = 2233903019) 5.1 mmol/L 3.5-5.0 H CL (test code = 4232066792) 94 mmol/L 98-108 L CO2 TOTAL (test code = 5979871296) 30 mmol/L 23-31 AGAP (test code = 4567916171) 9 2-16 BUN (test code = 5690512248) 21 mg/dL 7-23 GLUCOSE (test code = 4797369236) 100 mg/dL 70-110 CREATININE (test code = 2160-0) 0.52 mg/dL 0.60-1.25 L TOTAL BILI (test code = 2147887998) 0.6 mg/dL 0.1-1.1 CALCIUM (test code = 4503631101) 11.4 mg/dL 8.6-10.6 H T PROTEIN (test code = 7621392210) 7.3 g/dL 6.3-8.2 ALBUMIN (test code = 3713813748) 3.7 g/dL 3.5-5.0 ALK PHOS (test code = 4698923910) 174 U/L 34-122 H ALTv (test code = 1742-6) 36 U/L 5-50 AST(SGOT) (test code = 6040095794) 23 U/L 13-40 eGFR (test code = 42814-8) 123.6 mL/min/1.73m2 CKD-EPI eGFR (2020). Assuming creatinine has been stable day-to-day for at least three months, the eGFR indicates Category G1 (>= 90 mL/min/1.73 m2) Lab Interpretation (test code = 56267-9) Abnormal [facility] WITH [id number] 23:38:53* Test Item Value Reference Range Interpretation Comme nts WBC (test code = 6690-2) 17.33 4.20-10.70 H RBC (test code = 789-8) 4.02 4.26-5.52 L HGB (test code = 718-7) 9.8 g/dL 12.2-16.4 L HCT (test code = 4544-3) 32.7 % 38.4-49.3 L MCV (test code = 787-2) 81.3 fL 81.7-95.6 L MCH (test code = 785-6) 24.4 pg 26.1-32.7 L MCHC (test code = 786-4) 30.0 g/dL 31.2-35.0 L RDW-SD (test code = 66476-9) 40.7 fL 38.5-51.6 RDW-CV (test code = 788-0) 13.9 % 12.1-15.4 PLT (test code = 777-3) 891 150-328 H MPV (test code = 53420-0) 8.9 fL 9.8-13.0 L NRBC/100 WBC (test code = 9553088670) 0.0 0.0-10.0 NRBC x10^3 (test code = 7572031018) See_Comment [Automated message] The system which generated this result transmitted reference range: 10*3/?L. The reference range was not used to interpret this result as normal/abnormal. GRAN MAT (NEUT) % (test code = 770-8) 83.7 % IMM GRAN % (test code = 5459641523) 0.40 % LYMPH % (test code = 736-9) 7.7 % MONO % (test code = 5905-5) 7.4 % EOS % (test code = 713-8) 0.6 % BASO % (test code = 706-2) 0.2 % GRAN MAT x10^3(ANC) (test code = 8876604459) 14.50 10*3/uL 1.99-6.95 H IMM GRAN x10^3 (test code = 7879539822) 0.07 10*3/uL 0.00-0.06 H LYMPH x10^3 (test code = 731-0) 1.33 10*3/uL 1.09-3.23 MONO x10^3 (test code = 742-7) 1.29 10*3/uL 0.36-1.02 H EOS x10^3 (test code = 711-2) 0.11 10*3/uL 0.06-0.53 BASO x10^3 (test code = 704-7) 0.03 10*3/uL 0.01-0.09 Lab Interpretation (test code = 35716-9) Abnormal [facility] with [id number] 11:41:46* Test Item Value Reference Range Interpretation Comme nts WBC (test code = 6690-2) 11.72 4.20-10.70 H RBC (test code = 789-8) 4.41 4.26-5.52 HGB (test code = 718-7) 11.4 g/dL 12.2-16.4 L HCT (test code = 4544-3) 35.9 % 38.4-49.3 L MCV (test code = 787-2) 81.4 fL 81.7-95.6 L MCH (test code = 785-6) 25.9 pg 26.1-32.7 L MCHC (test code = 786-4) 31.8 g/dL 31.2-35.0 RDW-SD (test code = 99105-2) 37.6 fL 38.5-51.6 L RDW-CV (test code = 788-0) 12.6 % 12.1-15.4 PLT (test code = 777-3) 485 150-328 H MPV (test code = 77025-3) 8.8 fL 9.8-13.0 L NRBC/100 WBC (test code = 8543077808) 0.0 0.0-10.0 NRBC x10^3 (test code = 0943405657) See_Comment [Automated messa ge] The system which generated this result transmitted reference range: 10*3/?L. The reference range was not used to interpret this result as normal/abnormal. GRAN MAT (NEUT) % (test code = 770-8) 67.1 % IMM GRAN % (test code = 8719330191) 0.60 % LYMPH % (test code = 736-9) 13.7 % MONO % (test code = 5905-5) 14.8 % EOS % (test code = 713-8) 3.2 % BASO % (test code = 706-2) 0.6 % GRAN MAT x10^3(ANC) (test code = 9100907357) 7.85 10*3/uL 1.99-6.95 H IMM GRAN x10^3 (test code = 0554629767) 0.07 10*3/uL 0.00-0.06 H LYMPH x10^3 (test code = 731-0) 1.61 10*3/uL 1.09-3.23 MONO x10^3 (test code = 742-7) 1.74 10*3/uL 0.36-1.02 H EOS x10^3 (test code = 711-2) 0.38 10*3/uL 0.06-0.53 BASO x10^3 (test code = 704-7) 0.07 10*3/uL 0.01-0.09 REACT LYMPHS (test code = 6383533013) Rare Lab Interpretation (test code = 01182-3) Abnormal [facility] with [id number] 11:41:46* Test Item Value Reference Range Interpretation Comme nts WBC (test code = 6690-2) 11.72 4.20-10.70 H RBC (test code = 789-8) 4.41 4.26-5.52 HGB (test code = 718-7) 11.4 g/dL 12.2-16.4 L HCT (test code = 4544-3) 35.9 % 38.4-49.3 L MCV (test code = 787-2) 81.4 fL 81.7-95.6 L MCH (test code = 785-6) 25.9 pg 26.1-32.7 L MCHC (test code = 786-4) 31.8 g/dL 31.2-35.0 RDW-SD (test code = 54911-9) 37.6 fL 38.5-51.6 L RDW-CV (test code = 788-0) 12.6 % 12.1-15.4 PLT (test code = 777-3) 485 150-328 H MPV (test code = 29681-0) 8.8 fL 9.8-13.0 L NRBC/100 WBC (test code = 7942452279) 0.0 0.0-10.0 NRBC x10^3 (test code = 0176303828) See_Comment [Automated messa ge] The system which generated this result transmitted reference range: 10*3/?L. The reference range was not used to interpret this result as normal/abnormal. GRAN MAT (NEUT) % (test code = 770-8) 67.1 % IMM GRAN % (test code = 7051173265) 0.60 % LYMPH % (test code = 736-9) 13.7 % MONO % (test code = 5905-5) 14.8 % EOS % (test code = 713-8) 3.2 % BASO % (test code = 706-2) 0.6 % GRAN MAT x10^3(ANC) (test code = 0374549186) 7.85 10*3/uL 1.99-6.95 H IMM GRAN x10^3 (test code = 3264713585) 0.07 10*3/uL 0.00-0.06 H LYMPH x10^3 (test code = 731-0) 1.61 10*3/uL 1.09-3.23 MONO x10^3 (test code = 742-7) 1.74 10*3/uL 0.36-1.02 H EOS x10^3 (test code = 711-2) 0.38 10*3/uL 0.06-0.53 BASO x10^3 (test code = 704-7) 0.07 10*3/uL 0.01-0.09 REACT LYMPHS (test code = 4019561116) Rare Lab Interpretation (test code = 20119-0) Abnormal [facility] Metabolic Panel (NA, K, CL, CO2, GLUCOSE, BUN, CREATININE, CA)2023-05-21 11:34:48* Test Item Value Reference Range Interpretation Comme nts NA (test code = 3788706583) 133 mmol/L 135-145 L K (test code = 7002093327) 4.6 mmol/L 3.5-5.0 CL (test code = 0294447833) 99 mmol/L 98-108 CO2 TOTAL (test code = 7982463616) 28 mmol/L 23-31 AGAP (test code = 3228835226) 6 2-16 BUN (test code = 6660047707) 18 mg/dL 7-23 GLUCOSE (test code = 5231704449) 113 mg/dL 70-110 H CREATININE (test code = 8481147999) 0.64 mg/dL 0.60-1.25 CALCIUM (test code = 0000274227) 10.4 mg/dL 8.6-10.6 eGFR (test code = 36870-2) 116.1 mL/min/1.73m2 CKD-EPI eGFR (2020). Assuming creatinine has been stable day-to-day for at least three months, the eGFR indicates Category G1 (>= 90 mL/min/1.73 m2) Lab Interpretation (test code = 87979-0) Abnormal [facility] HospitalMagnesium2024-02-02 11:34:48* Test Item Value Reference Range Interpretation Comme nts MAGNESIUM (test code = 4193072249) 2.4 mg/dL 1.7-2.4 Lab Interpretation (test cod e = 10463-2) Normal [facility] (NA, K, CL, CO2, GLUCOSE, BUN, CREATININE, CA)2023-05-21 11:34:48* Test Item Value Reference Range Interpretation Comme nts NA (test code = 3696307319) 133 mmol/L 135-145 L K (test code = 8688883188) 4.6 mmol/L 3.5-5.0 CL (test code = 7528129104) 99 mmol/L 98-108 CO2 TOTAL (test code = 3894247488) 28 mmol/L 23-31 AGAP (test code = 4257715852) 6 2-16 BUN (test code = 6760584325) 18 mg/dL 7-23 GLUCOSE (test code = 3118497981) 113 mg/dL 70-110 H CREATININE (test code = 8735809921) 0.64 mg/dL 0.60-1.25 CALCIUM (test code = 2571439421) 10.4 mg/dL 8.6-10.6 eGFR (test code = 17196-0) 116.1 mL/min/1.73m2 CKD-EPI eGFR (2020). Assuming creatinine has been stable day-to-day for at least three months, the eGFR indicates Category G1 (>= 90 mL/min/1.73 m2) Lab Interpretation (test code = 42579-6) Abnormal [facility] HospitalMagnesium2024-02-02 11:34:48* Test Item Value Reference Range Interpretation Comme nts MAGNESIUM (test code = 7143239804) 2.4 mg/dL 1.7-2.4 Lab Interpretation (test cod e = 37526-4) Normal [facility] HospitalBody Fluid (Bactec Bottle)2023-05-20 01:01:56 * Test Item Value Reference Range Interpretation Comme nts Body Fluid Culture Screen-Aerobic (test code = 7308022573) No organisms isolated No growth Previous preliminary verified result was Culture In Progress on 05/14/2023 at 2203 CSTPrevious preliminary verified result was No growth at 24 hours on 05/15/2023 at 1901 CSTPrevious preliminary verified result was No growth at 48 hours on 05/16/2023 at 1901 CSTPrevious preliminary verified result was No growth at 72 hours on 05/17/2023 at 1901 CSTPrevious preliminary verified result was No growth at 4 days on 05/18/2023 at 1901 MANAGER [employer] Body Fluid Culture Screen-Anaerobic (test code = 9482524566) No organisms isolated No growth Previous preliminary verified result was Culture In Progress on 05/14/2023 at 2203 CSTPrevious preliminary verified result was No growth at 24 hours on 05/15/2023 at 1901 CSTPrevious preliminary verified result was No growth at 48 hours on 05/16/2023 at 1901 CSTPrevious preliminary verified result was No growth at 72 hours on 05/17/2023 at 1901 CSTPrevious preliminary verified result was No growth at 4 days on 05/18/2023 at 1901 MANAGER E[employer]ER[employer] DIRECTOR [facility] HospitalBody Fluid (Bactec Bottle)2023-05-20 01:01:56 * Test Item Value Reference Range Interpretation Comme [facility] Body Fluid Culture Screen-Aerobic (test code = 7697119476) No organisms isolated No growth Previous preliminary verified result was Culture In Progress on 05/14/2023 at 2203 CSTPrevious preliminary verified result was No growth at 24 hours on 05/15/2023 at 1901 CSTPrevious preliminary verified result was No growth at 48 hours on 05/16/2023 at 1901 CSTPrevious preliminary verified result was No growth at 72 hours on 05/17/2023 at 1901 CSTPrevious preliminary verified result was No growth at 4 days on 05/18/2023 at 1901 MANAGER [employer] DIRECT[employer] Body Fluid Culture Screen-Anaerobic (test code = 7227542559) No organisms isolated No growth Previous preliminary verified result was Culture In Progress on 05/14/2023 at 2203 CSTPrevious preliminary verified result was No growth at 24 hours on 05/15/2023 at 1901 CSTPrevious preliminary verified result was No growth at 48 hours on 05/16/2023 at 1901 CSTPrevious preliminary verified result was No growth at 72 hours on 05/17/2023 at 1901 CSTPrevious preliminary verified result was No growth at 4 days on 05/18/2023 at 1901 MANAGER [employer] DIRECTOR [facility] HospitalBLOOD CULTURE [id number] 13:02:07* Test Item Value Reference Range Interpretation Comme nts Blood Culture-Aerobic (test code = 17878-6) No organisms isolated No growth Previous preliminary verified result was Culture In Progress on 05/14/2023 at 1001 CSTPrevious preliminary verified result was No growth at 24 hours on 05/15/2023 at 0701 CSTPrevious preliminary verified result was No growth at 48 hours on 05/16/2023 at 0701 CSTPrevious preliminary verified result was No growth at 72 hours on 05/17/2023 at 0701 MANAGER [employer] DIRECT[employer] Blood Culture-Anaerobic (test code = 77808-5) No organisms isolated No growth Previous preliminary verified result was Culture In Progress on 05/14/2023 at 1001 CSTPrevious preliminary verified result was No growth at 24 hours on 05/15/2023 at 0701 CSTPrevious preliminary verified result was No growth at 48 hours on 05/16/2023 at 0701 CSTPrevious preliminary verified result was No growth at 72 hours on 05/17/2023 at 0701 MANAGER [employer] DIRECTOR Lab Interpretation (test code = 67506-5) Normal [facility] HospitalBLOOD CULTURE [id number] 13:02:07* Test Item Value Reference Range Interpretation Comme nts Blood Culture-Aerobic (test code = 80669-7) No organisms isolated No growth Previous preliminary verified result was Culture In Progress on 05/14/2023 at 1001 CSTPrevious preliminary verified result was No growth at 24 hours on 05/15/2023 at 0701 CSTPrevious preliminary verified result was No growth at 48 hours on 05/16/2023 at 0701 CSTPrevious preliminary verified result was No growth at 72 hours on 05/17/2023 at 0701 MANAGER [employer] DIRECT[employer] Blood Culture-Anaerobic (test code = 35998-5) No organisms isolated No growth Previous preliminary verified result was Culture In Progress on 05/14/2023 at 1001 CSTPrevious preliminary verified result was No growth at 24 hours on 05/15/2023 at 0701 CSTPrevious preliminary verified result was No growth at 48 hours on 05/16/2023 at 0701 CSTPrevious preliminary verified result was No growth at 72 hours on 05/17/2023 at 0701 MANAGER [employer] DIRECTOR Lab Interpretation (test code = 63436-7) Normal [facility] HospitalXR CHEST 1 [id number] 06:28:22EXAM: XR CHEST 1 VW COMPARISON: CT chest 05/13/2023 HISTORY: Assess prior left pleural effusion FINDINGS: Lungs: The right lung is well-expanded and clear. Complete collapse of theleft lung with largepleural effusion/empyema. Underlying lung pneumoniacannot be assessed. No pneumothorax is seen. Heart/Mediastinum: The cardiac silhouette is obscured. Stable leftwardmediastinal shift. Bones and softtissues: Advanced degenerative changes of the left shoulderwith cystic lucencies in the glenoid andhumeral head. Osseous metastasisis in the differential.[facility] [id number] 06:28:22EXAM: XR CHEST 1 VW COMPARISON: CT chest 05/13/2023 HISTORY: Assess prior left pleural effusion FINDINGS: Lungs: The right lung is well-expanded and clear. Complete collapse of theleft lung with largepleural effusion/empyema. Underlying lung pneumoniacannot be assessed. No pneumothorax is seen. Heart/Mediastinum: The cardiac silhouette is obscured. Stable leftwardmediastinal shift. Bones and softtissues: Advanced degenerative changes of the left shoulderwith cystic lucencies in the glenoid andhumeral head. Osseous metastasisis in the differential.[facility] with [id number] 16:47:14* Test Item Value Reference Range Interpretation Comme nts WBC (test code = 6690-2) 15.04 4.20-10.70 H RBC (test code = 789-8) 4.52 4.26-5.52 HGB (test code = 718-7) 11.7 g/dL 12.2-16.4 L HCT (test code = 4544-3) 36.5 % 38.4-49.3 L MCV (test code = 787-2) 80.8 fL 81.7-95.6 L MCH (test code = 785-6) 25.9 pg 26.1-32.7 L MCHC (test code = 786-4) 32.1 g/dL 31.2-35.0 RDW-SD (test code = 45184-7) 36.2 fL 38.5-51.6 L RDW-CV (test code = 788-0) 12.4 % 12.1-15.4 PLT (test code = 777-3) 583 150-328 H MPV (test code = 27062-0) 8.8 fL 9.8-13.0 L NRBC/100 WBC (test code = 6429599600) 0.0 0.0-10.0 NRBC x10^3 (test code = 0246732756) See_Comment [Automated message] The system which generated this result transmitted reference range: 10*3/?L. The reference range was not used to interpret this result as normal/abnormal. GRAN MAT (NEUT) % (test code = 770-8) 79.4 % IMM GRAN % (test code = 2601940978) 0.70 % LYMPH % (test code = 736-9) 6.9 % MONO % (test code = 5905-5) 10.1 % EOS % (test code = 713-8) 2.5 % BASO % (test code = 706-2) 0.4 % GRAN MAT x10^3(ANC) (test code = 5674684025) 11.95 10*3/uL 1.99-6.95 H IMM GRAN x10^3 (test code = 7949672714) 0.10 10*3/uL 0.00-0.06 H LYMPH x10^3 (test code = 731-0) 1.04 10*3/uL 1.09-3.23 L MONO x10^3 (test code = 742-7) 1.52 10*3/uL 0.36-1.02 H EOS x10^3 (test code = 711-2) 0.37 10*3/uL 0.06-0.53 BASO x10^3 (test code = 704-7) 0.06 10*3/uL 0.01-0.09 Lab Interpretation (test code = 51778-0) Abnormal [facility] with [id number] 16:47:14* Test Item Value Reference Range Interpretation Comme nts WBC (test code = 6690-2) 15.04 4.20-10.70 H RBC (test code = 789-8) 4.52 4.26-5.52 HGB (test code = 718-7) 11.7 g/dL 12.2-16.4 L HCT (test code = 4544-3) 36.5 % 38.4-49.3 L MCV (test code = 787-2) 80.8 fL 81.7-95.6 L MCH (test code = 785-6) 25.9 pg 26.1-32.7 L MCHC (test code = 786-4) 32.1 g/dL 31.2-35.0 RDW-SD (test code = 76309-9) 36.2 fL 38.5-51.6 L RDW-CV (test code = 788-0) 12.4 % 12.1-15.4 PLT (test code = 777-3) 583 150-328 H MPV (test code = 46328-7) 8.8 fL 9.8-13.0 L NRBC/100 WBC (test code = 2800783008) 0.0 0.0-10.0 NRBC x10^3 (test code = 6522762580) See_Comment [Automated message] The system which generated this result transmitted reference range: 10*3/?L. The reference range was not used to interpret this result as normal/abnormal. GRAN MAT (NEUT) % (test code = 770-8) 79.4 % IMM GRAN % (test code = 5645349168) 0.70 % LYMPH % (test code = 736-9) 6.9 % MONO % (test code = 5905-5) 10.1 % EOS % (test code = 713-8) 2.5 % BASO % (test code = 706-2) 0.4 % GRAN MAT x10^3(ANC) (test code = 6050524053) 11.95 10*3/uL 1.99-6.95 H IMM GRAN x10^3 (test code = 9763215975) 0.10 10*3/uL 0.00-0.06 H LYMPH x10^3 (test code = 731-0) 1.04 10*3/uL 1.09-3.23 L MONO x10^3 (test code = 742-7) 1.52 10*3/uL 0.36-1.02 H EOS x10^3 (test code = 711-2) 0.37 10*3/uL 0.06-0.53 BASO x10^3 (test code = 704-7) 0.06 10*3/uL 0.01-0.09 Lab Interpretation (test code = 39481-0) Abnormal [facility] Metabolic Panel (NA, K, CL, CO2, GLUCOSE, BUN, CREATININE, CA)2023-05-18 16:18:49* Test Item Value Reference Range Interpretation Comme nts NA (test code = 6990591690) 132 mmol/L 135-145 L K (test code = 2010725723) 4.6 mmol/L 3.5-5.0 CL (test code = 0779388817) 99 mmol/L 98-108 CO2 TOTAL (test code = 0268809430) 26 mmol/L 23-31 AGAP (test code = 1830939372) 7 2-16 BUN (test code = 8638638922) 18 mg/dL 7-23 GLUCOSE (test code = 2900497845) 109 mg/dL 70-110 CREATININE (test code = 1885884345) 0.61 mg/dL 0.60-1.25 CALCIUM (test code = 1203996398) 11.1 mg/dL 8.6-10.6 H eGFR (test code = 76077-6) 117.7 mL/min/1.73m2 CKD-EPI eGFR (2020). Assuming creatinine has been stable day-to-day for at least three months, the eGFR indicates Category G1 (>= 90 mL/min/1.73 m2) Lab Interpretation (test code = 69976-0) Abnormal [facility] (NA, K, CL, CO2, GLUCOSE, BUN, CREATININE, CA)2023-05-18 16:18:49* Test Item Value Reference Range Interpretation Comme nts NA (test code = 9179612109) 132 mmol/L 135-145 L K (test code = 7318701073) 4.6 mmol/L 3.5-5.0 CL (test code = 6284847446) 99 mmol/L 98-108 CO2 TOTAL (test code = 1810346718) 26 mmol/L 23-31 AGAP (test code = 7545851000) 7 2-16 BUN (test code = 3980271119) 18 mg/dL 7-23 GLUCOSE (test code = 2463577935) 109 mg/dL 70-110 CREATININE (test code = 4072544348) 0.61 mg/dL 0.60-1.25 CALCIUM (test code = 5581639356) 11.1 mg/dL 8.6-10.6 H eGFR (test code = 17656-8) 117.7 mL/min/1.73m2 CKD-EPI eGFR (2020). Assuming creatinine has been stable day-to-day for at least three months, the eGFR indicates Category G1 (>= 90 mL/min/1.73 m2) Lab Interpretation (test code = 14696-6) Abnormal [facility], (COOKIE)2023-05-18 14:27:34Exam: FL MODIFIED BARIUM SWALLOW HISTORY: 48-year-old male with newly diagnosed large left mediastinal masspresents for for dysphasia evaluation. TECHNIQUE and FINDINGS: Barium of varying consistencies of from solid through thin liquid wereadministered to the patient during fluoroscopy. The study was performedwith the speech pathologist. The swallow reflex and protective mechanisms are intact. Nolaryngealpenetration or aspirations were noted. ?There is intraesophageal reflux inthe mid esophagus and external compression of the esophagus with slightdeviation of the esophagus towards the right,consistent with mass effectfrom the mediastinal mass. This involves a length of approximately 7 to 9cm, and shows delayed transit of the swallowed bolus. Please refer to the speech pathologist's notefor a full report. Preliminary Report Dictated by Resident: Xi Contreras ?MD. Dusty, have reviewed this study and agree with theabove report.[facility], (COOKIE)2023-05-18 14:27:34Exam: FL MODIFIED BARIUM SWALLOW HISTORY: 48-year-old male with newly diagnosed large left mediastinal masspresents for for dysphasia evaluation. TECHNIQUE and FINDINGS: Barium of varying consistencies of from solid through thin liquid wereadministered to the patient during fluoroscopy. The study was performedwith the speech pathologist. The swallow reflex and protective mechanisms are intact. Nolaryngealpenetration or aspirations were noted. ?There is intraesophageal reflux inthe mid esophagus and external compression of the esophagus with slightdeviation of the esophagus towards the right,consistent with mass effectfrom the mediastinal mass. This involves a length of approximately 7 to 9cm, and shows delayed transit of the swallowed bolus. Please refer to the speech pathologist's notefor a full report. Preliminary Report Dictated by Resident: Xi Contreras ?MD Dusty., have reviewed this study and agree with theabove report.[facility] HospitalMR BRAIN W WO [id number] 15:14:36EXAM: MR BRAIN W WO CONTRAST HISTORY: Patient with left mediastinal mass, eval for mets. TECHNIQUE: Multiplanar and multisequence MRI imaging of the brain wasobtained before and after the administration of 15 ml intravenousMultihance. COMPARISON: None FINDINGS: Prominent ventricles and cerebral sulci suggestive of mild global volumeloss. No midline shift or pathological extra-axial fluid collection ispresent. The basal cisterns are unremarkable. No restricted diffusion is present. Scattered deep white matter andperiventricular T2/FLAIR hyperintensities, nonspecific, likely sequelae ofminimal ischemic microvascular disease. No abnormal gradient blooming isseen. No abnormal enhancement. No abn ormal fluid signal is present in the mastoid air cells or paranasalair sinuses. [facility] WO [id number] 15:14:36EXAM: MR BRAIN W WO CONTRAST HISTORY: Patient with left mediastinal mass, eval for mets. TECHNIQUE:Multiplanar and multisequence MRI imaging of the brain wasobtained before and after the administration of 15 ml intravenousMultihance. COMPARISON: None FINDINGS: Prominent ventricles and cerebral sulci suggestive of mild global volumeloss. No midline shift or pathological extra-axial fluid collection ispresent. The basal cisterns are unremarkable. No restricted diffusion is present. Scattered deep white matter andperiventricular T2/FLAIR hyperintensities, nonspecific, likely sequelae ofminimal ischemic microvascular disease. No abnormal gradient blooming isseen. No abnormal enhancement. No abn ormal fluid signal is present in the mastoid air cells or paranasalair sinuses. [facility] PULMONARY [id number] 01:57:29Ordering Physician: SANDIP MULLINS Clinical history: Pulmonary embolus and suspected. Unknown d-dimer. Comparison: None Technique: CT angiography of the chest was performed with intravenouscontrast. Axial source images, MPRS, and MIPS were reviewed. Thisexamination was performed according to ALARA principles. Technical quality: Adequate Findings: There is a large left hilar and mediastinal mass, measuring up to 8 cm.This occludes the left mainstem bronchus and produces significant masseffect upon the distal trachea (404:49 and 50). The mass, along withadjacent enlarged lymph nodes, partially encases the trachea. There iscomplete atelectasis of the left lung. There is also encasement and nicol ednarrowing of the left pulmonary artery. There is a large left pleuraleffusion. Mild thickening ofthe parietal pleura is noted. Thickening ismostly smooth in nature, but a few small pleural or extrapleural nodulesare also seen on this side (101:45 and 53, for instance). The right lung is clear. No right-sided pleural effusion is evident. Nofilling defects are seen within the right pulmonary tree to suggestpulmonary embolus. Evaluation of the left pulmonary arteries is limited dueto marked attenuation of these arteries. There is no thoracic aorticaneurysm or dissection. Heart size is normal.No pericardial effusion isevident. There are mildly enlarged anterior mediastinal andpericardiophrenic lymph nodes. No lytic or blastic bony lesions are seen.Intra-abdominal findings are described thuy separate report for CT of theabdomen and pelvis.[facility] PULMONARY [id number] 01:57:29Ordering Physician: SANDIP MULLINS Clinical history: Pulmonary embolus and suspected. Unknown d-dimer. Comparison: None Technique: CT angiography of the chest was performed with intravenouscontrast. Axial source images, MPRS, and MIPS were reviewed. Thisexamination was performed according to ALARA principles. Technical quality: Adequate Findings: There is a large left hilar and mediastinal mass, measuring up to 8 cm.This occludes the left mainstem bronchus and produces significant masseffect upon the distal trachea (404:49 and 50). The mass, along withadjacent enlarged lymph nodes, partially encases the trachea. There iscomplete atelectasis of the left lung. There is also encasement and markednarrowing of the left pulmonary artery. There is a large left pleuraleffusion. Mild thickening ofthe parietal pleura is noted. Thickening ismostly smooth in nature, but a few small pleural or extrapleural nodulesare also seen on this side (101:45 and 53, for instance). The right lung is clear. No right-sided pleural effusion is evident. Nofilling defects are seen within the right pulmonary tree to suggestpulmonary embolus. Evaluation of the left pulmonary arteries is limited dueto marked attenuation of these arteries. There is no thoracic aorticaneurysm or dissection. Heart size is normal.No pericardial effusion isevident. There are mildly enlarged anterior mediastinal andpericardiophrenic lymph nodes. No lytic or blastic bony lesions are seen.Intra-abdominal findings are described thuy separate report for CT of theabdomen and pelvis.[facility] HospitalCT ABDOMEN PELVIS W [id number] 23:28:46Ordering Physician: ERENDIRA MAIN Clinical indication: Left mediastinal mass. Evaluate for intra-abdominalmetastatic disease. Comparison: None. Correlation is made with a chest CT of May 13.. Technique: CT abdomen and pelvis with intravenous contrast. Thisexamination was performed according to ALARA principles. Technical quality: Adequate Findings: Scans through the base of the chestagain demonstrate a partiallyvisualized left pleural effusion and extensive atelectasis within thein cluded portion of the left lower lobe. There is a low attenuation lefthepatic lobe lesion measuring1.4 cm and a right hepatic lobe lesionmeasuring approximately 0.7 cm. Both are seen on 3:31. Both demonstrateprobable peripheral nodular enhancement, indicating that these may reflecthemangiomas. Thespleen is mildly enlarged, but otherwise unremarkable. Thegallbladder is unremarkable. There is atrophy of the pancreatic tail, withductal dilatation within the tail. The duct is truncated within thepancreatic body. At this level, there is a 2.5 cm hypoenhancing mass(3:37). The remainder of the pancreas is unremarkable in appearance. Mildlyenlarged annabella hepatis, celiac, and gastrohepatic lymph nodes are present. A low-attenuation exophytic cortical lesion of the right kidney is toosmall to characterize, but appears cystic. The kidneys are otherwiseunremarkable in appearance. Evaluation of the stomach is limited by lack ofdistention, but no gross gastric abnormalities are apparent. No aneury smsof the abdomen or pelvis are evident. The urinary bladder is unremarkablein appearance. Moderatediffuse colonic fecal retention is evident. Anormal appendix is identified. There is no bowel obstruction. There is nofree intraperitoneal fluid or free intraperitoneal air. A focus ofsubcutaneous air within the left anterior abdominal wall is likely a recentinjection site. There are mild degenerative changes of the spine. There arebilateral L5 pars defects and there is grade 1 spondylolisthesis of L5. Nolytic or blastic bony lesions are seen. [facility] W [id number] 23:28:46Ordering Physician: ERENDIRA MAIN Clinical indication: Left mediastinal mass. Evaluate for intra-abdominalmetastatic disease. Comparison: None. Correlation is made with a chest CT of May 13, 2023.. Technique: CT abdomen and pelvis with intravenous contrast. Thisexamination was performed according to ALARA principles. Technical quality: Adequate Findings: Scans through the base of the chestagain demonstrate a partiallyvisualized left pleural effusion and extensive atelectasis within theincluded portion of the left lower lobe. There is a low attenuation lefthepatic lobe lesion measuring1.4 cm and a right hepatic lobe lesionmeasuring approximately 0.7 cm. Both are seen on 3:31. Both demonstrateprobable peripheral nodular enhancement, indicating that these may reflecthemangiomas. Thespleen is mildly enlarged, but otherwise unremarkable. Thegallbladder is unremarkable. There is atrophy of the pancreatic tail, withductal dilatation within the tail. The duct is truncated within thep ancreatic body. At this level, there is a 2.5 cm hypoenhancing mass(3:37). The remainder of the pancreas is unremarkable in appearance. Mildlyenlarged annabella hepatis, celiac, and gastrohepatic lymph nodes are present. A low-attenuation exophytic cortical lesion of the right kidney is toosmall to characterize, but appears cystic. The kidneys are otherwiseunremarkable in appearance. Evaluation of the stomach is limited by lack ofdistention, but no gross gastric abnormalities are apparent. No aneurysmsof the abdomen or pelvis are evident. The urinary bladder is unremarkablein appearance. Moderatediffuse colonic fecal retention is evident. Anormal appendix is identified. There is no bowel obstru ction. There is nofree intraperitoneal fluid or free intraperitoneal air. A focus ofsubcutaneous air within the left anterior abdominal wall is likely a recentinjection site. There are mild degenerative changes of the spine. There arebilateral L5 pars defects and there is grade 1 spondylolisthesis of L5. Nolytic or blastic bony lesions are seen.[facility] HospitalXR CHEST 1 [id number] 23:16:04EXAM: XR CHEST 1 VW COMPARISON: CT chest 05/13/2023 HISTORY: S/p thoracentesis FINDINGS: Lungs: The right lung is well-expanded and clear. Complete collapse of theleft lung with large pleural effusion/ hydrothorax. No pneumothorax is seen. Heart/Mediastinum: The cardiac silhouette is obscured. Mild leftwardmediastinal shift. Bones and soft tissues: Advanced degenerative changes of the left shoulderwith cystic lucencies in the glenoid and humeral head.[facility] 1 [id number] 23:16:04EXAM: XR CHEST 1 VW COMPARISON: CT chest 05/13/2023 HISTORY: S/p thoracentesis FINDINGS: Lungs: The right lung is well-expanded and clear. Complete collapse of theleft lung with large pleural effusion/hydrothorax. No pneumothorax is seen. Heart/Mediastinum: The cardiac silhouette is obscured. Mild leftwardmediastinal shift. Bones and soft tissues: Advanced degenerative changes of the left shoulderwith cystic lucencies in the glenoid and humeral head.[facility] HospitalProtein Total [id number] 21:19:00* Test Item Value Reference Range Interpretation Comme nts T PROTEIN (test code = 6644279179) 7.6 g/dL 6.3-8.2 Lab Interpretation (test cod e = 00851-9) Normal [facility] HospitalProtein Total [id number] 21:19:00* Test Item Value Reference Range Interpretation Comme nts T PROTEIN (test code = 0703870243) 7.6 g/dL 6.3-8.2 Lab Interpretation (test cod e = 68680-4) Normal [facility] SOFT TISSUE NECK W [id number] 14:37:23EXAM: CT SOFT TISSUE NECK W CONTRAST History/Indication: Intrathoracic tumor, primary not yet knownComparison: Concurrent chest CT Technique: Axial postcontrast images were obtained from suprasellarregionthrough the mediastinum. Findings: Visualized aspects of the brain, orbits and paranasal sinuseswere without worrisome findings. There were no mucosal or alexandra lesions. The left true vocal cordis clearly paralyzed, with a boggy and inwardlypositioned left aryepiglottic fold, piriform sinus dilatation, and apatulous laryngeal ventricle annotated on images 52 and 53 of series 501. There is low volume nonnecrotic left supraclavicular lymphadenopathy Edwin've made several annotations, but the bulk of disease is in the chest andwill be addressed in the separate study for which reading is pending. Tumorin the AP window, however, clearly accounts for the vocal cord paralysis.[facility] SOFT TISSUE [facility]ECK W [id number] 14:37:23EXAM: CT SOFT TISSUE NECK W CONTRAST History/Indication: Intrathoracic tumor, primary not yet knownComparison: Concurrent chest CT Technique: Axial postcontrast images were obtained from suprasellarregionthrough the mediastinum. Findings: Visualized aspects of the brain, orbits and paranasal sinuseswere without worrisome findings. There were no mucosal or alexandra lesions. The left true vocal cordis clearly paralyzed, with a boggy and inwardlypositioned left aryepiglottic fold, piriform sinus di latation, and apatulous laryngeal ventricle annotated on images 52 and 53 of series 501. There is low volume nonnecrotic left supraclavicular lymphadenopathy Edwin've made several annotations, but thebulk of disease is in the chest andwill be addressed in the separate study for which reading is pending. Tumorin the AP window, however, clearly accounts for the vocal cord paralysis.[facility] Metabolic Panel (NA, K, CL, CO2, GLUCOSE, BUN, CREATININE, CA)2023-05-14 11:35:47* Test Item Value Reference Range Interpretation Comme nts NA (test code = 8148159817) 133 mmol/L 135-145 L K (test code = 3989606395) 5.0 mmol/L 3.5-5.0 CL (test code = 8149745977) 97 mmol/L 98-108 L CO2 TOTAL (test code = 7685650598) 29 mmol/L 23-31 AGAP (test code = 2697057518) 7 2-16 BUN (test code = 5444821248) 18 mg/dL 7-23 GLUCOSE (test code = 7524689831) 131 mg/dL 70-110 H CREATININE (test code = 9372538254) 0.60 mg/dL 0.60-1.25 CALCIUM (test code = 0389904810) 11.0 mg/dL 8.6-10.6 H eGFR (test code = 35013-0) 118.3 mL/min/1.73m2 CKD-EPI eGFR (2020). Assuming creatinine has been stable day-to-day for at least three months, the eGFR indicates Category G1 (>= 90 mL/min/1.73 m2) Lab Interpretation (test code = 27146-9) Abnormal [facility] HospitalMagnesium2024-01-26 11:35:47* Test Item Value Reference Range Interpretation Comme nts MAGNESIUM (test code = 2504519258) 2.2 mg/dL 1.7-2.4 Lab Interpretation (test cod e = 70364-2) Normal [facility] Metabolic Panel (NA, K, CL, CO2, GLUCOSE, BUN, CREATININE, CA)2023-05-14 11:35:47* Test Item Value Reference Range Interpretation Comme nts NA (test code = 3375250716) 133 mmol/L 135-145 L K (test code = 7565410063) 5.0 mmol/L 3.5-5.0 CL (test code = 6222881823) 97 mmol/L 98-108 L CO2 TOTAL (test code = 8257903572) 29 mmol/L 23-31 AGAP (test code = 8642380407) 7 2-16 BUN (test code = 9680345412) 18 mg/dL 7-23 GLUCOSE (test code = 6976357584) 131 mg/dL 70-110 H CREATININE (test code = 6113148858) 0.60 mg/dL 0.60-1.25 CALCIUM (test code = 6622750597) 11.0 mg/dL 8.6-10.6 H eGFR (test code = 42957-9) 118.3 mL/min/1.73m2 CKD-EPI eGFR (2020). Assuming creatinine has been stable day-to-day for at least three months, the eGFR indicates Category G1 (>= 90 mL/min/1.73 m2) Lab Interpretation (test code = 95563-8) Abnormal [facility] HospitalMagnesium2024-01-26 11:35:47* Test Item Value Reference Range Interpretation Comme nts MAGNESIUM (test code = 4018842261) 2.2 mg/dL 1.7-2.4 Lab Interpretation (test cod e = 92548-7) Normal [facility] with [id number] 11:09:40* Test Item Value Reference Range Interpretation Comme nts WBC (test code = 6690-2) 13.02 4.20-10.70 H RBC (test code = 789-8) 4.20 4.26-5.52 L HGB (test code = 718-7) 11.3 g/dL 12.2-16.4 L HCT (test code = 4544-3) 33.9 % 38.4-49.3 L MCV (test code = 787-2) 80.7 fL 81.7-95.6 L MCH (test code = 785-6) 26.9 pg 26.1-32.7 MCHC (test code = 786-4) 33.3 g/dL 31.2-35.0 RDW-SD (test code = 18533-7) 36.3 fL 38.5-51.6 L RDW-CV (test code = 788-0) 12.5 % 12.1-15.4 PLT (test code = 777-3) 630 150-328 H MPV (test code = 09060-5) 9.1 fL 9.8-13.0 L NRBC/100 WBC (test code = 4304339211) 0.0 0.0-10.0 NRBC x10^3 (test code = 7558210957) See_Comment [Automated message] The system which generated this result transmitted reference range: 10*3/?L. The reference range was not used to interpret this result as normal/abnormal. GRAN MAT (NEUT) % (test code = 770-8) 81.8 % IMM GRAN % (test code = 8656758029) 0.50 % LYMPH % (test code = 736-9) 10.3 % MONO % (test code = 5905-5) 7.2 % EOS % (test code = 713-8) 0.0 % BASO % (test code = 706-2) 0.2 % GRAN MAT x10^3(ANC) (test code = 5259507274) 10.65 10*3/uL 1.99-6.95 H IMM GRAN x10^3 (test code = 6378280905) 0.07 10*3/uL 0.00-0.06 H LYMPH x10^3 (test code = 731-0) 1.34 10*3/uL 1.09-3.23 MONO x10^3 (test code = 742-7) 0.94 10*3/uL 0.36-1.02 EOS x10^3 (test code = 711-2) 0.06-0.53 L BASO x10^3 (test code = 704-7) 0.01-0.09 Lab Interpretation (test code = 35753-9) Abnormal [facility] with [id number] 11:09:40* Test Item Value Reference Range Interpretation Comme nts WBC (test code = 6690-2) 13.02 4.20-10.70 H RBC (test code = 789-8) 4.20 4.26-5.52 L HGB (test code = 718-7) 11.3 g/dL 12.2-16.4 L HCT (test code = 4544-3) 33.9 % 38.4-49.3 L MCV (test code = 787-2) 80.7 fL 81.7-95.6 L MCH (test code = 785-6) 26.9 pg 26.1-32.7 MCHC (test code = 786-4) 33.3 g/dL 31.2-35.0 RDW-SD (test code = 58579-6) 36.3 fL 38.5-51.6 L RDW-CV (test code = 788-0) 12.5 % 12.1-15.4 PLT (test code = 777-3) 630 150-328 H MPV (test code = 86755-3) 9.1 fL 9.8-13.0 L NRBC/100 WBC (test code = 5517140536) 0.0 0.0-10.0 NRBC x10^3 (test code = 8006740996) See_Comment [Automated message] The system which generated this result transmitted reference range: 10*3/?L. The reference range was not used to interpret this result as normal/abnormal. GRAN MAT (NEUT) % (test code = 770-8) 81.8 % IMM GRAN % (test code = 4050112559) 0.50 % LYMPH % (test code = 736-9) 10.3 % MONO % (test code = 5905-5) 7.2 % EOS % (test code = 713-8) 0.0 % BASO % (test code = 706-2) 0.2 % GRAN MAT x10^3(ANC) (test code = 4124081989) 10.65 10*3/uL 1.99-6.95 H IMM GRAN x10^3 (test code = 0532325757) 0.07 10*3/uL 0.00-0.06 H LYMPH x10^3 (test code = 731-0) 1.34 10*3/uL 1.09-3.23 MONO x10^3 (test code = 742-7) 0.94 10*3/uL 0.36-1.02 EOS x10^3 (test code = 711-2) 0.06-0.53 L BASO x10^3 (test code = 704-7) 0.01-0.09 Lab Interpretation (test code = 19706-6) [facility] 07:26:52* Test Item Value Reference Range Interpretation Comme nts HGB A1C (test code = 4548-4) 5.9 % 4.0-5.7 H NIYAH (test code = NIYAH) Reference RangesNormal: <5.7%Prediabetes: 5.7 - 6.4%Diabetes: > 6.5% Lab Interpretation (test code = 29106-4) [facility]1C)2023-05-14 07:26:52* Test Item Value Reference Range Interpretation Comme nts HGB A1C (test code = 4548-4) 5.9 % 4.0-5.7 H NIYAH (test code = NIYAH) Reference RangesNormal: <5.7%Prediabetes: 5.7 - 6.4%Diabetes: > 6.5% Lab Interpretation (test code = 65629-4) [facility]normal [facility] Hospital[facility] Stimulating Evchiab6329-26-73 04:51:21 * Test Item Value Reference Range Interpretation Comme nts TSH (test code = 6715990326) 0.36 0.45-4.70 L Lab Interpretation (test cod e = 70250-4) [facility]normal [facility] Thrxzkl0353-28-24 04:51:21 * Test Item Value Reference Range Interpretation Comme nts TSH (test code = 9255955738) 0.36 0.45-4.70 L Lab Interpretation (test cod e = 38070-2) [facility]osphorus Iscok2985-94-08 04:21:20* Test Item Value Reference Range Interpretation Comme nts PHOSPHORUS (test code = 7512158619) 4.5 mg/dL 2.5-5.0 Lab Interpretation (test cod e = 55850-9) [facility] Eprnj9770-98-22 04:21:20* Test Item Value Reference Range Interpretation Comme nts MAGNESIUM (test code = 4967491922) 2.1 mg/dL 1.7-2.4 Lab Interpretation (test cod e = 25225-9) Normal [facility]actate Tdvaemmdcrhru9883-48-77 04:21:20* Test Item Value Reference Range Interpretation Comme nts LDH (test code = 0168273490) 172 U/L 120-246 Lab Interpretation (test cod e = 06305-0) Normal [facility]Phosph[facility] Mopiz9604-59-93 04:21:20* Test Item Value Reference Range Interpretation Comme nts PHOSPHORUS (test code = 9855569454) 4.5 mg/dL 2.5-5.0 Lab Interpretation (test cod e = 03861-5) [facility] Bjviq8222-08-66 04:21:20* Test Item Value Reference Range Interpretation Comme nts MAGNESIUM (test code = 7738446822) 2.1 mg/dL 1.7-2.4 Lab Interpretation (test cod e = 69962-3) [facility] Fmlcxfabbuaff1322-96-49 04:21:20* Test Item Value Reference Range Interpretation Comme nts LDH (test code = 7859499815) 172 U/L 120-246 Lab Interpretation (test cod e = 30803-1) Normal [facility] Metabolic Panel (NA, K, CL, CO2, Glucose, BUN, Creatinine, CA)2023-05-14 04:21:19* Test Item Value Reference Range Interpretation Comme nts NA (test code = 3441243714) 134 mmol/L 135-145 L K (test code = 8532902065) 5.4 mmol/L 3.5-5.0 H CL (test code = 4798011865) 98 mmol/L 98-108 CO2 TOTAL (test code = 9044083048) 26 mmol/L 23-31 AGAP (test code = 1879475357) 10 2-16 BUN (test code = 5489541301) 17 mg/dL 7-23 GLUCOSE (test code = 2137739534) 149 mg/dL 70-110 H CREATININE (test code = 6351086997) 0.54 mg/dL 0.60-1.25 L CALCIUM (test code = 1232913267) 10.9 mg/dL 8.6-10.6 H eGFR (test code = 85414-4) 122.2 mL/min/1.73m2 CKD-EPI eGFR (2020). Assuming creatinine has been stable day-to-day for at least three months, the eGFR indicates Category G1 (>= 90 mL/min/1.73 m2) Lab Interpretation (test code = 60748-2) Abnormal [facility] Hospital[facility] Function Panel (ALB, T.PRO, BILI T, BU/BC, ALT, AST, ALK, PHOS)2023-05-14 04:21:19* Test Item Value Reference Range Interpretation Comme nts TOTAL BILI (test code = 4931321660) 0.4 mg/dL 0.1-1.1 BILI UNCON (test code = 5223706187) 0.4 mg/dL 0.1-1.1 BILI CONJ (test code = 7360101468) 0.0 mg/dL 0.0-0.3 T PROTEIN (test code = 2110362965) 7.5 g/dL 6.3-8.2 ALBUMIN (test code = 1899688055) 4.0 g/dL 3.5-5.0 ALK PHOS (test code = 8006841274) 156 U/L 34-122 H ALTv (test code = 1742-6) 22 U/L 5-50 AST(SGOT) (test code = 7438562433) 17 U/L 13-40 Lab Interpretation (test cod e = 73623-7) Abnormal [facility] HospitalBasic Metabolic Panel (NA, K, CL, CO2, Glucose, BUN, Creatinine, CA)2023-05-14 04:21:19* Test Item Value Reference Range Interpretation Comme nts NA (test code = 7659937247) 134 mmol/L 135-145 L K (test code = 1614994123) 5.4 mmol/L 3.5-5.0 H CL (test code = 0464155779) 98 mmol/L 98-108 CO2 TOTAL (test code = 0858257975) 26 mmol/L 23-31 AGAP (test code = 5963266632) 10 2-16 BUN (test code = 5650874365) 17 mg/dL 7-23 GLUCOSE (test code = 0010422796) 149 mg/dL 70-110 H CREATININE (test code = 6545102477) 0.54 mg/dL 0.60-1.25 L CALCIUM (test code = 7667244386) 10.9 mg/dL 8.6-10.6 H eGFR (test code = 62948-5) 122.2 mL/min/1.73m2 CKD-EPI eGFR (2020). Assuming creatinine has been stable day-to-day for at least three months, the eGFR indicates Category G1 (>= 90 mL/min/1.73 m2) Lab Interpretation (test code = 64175-5) Abnormal [facility] (ALB, T.PRO, BILI T, BU/BC, ALT, AST, ALK, PHOS)2023-05-14 04:21:19* Test Item Value Reference Range Interpretation Comme nts TOTAL BILI (test code = 3029617569) 0.4 mg/dL 0.1-1.1 BILI UNCON (test code = 4301320469) 0.4 mg/dL 0.1-1.1 BILI CONJ (test code = 7558860224) 0.0 mg/dL 0.0-0.3 T PROTEIN (test code = 0157895375) 7.5 g/dL 6.3-8.2 ALBUMIN (test code = 3859968033) 4.0 g/dL 3.5-5.0 ALK PHOS (test code = 8904360367) 156 U/L 34-122 H ALTv (test code = 1742-6) 22 U/L 5-50 AST(SGOT) (test code = 5177092053) 17 U/L 13-40 Lab Interpretation (test cod e = 28588-8) Abnormal [facility]PTT2024-[facility] 04:11:17* Test Item Value Reference Range Interpretation Comme nts APTT Patient (test code = 3173-2) 34 26-36 Lab Interpretation (test cod e = 02498-4) Normal [facility] HospitalProthrombin Time / [id number] 04:11:17* Test Item Value Reference Range Interpretation Comme nts PROTIME PATIENT (test code = 5964-2) 13.6 10.1-12.6 H INR (test code = 6301-6) 1.2 Normal INR <1.1; Warfarin Therapeutic range 2.0 to 3.0 or 2.5 to 3.5, depending upon the indications. Lab Interpretation (test code = 15239-5) Abnormal [facility]20[facility] 04:11:17* Test Item Value Reference Range Interpretation Comme nts APTT Patient (test code = 3173-2) 34 26-36 Lab Interpretation (test cod e = 16134-5) Normal [facility] HospitalProth[facility] Time / [id number] 04:11:17* Test Item Value Reference Range Interpretation Comme nts PROTIME PATIENT (test code = 5964-2) 13.6 10.1-12.6 H INR (test code = 6301-6) 1.2 Normal INR <1.1; Warfarin Therapeutic range 2.0 to 3.0 or 2.5 to 3.5, depending upon the indications. Lab Interpretation (test code = 62012-1) Abnormal [facility] HospitalCBC with Ghybancnkbpd0276-14-04 04:05:59* Test Item Value Reference Range Interpretation Comme [facility] WBC (test code = 6690-2) 10.90 4.20-10.70 H RBC (test code = 789-8) 4.24 4.26-5.52 L HGB (test code = 718-7) 11.3 g/dL 12.2-16.4 L HCT (test code = 4544-3) 34.8 % 38.4-49.3 L MCV (test code = 787-2) 82.1 fL 81.7-95.6 MCH (test code = 785-6) 26.7 pg 26.1-32.7 MCHC (test code = 786-4) 32.5 g/dL 31.2-35.0 RDW-SD (test code = 32541-9) 37.3 fL 38.5-51.6 L RDW-CV (test code = 788-0) 12.5 % 12.1-15.4 PLT (test code = 777-3) 627 150-328 H MPV (test code = 88732-5) 8.7 fL 9.8-13.0 L NRBC/100 WBC (test code = 9616870927) 0.0 0.0-10.0 NRBC x10^3 (test code = 8514612397) See_Comment [Automated messa ge] The system which generated this result transmitted reference range: 10*3/?L. The reference range was not used to interpret this result as normal/abnormal. GRAN MAT (NEUT) % (test code = 770-8) 89.9 % IMM GRAN % (test code = 5767165568) 0.50 % LYMPH % (test code = 736-9) 7.4 % MONO % (test code = 5905-5) 2.0 % EOS % (test code = 713-8) 0.0 % BASO % (test code = 706-2) 0.2 % GRAN MAT x10^3(ANC) (test code = 3757749392) 9.80 10*3/uL 1.99-6.95 H IMM GRAN x10^3 (test code = 4779547833) 0.05 10*3/uL 0.00-0.06 LYMPH x10^3 (test code = 731-0) 0.81 10*3/uL 1.09-3.23 L MONO x10^3 (test code = 742-7) 0.22 10*3/uL 0.36-1.02 L EOS x10^3 (test code = 711-2) 0.06-0.53 L BASO x10^3 (test code = 704-7) 0.01-0.09 Lab Interpretation (test code = 18340-1) Abnormal [facility] with Cxqsrucqwdxj9781-91-47 04:05:59* Test Item Value Reference Range Interpretation Comme nts WBC (test code = 6690-2) 10.90 4.20-10.70 H RBC (test code = 789-8) 4.24 4.26-5.52 L HGB (test code = 718-7) 11.3 g/dL 12.2-16.4 L HCT (test code = 4544-3) 34.8 % 38.4-49.3 L MCV (test code = 787-2) 82.1 fL 81.7-95.6 MCH (test code = 785-6) 26.7 pg 26.1-32.7 MCHC (test code = 786-4) 32.5 g/dL 31.2-35.0 RDW-SD (test code = 69030-7) 37.3 fL 38.5-51.6 L RDW-CV (test code = 788-0) 12.5 % 12.1-15.4 PLT (test code = 777-3) 627 150-328 H MPV (test code = 77064-3) 8.7 fL 9.8-13.0 L NRBC/100 WBC (test code = 9714980274) 0.0 0.0-10.0 NRBC x10^3 (test code = 3287269704) See_Comment [Automated messa ge] The system which generated this result transmitted reference range: 10*3/?L. The reference range was not used to interpret this result as normal/abnormal. GRAN MAT (NEUT) % (test code = 770-8) 89.9 % IMM GRAN % (test code = 2881507861) 0.50 % LYMPH % (test code = 736-9) 7.4 % MONO % (test code = 5905-5) 2.0 % EOS % (test code = 713-8) 0.0 % BASO % (test code = 706-2) 0.2 % GRAN MAT x10^3(ANC) (test code = 3981278769) 9.80 10*3/uL 1.99-6.95 H IMM GRAN x10^3 (test code = 0615069076) 0.05 10*3/uL 0.00-0.06 LYMPH x10^3 (test code = 731-0) 0.81 10*3/uL 1.09-3.23 L MONO x10^3 (test code = 742-7) 0.22 10*3/uL 0.36-1.02 L EOS x10^3 (test code = 711-2) 0.06-0.53 L BASO x10^3 (test code = 704-7) 0.01-0.09 Lab Interpretation (test code = 62645-5) Abnormal [facility] Consult Notes Date/Time Note Provider Source 2023-05-20 15:29:50 Associated Order(s): CONSULT PALLIATIVE CARE Images from the original note were not included. 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 Mr. Medina had a bronchoscopy with biopsy done today. We found Mr. Zheng sitting in the bed resting he is on room air without distress he states that he does not require oxygen since it does not make any difference with his breathing. He only states that the breathing treatments have been helping a lot, and he was able to sit up on the bed and have a conversation with us. REVIEW OF SYSTEMS: Chills respiratory Patient .constitutional: negative for decreased appetite, wt loss. Ears, nose, mouth, throat: negative for ear/mouth pain Respiratory: negative for dyspnea Cardiovascular: negative for chest pain Gastrointestinal: negative for abdominal pain, constipation, nausea and vomiting Genitourinary: negative for dysuria Musculoskeletal: negative for myalgias Neurological: negative for headaches Behavioral/Psych: negative for anxiety and depression PATIENT/FAMILY DISCUSSION: I saw Mr. Zheng this morning together with Dr. Erika BURK. He shared that he is overwhelmed, 'its too much going on at the same time and it is shocking and surprising' to him. He states he was okay until, about 2 weeks ago able to work and move up to 120 pounds equipment at work, so this diagnosis of cancer is overwhelming. He states that he does not have any immediate family and his boss Mr. Horta is his best friend and his POA. Mr. Horta has been able to visit & spend time with him every day they have known each other for 12 years. Upon further discussion of plans moving forward Mr. Zheng would like to wait for the results of the biopsy done today and decide where to go from there. He states that he was given information about hospice if he decides to go with comfort care. Mr. Medina states that his pain is well-controlled with the hydrocodone. He complains of constipation has not had a bowel movement since last week Wednesday. He denies nausea vomiting or shortness of breath. He is able to chew and swallow food but only little bits at a time because too much food gets stuck in his throat. No past medical history on file. No medications prior to admission. No Known Allergies No past surgical history on file. No family history on file. Social History Socioeconomic History Marital status: Tobacco Use Smoking status: Former Types: Cigarettes Smokeless tobacco: Never Social History Narrative 05/18/23: Patient was seen by [facility] Consult Team and the below barriers to health were identified: None Identified Narrative: Home and Living Situation Lives in a motel in [place]. 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 Lives by himself. Relationship Status Does not have a partner or children. Family is his boss Trevor and he looks out for him. Transportation Has a vehicle that is reliable. 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 Position is secure. Social Network & Interests His boss (Trevor) is his support system. No family or friends in the area. No special hobbies. Education & Health Literacy Completed high school. Earned an Associates degree in electronics in the [employer]. Outpatient Primary Care Does not currently have PCP. Social Determinants of Health Financial Resource Strain: High Risk (05/18/2023) Overall Financial Resource Strain (CARDIA) Difficulty of Paying Living Expenses: Hard Food Insecurity: No Food Insecurity (05/18/2023) Hunger Vital Sign Worried About Running Out of Food in the Last Year: Never true Ran Out of Food in the Last Year: Never true Transportation Needs: No Transportation Needs (05/18/2023) PRAPARE - Transportation Lack of Transportation (Medical): No Lack of Transportation (Non-Medical): No Physical Activity: Inactive (05/18/2023) Exercise Vital Sign Days of Exercise per Week: 0 days Minutes of Exercise per Session: 0 min Social Connections: Unknown (05/18/2023) Social Connection and Isolation Panel [NHANES] Frequency of Communication with Friends and Family: Never Marital Status: Housing Stability: Low Risk (05/18/2023) Housing Stability Vital Sign Unable to Pay for Housing in the Last Year: No Number of Places Lived in the Last Year: 1 Unstable Housing in the Last Year: No Social History Substance and Sexual Activity Drug Use Not on file PHYSICAL EXAM: Temp: [36.1 ?C (97 ?F)-37.3 ?C (99.1 ?F)] 37.1 ?C (98.8 ?F) Pulse: [85-113] 93 Resp: [16-20] 16 BP: (100-121)/(64-91) 106/64 SpO2 Readings from Last 1 Encounters: 05/20/23 97% Body mass index is 27.37 kg/m?. General appearance: awake, alert to self Eyes: no scleral icterus Nose: Stridor noted Neck: Stridor Abdomen: non-tender Extremities: Moves extremities Skin: warm, dry Neuro: awake and alert, CN II-XII grossly intact Psych: calm, cooperative Labs: Personally reviewed the lab values noted below CBC BMP LFT's and Coags WBC (10*3/?L) Date Value 05/20/2023 11.43 (H) NA (mmol/L) Date Value 05/20/2023 133 (L) No results found for: "PT" RBC (10*6/?L) Date Value 05/20/2023 4.71 K (mmol/L) Date Value 05/20/2023 4.2 INR (no units) Date Value 05/18/2023 1.2 PLT (10*3/?L) Date Value 05/20/2023 584 (H) CALCIUM (mg/dL) Date Value 05/20/2023 10.4 APTT Patient (Seconds) Date Value 05/14/2023 34 HGB (g/dL) Date Value 05/20/2023 12.5 CL (mmol/L) Date Value 05/20/2023 101 ALK PHOS (U/L) Date Value 05/17/2023 138 (H) HCT (%) Date Value 05/20/2023 38.6 BUN (mg/dL) Date Value 05/20/2023 16 ALTv (U/L) Date Value 05/17/2023 20 CREATININE (mg/dL) Date Value 05/20/2023 0.70 AST(SGOT) (U/L) Date Value 05/17/2023 28 ALBUMIN (g/dL) Date Value 05/17/2023 3.8 TOTAL BILI (mg/dL) Date Value 05/17/2023 0.5 Radiology/Imaging: No final results containing an impression from the past 48 hours were found. ASSESSMENT: Principal Problem: Stridor (05/13/2023) (POA: Yes) Active Problems: E44.0 Moderate protein calorie malnutrition (05/16/2023) (POA: Unknown) Mass of lower lobe of left lung (05/13/2023) (POA: Unknown) RECOMMENDATIONS/PLAN: 1. Symptom Management -Recommend to change hydrocodone into liquid upon discharge -Start patient on bowel regimen: -MiraLAX twice daily -Senokot 2 pills twice daily -Consider steroid PO to help manage the stridor 2. Goals of Care: Currently life prolongation then to be determined after biopsy results Advance Care Planning Would like to appoint Ricardo Horta as surrogate decision maker phone #[phone] POA/Decision maker: Primary surrogate Contact: Ricardo Horta Mobile Relation: Friend 3. Code Status: Full code 4. Shared Medical Decision Making: The patient is able to demonstrate capacity to make informed complex medical decisions at this time and does not require a surrogate decision maker. 5. Ogzgcr-Ijpfc-Ghptrkwos Factors: His friend Mychal would be primary caregiver and plant attendant or assistant operator. Mr. Escobar had a short-term goal of going to the [facility] when he is released from hospital. And to make further decisions as time goes by 1 day at a time. 7. Functional Status: Patient states that he currently has car that he would be able to move around with. His friend Mychal would be primary caregiver and plant attendant or assistant operator. Thank you for giving us the opportunity to see Erendira Zheng. We will continue to follow him with you. If we can be of any assistance, please send us a message on [email or web address] or call us at [phone]. This note was created using voice recognition software. While efforts were made to review the note for speech recognition errors, occasionally errors are missed. Please contact me for corrections or to provide clarification if you feel that an error may be present. I spent 88 minutes total time on patient care on 05/20/2023. The time spent for patient care includes: PreCharting (eg, review of tests, notes, etc.), Obtaining and/or reviewing separately obtained history (Care Everywhere or paper records), Performing a medically appropriate examination and/or evaluation, Counseling and educating the patient/family/caregiver, Documenting clinical information in the electronic or other health record, and Care coordination (not separately reported). SUBMITTED BY: Tracey Cardona NP Palliative Care Team 05/20/2023 4:46 PM Pager#: [phone]. GER EMBALMER FUNERAL DIRECTOR Associated attestation - Ammon James MD - 05/20/2023 5:11 PM MANAGER EMBALMER FUNERAL DIRECTOR I personally examined the patient on 05/20 and agree with RUBEN Cardona'snote as written . I actively participated in the decision-making process. Please see her note for additional details. I spent 88 minutes total time on patient care on 05/20/2023. The time spent for patient care includes: PreCharting (eg, review of tests, notes, etc.), Obtaining and/or reviewing separately obtained history (Care Everywhere or paper records), Performing a medically appropriate examination and/or evaluation, and Counseling and educating the patient/family/caregiver. [facility] 2023-05-19 08:27:01 Associated Order(s): CONSULT PSYCHIATRY DEPARTMENT OF PSYCHIATRY AND BEHAVIORAL SCIENCE Inpatient Psych/Consult Evaluation Patient Name: Erendira Zheng : 1975 Patient Address: [address] [address] Today's Date: 05/19/2023 REASON FOR CONSULT: "Patient with recent diagnosis of cancer, currently expressing thought of killing himself after he leaves hospital" CHIEF COMPLAINT: "shortness of breath" HISTORY OF PRESENT ILLNESS: Erendira Zheng is a 48 year old male with no past medical and psychiatric history who was admitted on 05/13/23 for stridor and concern for airway compromise. Patient was found to have a mediastinal mass infiltrating left mainstem bronchus and left tracheobronchial tree and pancreatic tail mass. Psychiatry was consulted on 05/18/23 for concern of patient expressing suicidal ideation. Patient reports that last he started having shortness of breath leading to him going to the emergency department. Patient states now he is "dying of cancer" and his pain has gone from "zero to one hundred" since being admitted. Prior to presentation to the hospital, patient states he was living a "normal life" and denies experiencing any symptoms until . Patient reports he "made a bad joke" yesterday towards two staff members that were in his room asking him questions. The patient states that he just wanted them to leave, so he made "a bad joke" that he "did not mean". Patient says the joke he made was in response to the question "is there anything we can do for you" with which he said "yeah you can get me a large caliber hand gun". Currently, the patient denies suicidal ideation, homicidal ideation, audiovisual hallucinations and prior suicide ideation or attempts. He has never had any self harm behavior. Patient denies past psychiatric history and denies previously taking psychiatric medications. Patient states that "things are coming at me fast" and he has been having a hard time "processing thing" leading to difficulty sleeping. Patient is open to taking psychiatric medications if offered. He denies depressed mood, anxiety. PSYCHIATRIC REVIEW OF SYSTEMS: Depression: Denies Laura: Denies Anxiety/Panic: Denies A/V Hallucinations: Denies Delusions: Denies Suicidal Ideation: Denies Previous Suicide Attempts: Denies Homicidal Ideation: Denies SUICIDE RISK ASSESSMENT: Risks: (Bolded are positive) SI, depression, guns at home, sleep, marital/employment status, h/o trauma, ongoing medical issues, age, substance use, past attempts Protective: no intent or plan to harm self, social support, reasons for living Overall: elevated risk PAST PSYCHIATRIC HISTORY: Past diagnoses: Denies Inpatient psychiatric treatment: Denies Outpatient psychiatric treatment: Denies Current Psychiatric Meds: Denies Previous Psychiatric Meds: Denies History of Suicide Attempts: Denies History of Abuse: Denies SUBSTANCE USE: Alcohol: Prior use, last drink 8 years ago Benzodiazepines: Denies Opiates: Denies Cocaine: Denies Methamphetamine: Denies Other Stimulants: Denies Hallucinogens: Denies Marijuana: Denies Synthetic marijuana: Denies Tobacco: Prior use, last use mar 2023 (previous 3 pack per week) The patient denies a h/o IVDA. SOCIAL HISTORY: Household: Lives in a [facility] in [facility] Highest level of Education: Graduated high school and obtained an associations degree in [employer] Employment: Previously in [employer] for 7 years, currently employed at [employer] he lives at Legal history: Denies Social Support: His boss, "Ricardo" is his "only friend". He has come to visit him everyday since being in the hospital. FAMILY PSYCHIATRIC HISTORY: Denies PAST MEDICAL HISTORY: Denies head injury. Denies seizures. No past medical history on file. No past surgical history on file. MEDICATIONS: Current Facility-Administered Medications Medication Dose Route Frequency Last Rate Last Admin HYDROcodone-acetaminophen (NORCO) 10-325 mg tablet 1 tablet 1 tablet Oral Q6HPRN 1 tablet at 05/19/23 0152 morpHINE (2 mg/mL) injection 2 mg 2 mg Slow IV Push Q6HPRN 2 mg at 05/19/23 0541 acetaminophen (TYLENOL) tablet 650 mg 650 mg Oral Q6HPRN guaiFENesin 100 mg/5 mL solution 200 mg 200 mg Oral Q4HPRN 200 mg at 05/18/23 1931 ipratropium-albuteroL (DUONEB) 0.5 mg-3 mg(2.5 mg base)/3 mL nebulizer solution 3 mL 3 mL Inhalation QIDPRN 3 mL at 05/19/23 0525 polyethylene glycol 3350 powder 17 g 17 g Oral DAILY 17 g at 05/18/23 0816 enoxaparin (LOVENOX) injection 40 mg 40 mg Subcutaneous DAILY 40 mg at 05/18/23 0816 famotidine (PEPCID AC) tablet 20 mg 20 mg Oral BID 20 mg at 05/18/23 193 ipratropium-albuteroL (DUONEB) 0.5 mg-3 mg(2.5 mg base)/3 mL nebulizer solution 3 mL 3 mL Inhalation QID 3 mL at 05/19/23 0802 racEPINEPHrine (S2 RACEMIC) 2.25 % nebulizer solution 0.25 mL 0.25 mL Inhalation Q15MIN PRN 0.25 mL at 05/19/23 0530 SIDE EFFECTS/ALLERGIES: No Known Allergies VITAL SIGNS: BP 104/65 (BP Location: Left arm, Patient Position: Supine) | Pulse 78 | Temp 36.6 ?C (97.9 ?F) | Resp 18 | Ht 1.727 m (5' 8") | Wt 81.6 kg (180 lb) | SpO2 98% | BMI 27.37 kg/m? MENTAL STATUS EXAM: Appearance: 48 year old male sitting upright in bed wearing a hospital gown. Appropriately groomed. Attitude: Cooperative and Pleasant Psychomotor: Psychomotor Normal Mood: "better than yesterday" Affect: Appropriate, full range of affect, somber Speech: Regular rate and volume Language: Normal Thought process: Logical Directed and Coherent Associations: Normal Abnormal/Psychotic Thoughts: - Thought content: Without Delusions - Perceptual: Without Hallucinations - Suicidal: Not present - Violent/Homicidal: Not Present Cognition: Normal Cognition Level of Consciousness: Full Orientation: Oriented x 4 Recent/remote memory: Intact, able to repeat 3/3 words immediately and 2/3 works with help at 3 minutes Intelligence: Average, finished high school and obtained associates degree Fund of knowledge: Average, able to name the current and last 2 presidents Attention/concentration: Good, able to spell [place] backwards, able to follow interview without distractions Abstraction: intact, able to interpret proverbs Judgment: Intact Insight: Intact LAB DATA CBC BMP PT/INR WBC (10*3/?L) Date Value 05/19/2023 13.81 (H) NA (mmol/L) Date Value 05/19/2023 131 (L) No results found for: "PT" RBC (10*6/?L) Date Value 05/19/2023 4.30 K (mmol/L) Date Value 05/19/2023 4.8 INR (no units) Date Value 05/18/2023 1.2 PLT (10*3/?L) Date Value 05/19/2023 613 (H) CALCIUM (mg/dL) Date Value 05/19/2023 10.7 (H) HGB (g/dL) Date Value 05/19/2023 11.8 (L) CL (mmol/L) Date Value 05/19/2023 97 (L) aPTT HCT (%) Date Value 05/19/2023 34.7 (L) BUN (mg/dL) Date Value 05/19/2023 18 APTT Patient (Seconds) Date Value 05/14/2023 34 CREATININE (mg/dL) Date Value 05/19/2023 0.62 ASSESSMENT/FORMULATION: Erendira Zheng is a 48 year old male with no past medical and psychiatric history who was admitted on 05/13/23 for stridor and concern for airway compromise. Patient was found to have a mediastinal mass infiltrating left mainstem bronchus and left tracheobronchial tree and pancreatic tail mass. Psychiatry was consulted on 05/18/23 for concern of patient expressing suicidal ideation. Today, the patient denies SI, HI and AVH. The patient states that he did not mean his previous statement of SI and he is still considering his treatment options going forward. He also denies access to any firearms currently. Patient has recently been diagnosed with extensive carcinoma with a poor prognosis and his emotional response to all the new information being given to him is not out of the ordinary. The patient does not meet criteria for inpatient psychiatric hospitalization and likely would not benefit from this even if he did meet criteria as an inpatient facility will not cure the underlying medical diagnosis that could lead to mood changes. Although he is denying any current feelings of depression or anxiety, the patient could benefit from mirtazapine which could help improve mood if it does worsen but would also help with his poor sleep and poor appetite. He is open to trying this medication to help with sleep and potentially mood so we recommend starting him with Mirtazapine 7.5mg QHS. Dose can be increased over time if he is tolerating it well and is having poor mood, although higher doses of Mirtazapine don't necessarily correlate with increased sedation. Psych will sign off but will be available for any further questions. Patient currently is not suicidal and, as such, patient does not meet criteria for psychiatric inpatient admission as there is no apparent immediate danger. DIAGNOSES/PLAN: 1. Adjustment disorder - Recommend starting mirtazapine 7.5mg QHS for sleep and increased appetite, may help with mood - Recommend optimizing pain control as medically appropriate per primary - Agree with Palliative care consult - If patient desires, he can follow up with [facility] Outpatient Psychiatry ([place]): [phone], ([place]): [phone] or [facility]: or [facility]: [phone] after hospital discharge for psychiatric medications If the patient feels in danger, suicidal, pt can contact these suicide hotlines or or to go to the nearest emergency department. Thank you for this consult. We will sign off at this time. Please re-consult if further concerns arise. Patient discussed with Psychiatry faculty, Dr. Mattson, who agrees with the assessment and plan as outlined above. Zoran Joseph MS4 05/19/23 I personally examined the patient on 05/19/2023 and have verified medical student Zoran's documentation and/or findings, including the history, physical exam, and medical decision making. Additionally, I have personally performed or re-performed the physical exam and medical decision making activities of this patient's evaluation and management service. Akhil Delatorre MD [facility] Department of Psychiatry PGY-2 C/L Pager # [phone] [employer] Associated attestation - Erendira Mattson MD - 05/20/2023 4:30 PM MANAGER E[employer]MER [employer]ER[employer] DIRECT[employer] I personally examined the patient on 05/19/23 and agree with the resident's note as written, including any changes or additions that the resident may have made to the medical student's note. I actively participated in the decision making process. Please see the resident's note for additional details. The patient is not an imminent suicide safety concern based on risk factor analysis. PN-PSYCHIATRY [facility] - Health 2023-05-18 12:17:12 Associated Order(s): CONSULT PULMONARY MEDICINE PULMONARY MEDICINE CONSULTATION NOTE Consultation requested by: Sandip Mullins MD Date of Service: 05/18/2023 12:17 HD #: [id number] CC: Stridor Reason for Consultation: Mediastinal mass, IR requiring pulm opionion before biopsy History of Present Illness Erendira Zheng is a 48 year old male with a 30-year pack smoking history initially admitted to MICU from OSH with concern for stridor and airway compromise and subsequently transferred to the floor for further management. On initial presentation, pt was c/o worsening dyspnea and stridor with associated dysphonia and weight loss for the past year. Imaging at the time with CT neck/thorax revealed large mediatsinal mass extending into the LLL and evidence of vocal cord paralysis. Hospital course was remarkable for US-guided thoracentesis on 05/14 for the LLL symptomatic pleural effusion. Today, pt reports sob with minimal cough. Otherwise no other complains. Risk factors: -30-year pack smoking history -denies family hx of malignancy Social History Tobacco Use Smoking Status Former Types: Cigarettes Smokeless Tobacco Never PAST MEDICAL HISTORY No past medical history on file. No past surgical history on file. No family history on file. Social History Socioeconomic History Marital status: Tobacco Use Smoking status: Former Types: Cigarettes Smokeless tobacco: Never Allergies: Patient has no known allergies. Current Hospital Medications: Current Facility-Administered Medications Medication Dose Route Frequency Last Rate Last Admin HYDROcodone-acetaminophen (NORCO) 10-325 mg tablet 1 tablet 1 tablet Oral Q6HPRN 1 tablet at 05/18/23 0822 morpHINE (2 mg/mL) injection 2 mg 2 mg Slow IV Push Q6HPRN acetaminophen (TYLENOL) tablet 650 mg 650 mg Oral Q6HPRN guaiFENesin 100 mg/5 mL solution 200 mg 200 mg Oral Q4HPRN 200 mg at 05/18/23 0816 ipratropium-albuteroL (DUONEB) 0.5 mg-3 mg(2.5 mg base)/3 mL nebulizer solution 3 mL 3 mL Inhalation QIDPRN 3 mL at 05/16/23 0631 polyethylene glycol 3350 powder 17 g 17 g Oral DAILY 17 g at 05/18/23 0816 enoxaparin (LOVENOX) injection 40 mg 40 mg Subcutaneous DAILY 40 mg at 05/18/23 0816 famotidine (PEPCID AC) tablet 20 mg 20 mg Oral BID 20 mg at 05/18/23 0816 ipratropium-albuteroL (DUONEB) 0.5 mg-3 mg(2.5 mg base)/3 mL nebulizer solution 3 mL 3 mL Inhalation QID 3 mL at 05/18/23 1120 racEPINEPHrine (S2 RACEMIC) 2.25 % nebulizer solution 0.25 mL 0.25 mL Inhalation Q15MIN PRN 0.25 mL at 05/14/23 0537 Home Medications: Current Facility-Administered Medications Medication Dose Route Frequency Last Rate Last Admin HYDROcodone-acetaminophen (NORCO) 10-325 mg tablet 1 tablet 1 tablet Oral Q6HPRN 1 tablet at 05/18/23 0822 morpHINE (2 mg/mL) injection 2 mg 2 mg Slow IV Push Q6HPRN acetaminophen (TYLENOL) tablet 650 mg 650 mg Oral Q6HPRN guaiFENesin 100 mg/5 mL solution 200 mg 200 mg Oral Q4HPRN 200 mg at 05/18/23 0816 ipratropium-albuteroL (DUONEB) 0.5 mg-3 mg(2.5 mg base)/3 mL nebulizer solution 3 mL 3 mL Inhalation QIDPRN 3 mL at 05/16/23 0631 polyethylene glycol 3350 powder 17 g 17 g Oral DAILY 17 g at 05/18/23 0816 enoxaparin (LOVENOX) injection 40 mg 40 mg Subcutaneous DAILY 40 mg at 05/18/23 0816 famotidine (PEPCID AC) tablet 20 mg 20 mg Oral BID 20 mg at 05/18/23 0816 ipratropium-albuteroL (DUONEB) 0.5 mg-3 mg(2.5 mg base)/3 mL nebulizer solution 3 mL 3 mL Inhalation QID 3 mL at 05/18/23 1120 racEPINEPHrine (S2 RACEMIC) 2.25 % nebulizer solution 0.25 mL 0.25 mL Inhalation Q15MIN PRN 0.25 mL at 05/14/23 0537 Review of Systems: 12 point ROS conducted, negative except as in HPI Physical Exam and Objective Data BP 107/66 | Pulse 89 | Temp 36.5 ?C (97.7 ?F) | Resp 16 | Ht 1.727 m (5' 8") | Wt 81.6 kg (180 lb) | SpO2 98% | BMI 27.37 kg/m? General: Head: normocephalic and atraumatic Eyes: normal external eye, corneas clear, conjunctiva and sclera normal and pupils equal, round, reactive to light and accomodation ENT: nasal passages clear ; moist oral mucosa, no erythema or tonsillar enlargement, posterior pharynx clear; Cardiovascular: RRR Respiratory: mild stridor, no respiratory distress noted. Intake/Output Summary (Last 24 hours) at 05/18/2023 1217 Last data filed at 05/17/2023 1447 Gross per 24 hour Intake 600 ml Output -- Net 600 ml LABORATORY CBC BMP LFTs WBC (10*3/?L) Date Value 05/18/2023 15.04 (H) NA (mmol/L) Date Value 05/18/2023 132 (L) ALK PHOS (U/L) Date Value 05/17/2023 138 (H) HGB (g/dL) Date Value 05/18/2023 11.7 (L) K (mmol/L) Date Value 05/18/2023 4.6 ALTv (U/L) Date Value 05/17/2023 20 HCT (%) Date Value 05/18/2023 36.5 (L) CALCIUM (mg/dL) Date Value 05/18/2023 11.1 (H) AST(SGOT) (U/L) Date Value 05/17/2023 28 PLT (10*3/?L) Date Value 05/18/2023 583 (H) CL (mmol/L) Date Value 05/18/2023 99 RBC (10*6/?L) Date Value 05/18/2023 4.52 BUN (mg/dL) Date Value 05/18/2023 18 Cardio CREATININE (mg/dL) Date Value 05/18/2023 0.61 No results found for: "NTBNP" Thyroid TSH (mIU/L) Date Value 05/13/2023 0.36 (L) No components found for: "GLUC" MICROBIOLOGY: No results found for: "CBLD", "CUR", "CSP", "CBF", "CABS", "CWD", "FUNGALID" RESULTS REVIEWED: MR BRAIN W WO CONTRAST Result Date: 05/17/2023 No acute intracranial abnormality. No intracranial metastasis. Preliminary Report Dictated by Resident: Rhett Hussein, Jacinta Lyman MD., have reviewed this study and agree with the above report. 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 Cytology pending. - f/u pleural fluid cytology - plans for possible bronch (05/20) AM, please keep NPOpMN - rest per primary Plan was reviewed with Dr Bautista and discussed with the patient. All concerns were addressed and all questions answered. Pulmonology will continue to follow. Janet Turcios DO PGY-1 | Department of Internal Medicine [place] Team [employer] Associated attestation - Sung Bautista MD - 05/19/2023 8:37 AM MANAGER [employer] DIRECT[employer] Attestation: Today 18 May 2023 I examined and discussed this patient with Dr Turcios. I agree with the observations, assessments, and recommendations. [facility] IM-INTERNAL MEDICINE [facility] 2023-05-14 09:49:44 Associated Order(s): CONSULT SPEECH Speech-Language Pathology Clinical Swallow Evaluation 05/14/2023 Erendira Zheng : 1975 Age/Sex: 48 year old male Time IN/OUT: [id number] Referring Physician: Lala Pacheco Date of Referral: 05/14/23 Reason for Referral: dysphagia Date of Admission/Onset: 05/13/23 SUBJECTIVE: Patient alert/awake, agreeable to evaluation. Patient reports dysphonia for ~1 year and unintentional weight loss of ~ 10lbs. He endorses weakness that has worsened over the pas 2-3 weeks and globus sensation with solid, "dense" foods. Patient denies h/o dysphagia. OBJECTIVE: is being seen for a clinical swallow evaluation. Erendira Zheng is a 48 year old male admitted for stridor with no known PMH. See chart for further details. 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 Previous [facility] [employer] Services/Swallow History: None documented. No past medical history on file. No past surgical history on file. General Behavior: Alert, Calm, and Cooperative Hearing: WFL for speech Respiratory Status: room air Orientation/Cognition: - Patient oriented to: person, place, time, and situation - Response type: verbal - Follows 1-step commands: Yes Current Diet Texture/Means of Nutrition: NPO Oral Motor Exam Dentition and Oral Cavity: dentate, natural dentition, moist oral mucosa, and clean oral cavity Face within normal limits and symmetrical Jaw within normal limits and symmetrical Lips within normal limits and symmetrical Tongue impaired function, characterized by tongue deviates to the right Palate within normal limits and symmetrical Vocal Quality dysphonic Speech clear/intelligible CLINICAL SWALLOW EVALUATION Swallows on command: Yes Handles Secretions: Yes Volitional Cough: Did not test Spontaneous Cough: No PO trials were administered by patient. Patient was provided with multiple bites/sips of thin liquid (0), pudding (4), and regular solid (7) consistencies with the following observations: Oral Stage Anterior leakage of bolus not observed Pocketing of bolus not observed Subjectively prolonged oral phase not observed Oral residue not observed Mastication WNL Pharyngeal Stage Subjectively reduced laryngeal elevation not observed Coughing or throat clearing not observed Change in voice quality not observed Multiple swallows subjectively not observed Respiratory sufficiency and coordination WFL - no increased work of breathing and/or oxygen sats and respiratory rate remained stable Report of globus sensation does not report 3 oz water challenge passed Patient/Family/Staff education: Provided verbally. Discussed findings of evaluation, recommendations and [facility] plan of care. Discussed recommendation/option for instrumental swallow assessment. Discussed risks of aspiration/dysphagia and possible associated complications including respiratory distress, respiratory infections (such as PNA), weight loss/difficulty meeting nutritional needs, possible need for mechanical ventilation, and even . Discussed recommendations for reducing risks of acquiring an aspiration-related respiratory infection including frequent, thorough oral hygiene care and maintaining good mobility as able. Educated about swallow precautions. Patient/family verbalized understanding and is in agreement with plan of care. RN and referring provider notified of findings and recommendations. Patient/Family goal: safe PO intake ASSESSMENT/IMPRESSIONS: Erendira Zheng presents with: Diagnosis: suspected pharyngeal dysphagia Etiology of suspected dysphagia/Risk factors for dysphagia: large left mediastinal mass Observations/Complaints: no overt s/sx of aspiration, c/o globus sensation, weight loss , and dysphonia 2/2 left vocal cord fixed in the paramedian position Factors raising concern for aspiration or pharyngeal dysphagia: weight loss Suspected risk for aspiration: yes Factors increasing risk for aspiration-related respiratory complication such as pneumonia: none evident Risk for malnutrition/dehydration or not meeting nutritional needs: yes Additional comments: Per ENT note on 05/13/23, "Left vocal cord fixed in the paramedian position, with little to no movement. Right vocal cord mobile with full ROM. No nodules on the vocal cords. 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 Prognosis: favorable for safe po intake due to above findings. RECOMMENDATIONS/GOALS: Diet: Recommend patient continue a regular (IDDSI level 7)-textured diet with thin liquids (IDDSI level 0) Precautions: - Swallow Precautions: sit fully upright/in chair, small single bites/sips, alternate bites/sips, remain upright after PO intake, and slow rate of intake - Recommend elevated head of bed and frequent, thorough oral hygiene care due to possible risk for aspiration. - Recommend patient be closely monitored for s/sx of aspiration or signs of a developing respiratory infection or worsening respiratory status (i.e. throat clearing/coughing with po, wet/gurgled voice, fever spikes 30-60 mins after meals, increased chest congestion, leukocytosis, increased O2 requirements, etc.). If observed or suspected, recommend pt be made NPO pending [employer] re-assessment. Instrumental Swallow Assessment: - Recommend medical team place order for Modified Barium Swallow Study (COOKIE) to rule out aspiration, further assess swallowing physiology, determine safety for PO intake, and determine need for further dysphagia interventions. Additional Referrals: - None evident at this time. Continued [employer] services while in-house: Recommend medical team place order for Modified Barium Swallow Study (COOKIE) to rule out aspiration, further assess swallowing physiology, determine safety for PO intake, and determine need for further dysphagia interventions. Discharge Recommendations: - None evident at this time. Olive Kurtz MA, [facility] Speech-Language Pathologist Office [phone] Pager: [phone] [facility] 2023-05-13 21:40:24 Associated Order(s): CONSULT OTOLARYNGOLOGY OTOLARYNGOLOGY-HEAD AND NECK SURGERY Consultation History and Physical Date of Service: 05/13/2023 Reason for Consultation: Airway Eval Service: MICU HPI: Erendira Zheng is a 48 year old male with significant pmhx of smoking transferred to [facility] MICU for one-year history of dysphonia, several week, history of dysphasia, and now several day history of difficulty breathing. Notes breathing is as if "breathing through a straw" and worse when flat. Patient states hoarseness began shortly after losing his voice at a football game in Feb 2022 and it never returning. As for dysphagia, he states difficulty swallowing large food boluses such as meats and bread. No difficulty or coughing with liquids. OSH work up showed a large left mediastinal mass and associated LAD appearing to invade into the left bronchus. Patient denies any previous breathing difficulties. No previous H&N surgeries. No other ENT concerns at this time. Histories: No Known Allergies No current facility-administered medications on file prior to encounter. No current outpatient medications on file prior to encounter. No past medical history on file. No past surgical history on file. No family history on file. Social History: Former smoker PE Vitals: BP (!) 144/87 | Pulse 99 | Temp 36.4 ?C (97.5 ?F) (Tympanic) | Resp 19 | Wt 81.6 kg (180 lb) | SpO2 97% Gen: NAD, alert, voice course and breathy with poor projection Eyes: EOMI, no irritation Ears: Bilateral external ears normal in shape and appearance, no mastoid swelling Nose: No septal deviation, no polyps/purulence; inferior turbinates wnl; no bleeding Oral cavity: No trismus, good dentition, no lesions Oropharynx: No bleeding noted, mucosa regular Face/Neck: No facial lesions or evidence of fracture, no neck masses, trachea midline, no thyroid nodules; Lymph: no palpable cervical adenopathy Pulmonary: No distress, normal WOB, no stridor Cardio: RRR Neuro: grossly intact, face symmetrical, cranial nerves bilaterally intact- no palatal or tongue weakness. Skin: no significant facial lesions Psych: appropriate affect Labs: There are no current results on file for these tests and/or test for 1 year. There are no current results on file for these tests and/or test for 1 year. There are no current results on file for these tests and/or test for 1 year. There are no current results on file for these tests and/or test for 1 year. Imaging: No final results containing an impression from the past 48 hours were found. Procedure: FNL 05/13/2023: Comprehensive upper airway exam was performed using a flexible fiberoptic scope. The endoscope was passed gently along in the inferior border of the nose. Right nasal cavity was unremarkable. Nasopharynx and oropharynx were non-erythematous and without mass or lesion. Base of tongue, vallecula, epiglottis, pyriform sinuses, and aryepiglottic folds are all within normal limits. No masses or edema were noted. Left vocal cord fixed in the paramedian position, with little to no movement. Right vocal cord mobile with full ROM. No nodules on the vocal cords. Supraglottic airway widely patent. Assessment/Plan: Erendira Zheng is a 48 year old male transferred to [facility] MICU for one-year history of dysphonia, several week, history of dysphasia, and now several day history of difficulty breathing. OSH work up showed a large left mediastinal mass and associated LAD appearing to invade into the left bronchus. Scope exam today shows left vocal cord fixed in the paramedian position. 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 - No acute surgical intervention - F/U OSH CT imaging - Agree with pulmonary/CT surg consultation for management of mediastinal pathology. Can consider stenting if symptoms worsen - Recommend [employer]/MBS consultation to rule out ander aspiration - Recommend NPO status until aspiration is ruled out - Can consider speech therapy vs injection augmentation if no improvement/fails MBS. However, underlying disease process should ultimately be addressed. Will discuss with faculty Annie Reza MD Otolaryngology- Head & Neck Surgery, PGY-2 [employer] Associated attestation - Blu Goodwin MD - 05/16/2023 9:09 PM MANAGER E[employer]MER [employer]ER[employer] DIRECTOR I have reviewed and discussed this note with the resident, Annie Reza, and agree with the note as written. Blu Goodwin MD Head & Neck Surgical Oncology and Reconstructive Surgery Department of Otolaryngology-Head and Neck Surgery [facility]ON-OTOLARYNGOLOGY [facility] History and Physical Notes Date/Time Note Provider Source 2023-05-20 08:46:33 Interventional Pulmonary Pre-Operative History and Physical Note Date of Service: 05/20/23 Erendira Zheng is 48 year old male interviewed and examined today in the DSU/holding area/operating room before induction of anesthesia. There have been no significant interval changes in the history or physical exam. I agree with the clinic note as written from date 05/18/23 Risks, benefits and alternatives to the procedure were reviewed with the patient again today, and pt voiced understanding of the condition present as well as the planned procedure(s) without questions and wishes to proceed. Informed consent had been obtained. Diagnosis: Mediastinal mass, left lung collapse, airway invasion, pancreatic mass, left pleural effusion Planned procedure: Airway inspection, endobronchial biopsy Jose Manuel Huynh MD Fellow, Pulmonary and Critical Care Medicine [employer] Associated attestation - Sung Bautista MD - 05/20/2023 8:59 AM MANAGER EMBALMER [employer]ERAL DIRECTOR Attestation: Today 20 May 2023 I examined and discussed this patient with Dr Huynh. I agree with the indications for bronchoscopy. [facility] 2023-05-13 21:36:40 Medicine Intensive Care History and Physical Date of Service: 05/13/2023 ICU Admit date: 05/13/23 Intubation Date: N/A CHIEF COMPLAINT: Stridor HISTORY OF PRESENT ILLNESS Erendira Zheng is a 48 year old male with no known past medical history presents to [facility] as a transfer from [facility] with concern for stridor and airway compromise. Pt presented to the ED with 5 day history of stridor and worsening dyspnea. VSS Bp 153/94, pulse 98, RR:20, 98% on RA. WBC: 14K w/left shift, HGB: 12.4, PLT:666, Na: 131, Cr: 0.96, AST: 11, ALT:24, Alk phos: 180,Ca: 10.7. Lactate: 1.2, INR: 1.26, Covid/Flu A/B negative. CT neck/ thorax showed large mediastinal mass extending into the left lower lobe infiltrating the left mainstem bronchus and left tracheobronchial tree. Also noted Ct findings of left vocal cord paralysis. Pt received racemic epi, methylprednisolone 125 mg ,one dose of azithromycin and rocephin. Stridor and dyspnea improved with albuterol. Of note, patient reports one year history of dysphonia with more recent weight loss. Denies worsening cough, hemoptysis, fevers, body chills, or sick exposure. Has 30 year smoking history, and alcohol use (though quit 5 years ago). Denies personal or family history of cancer. Does not take any medications. Does not follow up with a doctor. Patient designates Ricardo Horta as MPOA (terminal supervisor friend): [phone] PHYSICAL EXAMINATION Vitals: 05/13/23201405/13/232029 BP: 138/85 (!) 144/87 Pulse: 86 99 Resp: 11 19 Temp: 36.4 ?C (97.5 ?F) TempSrc: Tympanic SpO2: 99% 97% Weight: 81.6 kg (180 lb) General: alert, no acute distress, Cardio: RRR, S1 S2 appreciated, no mrg, no JVD Resp: mild wheezing wild pronounced stridor L>R Abd: soft, non tender, no hepatosplenomegaly, bowel sounds present Ext: No LE edema, no calf tenderness Labs/Imaging: CT neck read pending CT thorax read pending Assessment/Plan: Erendira Zheng is a 48 year old male admitted with stridor secondary to vocal cord paralysis Neuro No acute problems. AOx4 Resp Stridor Mediastinal mass Vocal cord paralysis Laryngeal nerve encasement Large left pleural effusion No acute problems. Saturating 98% on 2L. Airway evaluated at bedside shows no obstruction or edema. Cause of stridor is more likely below the vocal cords. Recommending bronchoscopy. - O2pp - Duonebs Q6PRN - racemic epi PRN - CT neck read pending - CT thorax read pending - Per ENT recs: LE[facility]ER/MBS consultation to rule out ander aspiration NPO status until aspiration is ruled out speech therapy vs injection augmentation if no improvement/fails MBS. Cardiovascular No acute problems GI Likely liver mets Pancreatic mass Mildly elevated alk phos Metastatic lesion from unknown primary. No concern for obstruction. ID Leukocytosis w/left shift Received abx for CAP in OSH. Currently no concerns for respiratory infection given minimal O2 requirements, cough, or fever. Hold Abx for now. WBC normal on site. Renal/Lytes Hyperkalemia Hypercalcemia Elevated calcium likely related to malignancy. Will trend for now. If necessary will shift with K>5.5. EKG without peaked waves on admission. - Daily BMP Heme Thrombocytosis Monitor for now. Endo No acute problems uHmera Pacheco, DO Internal Medicine, PGY-2 [employer] Associated attestation - Sandip Mullins MD - 05/14/2023 10:43 AM MANAGER EMBALMER [employer]ERAL DIRECTOR I personally examined the patient on 05/14/[address] Pacheco's resident note with the following addition(s): Patient with possible metastatic malignancy, stridor, hoarseness, left pleural effusion among other changes suggestive of advanced cancer. Attempt left pleural fluid thoracentesis today. Check ptt. Airway stable . I actively participated in the decision-making process. Please see the resident's note for additional details. [facility] Procedure Notes Date/Time Note Provider Source 2023-06-28 20:11:47 Associated Order(s): Intubation Intubation Date/Time: 06/28/2023 5:34 PM Urgency: emergent Airway not difficult General Information and Staff Patient location during procedure: OR Performed: resident/COUNTER STITCHER Performed by: Betty Reece MD Authorized by: Betty Reece MD Consent for Airway (if performed for an anesthetic, see related documentation for consents) Consent: The procedure was performed in an emergent situation. Verbal consent obtained. Written consent obtained. Risks and benefits: risks, benefits and alternatives were discussed Consent given by: patient Indications and Patient Condition Indications for airway management: anesthesia Spontaneous ventilation: present Sedation level: deep Preoxygenated: yes Patient position: sniffing MILS maintained throughout Mask difficulty assessment: 0 - not attempted Final Airway Details Final airway type: endotracheal airway Successful airway: ETT Cuffed: yes Successful intubation technique: video laryngoscopy Facilitating devices/methods: intubating stylet Endotracheal tube insertion site: oral Blade: Efe Blade size: #3 ETT size (mm): 8.0 Cormack-Lehane Classification: grade I - full view of glottis Placement verified by: chest auscultation and capnometry Measured from: gums ETT to gums (cm): 24 Number of attempts at approach: 1 Ventilation between attempts: none Number of other approaches attempted: 0 Additional Comments Smooth, atraumatic, dentition and lips unchanged from pre-op. [facility] 2023-06-28 20:09:29 Associated Order(s): Arterial Line Arterial Line Date/Time: 06/28/2023 5:19 PM Performed by: Betty Reece MD Arterial Line Placement: Ultrasound-Guided: ultrasound guided and surface landmarks Indication: continuous blood pressure monitoring and blood sampling needed Staff: Supervising Anesthesiologist: Betty Reece MD Resident: Phong Mohan MD Procedure Detail: Catheter Size: 20 gauge Catheter Length: 1 and 1/4 inch Catheter Type: Arrow Seldinger Technique?: Yes Laterality: Right Site: Radial artery Line Secured: Tape, Tegaderm and biopatch Preparation: Chloroprep, sterile gloves, guidewire removed intact, biopatch applied and drape Events: Events: Patient tolerated procedure well with no complications and all wires accounted for Comments: (+) Local infiltration with Lidocaine, STF, smooth and atraumatic. [facility] 2023-05-14 18:22:39 PROCEDURE NOTE Ultrasound Guided Thoracentesis FACULTY: Sandip Mullins MD FELLOW: Julius Mcdonald DO PREOPERATIVE DIAGNOSIS: symptomatic left pleural effusion DESCRIPTION OF PROCEDURE: Ultrasound of the left posterior chest area revealed a large pocket of pleural fluid. The site was marked and the area was prepped and draped in the usual sterile fashion. 10 cc of 1% lidocaine wo epinephrine was placed in the same area localized by ultrasound for local anesthesia. The needle with catheter was inserted just over the inferior rib perpendicular to the skin surface while applying negative pressure and advanced until pleural fluid was obtained. The catheter was advanced while the needle was removed. The catheter was attached to a collection container and 600 cc of clear straw colored fluid was removed. The patient tolerated the procedure well without complications. The pleural fluid was sent for chemistries, cell count, pH, and cultures. Dr. Mullins was available for all berumen portions of the procedure. Post procedure chest xray ordered and no evidence of pneumothorax observed. COMPLICATIONS: None IMPRESSION: Successful ultrasound guided thoracentesis Julius Mcdonald DO, PGY4 Pulmonary & Critical Care Medicine 05/14/2023 6:22 PM [employer] Associated attestation - Sandip Mullins MD - 05/15/2023 12:54 PM MANAGER EMBALMER [employer]ERAL DIRECTOR Agree with indication for procedure. I was not personally present but available, if needed, at the time of this procedure. IM-PULMONARY DISEASE [facility] Notes Date/Time Note Provider Source 2024-01-06 14:45:40 Routed refill request for fentanyl 25 mcg/hr patch to Dr. Lombardo Erma Kendall RN [facility] 2024-01-04 09:09:17 Called to speak to Mr. Zheng regarding his CT Simulation appointment, no answer so left SnackFeedhart message and numbers for him to call me or the therapists back. Patient returned call, identified patient by name and . Introduced myself as Mary Carmen RN, Radiation Oncology support nurse. I let Mr. Zheng know that we have been trying to contact him for an appointment for today or to get him rescheduled for his CT Simulation . He stated "It's not in MyChart so I didn't know so I won't be there". I asked him if I could get him rescheduled for tomorrow or next week and he stated "Is this for radiation"? I said yes. Mr Zheng then stated "well I don't want to do it so I won't be there". I asked him if he had questions or concerns that he needed to discuss before making that decision and he said "no" and ended the call. Therapists and Dr. Ca notified of patient statement of not wanting to pursue treatment. Susanne Lundberg RN [facility] 2023-12-29 09:00:00 Addended by: RUDY CA MD on: 01/01/2024 03:35 PM Modules accepted: Level of Service [facility] 2023-12-22 14:38:44 Access Center: [facility] Open Encounter Maintenance Chart Review: Patient was seen in Clinic 12/21/2023. Nurse Note: RN closing encounter in [facility] r/t clinical action items completed. Deisy Rodriguez RN [facility] Access Center Triage Nurse Deisy Rodriguez RN [facility] 2023-12-21 10:30:00 Addended by: MARIA L SUGGS RN on: 02/03/2024 06:44 PM Modules accepted: Orders Maria L Suggs RN [facility] 2023-12-17 12:40:08 Called patient and asked him to check with the pharmacy this afternoon as medications should be there and ready for package pick up. Patient verbalized his understanding. [facility] 2023-12-17 12:36:02 Called pharmacy and they do have the hydrocodone rx but not the Dexamethasone. Abner Webster NP will resend to pharmacy. [facility] 2023-12-17 11:52:26 Patient contacted our clinic stating HYDROcodone-acetaminophen and steroid have not been refilled. Please assist. Charlee Meeks [facility] 2023-12-17 11:30:00 Images from the original note were not included. Venipuncture collection performed by clean technique on the right anticubitus. Total of 1 attempts were made. Slight pressure and a bandage/dressing were applied to the site(s). The patient experienced no complications. The following specimens were processed according to instructions and sent to [facility] laboratories per lab order on 12/17/2023 : LT BLUE SST 2 RED LAV 1 PPT DK GREEN (LiHep) DK GREEN (SodH) DAWKINS DK BLUE (K2) DK BLUE (S) ACD Blood Culture NIPT/NTD Patient has been identified by and name and was provided with cup, antiseptic towelette, and clean catch instructions. Patient unable to void. Unpreserved Urine Culture Aptima tube Other urine Jennyfer Tam [facility] 2023-12-07 14:31:09 Called and spoke with electrician technician. She informed medication timing would need to be adjusted to Q 4 hours or 4-6 hours, otherwise patient will need to wait until 12/12 for refill. Provided information to Dr. Lombardo and he will correct to allow patient to receive medicine for pain control. New Rx sent to pharmacy. Mynor Aguilar RN [facility] 2023-12-07 13:35:51 Elver with [facility] Out patient pharmacy would like clarification on the times he should be taking the Hydrocodrone. She can be reached at [phone]... Patient is waiting. Cheo Aguilera [facility] 2023-11-26 14:37:48 Patient discharged to go to [facility] for continuation of chemotherapy. Patient ambulatory from the ED in [facility] Zhane Orozco RN [facility] 2023-11-26 14:33:41 Patient will be discharged to the [facility] Infusion center to continue with his chemotherapy. He does have an IV in place 18G to the right AC. Provider orders IV to remain inplace for infusion. [facility] 2023-11-26 14:08:41 Patient due to void. Urinal at bedside [facility] 2023-11-26 13:09:52 Erendira Zheng is a 48 year old male presents to ED triage with chief compliant of hyperkalemia. Pt states his doctor told him to come in for a potassium of 6.5. AAOx4. Skin warm and dry. VSS. RR E/U. NAD noted. EKG done in triage Roomed for eval Janett Finney RN [facility] 2023-11-26 11:00:00 Images from the original note were not included. Venipuncture collection performed by clean technique on the left anticubitus. Total of 1 attempts were made. Slight pressure and a bandage/dressing were applied to the site(s). The patient experienced no complications. The following specimens were processed according to instructions and sent to [facility] laboratories per lab order on 11/26/2023 : LT BLUE SST 2 RED LAV 1 PPT DK GREEN (LiHep) DK GREEN (SodH) DAWKINS DK BLUE (K2) DK BLUE (S) ACD Blood Culture NIPT/NTD Eyal Juarez [facility] 2023-11-02 11:00:00 Images from the original note were not included. Venipuncture collection performed by clean technique on the right anticubitus. Total of 1 attempts were made. Slight pressure and a bandage/dressing were applied to the site(s). The patient experienced no complications. The following specimens were processed according to instructions and sent to [facility] laboratories per lab order on 11/02/2023 : LT BLUE SST 2 RED LAV 1 PPT DK GREEN (LiHep) DK GREEN (SodH) DAWKINS DK BLUE (K2) DK BLUE (S) ACD Blood Culture NIPT/NTD Shyla Villatoro [facility] 2023-10-13 09:56:[address] Lombardo refill request for hydrocodone-acetaminophen. Sekou Garcia RN [facility] 2023-10-13 09:55:40 Routed refill request for hydrocodone to Dr. Lombardo. Erma Kendall RN [facility] 2023-10-11 14:00:00 Images from the original note were not included. Venipuncture collection performed by clean technique on the left anticubitus. Total of 1 attempts were made. Slight pressure and a bandage/dressing were applied to the site(s). The patient experienced no complications. The following specimens were processed according to instructions and sent to [facility] laboratories per lab order on 10/11/2023 : LT BLUE SST 3 RED LAV PPT DK GREEN (LiHep) DK GREEN (SodH) DAWKINS DK BLUE (K2) DK BLUE (S) ACD Blood Culture NIPT/NTD 1 [facility] 2023-10-05 10:45:00 Images from the original note were not included. Venipuncture collection performed by clean technique on the right anticubitus. Total of 1 attempts were made. Slight pressure and a bandage/dressing were applied to the site(s). The patient experienced no complications. The following specimens were processed according to instructions and sent to [facility] laboratories per lab order on 10/05/2023 : LT BLUE SST 2 RED LAV 1 PPT DK GREEN (LiHep) DK GREEN (SodH) DAWKINS DK BLUE (K2) DK BLUE (S) ACD Blood Culture NIPT/NTD Eyal Juarez [facility] 2023-09-17 12:31:[address] Lombardo Mynor Aguilar RN [facility] 2023-09-15 14:30:00 Images from the original note were not included. Venipuncture collection performed by clean technique on the left anticubitus. Total of 1 attempts were made. Slight pressure and a bandage/dressing were applied to the site(s). The patient experienced no complications. The following specimens were processed according to instructions and sent to [facility] laboratories per lab order on 09/15/2023: LT BLUE SST 2 RED LAV 1 PPT DK GREEN (LiHep) DK GREEN (SodH) DAWKINS DK BLUE (K2) DK BLUE (S) ACD Blood Culture NIPT/NTD [facility] 2023-08-20 09:15:00 Images from the original note were not included. Venipuncture collection performed by clean technique on the right anticubitus. Total of 1 attempts were made. Slight pressure and a bandage/dressing were applied to the site(s). The patient experienced no complications. The following specimens were processed according to instructions and sent to [facility] laboratories per lab order on 08/20/2023 : LT BLUE SST 1 RED LAV 1 PPT DK GREEN (LiHep) DK GREEN (SodH) DAWKINS DK BLUE (K2) DK BLUE (S) ACD Blood Culture NIPT/NTD Shyla Villatoro [facility] 2023-08-13 16:28:37 Tried to contact pt to let him know we can get him booked in sooner, did not answer so I left a voicemail to give clinic a call back, thank you. Ximena Delacruz [facility] 2023-08-13 10:34:15 OK to overbook in late August IM-PULMONARY DISEASE STAFF [facility] 2023-08-12 08:40:18 Based on chart review, not able to see anything indicating that patient would need to be seen by pulm prior to initiating chemo. Will route to Dr. Lombardo for review and advise if current appointment scheduled 10/08/2023 is an appropriate time frame. Maria Chan RN [facility] 2023-08-10 12:18:45 We needed to reschedule patients appt per email, patient is wondering if this will affect him getting his chemo since he was referred to see Dr Lombardo in between. Please advise, thank you. [facility] 2023-07-30 08:30:00 Images from the original note were not included. Venipuncture collection performed by clean technique on the right anticubitus. Total of 1 attempts were made. Slight pressure and a bandage/dressing were applied to the site(s). The patient experienced no complications. The following specimens were processed according to instructions and sent to [facility] laboratories per lab order on 07/30/2023: LT BLUE SST 2 RED LAV 1 PPT DK GREEN (LiHep) DK GREEN (SodH) DAWKINS DK BLUE (K2) DK BLUE (S) ACD Blood Culture NIPT/NTD [facility] 2023-07-08 07:49:16 Addendum created 07/08/23 0749 by Betty Reece MD Attestation recorded in Intraprocedure, Flowsheet accepted, Intraprocedure Attestations filed [facility] 2023-06-29 13:59:14 Addendum created 06/29/23 1359 by Phong Mohan MD Intraprocedure Meds edited AN-ANESTHESIOLOGY [facility] 2023-06-28 20:16:17 Patient: Erendira Zheng Procedure Summary Date: 06/28/23 Room / Location: [address] LOCATION Anesthesia Start: 170 Anesthesia Stop: 1919 Procedure: RIGID BRONCHOSCOPY (Chest) Diagnosis: SOB (shortness of breath) Mediastinal mass Failure to thrive in adult Pancreatic mass Stridor Squamous cell lung cancer, right Mass of lower lobe of left lung (SOB (shortness of breath) [R06.02]Mediastinal mass [J98.59]Failure to thrive in adult [R62.7]Pancreatic mass [K86.89]Stridor [R06.1]Squamous cell lung cancer, right [C34.91]Mass of lower lobe of left lung [R91.8]) Surgeons: Osei Lombardo DO Responsible Provider: Betty Reece MD Anesthesia Type: General ASA Status: 4 - Emergent Anesthesia Type: General Last vitals BP 158/85 Temp 36.1 ?C (97 ?F) (06/28/231999) Pulse 110 (06/28/231999) Resp 19 (06/28/231999) SpO2 100 % (06/28/231999) Encounter Notable Events Notable Event Outcome Phase Comment Cardiac arrest Intraprocedure resuscitated after 2 rounds of CPR and epinephrine Desaturation < 90% for over 3 min or < 80% for over 1 min Intraprocedure intubated and ETT suctioned multiple times Anesthesia Post Evaluation Patient location during evaluation: ICU Patient participation: complete - patient cannot participate Level of consciousness: obtunded/minimal responses Pain management: adequate Airway patency: patent Cardiovascular status: hemodynamically stable Respiratory status: ETT and ventilator Hydration status: acceptable [facility] 2023-06-28 14:33:34 Name/ MRN / Age / Gender: Erendira Zheng [id number] 48 year old male BMI: Estimated body mass index is 24.33 kg/m? as calculated from the following: Height as of this encounter: 1.727 m (5' 8"). Weight as of this encounter: 72.6 kg (160 lb). Allergies: Patient has no known allergies. Last Vitals: BP Readings from Last 1 Encounters: 06/28/23 126/75 Pulse Readings from Last 1 Encounters: 06/28/23 116 SpO2 Readings from Last 1 Encounters: 06/28/23 99% Date of Surgery: 06/28/2023 Surgeon: Osei Lombardo DO Procedure: FLEXIBLE BRONCHOSCOPY (Bilateral: Chest) RIGID BRONCHOSCOPY (Bilateral: Chest) DESTRUCTION OF TUMOR (Bilateral: Head) BRONCHIAL STENT PLACEMENT (Right: Head) LASER ABLATION (Bilateral: Chest) OR Location: [facility] LOCATION Anesthesia Preop Eval (physical exam) Anesthesia Preop: [id number] [facility] Communication: Erendira Zheng is a 48 year old male with a PMH of 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 CT thorax showed unchanged size of large left hilar and mediastinal mass with occlusion of left main bronchus and complete collapse of the left lung, new extension into the right main bronchus, severe narrowing of the left pulmonary artery, compression of the esophagus increased left pleural thickening and nodularity, and new small pericardial effusion. Pulmonology and Oncology consulted. Plan for possible stent. Patient started on steroid taper. NPO Status Verified: not NPO. had eggs and fries at 8am and barium within past hour. Anesthesia History Anesthesia History Negative Comments: No prior anesthetics available for review Previous Anesthetics/Airways Cardiovascular Comments: ECHO 2023 Left Ventricle: Left ventricle size is normal. Normal wall thickness. Normal wall motion. Hyperdynamic systolic function with a visually estimated EF of greater than 65%. EF by 2D Aguilera biplane is 77%. Indeterminate diastolic function. ? Right Ventricle: Right ventricle size is normal. Normal systolic function. ? Left Atrium: Left atrium size is normal. Left atrium volume index is 8.4 mL/m2. ? IVC/SVC: IVC diameter is less than or equal to 21 mm and decreases less than 50% during inspiration; therefore the estimated right atrial pressure is intermediate (~8 mmHg). ? Pericardium: Small pericardial effusion present. No indication of cardiac tamponade. Left pleural effusion. METS: 4 Pulmonary Comments: CC See above [facility] communication Tobacco use: quit in 2022. Neuro/Musculoskeletal Negative Neuro/Musculosketal ROS GI/Hepatic Hematology Comments: 06/28/23 04:41 WBC x10 3 : 13.91 (H) RBC x10 6 : 3.43 (L) HGB: 8.4 (L) HCT: 26.9 (L) PLT x10 3 : 652 (H) (+) Anemia (+) No historical type and screen Renal Comments: 06/28/23 04:41 NA: 138 K: 4.3 CL: 104 CO2 TOTAL: 31 AGAP: 3 BUN: 16 GLUCOSE: 106 CREATININE: 0.48 (L) Skin (+) Current IV access Endo/Other Negative Endo/Other ROS Other Tobacco use: quit in 2022. RADIOLOGIST DIAGNOSTIC Pediatric Pediatric N/A N/A Preoperative Medication Instructions Continue taking all prescribed medications except: BARRETT inhibitors, ARBs, diuretics, all oral diabetes medications Anticoagulant Therapy: Defer to surgeons Insulin: Take 1/2 dose the night prior to surgery. Hold on DOS. Phentermine: Alert [facility] anesthesiologist SGLT2 Inhibitors: "gliflozins" to be held for 3 days prior to elective surgeries GLP1 Agonosit: stop 7 days prior to surgery MAC Cases: Continue taking BARRETT inhibitors and ARBs ASA Classification ASA: 4 and emergent Labs: Chemistry 06/28/2023 CBC 06/28/2023 138 104 16 106 13.91 (H) 8.4 (L) 652 (H) 4.3 31 0.48 (L) 26.9 (L) eGFR: 126.6 Date: 06/28/2023 ANC: 11.52 (H) Date: 06/28/2023 LFTs 06/26/2023 Coags AST: 23 AP: 174 (H) Prot: 7.3 Ca: 11.0 (H) PT: 16.3 (H) Date: 06/27/2023 ALT: 36 T Canelo: 0.6 Alb: 3.7 PTT: 34 Date: 05/14/2023 PO4: 4.5 Date: 05/13/2023 INR: 1.4 Date: 06/27/2023 Cardiac Endocrine & other pBNP: - Date: - A1C: 5.9 (H) Date: 05/13/2023 Trop I: - Date: - TSH: 0.36 (L) Date: 05/13/2023 CK: - Date: - FT4: - Date: - CKMB: - Date: - Lact: - Date: - Procal: - Date: - Respiratory -|-|-|-|- D-dimer: - ABG Date: - Date: - Current Medications: Outpatient Medications Marked as Taking for the 06/26/23 encounter (Hospital Encounter) Medication Sig Dispense Refill albuterol 90 mcg/actuation inhaler Inhale 2 Puffs every 4 (four) hours as needed for Wheezing or Shortness of Breath. 17 g 0 ipratropium 17 mcg/actuation inhaler Inhale 2 Puffs 4 (four) times daily. 25.8 g 1 Previous Surgeries: Past Surgical History: Procedure Laterality Date FLEXIBLE BRONCHOSCOPY Bilateral 05/20/2023 Surgeon: Sung Bautista MD; Location: ENDOSCOPY ([facility]) OR LOCATION Anesthesia Physical Exam General alert and oriented x 3 dyspneic Neuro/Psych neurological Nonfocal Dental no notable dental hx Abdominal GI exam normal (+) abdomen soft and benign Airway Mallampati score:I TM distance:> 5 cm Neck ROM: full Mouth opening:normal (+) Normal facies Extremity Normal extremity Pulmonary (+) decreased breath sounds, stridor Other Cardiovascular cardiovascular exam normalRhythm:Regular Rate: Normal Anesthesia Plan ASA Status: 4 emergent Plan discussed during pre-op evaluation: General Anesthetic plan on DOS: General Plan to include: IV induction, ETT and arterial line Anesthesia plan discussed with: patient or sales training representative Post-Operative Analgesia: routine analgesia & antiemetics Recovery Plan: PACU Additional comments: [facility] 2023-06-15 15:02:12 Phoned patient to follow-up on status of application to [facility]. Per patient he last spoke with [facility] on 06/09 who stated the application was under consideration. Recommended pt call tomorrow for update. He agreed and will update me at that time. OACANO Stewart RN [facility] 2023-06-14 11:27:22 Images from the original note were not included. Clarified funding support with construction coordinator. [facility] for patient to return my call. From: Financial Counselor <[email or web address]> Sent: May 1:06 PM To: Adriana Stewart <[email or web address]>; Financial Counselor <[email or web address]> Cc: Jose Manuel Huynh <[email or web address]>; Osei Lombardo <[email or web address]>; Julius Mcdonald <[email or web address]> Subject: RE: Casebook dao: RILEY Erendira Zheng has been referred to [facility] to apply for assistance as he may be eligible for their program due to his financial status. Asked the patient to contact our department once he receives approval or denial. Thank you, Jerrica Coker ------ OACANO Stewart RN [facility] 2023-06-02 13:44:57 Spoke w/ patient over phone regarding tumor board discussion conclusions and the urgent need to be seen in the clinic w/ various teams (oncology, radiation oncology, pulmonary). He has filled paper to get insurance earlier last week and is now waiting for [facility] approval/processing. His respiratory status is baseline from previous admission and denies productive cough/hemoptysis. Denies fevers chills, shakes. Able to eat soft foods. Has a car and is able to see pulmonary in [place] and able to drive to [place] to see other providers. Told him to expect phone calls regarding scheduling [facility] appointments. Erendira Raza M.D. Dept. Pulmonary Critical Care PGY4 GER E[employer]ALMER FUNERAL DIRECTOR IM-INTERNAL MEDICINE [facility] 2023-05-26 15:28:47 Called the patient today to give him the pathology results from bronchoscopy. 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 Patient will be presented at [facility]. Patient is working on obtaining insurance and financial help. GER EMBALMER FUNERAL DIRECTOR [facility] 2023-05-25 07:56:21 CHP referral submitted to Lynn Rodriguez CM. GER EMBALMER FUNERAL DIRECTOR Diana Garcia LVN [facility] 2023-05-24 12:41:27 TRANSITIONAL CARE MANAGEMENT ASSESSMENT 05/24/2023 Erendira Zheng [id number] Erendira Zheng is a 48 year old /White male was admitted on 05/13/[address] He was discharged on 05/21/23 with discharge disposition of HR- Routine Discharge. Admitting Physician: Sandip Mullins Discharge Diagnosis: Stridor [R06.1] Pt. confirmed my number and instructed to call back if has questions. I thanked the patient for their time and choosing [facility].pt. asked if biopsy results in. Reviewed pathology pendingPt. Voices working on casebook application. Linked Episodes Type: Episode: Status: Noted: Resolved: Last update: Updated by: TRANSITION OF CARE tcm Active 05/24/2023 05/24/2023 12:40 PM Diana Garcia LVN Comments: TCM [id number] outreach documentation: Discharge Assessment Chart Assessed: 05/24/23 TCM Outreach Completed: 05/24/23 Do you have a few minutes to speak with me about how you are doing at home?: Yes Discharge Instructions Do you understand your at-home instructions?: Yes Medications Have you filled your prescriptions and do you have them in your home? : Yes Do you know how to take your medications?: Yes Can you provide me with the names or descriptions of any [id number]-gbu-cqajemn or supplements you are currently taking?: Yes Supplies Did you receive applicable home medical supplies/equipment?: N/A Follow Up Appointment Has a follow up appointment been scheduled?: No May I assist with scheduling this appointment?: Unable to schedule-referred to HFU Team Do you have any questions about your follow up appointments?: No Are you able to get to your appointment? Who will be taking you?: Yes (family) Home Health Assistance Has the home health nurse contacted you since you've been home?: N/A Survey - Recognition Is there anything you would like to share about your recent hospitalization, or anyone you would like to recognize?: Yes ([facility] provided good care.) Do you have any suggestions for improvement?: No Do you have any other questions or concerns at this time?: Yes Future Appointments: GER EMBALMER FUNERAL DIRECTOR Diana Garcia LVN [facility] 2023-05-21 15:54:41 Problem: Respiratory Function - Impaired Goal: Able to cough effectively 05/21/2023 1554 by Marifer Koroma, ASHLEY Outcome: Adequate for discharge 05/21/2023 1330 by Marifer Koroma, ASHLEY Outcome: Progressing as expected Goal: Adequate oxygenation 05/21/2023 1554 by Marifer Koroma, ASHLEY Outcome: Adequate for discharge 05/21/2023 1330 by Marifer Koroma RN Outcome: Progressing as expected Goal: Adequate work of breathing 05/21/2023 1554 by Marifer Koroma, ASHLEY Outcome: Adequate for discharge 05/21/2023 1330 by Marifer Koroma, ASHLEY Outcome: Progressing as expected Goal: Patent airway 05/21/2023 1554 by Marifer Koroma, RN Outcome: Adequate for discharge 05/21/2023 1330 by Marifer Koroma RN Outcome: Progressing as expected Problem: Pain Goal: Control of pain at or below patient's documented comfort goal 05/21/2023 1554 by Marifer Koroma RN Outcome: Adequate for discharge 05/21/2023 1330 by Marifer Koroma RN Outcome: Progressing as expected Goal: Reduction in pain sensation 05/21/2023 1554 by Marifer Koroma RN Outcome: Adequate for discharge 05/21/2023 1330 by Marifer Koroma RN Outcome: Progressing as expected Problem: Coping - Ineffective, Individual Goal: Effective coping 05/21/2023 1554 by Marifer Koroma RN Outcome: Adequate for discharge 05/21/2023 1330 by Marifer Koroma RN Outcome: Progressing as expected Goal: Knowledge of positive coping patterns 05/21/2023 1554 by Marifer Koroma RN Outcome: Adequate for discharge 05/21/2023 1330 by Marifer Koroma RN Outcome: Progressing as expected Problem: Falls, Risk of Goal: Absence of falls 05/21/2023 1554 by Marifer Koroma RN Outcome: Adequate for discharge 05/21/2023 1330 by Marifer Koorma RN Outcome: Progressing as expected Problem: Discharge Planning Goal: Adequate for discharge 05/21/2023 1554 by Marifer Koroma RN Outcome: Adequate for discharge 05/21/2023 1330 by Marifer Koroma RN Outcome: Progressing as expected Goal: Effective communication 05/21/2023 1554 by Marifer Koroma RN Outcome: Adequate for discharge 05/21/2023 1330 by Marifer Koroma RN Outcome: Progressing as expected Problem: Infection Risk Goal: Absence of infection 05/21/2023 1554 by Marifer Koroma RN Outcome: Adequate for discharge 05/21/2023 1330 by Marifer Koroma RN Outcome: Progressing as expected OACANO Koroma RN [facility] 2023-05-21 13:30:30 Problem: Respiratory Function - Impaired Goal: Able to cough effectively Outcome: Progressing as expected Goal: Adequate oxygenation Outcome: Progressing as expected Goal: Adequate work of breathing Outcome: Progressing as expected Goal: Patent airway Outcome: Progressing as expected Problem: Pain Goal: Control of pain at or below patient's documented comfort goal Outcome: Progressing as expected Goal: Reduction in pain sensation Outcome: Progressing as expected Problem: Coping - Ineffective, Individual Goal: Effective coping Outcome: Progressing as expected Goal: Knowledge of positive coping patterns Outcome: Progressing as expected Problem: Falls, Risk of Goal: Absence of falls Outcome: Progressing as expected Problem: Discharge Planning Goal: Adequate for discharge Outcome: Progressing as expected Goal: Effective communication Outcome: Progressing as expected Problem: Infection Risk Goal: Absence of infection Outcome: Progressing as expected [facility] 2023-05-21 02:24:15 Problem: Respiratory Function - Impaired Goal: Able to cough effectively Outcome: Progressing as expected Goal: Adequate oxygenation Outcome: Progressing as expected Goal: Adequate work of breathing Outcome: Progressing as expected Goal: Patent airway Outcome: Progressing as expected Problem: Pain Goal: Control of pain at or below patient's documented comfort goal Outcome: Progressing as expected Goal: Reduction in pain sensation Outcome: Progressing as expected Problem: Coping - Ineffective, Individual Goal: Effective coping Outcome: Progressing as expected Goal: Knowledge of positive coping patterns Outcome: Progressing as expected Problem: Falls, Risk of Goal: Absence of falls Outcome: Progressing as expected Problem: Discharge Planning Goal: Adequate for discharge Outcome: Progressing as expected Goal: Effective communication Outcome: Progressing as expected [facility] Rae Govea RN [facility] 2023-05-20 18:31:48 Problem: Respiratory Function - Impaired Goal: Able to cough effectively Outcome: Progressing as expected Goal: Adequate oxygenation Outcome: Progressing as expected Goal: Adequate work of breathing Outcome: Progressing as expected Goal: Patent airway Outcome: Progressing as expected Problem: Pain Goal: Control of pain at or below patient's documented comfort goal Outcome: Progressing as expected Goal: Reduction in pain sensation Outcome: Progressing as expected Problem: Coping - Ineffective, Individual Goal: Effective coping Outcome: Progressing as expected Goal: Knowledge of positive coping patterns Outcome: Progressing as expected Problem: Falls, Risk of Goal: Absence of falls Outcome: Progressing as expected Problem: Discharge Planning Goal: Adequate for discharge Outcome: Progressing as expected Goal: Effective communication Outcome: Progressing as expected Problem: Infection Risk Goal: Absence of infection Outcome: Progressing as expected [employer]ERAL DIRECTOR Kimber Ellis RN [facility] 2023-05-19 23:44:10 Problem: Respiratory Function - Impaired Goal: Able to cough effectively Outcome: Progressing as expected Goal: Adequate oxygenation Outcome: Progressing as expected Goal: Adequate work of breathing Outcome: Progressing as expected Goal: Patent airway Outcome: Progressing as expected Problem: Pain Goal: Control of pain at or below patient's documented comfort goal Outcome: Progressing as expected Goal: Reduction in pain sensation Outcome: Progressing as expected Problem: Coping - Ineffective, Individual Goal: Effective coping Outcome: Progressing as expected Goal: Knowledge of positive coping patterns Outcome: Progressing as expected Problem: Falls, Risk of Goal: Absence of falls Outcome: Progressing as expected Problem: Discharge Planning Goal: Adequate for discharge Outcome: Progressing as expected Goal: Effective communication Outcome: Progressing as expected Problem: Infection Risk Goal: Absence of infection Outcome: Progressing as expected [employer]ER[employer] DIRECTOR Lela Andrews RN [facility] 2023-05-19 20:07:01 Problem: Respiratory Function - Impaired Goal: Able to cough effectively Outcome: Progressing as expected Goal: Adequate oxygenation Outcome: Progressing as expected Goal: Adequate work of breathing Outcome: Progressing as expected Goal: Patent airway Outcome: Progressing as expected Problem: Pain Goal: Control of pain at or below patient's documented comfort goal Outcome: Progressing as expected Goal: Reduction in pain sensation Outcome: Progressing as expected Problem: Coping - Ineffective, Individual Goal: Effective coping Outcome: Progressing as expected Goal: Knowledge of positive coping patterns Outcome: Progressing as expected Problem: Falls, Risk of Goal: Absence of falls Outcome: Progressing as expected Problem: Discharge Planning Goal: Adequate for discharge Outcome: Progressing as expected Goal: Effective communication Outcome: Progressing as expected Problem: Infection Risk Goal: Absence of infection Outcome: Progressing as expected [facility] Himanshu Juan RN [facility] 2023-05-18 23:11:59 Problem: Respiratory Function - Impaired Goal: Able to cough effectively Outcome: Progressing as expected Goal: Adequate oxygenation Outcome: Progressing as expected Goal: Adequate work of breathing Outcome: Progressing as expected Goal: Patent airway Outcome: Progressing as expected Problem: Pain Goal: Control of pain at or below patient's documented comfort goal Outcome: Progressing as expected Goal: Reduction in pain sensation Outcome: Progressing as expected Problem: Coping - Ineffective, Individual Goal: Effective coping Outcome: Progressing as expected Goal: Knowledge of positive coping patterns Outcome: Progressing as expected Problem: Falls, Risk of Goal: Absence of falls Outcome: Progressing as expected Problem: Discharge Planning Goal: Adequate for discharge Outcome: Progressing as expected Goal: Effective communication Outcome: Progressing as expected Problem: Infection Risk Goal: Absence of infection Outcome: Progressing as expected [facility] 2023-05-18 19:45:21 Problem: Respiratory Function - Impaired Goal: Able to cough effectively Outcome: Progressing as expected Goal: Adequate oxygenation Outcome: Progressing as expected Goal: Adequate work of breathing Outcome: Progressing as expected Goal: Patent airway Outcome: Progressing as expected Problem: Pain Goal: Control of pain at or below patient's documented comfort goal Outcome: Progressing as expected Goal: Reduction in pain sensation Outcome: Progressing as expected Problem: Coping - Ineffective, Individual Goal: Effective coping Outcome: Progressing as expected Goal: Knowledge of positive coping patterns Outcome: Progressing as expected Problem: Falls, Risk of Goal: Absence of falls Outcome: Progressing as expected Problem: Discharge Planning Goal: Adequate for discharge Outcome: Progressing as expected Goal: Effective communication Outcome: Progressing as expected Problem: Infection Risk Goal: Absence of infection Outcome: Progressing as expected [facility] 2023-05-17 23:39:29 Problem: Pain Goal: Control of pain at or below patient's documented comfort goal Outcome: Progressing as expected Goal: Reduction in pain sensation Outcome: Progressing as expected Problem: Respiratory Function - Impaired Goal: Able to cough effectively Outcome: Progressing as expected Goal: Adequate oxygenation Outcome: Progressing as expected Goal: Adequate work of breathing Outcome: Progressing as expected Goal: Patent airway Outcome: Progressing as expected Problem: Discharge Planning Goal: Adequate for discharge Outcome: Progressing as expected Goal: Effective communication Outcome: Progressing as expected Problem: Falls, Risk of Goal: Absence of falls Outcome: Progressing as expected [facility] 2023-05-17 09:03:31 Problem: Respiratory Function - Impaired Goal: Able to cough effectively Outcome: Progressing as expected Goal: Adequate oxygenation Outcome: Progressing as expected Goal: Adequate work of breathing Outcome: Progressing as expected Goal: Patent airway Outcome: Progressing as expected Problem: Pain Goal: Control of pain at or below patient's documented comfort goal Outcome: Progressing as expected Goal: Reduction in pain sensation Outcome: Progressing as expected Problem: Coping - Ineffective, Individual Goal: Effective coping Outcome: Progressing as expected Goal: Knowledge of positive coping patterns Outcome: Progressing as expected Problem: Falls, Risk of Goal: Absence of falls Outcome: Progressing as expected Problem: Infection Risk Goal: Absence of infection Outcome: Progressing as expected [facility] Lena Zavala RN [facility] 2023-05-17 03:40:43 Problem: Respiratory Function - Impaired Goal: Able to cough effectively Outcome: Progressing as expected Goal: Adequate oxygenation Outcome: Progressing as expected Goal: Adequate work of breathing Outcome: Progressing as expected Goal: Patent airway Outcome: Progressing as expected Problem: Pain Goal: Control of pain at or below patient's documented comfort goal Outcome: Progressing as expected Goal: Reduction in pain sensation Outcome: Progressing as expected Problem: Coping - Ineffective, Individual Goal: Effective coping Outcome: Progressing as expected Goal: Knowledge of positive coping patterns Outcome: Progressing as expected Problem: Falls, Risk of Goal: Absence of falls Outcome: Progressing as expected Problem: Discharge Planning Goal: Adequate for discharge Outcome: Progressing as expected Goal: Effective communication Outcome: Progressing as expected OACANO Sanchez RN [facility] 2023-05-16 20:24:43 Problem: Respiratory Function - Impaired Goal: Able to cough effectively Outcome: Progressing as expected Goal: Adequate oxygenation Outcome: Progressing as expected Goal: Adequate work of breathing Outcome: Progressing as expected Goal: Patent airway Outcome: Progressing as expected Problem: Pain Goal: Control of pain at or below patient's documented comfort goal Outcome: Progressing as expected Goal: Reduction in pain sensation Outcome: Progressing as expected Problem: Coping - Ineffective, Individual Goal: Effective coping Outcome: Progressing as expected Goal: Knowledge of positive coping patterns Outcome: Progressing as expected Problem: Falls, Risk of Goal: Absence of falls Outcome: Progressing as expected Problem: Discharge Planning Goal: Adequate for discharge Outcome: Progressing as expected Goal: Effective communication Outcome: Progressing as expected [employer]ER[employer] DIRECTOR Lela Goode RN [facility] 2023-05-16 03:21:54 Problem: Respiratory Function - Impaired Goal: Able to cough effectively Outcome: Progressing as expected Goal: Adequate oxygenation Outcome: Progressing as expected Goal: Adequate work of breathing Outcome: Progressing as expected Goal: Patent airway Outcome: Progressing as expected Problem: Pain Goal: Control of pain at or below patient's documented comfort goal Outcome: Progressing as expected Goal: Reduction in pain sensation Outcome: Progressing as expected Problem: Coping - Ineffective, Individual Goal: Effective coping Outcome: Progressing as expected Goal: Knowledge of positive coping patterns Outcome: Progressing as expected Problem: Falls, Risk of Goal: Absence of falls Outcome: Progressing as expected Problem: Discharge Planning Goal: Adequate for discharge Outcome: Progressing as expected Goal: Effective communication Outcome: Progressing as expected [facility] 2023-05-15 07:59:32 Problem: Respiratory Function - Impaired Goal: Able to cough effectively Outcome: Progressing as expected Goal: Adequate oxygenation Outcome: Progressing as expected Goal: Adequate work of breathing Outcome: Progressing as expected Goal: Patent airway Outcome: Progressing as expected Problem: Pain Goal: Control of pain at or below patient's documented comfort goal Outcome: Progressing as expected Goal: Reduction in pain sensation Outcome: Progressing as expected Problem: Coping - Ineffective, Individual Goal: Effective coping Outcome: Progressing as expected Goal: Knowledge of positive coping patterns Outcome: Progressing as expected Problem: Falls, Risk of Goal: Absence of falls Outcome: Progressing as expected Problem: Discharge Planning Goal: Adequate for discharge Outcome: Progressing as expected Goal: Effective communication Outcome: Progressing as expected [facility] Elver Cooney RN [facility] 2023-05-15 01:48:11 Problem: Respiratory Function - Impaired Goal: Able to cough effectively Outcome: Progressing as expected Goal: Adequate oxygenation Outcome: Progressing as expected Goal: Adequate work of breathing Outcome: Progressing as expected Goal: Patent airway Outcome: Progressing as expected Problem: Coping - Ineffective, Individual Goal: Effective coping Outcome: Progressing as expected Goal: Knowledge of positive coping patterns Outcome: Progressing as expected Problem: Pain Goal: Control of pain at or below patient's documented comfort goal Outcome: Progressing as expected Goal: Reduction in pain sensation Outcome: Progressing as expected Problem: Falls, Risk of Goal: Absence of falls Outcome: Progressing as expected Problem: Discharge Planning Goal: Adequate for discharge Outcome: Progressing as expected Goal: Effective communication Outcome: Progressing as expected [facility] 2023-05-13 23:07:46 Problem: Respiratory Function - Impaired Goal: Able to cough effectively Outcome: Progressing as expected Goal: Adequate oxygenation Outcome: Progressing as expected Goal: Adequate work of breathing Outcome: Progressing as expected Goal: Patent airway Outcome: Progressing as expected OACANO Abbott RN [facility]
--- NOTE | 2024-02-07 17:28 | RAD REPORT ---
EXAM:Thorax Wo Con CLINICAL INDICATION: Chest pain. Left rib pain status post fall TECHNIQUE: CT chest performed.. Axial, sagittal and coronal reconstructions were obtained. One or mor e of the following dose reduction techniques were used: Automated exposure control, adjustment of the mA and/or kV according to the patient size, and/or iterative reconstruction. Unless otherwise specified, incidental findings do not require dedicated imaging follow-up. [id number]. COMPARISON: April 2023 FINDINGS: It appears that the patient has had a left pneumonectomy since the prior exam with some fluid left pl eural space. Soft tissues present within the left pleural space. Previously described large mediastinal mass is smaller. The right lung is clear. A displaced rib fracture not seen. Multiple rib and spine lesions are present. A 4 cm mass destroys portions of an upper left thoracic vertebra. The mass extends into the spinal ca nal. Lesion left humeral head. Lesion left scapula. IMPRESSION: It appears that the patient has had a left pneumonectomy. A displaced rib fracture not seen. Spinal rib, scapula lesions consistent with metastases. 4 cm mass destroys portions of an upper thoracic vertebra extending into the spinal canal.
--- NOTE | 2024-02-07 17:39 | ER ---
Nurse's Notes [facility] Name: Yeison Zheng Age: 48 yrs Sex: Male : 1975 Arrival Date: 02/07/2024 Time: 14:06 Bed 4 Private MD: Diagnosis: Fall on same level from slipping, tripping and stumbling with subsequent striking against object;Contusion of back wall of thorax Presentation: 02/06 14:19 Chief complaint: Patient states: he fell while getting of the shower. reports left kc6 shoulder pain 8/10 and trouble breathing since then. Coronavirus screen: At this time, the client does not indicate any symptoms associated with coronavirus-19. Ebola Screen: No symptoms or risks identified at this time. Initial Sepsis Screen: Does the patient meet any 2 criteria? HR > 90 bpm. Does the patient have a suspected source of infection? No. Patient's initial sepsis screen is negative. Risk Assessment: Do you want to hurt yourself or someone else? Patient reports no desire to harm self or others. Onset of symptoms was February 07, 2024. 14:19 Method Of Arrival: EMS: [facility] 14:19 Acuity: JOEL 3 kc6 Triage Assessment: 14:20 General: Appears in no apparent distress. comfortable, well groomed, well developed, kc6 Behavior is calm, cooperative, appropriate for age. Pain: Complains of pain in anterior aspect of left shoulder Pain currently is 8 out of 10 on a pain scale. EENT: No signs and/or symptoms were reported regarding the EENT system. Neuro: Level of Consciousness is awake, alert, obeys commands, Oriented to person, place, time, situation, Appropriate for age. Cardiovascular: Capillary refill < 3 seconds. Respiratory: Reports trouble breathing Airway is patent Trachea midline Respiratory effort is even, unlabored, Respiratory pattern is regular, symmetrical. GI: No signs and/or symptoms were reported involving the gastrointestinal system. : No signs and/or symptoms were reported regarding the genitourinary system. Derm: No signs and/or symptoms reported regarding the dermatologic system. Skin is intact, is healthy with good turgor, Skin is dry, Skin is pale, Skin temperature is warm. Musculoskeletal: Capillary refill < 3 seconds. Historical: - Allergies: 14:20 No Known Allergies; kc6 - PMx: 14:20 lung cancer; kc6 - PSHx: 14:20 None; kc6 - Immunization history:: Adult Immunizations up to date. - Infectious Disease History:: Denies. - Social history:: Smoking status: Patient/guardian denies using tobacco, Stopped _ months ago 10. Screenin:22 [facility] ED Fall Risk Assessment (Adult) History of falling in the last 3 months, 6 including since admission Yes- single mechanical fall (1 pt) Confusion or Disorientation No (0 pts) Intoxicated or Sedated No (0 pts) Impaired Gait No (0 pts) Mobility Assist Device Used No (0 pt) Altered Elimination No (0 pt) Score/Fall Risk Level 0 - 2 = Low Risk Oriented to surroundings. Abuse screen: Denies threats or abuse. Denies injuries from another. Nutritional screening: No deficits noted. Tuberculosis screening: No symptoms or risk factors identified. Assessment: 14:22 Reassessment: please see triage. [facility] 15:22 Reassessment: Patient appears in no apparent distress at this time. No changes from [facility] previously documented assessment. Patient and/or family updated on plan of care and expected duration. Pain level reassessed. Patient is alert, oriented x 3, equal unlabored respirations, skin warm/dry/pink. 16:01 Reassessment: Patient appears in no apparent distress at this time. No changes from 6 previously documented assessment. Patient and/or family updated on plan of care and expected duration. Pain level reassessed. Patient is alert, oriented x 3, equal unlabored respirations, skin warm/dry/pink. spoke with CT. state they did not receive an order for CT Chest. state they will come get the pt soon. 17:17 Reassessment: Patient appears in no apparent distress at this time. No changes from 6 previously documented assessment. Patient and/or family updated on plan of care and expected duration. Pain level reassessed. Patient is alert, oriented x 3, equal unlabored respirations, skin warm/dry/pink. 18:01 Reassessment: Patient appears in no apparent distress at this time. No changes from [facility] previously documented assessment. Patient and/or family updated on plan of care and expected duration. Pain level reassessed. Patient is alert, oriented x 3, equal unlabored respirations, skin warm/dry/pink. Patient states feeling better. Patient states symptoms have improved. Vital Signs: 14:19 BP 117 / 74; Pulse 96; Resp 18 S; Pulse Ox 100% on R/A; Weight 61.23 kg (R); Height 5 kc6 ft. 8 in. (R); Pain 8/10; 16:01 BP 105 / 65; Pulse 86; Resp 16 S; Pulse Ox 100% on R/A; kc6 18:01 BP 110 / 60; Pulse 82; Resp 18 S; Pulse Ox 98% on R/A; kc6 14:19 Body Mass Index 20.53 (61.23 kg, 172.72 cm) kc6 14:19 Pain Scale: Adult kc6 ED Course: 14:07 Patient arrived in ED. ra3 14:11 Arm band placed on. hb 14:16 Marianne Chong, RN is Primary Nurse. kc6 14:20 Triage completed. kc6 14:22 Patient has correct armband on for positive identification. Bed in low position. Call kc6 light in reach. Side rails up X 1. Pulse ox on. NIBP on. Door closed. Noise minimized. Lights dimmed. Pillow given. 14:22 Patient maintains SpO2 saturation greater than 95% on room air. kc6 14:24 Alfredito Gillespie MD is Attending Physician. bo1 14:45 Inserted saline lock: 20 gauge in left antecubital area, using aseptic technique. kc6 Flushed with 10 mL NS. 17:05 CT Chest Wo Con In Process Unspecified. EDMS 18:01 Provided Education on: f/u with lung doctor tomorrow as planned. kc6 18:01 No provider procedures requiring assistance completed. IV discontinued, intact, kc6 bleeding controlled, No redness/swelling at site. Pressure dressing applied. Administered Medications: 14:45 Drug: Ketorolac IVP 30 mg IVP once Route: IVP; Site: left antecubital; kc6 15:56 Follow up: Response: No adverse reaction; Pain is unchanged, physician notified kc6 15:56 Drug: morphine IVP or IV 4 mg IVP once over 4 mins Route: IVP; Infused Over: 4 mins; kc6 Site: left antecubital; 16:48 Follow up: Response: No adverse reaction; Pain is decreased; RASS: Alert and Calm (0) kc6 15:56 Drug: Ondansetron IVP 4 mg IVP once; over 2 minutes Route: IVP; Site: left antecubital; kc6 16:48 Follow up: Response: No adverse reaction kc6 Medication: 18:01 VIS not applicable for this client. kc6 Outcome: 17:39 Discharge ordered by MD. bonilla 18:01 Discharged to home ambulatory, kc6 18:01 Condition: improved 18:01 Discharge instructions given to patient, Instructed on discharge instructions, follow up and referral plans. no drinking with medication, no driving heavy equipment, medication usage, Demonstrated understanding of instructions, follow-up care, medications, Prescriptions given X 3, 18:02 Patient left the ED. kc6 Signatures: Dispatcher [employer] EDMS Dee Mccloud RN RN hb Campbell, Kaitlyn, RN RN kc6 Alva, Ruby ra3 Alfredito Gillespie MD MD bo1 Corrections: (The following items were deleted from the chart) 14:28 14:20 Derm: No signs and/or symptoms reported regarding the dermatologic system. Skin kc6 is intact, is healthy with good turgor, Skin is pink, warm \T\ dry. kc6
--- NOTE | 2024-02-07 17:39 | EDPHYS ---
Physician Documentation [facility] Name: Yeison Zheng Age: 48 yrs Sex: Male : 1975 Arrival Date: 02/07/2024 Time: 14:06 Bed 4 Private MD: ED Physician Alfredito Gillespie HPI: 02/06 14:34 This 48 yrs old Male presents to ER via EMS with complaints of Fall Injury, Breathing bo1 Difficulty. 14:34 Details of fall: The patient fell and struck a tile surface, Pt fell and hit left chest bo1 wall against the shower tile [employer]. Onset: The symptoms/episode began/occurred acutely. Associated injuries: The patient sustained injury to the chest, specifically the left lateral posterior chest, pain with breathing, pain with movement. Severity of symptoms: in the emergency department the symptoms are actually worse, markedly. Hx of lung cancer. Historical: - Allergies: 14:20 No Known Allergies; kc6 - PMHx: 14:20 lung cancer; kc6 - PSHx: 14:20 None; kc6 - Immunization history:: Adult Immunizations up to date. - Infectious Disease History:: Denies. - Social history:: Smoking status: Patient/guardian denies using tobacco, Stopped _ months ago 10. ROS: 14:35 Constitutional: Negative for fever, chills, and weight loss, Neck: Negative for injury, bo1 pain, and swelling, Respiratory: Negative for cough, wheezing, and positive for chest pain, and some restriction of breathing due to the rib injury 14:35 Neck: Negative for injury or acute deformity, pain with movement, pain at rest, 14:35 Cardiovascular: Positive for chest pain, Left chest wall, Negative for palpitations, 14:35 Respiratory: Positive for shortness of breath, Left ribs, 14:35 Skin: Negative for abrasions, rash, 14:35 All other systems are negative, Exam: 17:33 Constitutional: This is a well developed, well nourished patient who is awake, alert, bo1 and in acute distress. 17:33 Head/face: Exam is negative for acute changes, obvious evidence of injury or deformity, fair signs, ecchymosis, swelling, tenderness, 17:33 Neck: External neck: is normal, no acute changes, swelling, 17:33 Chest/axilla: Inspection: normal, Palpation: tenderness, that is moderate, of the left lateral posterior chest, that totally reproduces the patient's complaints, 17:33 Cardiovascular: Rate: normal, Rhythm: regular, 17:33 Respiratory: the patient does not display signs of respiratory distress, Respirations: normal, Breath sounds: decreased breath sounds, Respiratory rate: Normal 17:33 Skin: Exam negative for ecchymosis, any evidence of obvious injury, rash, 17:35 Musculoskeletal/extremity: Extremities: all appear grossly normal, with no appreciated bo1 pain with palpation, Vital Signs: 14:19 BP 117 / 74; Pulse 96; Resp 18 S; Pulse Ox 100% on R/A; Weight 61.23 kg (R); Height 5 kc6 ft. 8 in. (R); Pain 8/10; 16:01 BP 105 / 65; Pulse 86; Resp 16 S; Pulse Ox 100% on R/A; kc6 18:01 BP 110 / 60; Pulse 82; Resp 18 S; Pulse Ox 98% on R/A; kc6 14:19 Body Mass Index 20.53 (61.23 kg, 172.72 cm) kc6 14:19 Pain Scale: Adult kc6 MDM: 14:24 Medical Screening Exam initiated bo1 17:36 Differential diagnosis: contusion, fracture. Data reviewed: vital signs, radiologic bo1 studies, CT scan, See report, no fractures (rib). ED course: Pt is more comfortable after meds given. 02/06 14:30 Order name: CT Chest Wo Con; Complete Time: 17:30 bo1 02/06 14:30 Order name: Saline Lock; Complete Time: 14:35 bo1 Administered Medications: 14:45 Drug: Ketorolac IVP 30 mg IVP once Route: IVP; Site: left antecubital; kc6 15:56 Follow up: Response: No adverse reaction; Pain is unchanged, physician notified kc6 15:56 Drug: morphine IVP or IV 4 mg IVP once over 4 mins Route: IVP; Infused Over: 4 mins; kc6 Site: left antecubital; 16:48 Follow up: Response: No adverse reaction; Pain is decreased; RASS: Alert and Calm (0) kc6 15:56 Drug: Ondansetron IVP 4 mg IVP once; over 2 minutes Route: IVP; Site: left antecubital; kc6 16:48 Follow up: Response: No adverse reaction kc6 Disposition Summary: 02/07/24 17:39 Discharge Ordered Notes: Location: Home bo1 Problem: an acute exacerbation bo1 Symptoms: have improved bo1 Condition: Stable bo1 Diagnosis - Fall on same level from slipping, tripping and stumbling with subsequent striking bo1 against object - Contusion of back wall of thorax bo1 Followup: bo1 - With: Private Physician - When: Upon discharge from the Emergency Department - Reason: Recheck today's complaints, Continuance of care Discharge Instructions: - Discharge Summary Sheet bo1 - Chest Wall Pain bo1 - Chest Contusion, Adult, [id number] bo1 Forms: - Medication Reconciliation Form bo1 - Antibiotic Education bo1 - Prescription Opioid Use bo1 - Patient Portal Instructions bo1 - Leadership Thank You Letter bo1 Prescriptions: - acetaminophen-codeine 300-60 mg Oral tablet - take 1 tablet ORAL route 4 times per day; 20 tablet; Refills: 0, Product bo1 Selection Permitted - ketorolac 10 mg Oral tablet - take 1 tablet ORAL route every 6 hours for 5 days; 20 tablet; Refills: 0, bo1 Product Selection Permitted - ondansetron 8 mg Oral Tablet,disintegrating - take 1 tablet ORAL route every 12 hours; 10 tablet; Refills: 0, Product bo1 Selection Permitted Signatures: Dispatcher [employer] Dee Pires, RN Marianne Ashraf RN RN kc6 Oei, MD WM Glaser bo1
[2024-02-07 22:52] VITALS: BP 110/60; O2SAT 98
== END 2024-02-07 18:02 | disposition home or self-care (01) ==
LOC: ER 14:06
DX: S20.222A Contusion of left back wall of thorax, initial encounter (principal); W01.198A Fall on same level from slipping, tripping and stumbling with subsequent striking against other object, initial encounter
CPT/HCPCS: 71250; 96375; 96374; 99284; J2405

== ENCOUNTER 2024-02-09 19:02 | Emergency (ER) | payer OTHER ==
--- OUTSIDE RECORDS SUMMARY | 2024-02-09 19:08 | XMS REPORT | Continuity of Care Document ---
Author Name Unknown Address [address] [facility] [address] [place] [address] [facility] thconnect Address [address] [facility] [address] [place] [address] Care Team Providers Care Bus Steward Name Role Phone Pcp, Patient Does Not Have A Primary Care Physic elisa HIMA LOMBARDO Attending Clinician Unavailable HIMA LOMBARDO Attending Clinician Unavailable Doctor Unassigned, [place] Attending Clinician U renny Foster [facility] Attending Clinician Hima Fox MD Attending Clinician [phone] Rudy Ca MD Attending Clinician + [phone] RUDY CA Attending Clinician Unavaila ble 9, [facility] Infusion Chair Attending Clinician MARIANNE Allan Attending Clinician UnavailMarianne العرايق PA-C Attending Clinician [phone], [facility] Attending Clinician Unavailable Lynn Rodriguez RN Attending Clinician [phone], [facility] Infusion Chair Attending Clinician LUKASZ Wolfe Attending Clinician Unavailable Lukasz Kyle MD Attending Clinician [phone] [facility] Attending Clinician Unavailable 4, [facility] Infusion Chair Attending Clinician Lynn Marques RN Attending Clinician [phone] [facility] Attending Clinician Unavailable Minerva Gutierrez Attending Clinician Misha velez 2, [facility] Attending Clinician Unavailable OSEI LOMBARDO Attending Clinician Unavailable OSEI LOMBARDO Attending Clinician Unavailable 6, [facility] Infusion Chair Attending Clinician Misha Raza MD, Erendira Attending Clinician [phone] Aileen BURK, Rudy Graff Attending Clinician + [phone] Regan BURK, Danielito Attending Clinician [phone], [facility] Infusion Chair Attending Clinician ERENDIRA Crump Attending Clinician Unavailkamila Clement MD, Erendira Attending Clinician [phone]- [phone] Doctor Unassigned, [place] Attending Clinician U renny Tilley PA-C, Marianne Attending Clinician [phone] Osei Lombardo DO Attending Clinician [phone] YUMIKO HESS Attending Clinician UnavailYUMIKO Celaya Attending Clinician Unavailabl NOY Mojica Attending Clinician Unavailable Ifeanyi BURK, Lucia Attending Clinician [phone] Shanell BURK, Betty White Attending Clinician [phone] Moe Byers MD Attending Clinician [phone] Jennyfer Maynard DO Attending Clinician [phone] Vladimir [facility], Manish Quintanilla Attending Clinician U renny Price MEAT STUFFER, Fatuma Guerrero Attending Clinician Unaanthony GAXIOLA, Jose Manuel Attending Clinician [phone] Diana Garcia LVN Attending Clinician [phone] Sandip Mullins MD Attending Clinician [phone] Erendira Main MD Attending Clinician [phone] ERENDIRA MAIN Attending Clinician Unavailkamila Bautista MD, Sung Kerr Attending Clinician [phone] DENNIS SHELTON Admitting Clinician Unavailab Sandip Carmen MD Admitting Clinician [phone] SANDIP MULLINS Admitting Clinician Unavailable Payers Payer Name Policy Type Policy Number Effective Date Expirati on Date Source [facility] [id number] 2023 00:00:00 Problems Condition Name Condition Details Condition Category Status Onset Date Resolution Date Last Treatment Date Treating Clinician Comments Source Squamous cell lung cancer, right Squamous cell lung cancer, right Disease Active 06-27 00:00: 00 [facility] E46 Unspecifie d severe protein-ca kaitlynn malnutriti on E46 Unspecifie d severe protein-ca kaitlynn malnutriti on Disease Active 06-27 00:00: 00 [facility] Cardiac arrest Cardiac arrest Disease Active 06-27 00:00: 00 [facility] 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 Disease Active 06-25 00:00: 00 [facility] 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 Disease Active 06-25 00:00: 00 [facility] Metastatic malignant neoplasm, unspecifie d site Metastatic malignant neoplasm, unspecifie d site Disease Active 06-25 00:00: 00 [facility] Mediastina l mass Mediastina l mass Disease Active 06-25 00:00: 00 [facility] Leukocytos is, unspecifie d type Leukocytos is, unspecifie d type Disease Active 06-25 00:00: 00 [facility] SOB (shortness of breath) SOB (shortness of breath) Disease Active 06-25 00:00: 00 [facility] 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 Disease Active 06-25 00:00: 00 [facility] Pancreatic mass Pancreatic mass Disease Active 06-25 00:00: 00 [facility] E44.0 Moderate protein calorie malnutriti on E44.0 Moderate protein calorie malnutriti on Disease Active 05-16 00:00: 00 [facility] Stridor Stridor Disease Active - 00:00: 00 [facility] Mass of lower lobe of left lung Mass of lower lobe of left lung Disease Active 05-13 00:00: 00 [facility] Allergies, Adverse Reactions, Alerts Allergy Name Allergy Type Status Severity Reaction(s) Onset Date Inactive Date Treating Clinician Comments Source NO KNOWN ALLERGIE S Drug Class Active [facility] Social History Social Habit Start Date Stop Date Quantity Comments Source History of tobacco use Cigarette Smoker [facility] Sexual orientation U [facility] Tobacco use and exposure 2023-09-22 00:00:00 2023-09-22 00:00:00 Smokeless tobacco non-user [facility] Cigarettes smoked current (pack per day) - Reported 2023-09-22 00:00:00 2023-09-22 00:00:00 [facility] Cigarette pack-years 2023-09-22 00:00:00 2023-09-22 00:00:00 [facility] History of Social function 2023-05-20 00:00:00 2023-05-20 00:00:00 [facility] Sex assigned at 1975 00:00:00 1975 00:00:00 [facility] Smoking Status Start Date Stop Date Source Ex-smoker 2023-09-22 00:00:00 2023-09-22 00:00:00 [facility] Medications Ordered Medication Name Filled Medication Name Start Date Stop Date Current Medication? Ordering Clinician Indication Dosage Frequency Signature (SIG) Comments Components Source HYDROcodone -acetaminop hen 10-325 mg tablet 2023-04 0-04 00:00: 00 Yes 2745 1{tbl} Take 1 tablet by mouth every 6 (six) hours as needed for Pain (scale 4-6) or Pain (scale 7-10). Indication s: chronic pain, Metastatic Cancer [facility] FENTanyl 25 mcg/hr patch 01-06 00:00: 00 Yes 5224 1{patch } Apply 1 Patch to skin every 72 (seventy-t wo) hours. Indication s: chronic pain [facility] dexAMETHaso ne 2 mg tablet 12-28 00:00: 00 Yes [id number] 2mg Take 1 tablet by mouth in the morning and 1 tablet in the evening. Take with meals. [facility] dexAMETHaso ne 1 mg tablet 12-28 00:00: 00 Yes [id number] 2mg Take 2 tablets by mouth in the morning and 2 tablets in the evening. Take with meals. [facility] gadobenate dimeglumine (MULTIHANCE -15 mL) injection 12.8 mL 12-22 20:30: 00 12-22 20:23 :00 No [id number] .2mL/kg 12.8 mL (0.2 mL/kg ?64 kg), Intravenou s, ONCE, 1 dose, On Wed12/23/23 at 1530, Routine [facility] gadobenate dimeglumine (MULTIHANCE -15 mL) injection 12.8 mL 12-21 19:45: 00 12-21 19:32 :00 No [id number] .2mL/kg 12.8 mL (0.2 mL/kg ?64 kg), Intravenou s, ONCE, 1 dose, On Wed12/22/23 at 1445, Routine [facility] DOCEtaxeL (TAXOTERE) 132.76 mg in NaCl 0.9% (NS) 250 mL infusion 12-20 18:15: 00 12-20 20:32 :00 No [id number] 75mg/m2 132.76 mg (rounded from 132.75 mg = 75 mg/m2 ?1.77 m2 Treatment Plan BSA from Recorded weight), IV Infusion, ONCE, Administer over 60 Minutes, On Wed12/21/23 at 1315, For 1 dose, Non-DEHP tubing required. Non-PVC bag required. Do not use inline filter. [facility] atropine injection 0.25 mg 12-20 17:54: 40 12-21 17:53 :40 Yes [id number] .25mg 0.25 mg, IV Push, PRN, Starting on Wed12/21/23 at 1254, Until Wed12/22/23 at 1253, Routine, Stomach cramping, acute flushing. [facility] albuterol (PROVENTIL) 2.5 mg /3 mL (0.083 %) nebulizer solution 2.5 mg 12-20 17:54: 40 12-21 17:53 :40 Yes [id number] 2.5mg 2.5 mg, Inhalation , PRN - SEE INSTRUCTIO NS, Starting on Wed12/21/23 at 1254, Until Wed12/22/23 at 1253, Routine, Shortness of Breath, Wheezing, As needed for chemothera py reactions [facility] methylpredn isolone sod succ (SOLU-MEDRO L) injection 125 mg 12-20 17:54: 40 12-21 17:53 :40 Yes [id number] 125mg 125 mg, Slow IV Push, Administer over 3 Minutes, PRN - SEE INSTRUCTIO NS, Starting on Wed12/21/23 at 1254, Until Wed12/22/23 at 1253, Routine, As needed for chemothera py reactions [facility] EPINEPHrine (EPIPEN AUTO-INJECT OR) 0.3 mg/0.3 mL injection 0.3 mg 12-20 17:54: 40 12-21 17:53 :40 Yes [id number] .3mg 0.3 mg, Intramuscu lar, PRN - SEE INSTRUCTIO NS, Starting on Wed12/21/23 at 1254, Until Wed12/22/23 at 1253, Routine, As needed for chemothera py reactions [facility] diphenhydrA MINE (BENADRYL) injection 50 mg 12-20 17:54: 40 12-21 17:53 :40 Yes [id number] 50mg 50 mg, Slow IV Push, Administer over 2 Minutes, PRN - SEE INSTRUCTIO NS, Starting on Wed12/21/23 at 1254, Until Wed12/22/23 at 1253, Routine, As needed for chemothera py reactions, INDICATION : ANAPHYLAXI S [facility] proCHLORper azine (COMPAZINE) tablet 10 mg 12-20 17:54: 40 12-21 17:53 :40 Yes [id number] 10mg 10 mg, Oral, Q6HPRN, Starting on Wed12/21/23 at 1254, Until Wed12/22/23 at 1253, Routine, Nausea and Vomiting (N/V) [facility] heparin lock flush (HEPARIN LOCKFLUSH(P ORCINE)(PF) ) 100 unit/mL injection 500 Units 12-20 17:54: 40 12-21 17:53 :40 Yes [id number] 500U 500 Units, IV Push, PRN, Starting on Wed12/21/23 at 1254, Until Wed12/22/23 at 1253, Routine [facility] ramucirumab (CYRAMZA) 650 mg in NaCl 0.9% (NS) 250 mL infusion 12-20 17:15: 00 12-20 19:00 :00 No [id number] 10mg/kg 650 mg (10 mg/kg ?65 kg Treatment plan Recorded weight), IV Infusion, ONCE, Administer over 60 Minutes, On Wed12/21/23 at 1215, For 1 dose, Administer over 60 minutes through a separate infusion line. 0.22 micron filter is recommende d. For intravenou s infusion only. Do not administer as an intravenou s push or bolus. [facility] diphenhydrA MINE (BENADRYL) injection 25 mg 12-20 16:45: 00 12-20 16:55 :00 No [id number] 25mg 25 mg, Slow IV Push, ONCE, 1 dose, On Wed12/21/23 at 1145, Routine [facility] dexamethaso ne sod phos PF injection 10 mg 12-20 16:45: 00 12-20 16:59 :00 No [id number] 10mg 10 mg, Slow IV Push, ONCE, 1 dose, On Wed12/21/23 at 1145, 1 mL [facility] zoledronic ac-mannitol -0.9NaCl 4 mg/100 mL RTU IV Piggyback 4 mg 12-20 16:45: 00 12-20 17:27 :00 No [id number] 4mg 4 mg, IV Piggyback, ONCE, 1 dose, On Wed12/21/23 at 1145, Administer over 30 Minutes, 100 mL, presentation team member approving Restricted medication : HIMA LOMBARDO [facility] NaCl 0.9% (NS) bolus infusion 1,000 mL 12-20 16:45: 00 12-20 17:36 :00 No [id number] 1000mL at 999 mL/hr, 1,000 mL, IV Piggyback, ONCE, 1 dose, On Wed12/21/23 at 1145, STAT [facility] dexAMETHaso ne 4 mg tablet 12-16 00:00: 00 Yes [id number] Take 1 tab every 8 hours for 7 days then 1 tab every 12 hours for 7 days then 1 tab daily for 7 days. [facility] pantoprazol e 40 mg EC tablet 12-16 00:00: 00 Yes [id number] 40mg Take 1 tablet by mouth in the morning. [facility] sulfamethox azole-trime thoprim (BACTRIM DS) 800-160 mg per tablet 12-16 00:00: 00 Yes [id number] 1{tbl} Take 1 tablet by mouth every Wednesday, Wednesday and Wednesday. [facility] sulfamethox azole-trime thoprim (BACTRIM DS) 800-160 mg per tablet 12-14 00:00: 00 12-16 00:00 :00 No [id number] 1{tbl} Take 1 tablet by mouth every Wednesday, Wednesday and Wednesday for 30 days. [facility] dexAMETHaso ne 4 mg tablet 12-13 00:00: 00 12-16 00:00 :00 No [id number] Take 1 tab every 8 hours for 7 days then 1 tab every 12 hours for 7 days then 1 tab daily for 7 days. [facility] pantoprazol e 40 mg EC tablet 12-13 00:00: 00 2024- 08-30 00:00 :00 No [id number] 40mg Take 1 tablet by mouth in the morning for 60 days. [facility] fludeoxyglu cose F-18 (FDG) injection 10 millicurie 12-12 19:47: 00 12-12 19:54 :00 No [id number] 10mCi 10 millicurie , Intravenou s, ONCE, 1 dose, On Wed12/13/23 at 1500, Routine [facility] HYDROcodone -acetaminop hen 10-325 mg tablet 12-06 00:00: 00 01-19 00:00 :00 Yes [id number] 1{tbl} Take 1 tablet by mouth every 4 (four) hours as needed for Pain (scale 7-10). Indication s: acute pain, chronic pain [facility] FENTanyl 25 mcg/hr patch 12-06 00:00: 00 01-05 00:00 :00 No [id number] 1{patch } Apply 1 Patch to skin every 72 (seventy-t wo) hours. Indication s: chronic pain [facility] pembrolizum ab (KEYTRUDA) 200 mg in NaCl 0.9% (NS) 100 mL infusion 11-25 20:30: 00 11-25 20:41 :00 No [id number] 200mg 200 mg, IV Infusion, ONCE, Administer over 30 Minutes, On Wed11/26/23 at 1530, For 1 dose, Administer through a low-protei n binding 0.2 to 5 micron in-line filter. [facility] atropine injection 0.25 mg 11-25 19:59: 37 11-26 19:58 :37 Yes [id number] .25mg 0.25 mg, IV Push, PRN, Starting on Wed11/26/23 at 1459, Until 11/27/23 at 1458, Routine, Stomach cramping, acute flushing. [facility] albuterol (PROVENTIL) 2.5 mg /3 mL (0.083 %) nebulizer solution 2.5 mg 11-25 19:59: 37 11-26 19:58 :37 Yes [id number] 2.5mg 2.5 mg, Inhalation , PRN - SEE INSTRUCTIO NS, Starting on Wed11/26/23 at 1459, Until 11/27/23 at 1458, Routine, Shortness of Breath, Wheezing, As needed for chemothera py reactions [facility] methylpredn isolone sod succ (SOLU-MEDRO L) injection 125 mg 11-25 19:59: 37 11-26 19:58 :37 Yes [id number] 125mg 125 mg, Slow IV Push, Administer over 3 Minutes, PRN - SEE INSTRUCTIO NS, Starting on Wed11/26/23 at 1459, Until 11/27/23 at 1458, Routine, As needed for chemothera py reactions [facility] EPINEPHrine (EPIPEN AUTO-INJECT OR) 0.3 mg/0.3 mL injection 0.3 mg 11-25 19:59: 37 11-26 19:58 :37 Yes [id number] .3mg 0.3 mg, Intramuscu lar, PRN - SEE INSTRUCTIO NS, Starting on Wed11/26/23 at 1459, Until 11/27/23 at 1458, Routine, As needed for chemothera py reactions [facility] diphenhydrA MINE (BENADRYL) injection 50 mg 11-25 19:59: 37 11-26 19:58 :37 Yes [id number] 50mg 50 mg, Slow IV Push, Administer over 2 Minutes, PRN - SEE INSTRUCTIO NS, Starting on Wed11/26/23 at 1459, Until 11/27/23 at 1458, Routine, As needed for chemothera py reactions, INDICATION : ANAPHYLAXI S [facility] heparin lock flush (HEPARIN LOCKFLUSH(P ORCINE)(PF) ) 100 unit/mL injection 500 Units 11-25 19:59: 37 11-26 19:58 :37 Yes [id number] 500U 500 Units, IV Push, PRN, Starting on Wed11/26/23 at 1459, Until 11/27/23 at 1458, Routine [facility] NaCl 0.9% (NS) bolus infusion 1,000 mL 11-25 19:00: 00 11-25 19:37 :00 No 1000mL at 999 mL/hr, 1,000 mL, IV Infusion, ONCE, 1 dose, On Wed11/26/23 at 1400, MOMO [facility] HYDROcodone -acetaminop hen 10-325 mg tablet 11-15 00:00: 00 12-06 00:00 :00 No [id number] 1{tbl} Take 1 tablet by mouth every 6 (six) hours as needed for Pain (scale 4-6) or Pain (scale 7-10). Indication s: chronic pain, Metastatic Cancer [facility] pembrolizum ab (KEYTRUDA) 200 mg in NaCl 0.9% (NS) 100 mL infusion 11-03 20:30: 00 11-03 20:41 :00 No [id number] 200mg 200 mg, IV Infusion, ONCE, Administer over 30 Minutes, On Wed11/04/23 at 1530, For 1 dose, Administer through a low-protei n binding 0.2 to 5 micron in-line filter. [facility] atropine injection 0.25 mg 11-03 19:53: 50 11-04 19:52 :50 No [id number] .25mg 0.25 mg, IV Push, PRN, Starting on Wed11/04/23 at 1453, Until Wed11/05/23 at 1452, Routine, Stomach cramping, acute flushing. [facility] albuterol (PROVENTIL) 2.5 mg /3 mL (0.083 %) nebulizer solution 2.5 mg 11-03 19:53: 50 11-04 19:52 :50 No [id number] 2.5mg 2.5 mg, Inhalation , PRN - SEE INSTRUCTIO NS, Starting on Wed11/04/23 at 1453, Until Wed11/05/23 at 1452, Routine, Shortness of Breath, Wheezing, As needed for chemothera py reactions [facility] methylpredn isolone sod succ (SOLU-MEDRO L) injection 125 mg 11-03 19:53: 50 11-04 19:52 :50 No [id number] 125mg 125 mg, Slow IV Push, Administer over 3 Minutes, PRN - SEE INSTRUCTIO NS, Starting on Wed11/04/23 at 1453, Until Wed11/05/23 at 1452, Routine, As needed for chemothera py reactions [facility] EPINEPHrine (EPIPEN AUTO-INJECT OR) 0.3 mg/0.3 mL injection 0.3 mg 11-03 19:53: 50 11-04 19:52 :50 No [id number] .3mg 0.3 mg, Intramuscu lar, PRN - SEE INSTRUCTIO NS, Starting on Wed11/04/23 at 1453, Until Wed11/05/23 at 1452, Routine, As needed for chemothera py reactions [facility] diphenhydrA MINE (BENADRYL) injection 50 mg 11-03 19:53: 50 11-04 19:52 :50 No [id number] 50mg 50 mg, Slow IV Push, Administer over 2 Minutes, PRN - SEE INSTRUCTIO NS, Starting on Wed11/04/23 at 1453, Until Wed11/05/23 at 1452, Routine, As needed for chemothera py reactions, INDICATION : ANAPHYLAXI S [facility] heparin lock flush (HEPARIN LOCKFLUSH(P ORCINE)(PF) ) 100 unit/mL injection 500 Units 11-03 19:53: 50 11-04 19:52 :50 No [id number] 500U 500 Units, IV Push, PRN, Starting on Wed11/04/23 at 1453, Until Wed11/05/23 at 1452, Routine [facility] HYDROcodone -acetaminop hen 10-325 mg tablet 10-13 00:00: 00 Yes 2745 1{tbl} Take 1 tablet by mouth every 6 (six) hours as needed for Pain (scale 4-6) or Pain (scale 7-10). Indication s: chronic pain, Metastatic Cancer [facility] pembrolizum ab (KEYTRUDA) 200 mg in NaCl 0.9% (NS) 100 mL infusion 10-06 16:45: 00 10-06 16:50 :00 No [id number] 200mg 200 mg, IV Infusion, ONCE, Administer over 30 Minutes, On Catina 10/07/23 at 1145, For 1 dose, Administer through a low-protei n binding 0.2 to 5 micron in-line filter. [facility] HYDROcodone -acetaminop hen 10-325 mg tablet 09-19 00:00: 00 10-12 00:00 :00 No 2745 1{tbl} Take 1 tablet by mouth every 6 (six) hours as needed for Pain (scale 4-6) or Pain (scale 7-10). Indication s: chronic pain, Metastatic Cancer [facility] CARBOplatin (PARAPLATIN ) 750 mg in NaCl 0.9% (NS) 250 mL infusion 09-15 17:30: 00 09-15 19:25 :00 No [id number] 750mg 750 mg (Target AUC = 5), IV Infusion, ONCE, Administer over 60 Minutes, On Wed09/16/23 at 1230, For 1 dose, Taxane derivative s should be given before [place] derivative s. [facility] PACLitaxeL (TAXOL) 299.28 mg in NaCl 0.9% (NS) 250 mL IV infusion 09-15 14:30: 00 09-15 18:15 :00 No [id number] 175mg/m 2 299.28 mg (rounded from 299.25 mg = 175 mg/m2 ?1.71 m2 Treatment Plan BSA from Recorded weight), IV Infusion, ONCE, Administer over 180 Minutes, On Catina 09/16/23 at 0930, For 1 dose, Administer taxanes prior to [place] compounds. Administer through a 0.22 micron in-line filter and nonsorbing administra tion set. [facility] sodium polystyrene sulf-sorbtL (SPS (WITH SORBITOL)) 15-20 gram/60 mL suspension 15 g 09-15 14:00: 00 09-16 01:59 :00 No [id number] 15g [facility] pembrolizum ab (KEYTRUDA) 200 mg in NaCl 0.9% (NS) 100 mL infusion 09-15 14:00: 00 09-15 15:10 :00 No [id number] 200mg 200 mg, IV Infusion, ONCE, Administer over 30 Minutes, On Catina 09/16/23 at 0900, For 1 dose, Administer with an infusion set and 0.2 to 1.2 micron filter. [facility] palonosetro n (ALOXI) injection 0.25 mg 09-15 14:00: 09-15 13:59 :00 No [id number] .25mg 0.25 mg, Intravenou s, ONCE, 1 dose, On Catina 09/16/23 at 0900, Routine, presentation team member approving Restricted medication : [facility] famotidine (PEPCID (PF)) injection 20 mg 09-15 14:00: 09-15 13:57 :00 No [id number] 20mg 20 mg, Slow IV Push, ONCE, 1 dose, On Wed09/16/23 at 0900, Routine [facility] diphenhydrA MINE (BENADRYL) injection 25 mg 09-15 14:00: 09-15 13:53 :00 No [id number] 25mg 25 mg, Slow IV Push, ONCE, 1 dose, On Catina 09/16/23 at 0900, Routine [facility] dexamethaso ne 20 mg in 0.9% NaCl 50 mL IV piggyback (CNR) 09-15 14:00: 00 09-15 14:33 :00 No [id number] 20mg 20 mg, IV Piggyback, ONCE, 1 dose, On Catina 09/16/23 at 0900, Administer over 20 Minutes, 50 mL [facility] atropine injection 0.25 mg 09-15 13:45: 03 09-16 13:44 :03 No [id number] .25mg 0.25 mg, IV Push, PRN, Starting on Wed09/16/23 at 0845, Until Wed09/17/23 at 0844, Routine, Stomach cramping, acute flushing. [facility] albuterol (PROVENTIL) 2.5 mg /3 mL (0.083 %) nebulizer solution 2.5 mg 09-15 13:45: 03 09-16 13:44 :03 No [id number] 2.5mg 2.5 mg, Inhalation , PRN - SEE INSTRUCTIO NS, Starting on Wed09/16/23 at 0845, Until Wed09/17/23 at 0844, Routine, Shortness of Breath, Wheezing, As needed for chemothera py reactions [facility] methylpredn isolone sod succ (SOLU-MEDRO L) injection 125 mg 09-15 13:45: 03 09-16 13:44 :03 No [id number] 125mg 125 mg, Slow IV Push, Administer over 3 Minutes, PRN - SEE INSTRUCTIO NS, Starting on Wed09/16/23 at 0845, Until Wed09/17/23 at 0844, Routine, As needed for chemothera py reactions [facility] EPINEPHrine (EPIPEN AUTO-INJECT OR) 0.3 mg/0.3 mL injection 0.3 mg 09-15 13:45: 03 09-16 13:44 :03 No [id number] .3mg 0.3 mg, Intramuscu lar, PRN - SEE INSTRUCTIO NS, Starting on Wed09/16/23 at 0845, Until Wed09/17/23 at 0844, Routine, As needed for chemothera py reactions [facility] diphenhydrA MINE (BENADRYL) injection 50 mg 09-15 13:45: 03 09-16 13:44 :03 No [id number] 50mg 50 mg, Slow IV Push, Administer over 2 Minutes, PRN - SEE INSTRUCTIO NS, Starting on Wed09/16/23 at 0845, Until Wed09/17/23 at 0844, Routine, As needed for chemothera py reactions, INDICATION : ANAPHYLAXI S [facility] heparin lock flush (HEPARIN LOCKFLUSH(P ORCINE)(PF) ) 100 unit/mL injection 500 Units 09-15 13:45: 02 09-16 13:44 :02 No [id number] 500U 500 Units, IV Push, PRN, Starting on Wed09/16/23 at 0845, Until Wed09/17/23 at 0844, Routine [facility] fludeoxyglu cose F-18 (FDG) injection 12.09 millicurie 08-23 15:00: 00 08-23 14:01 :00 No [id number] 12.09mC i 12.09 millicurie , Intravenou s, ONCE, 1 dose, On Wed08/24/23 at 1000, Routine [facility] CARBOplatin (PARAPLATIN ) 750 mg in NaCl 0.9% (NS) 250 mL infusion 08-22 20:15: 00 08-22 22:02 :00 No [id number] 750mg 750 mg (Target AUC = 5), IV Infusion, ONCE, Administer over 60 Minutes, On Wed08/23/23 at 1515, For 1 dose, Taxane derivative s should be given before [place] derivative s. [facility] PACLitaxeL (TAXOL) 299.28 mg in NaCl 0.9% (NS) 250 mL IV infusion 08-22 17:15: 00 08-22 20:50 :00 No [id number] 175mg/m 2 299.28 mg (rounded from 299.25 mg = 175 mg/m2 ?1.71 m2 Treatment Plan BSA from Recorded weight), IV Infusion, ONCE, Administer over 180 Minutes, On Wed08/23/23 at 1215, For 1 dose, Administer taxanes prior to [place] [employer]. Administer through a 0.22 micron in-line filter and nonsorbing administra tion set. [facility] pembrolizum ab (KEYTRUDA) 200 mg in NaCl 0.9% (NS) 100 mL infusion 08-22 16:45: 00 08-22 17:42 :00 No [id number] 200mg 200 mg, IV Infusion, ONCE, Administer over 30 Minutes, On Wed08/23/23 at 1145, For 1 dose, Administer with an infusion set and 0.2 to 1.2 micron filter. [facility] palonosetro n (ALOXI) injection 0.25 mg 08-22 16:45: 00 08-22 16:39 :00 No [id number] .25mg 0.25 mg, Intravenou s, ONCE, 1 dose, On Wed08/23/23 at 1145, Routine, presentation team member approving Restricted medication : [facility] famotidine (PEPCID (PF)) injection 20 mg 08-22 16:45: 00 08-22 16:36 :00 No [id number] 20mg 20 mg, Slow IV Push, ONCE, 1 dose, On Wed08/23/23 at 1145, Routine [facility] diphenhydrA MINE (BENADRYL) injection 25 mg 08-22 16:45: 00 08-22 16:32 :00 No [id number] 25mg 25 mg, Slow IV Push, ONCE, 1 dose, On Wed08/23/23 at 1145, Routine [facility] dexamethaso ne 20 mg in 0.9% NaCl 50 mL IV piggyback (CNR) 08-22 16:45: 00 08-22 17:03 :00 No [id number] 20mg 20 mg, IV Piggyback, ONCE, 1 dose, On Wed08/23/23 at 1145, Administer over 20 Minutes, 50 mL [facility] heparin lock flush (HEPARIN LOCKFLUSH(P ORCINE)(PF) ) 100 unit/mL injection 500 Units 08-22 16:37: 10 08-23 16:36 :10 No [id number] 500U 500 Units, IV Push, PRN, Starting on Wed08/23/23 at 1137, Until Wed08/24/23 at 1136, Routine [facility] HYDROcodone -acetaminop hen 10-325 mg tablet 08-19 00:00: 00 09-16 00:00 :00 No [id number] 1{tbl} Take 1 tablet by mouth every 6 (six) hours as needed for Pain (scale 4-6) or Pain (scale 7-10). Indication s: chronic pain, Metastatic Cancer [facility] CARBOplatin (PARAPLATIN ) 750 mg in NaCl 0.9% (NS) 250 mL infusion 08-01 17:30: 00 08-01 20:38 :00 No [id number] 750mg 750 mg (Target AUC = 5), IV Infusion, ONCE, Administer over 60 Minutes, On Wed08/02/23 at 1230, For 1 dose
Ta xane derivative s should be given before [place] derivative s.
[facility] PACLitaxeL (TAXOL) 327.24 mg in NaCl 0.9% (NS) 500 mL IV infusion 08-01 14:30: 00 08-01 19:35 :00 No [id number] 175mg/m 2 327.24 mg (rounded from 327.25 mg = 175 mg/m2 ?1.87 m2 Treatment Plan BSA from Recorded weight), IV Infusion, ONCE, Administer over 180 Minutes, On Wed08/02/23 at 0930, For 1 dose
[employer] book[employer] taxanes prior to [place] [employer]. &nbs p;Administ er through a 0.22 micron in-line filter and nonsorbing administra tion set.
[facility] palonosetro n (ALOXI) injection 0.25 mg 08-01 14:00: 00 08-01 14:46 :00 No [id number] .25mg 0.25 mg, Intravenou s, ONCE, 1 dose, On Wed08/02/23 at 0900, Routine
presentation team member approving Restricted medication : [facility] famotidine (PEPCID (PF)) injection 20 mg 08-01 14:00: 00 08-01 14:49 :00 No [id number] 20mg 20 mg, Slow IV Push, ONCE, 1 dose, On Wed08/02/23 at 0900, Routine [facility] diphenhydrA MINE (BENADRYL) injection 25 mg 08-01 14:00: 00 08-01 14:42 :00 No [id number] 25mg 25 mg, Slow IV Push, ONCE, 1 dose, On Wed08/02/23 at 0900, Routine [facility] dexamethaso ne 20 mg in 0.9% NaCl 50 mL IV piggyback (CNR) 08-01 14:00: 00 08-01 15:10 :00 No [id number] 20mg 20 mg, IV Piggyback, ONCE, 1 dose, On Wed08/02/23 at 0900, Administer over 20 Minutes, 50 mL [facility] pembrolizum ab (KEYTRUDA) 200 mg in NaCl 0.9% (NS) 100 mL infusion 08-01 14:00: 00 08-01 15:55 :00 No [id number] 200mg 200 mg, IV Infusion, ONCE, Administer over 30 Minutes, On Wed08/02/23 at 0900, For 1 dose
[employer] book[employer] with an infusion set and 0.2 to 1.2 micron filter.
[facility] ondansetron 4 mg disintegrat ing tablet 07-28 00:00: 00 Yes [id number] 4mg Take 1 tablet by mouth every 8 (eight) hours as needed for Nausea and Vomiting (N/V). [facility] proCHLORper azine (COMPAZINE) 10 mg tablet 07-28 00:00: 00 Yes [id number] 10mg Take 1 tablet by mouth every 6 (six) hours as needed for Nausea and Vomiting (N/V). [facility] mirtazapine 7.5 mg tablet 07-28 00:00: 00 Yes [id number] 15mg Take 2 tablets by mouth at bedtime. [facility] HYDROcodone -acetaminop hen 10-325 mg tablet 07-11 00:00: 00 08-19 00:00 :00 No [id number] 1{tbl} Take 1 tablet by mouth every 6 (six) hours as needed for Pain (scale 4-6) or Pain (scale 7-10). Indication s: chronic pain, Metastatic Cancer [facility] predniSONE (DELTASONE) tablet 30 mg 06-29 [...] Wed07/05/23 at 0900, Routine [Order 3 End] [facility] midazolam (VERSED) STD 50mg in NaCl [...] at maximum allowed dose, contact prescriber .
[facility] pantoprazol e (PROTONIX) injection 40 mg 06-28 15:30: 00 Yes 40mg 40 mg, Slow IV Push, Q24H, First dose on Wed06/29/23 at 1030, Until Discontinu ed [facility] chlorhexidi ne (PERIDEX) 0.12 % mouthwash 15 mL 06-28 13:00: 00 Yes 15mL 15 mL, Oral (Swish And Spit Out), BID, First dose on Wed06/29/23 at 0800, Until Discontinu ed, Routine [facility] NORepinephr ine 16 mg in NS 250 [...] at maximum allowed dose, contact prescriber .
[facility] dexMEDEtomi dine 200 mcg in 0.9 [...] at maximum allowed dose, contact prescriber .
[facility] fentaNYL PF (SUBLIMAZE) STD 2,500 mcg [...] at maximum allowed dose, contact prescriber .
[facility] propofoL IV infusion 06-28 01:36: 21 [...] vials should be discarded after 12 hours.
[facility] albuterol (PROVENTIL) 2.5 mg /3 mL (0.083 %) nebulizer solution 2.5 mg 06-28 01:00: 00 Yes 2.5mg 2.5 mg, Inhalation , Q4H, First dose on Wed06/28/23 at 2000, Until Discontinu ed, Routine [facility] albuterol (VENTOLIN) inhaler 06-27 23:40: 00 06-28 01:07 :40 No Inhalation , ONCE INTRA PROCEDURE, Starting on Wed06/28/23 at 1840, Until Discontinu ed, Routine, [facility]op [facility] rocuronium (ZEMURON) injection 06-27 23:32: 00 06-28 01:07 :40 No IV Push, ONCE INTRA PROCEDURE, Starting on Wed06/28/23 at 1832, Until Discontinu ed, Routine, Intra-op [facility] NORepinephr ine (LEVOPHED) 16 mg in NaCl 0.9% (NS) 250 mL infusion 06-27 23:04: 00 06-28 01:07 :40 No IV Infusion, CONTINUOUS PRN, Starting on Wed06/28/23 at 1804, Intra-op [facility] dexamethaso ne (DECADRON PHOSPHATE) injection 06-27 22:57: 00 06-28 01:07 :40 No Intravenou s, ONCE INTRA PROCEDURE, Starting on Wed06/28/23 at 1757, Until Discontinu ed, Routine, Intra-op [facility] EPINEPHrine 1:1,000 (1 mg/mL) (ADRENALIN) injection 06-27 22:51: 00 06-28 01:07 :40 No Buccal, ONCE INTRA PROCEDURE, Starting on Wed06/28/23 at 1751, Until Discontinu ed, Routine, Intra-op [facility] atropine injection 06-27 22:45: 00 06-28 01:07 :40 No Intravenou s, ONCE INTRA PROCEDURE, Starting on Wed06/28/23 at 1745, Until Discontinu ed, Routine, Intra-op [facility] propofoL IV infusion 06-27 22:40: 00 06-28 01:07 :40 No Intravenou s, CONTINUOUS PRN, Starting on Wed06/28/23 at 1740, Until Discontinu ed, Routine, Intra-op [facility] remifentani L (ULTIVA) injection 06-27 22:39: 00 06-28 01:07 :40 No Slow IV Push, CONTINUOUS PRN, Starting on Wed06/28/23 at 1739, Until Discontinu ed, Routine, Intra-op [facility] succinylcho line (QUELICIN) injection 06-27 22:31: 00 06-28 01:07 :40 No IV Push, ONCE INTRA PROCEDURE, Starting on Wed06/28/23 at 1731, Until Discontinu ed, Routine, Intra-op [facility] lactated ringers IV infusion 06-27 22:23: 00 06-28 01:07 :40 No IV Infusion, CONTINUOUS PRN, Starting on Wed06/28/23 at 1723, Until Discontinu ed, Routine, Intra-op [facility] ketamine (KETALAR) 50 mg/5 mL (10 mg/mL) injection 06-27 22:23: 00 06-28 01:07 :40 No Intravenou s, ONCE INTRA PROCEDURE, Starting on Wed06/28/23 at 1723, Until Discontinu ed, Routine, Intra-op [facility] dexmedeTOMI Dine (PRECEDEX) injection 06-27 22:15: 00 06-28 01:07 :40 No Intravenou s, ONCE INTRA PROCEDURE, Starting on Wed06/28/23 at 1715, Until Discontinu ed, Routine, Intra-op [facility] lactated ringers IV infusion 06-27 22:05: 00 06-28 01:07 :40 No IV Infusion, CONTINUOUS PRN, Starting on Wed06/28/23 at 1705, Until Discontinu ed, Routine, Intra-op [facility] midazolam (VERSED) injection 06-27 22:01: 00 06-28 01:07 :40 No IV Push, ONCE INTRA PROCEDURE, Starting on Wed06/28/23 at 1701, Until Discontinu ed, Routine, Intra-op [facility] glycopyrrol ate (ROBINUL) injection 06-27 22:01: 00 06-28 01:07 :40 No Intravenou s, ONCE INTRA PROCEDURE, Starting on Wed06/28/23 at 1701, Until Discontinu ed, Routine, Intra-op [facility] atropine injection 0.25 mg 06-27 19:59: 55 06-28 19:58 :55 No [id number] .25mg 0.25 mg, IV Push, PRN, Starting on Wed06/28/23 at 1459, Until Wed06/29/23 at 1458, Routine, Stomach cramping, acute flushing. [facility] albuterol (PROVENTIL) 2.5 mg /3 mL (0.083 %) nebulizer solution 2.5 mg 06-27 19:59: 55 06-28 19:58 :55 No [id number] 2.5mg 2.5 mg, Inhalation , PRN - SEE INSTRUCTIO NS, Starting on Wed06/28/23 at 1459, Until Wed06/29/23 at 1458, Routine, Shortness of Breath, Wheezing, As needed for chemothera py reactions [facility] methylpredn isolone sod succ (SOLU-MEDRO L) injection 125 mg 06-27 19:59: 55 06-28 19:58 :55 No [id number] 125mg 125 mg, Slow IV Push, Administer over 3 Minutes, PRN - SEE INSTRUCTIO NS, Starting on Wed06/28/23 at 1459, Until Wed06/29/23 at 1458, Routine, As needed for chemothera py reactions [facility] EPINEPHrine (EPIPEN AUTO-INJECT OR) 0.3 mg/0.3 mL injection 0.3 mg 06-27 19:59: 55 06-28 19:58 :55 No [id number] .3mg 0.3 mg, Intramuscu lar, PRN - SEE INSTRUCTIO NS, Starting on Wed06/28/23 at 1459, Until Wed06/29/23 at 1458, Routine, As needed for chemothera py reactions [facility] diphenhydrA MINE (BENADRYL) injection 50 mg 06-27 19:59: 55 06-28 19:58 :55 No [id number] 50mg 50 mg, Slow IV Push, Administer over 2 Minutes, PRN - SEE INSTRUCTIO NS, Starting on Wed06/28/23 at 1459, Until Wed06/29/23 at 1458, Routine, As needed for chemothera py reactions< br>INDICAT ION: ANAPHYLAXI S [facility] heparin lock flush (HEPARIN LOCKFLUSH(P ORCINE)(PF) ) 100 unit/mL injection 500 Units 06-27 19:59: 55 06-28 19:58 :55 No [id number] 500U 500 Units, IV Push, PRN, Starting on Wed06/28/23 at 1459, Until Wed06/29/23 at 1458, Routine [facility] sodium chloride 7% (HYPER-WILEY) nebulizer solution 4 mL 06-27 18:00: 00 Yes 4mL 4 mL, Inhalation , BID, First dose on Wed06/28/23 at 1300, Until Discontinu ed, MOMO [facility] mirtazapine (REMERON) tablet 15 mg 06-27 02:00: 00 Yes 15mg 15 mg, Oral, QHS, First dose on 06/27/23 at 2100, Until Discontinu ed, Routine [facility] Lidocaine (LIDOCARE) 4 % patch 1 Patch 06-26 14:00: 00 Yes 1{patch } 1 Patch, Topical, Administer over 12 Hours, DAILY, First dose on 06/27/23 at 0900, Until Discontinu ed, Routine [facility] multivitami n tablet 06-26 14:00: 00 Yes 1{tbl} 1 tablet, Oral, DAILY, First dose on 06/27/23 at 0900, Until Discontinu ed, Routine [facility] enoxaparin (LOVENOX) injection 40 mg 06-26 14:00: 00 Yes 40mg 40 mg, Subcutaneo us, DAILY, First dose on 06/27/23 at 0900, Until Discontinu ed, Routine [facility] polyethylen e glycol 3350 powder 17 g 06-26 13:00: 00 Yes 17g 17 g, Oral, BID, First dose on 06/27/23 at 0800, Until Discontinu ed, Routine [facility] ipratropium (ATROVENT) 0.02 % nebulizer solution 0.5 mg 06-26 13:00: 00 Yes .5mg 0.5 mg, Inhalation , QID, First dose on 06/27/23 at 0800, Until Discontinu ed [facility] HYDROcodone -acetaminop hen (NORCO) 10-325 mg tablet 1 tablet 06-26 05:03: 51 Yes 1{tbl} 1 tablet, Oral, Q6HPRN, Starting on 06/26/23 at 2303, Until Discontinu ed, Routine, Pain (scale 7-10) [facility] benzonatate (TESSALON PERLES) capsule 100 mg 06-26 05:03: 28 Yes 100mg 100 mg, Oral, Q8HPRN, Starting on 06/26/23 at 2303, Until Discontinu ed, Routine, Cough [facility] guaiFENesin 100 mg/5 mL solution 200 mg 06-26 05:03: 28 Yes 200mg 200 mg, Oral, Q4HPRN, Starting on 06/26/23 at 2303, Until Discontinu ed, Routine, Cough [facility] albuterol (VENTOLIN) inhaler 2 Puff 06-26 05:03: 28 Yes 2{puff} 2 Puff, Inhalation , Q4HPRN, Starting on 06/26/23 at 2303, Until Discontinu ed, Routine, Wheezing, Shortness of Breath [facility] acetaminoph en (TYLENOL) tablet 650 mg 06-26 05:03: 28 Yes 650mg 650 mg, Oral, Q6HPRN, Starting on 06/26/23 at 2303, Until Discontinu ed, Routine, Pain (scale 1-3) [facility] HYDROcodone -acetaminop hen 10-325 mg tablet 2- 00:00: 00 Yes [id number] 1{tbl} Take 1 tablet by mouth every 4 (four) hours as needed for Pain (scale 4-6) or Pain (scale 7-10). Indication s: chronic pain, Metastatic Cancer [facility] albuterol 90 mcg/actuati on inhaler 06-09 00:00: 00 Yes [id number] 2{puff} Inhale 2 Puffs every 4 (four) hours as needed for Wheezing or Shortness of Breath. [facility] ipratropium 17 mcg/actuati on inhaler 06-09 00:00: 00 Yes [id number] 2{puff} Inhale 2 Puffs 4 (four) times daily. [facility] guaiFENesin 100 mg/5 mL solution 06-09 00:00: 00 12-20 00:00 :00 No [id number] 200mg Take 10 mL by mouth every 4 (four) hours as needed for Cough. [facility] mirtazapine 7.5 mg tablet 06-09 00:00: 00 07-28 00:00 :00 No [id number] 15mg Take 2 tablets by mouth at bedtime. [facility] polyethylen e glycol 3350 powder 17 g 05-21 02:00: 00 Yes 17g 17 g, Oral, BID, First dose (after last modificati on) on Wed05/20/23 at 1999, Until Discontinu ed, Routine [facility] sennosides- docusate sodium (SENOKOT-S) 8.6-50 mg per tablet 1 tablet 05-21 02:00: 00 Yes 1{tbl} 1 tablet, Oral, BID, First dose on Wed05/20/23 at 1999, Until Discontinu ed, Routine [facility] sennosides- docusate sodium 8.6-50 mg per tablet 05-21 00:00: 00 Yes [id number] 1{tbl} Take 1 tablet by mouth in the morning and 1 tablet in the evening. [facility] polyethylen e glycol 3350 (CLEARLAX) 17 gram/dose powder 05-21 00:00: 00 Yes [id number] 17g Take 17 g by mouth in the morning and 17 g in the evening. [facility] mirtazapine 7.5 mg tablet 05-21 00:00: 00 Yes [id number] 15mg Take 2 tablets by mouth at bedtime. [facility] ipratropium 17 mcg/actuati on inhaler 05-21 00:00: 00 Yes [id number] 2{puff} Inhale 2 Puffs 4 (four) times daily. [facility] albuterol 90 mcg/actuati on inhaler 05-21 00:00: 00 Yes [id number] 2{puff} Inhale 2 Puffs every 4 (four) hours for Wheezing or Shortness of Breath. [facility] guaiFENesin 100 mg/5 mL solution 05-21 00:00: 00 Yes [id number] 200mg Take 10 mL by mouth every 4 (four) hours as needed for Cough. [facility] HYDROcodone -acetaminop hen 10-325 mg tablet 05-21 00:00: 00 06-20 05:59 :00 No [id number] 1{tbl} Take 1 tablet by mouth every 6 (six) hours as needed for Pain (scale 4-6) or Pain (scale 7-10) for up to 30 days. Indication s: chronic pain, Metastatic Cancer [facility] albuterol (PROVENTIL) 2.5 mg /3 mL (0.083 %) nebulizer solution 2.5 mg 05-20 17:00: 05-20 17:35 :00 No 2.5mg 2.5 mg, Inhalation , ONCE NOW, 1 dose, On Catina 05/20/23 at 1100, Routine [facility] albuterol (PROVENTIL) 2.5 mg /3 mL (0.083 %) nebulizer solution 05-20 16:01: 00 05-20 16:56 :23 No PRN, Starting on Catina 05/20/23 at 1001, Until Catina 05/20/23 at 1056, Routine, Intra-op [facility] EPINEPHrine 1:1,000 (1 mg/mL) (ADRENALIN) injection 05-20 15:35: 00 05-20 16:56 :23 No PRN, Starting on Catina 05/20/23 at 0935, Until Catina 05/20/23 at 1056, Routine, [facility]ers [facility] 05-20 15:14: 00 05-20 16:56 :23 No CONTINUOUS PRN, Starting on Catina 05/20/23 at 0914, Until Catina 05/20/23 at 1056, Routine, Intra-op [facility] lidocaine (XYLOCAINE) 2 % mucosal jelly 05-20 15:14: 00 05-20 16:56 :23 No PRN, Starting on Catina 05/20/23 at 0914, Until Catina 05/20/23 at 1056, Routine, [facility] lidocaine 1% (PF) (XYLOCAINE) injection 05-20 15:14: 00 05-20 16:56 :23 No PRN, Starting on Catina 05/20/23 at 0914, Until Catina 05/20/23 at 1056, Routine, Intra-op [facility] mirtazapine (REMERON) tablet 7.5 mg 05-20 03:00: 00 Yes 7.5mg 7.5 mg, Oral, QHS, First dose on Wed05/19/23 at 2100, Until Discontinu ed, Routine [facility] morpHINE (2 mg/mL) injection 2 mg 05-18 13:48: 07 Yes 2mg 2 mg, Slow IV Push, Q6HPRN, Starting on Wed05/18/23 at 0748, Until Discontinu ed, Routine, Pain (scale 7-10) [facility] HYDROcodone -acetaminop hen (NORCO) 10-325 mg tablet 1 tablet 05-18 13:47: 49 Yes 1{tbl} 1 tablet, Oral, Q6HPRN, Starting on Wed05/18/23 at 0747, Until Discontinu ed, Routine, Pain (scale 4-6), Pain (scale 7-10) [facility] barium sulfate-NO CHARGE- (VARIBAR NECTOR) 40 % (w/v) oral suspension 30 mL 05-17 19:15: 00 05-17 19:15 :00 No [id number] 30mL 30 mL, Oral, ONCE, 1 dose, On Wed05/17/23 at 1315, Routine [facility] bar[facility] sulfate (VARIBAR THIN LIQUID) 81 % (w/w) oral powder 40 g 05-17 19:15: 00 05-17 19:15 :00 No [id number] 40g 40 g, Oral, ONCE, 1 dose, On Wed05/17/23 at 1315, Routine [facility] acetaminoph en (TYLENOL) tablet 650 mg 05-17 14:49: 48 Yes 650mg 650 mg, Oral, Q6HPRN, Starting on Wed05/17/23 at 0849, Until Discontinu ed, Routine, Pain (scale 1-3) [facility] HYDROcodone -acetaminop hen (NORCO 5) 5-325 mg tablet 1 tablet 05-17 14:49: 30 05-18 13:47 :58 No 1{tbl} 1 tablet, Oral, Q6HPRN, Starting on Wed05/17/23 at 0849, Until Wed05/18/23 at 0747, Routine, Pain (scale 4-6), Pain (scale 7-10) [facility] gadobenate dimeglumine (MULTIHANCE -15 mL) injection 16.32 mL 05-17 05:45: 00 05-17 05:10 :00 No [id number] .2mL/kg 16.32 mL (0.2 mL/kg ?81.6 kg), Intravenou s, ONCE, 1 dose, On Wed05/16/23 at 2345, Routine [facility] morpHINE (2 mg/mL) injection 2 mg 05-16 21:50: 39 05-17 14:49 :55 No 2mg 2 mg, Slow IV Push, Q4HPRN, Starting on 05/16/23 at 1550, Until 05/17/23 at 0849, Routine, Pain (scale 7-10) [facility] HYDROcodone -acetaminop hen (NORCO 5) 5-325 mg tablet 1 tablet 05-16 21:50: 27 05-17 14:49 :55 No 1{tbl} 1 tablet, Oral, Q6HPRN, Starting on 05/16/23 at 1550, Until 05/17/23 at 0849, Routine, Pain (scale 4-6) [facility] ipratropium -albuteroL (DUONEB) 0.5 mg-3 mg(2.5 mg base)/3 mL nebulizer solution 3 mL 05-15 23:20: 18 Yes 3mL 3 mL, Inhalation , QIDPRN, Starting on 05/15/23 at 1720, Until Discontinu ed, Routine, Wheezing, Shortness of Breath [facility] guaiFENesin 100 mg/5 mL solution 200 mg 05-15 16:55: 41 Yes 200mg 200 mg, Oral, Q4HPRN, Starting on 05/15/23 at 1055, Until Discontinu ed, Routine, Cough [facility] iopamidol (ISOVUE 370-500 mL) injection 80 mL 05-15 16:35: 00 05-15 16:35 :00 No [id number] 80mL 80 mL, Intravenou s, ONCE, 1 dose, On 05/15/23 at 1100, Routine [facility] acetaminoph en (TYLENOL) tablet 650 mg 05-15 15:25: 29 05-17 14:49 :55 No 650mg 650 mg, Oral, Q6HPRN, Starting on 05/15/23 at 0925, Until 05/17/23 at 0849, Routine, Pain (scale 1-3), Pain (scale 4-6) [facility] polyethylen e glycol 3350 powder 17 g 05-15 15:00: 00 05-21 01:13 :52 No 17g 17 g, Oral, DAILY, First dose on Wed05/15/23 at 0900, Until Discontinu ed, Routine [facility] enoxaparin (LOVENOX) injection 40 mg 05-14 15:00: 00 Yes 40mg 40 mg, Subcutaneo us, DAILY, First dose on Wed05/14/23 at 0900, Until Discontinu ed, Routine [facility] ipratropium -albuteroL (DUONEB) 0.5 mg-3 mg(2.5 mg base)/3 mL nebulizer solution 3 mL 05-14 14:00: 00 Yes 3mL 3 mL, Inhalation , QID, First dose on Wed05/14/23 at 0800, Until Discontinu ed, Routine [facility] famotidine (PEPCID AC) tablet 20 mg 05-14 14:00: 00 Yes 20mg 20 mg, Oral, BID, First dose on Wed05/14/23 at 0800, Until Discontinu ed, Routine
Indicatio n for use: None of the above [facility] racEPINEPHr ine (S2 RACEMIC) 2.25 % nebulizer solution 0.25 mL 05-14 03:33: 45 Yes .25mL 0.25 mL, Inhalation , Q15MIN PRN, Starting on Catina 05/13/23 at 2133, Until Discontinu ed, Routine, Stridor [facility] Vital Signs Vital Name Observation Time Observation Value Comments Nini stallings Systolic blood pressure 2023-12-29 13:55:00 99 mm[Hg] Dr. Huston made aware [facility] Diastolic blood pressure 2023-12-29 13:55:00 65 mm[Hg] Dr. Huston made aware [facility] Heart rate 2023-12-29 13:47:00 99 /min [facility] Body temperature 2023-12-29 13:47:00 36.56 Emilie [facility] Respiratory rate 2023-12-29 13:47:00 16 /min [facility] Body height 2023-12-29 13:47:00 170.5 cm verified by TARIQ Varma [facility] Body weight 2023-12-29 13:47:00 63.095 kg verified by TARIQ Varma [facility] BMI 2023-12-29 13:47:00 21.70 kg/m2 [facility] Oxygen saturation in Arterial blood by Pulse oximetry 2023-12-29 13:47:00 100 /min [facility] Systolic blood pressure 2023-12-21 15:55:00 113 mm[Hg] [facility] Diastolic blood pressure 2023-12-21 15:55:00 70 mm[Hg] [facility] Heart rate 2023-12-21 15:55:00 85 /min [facility] Body temperature 2023-12-21 15:55:00 36.67 Emilie [facility] Respiratory rate 2023-12-21 15:55:00 16 /min [facility] Body height 2023-12-21 15:55:00 169.5 cm verified with Art Curiel RN [facility] Body weight 2023-12-21 15:55:00 64 kg verified with Art Curiel RN [facility] BMI 2023-12-21 15:55:00 22.28 kg/m2 [facility] Oxygen saturation in Arterial blood by Pulse oximetry 2023-12-21 15:55:00 96 /min [facility] Systolic blood pressure 2023-12-21 14:16:00 103 mm[Hg] [facility] Diastolic blood pressure 2023-12-21 14:16:00 64 mm[Hg] [facility] Heart rate 2023-12-21 14:16:00 85 /min [facility] Body temperature 2023-12-21 14:16:00 36.94 Emilie [facility] Respiratory rate 2023-12-21 14:16:00 16 /min [facility] Body weight 2023-12-21 14:16:00 64.955 kg [facility] BMI 2023-12-21 14:16:00 21.77 kg/m2 [facility] Oxygen saturation in Arterial blood by Pulse oximetry 2023-12-21 14:16:00 100 /min [facility] Systolic blood pressure 2023-12-07 15:24:00 119 mm[Hg] [facility] Diastolic blood pressure 2023-12-07 15:24:00 77 mm[Hg] [facility] Heart rate 2023-12-07 15:24:00 95 /min [facility] Body temperature 2023-12-07 15:24:00 36.39 Emilie [facility] Respiratory rate 2023-12-07 15:24:00 18 /min [facility] Body height 2023-12-07 15:24:00 172.7 cm [facility] Body weight 2023-12-07 15:24:00 65 kg [facility] BMI 2023-12-07 15:24:00 21.79 kg/m2 [facility] Oxygen saturation in Arterial blood by Pulse oximetry 2023-12-07 15:24:00 100 /min [facility] Systolic blood pressure 2023-11-26 19:54:00 120 mm[Hg] [facility] Diastolic blood pressure 2023-11-26 19:54:00 78 mm[Hg] [facility] Heart rate 2023-11-26 19:54:00 90 /min [facility] Body temperature 2023-11-26 19:54:00 35.72 Emilie [facility] Respiratory rate 2023-11-26 19:54:00 18 /min [facility] Body weight 2023-11-26 19:54:00 66.588 kg [facility] BMI 2023-11-26 19:54:00 22.32 kg/m2 [facility] Oxygen saturation in Arterial blood by Pulse oximetry 2023-11-26 19:54:00 100 /min [facility] Systolic blood pressure 2023-11-26 18:12:00 120 mm[Hg] [facility] Diastolic blood pressure 2023-11-26 18:12:00 78 mm[Hg] [facility] Heart rate 2023-11-26 18:12:00 83 /min [facility] Body temperature 2023-11-26 18:12:00 36.39 Emilie [facility] Respiratory rate 2023-11-26 18:12:00 16 /min [facility] Oxygen saturation in Arterial blood by Pulse oximetry 2023-11-26 18:12:00 98 /min [facility] Body height 2023-11-26 18:10:00 172.7 cm [facility] Body weight 2023-11-26 18:10:00 68.04 kg [facility] BMI 2023-11-26 18:10:00 22.81 kg/m2 [facility] Systolic blood pressure 2023-11-16 19:14:00 100 mm[Hg] [facility] Diastolic blood pressure 2023-11-16 19:14:00 64 mm[Hg] [facility] Heart rate 2023-11-16 19:14:00 86 /min [facility] Body temperature 2023-11-16 19:14:00 36.22 Emilie [facility] Respiratory rate 2023-11-16 19:14:00 17 /min [facility] Body height 2023-11-16 19:14:00 171.5 cm [facility] Body weight 2023-11-16 19:14:00 67.314 kg [facility] BMI 2023-11-16 19:14:00 22.89 kg/m2 [facility] Oxygen saturation in Arterial blood by Pulse oximetry 2023-11-16 19:14:00 100 /min [facility] Systolic blood pressure 2023-11-04 19:35:00 118 mm[Hg] [facility] Diastolic blood pressure 2023-11-04 19:35:00 64 mm[Hg] [facility] Heart rate 2023-11-04 19:35:00 86 /min [facility] Body temperature 2023-11-04 19:35:00 36.39 Emilie [facility] Respiratory rate 2023-11-04 19:35:00 17 /min [facility] Body weight 2023-11-04 19:35:00 68.493 kg [facility] BMI 2023-11-04 19:35:00 23.29 kg/m2 [facility] Oxygen saturation in Arterial blood by Pulse oximetry 2023-11-04 19:35:00 98 /min [facility] Systolic blood pressure 2023-10-07 15:19:00 118 mm[Hg] [facility] Diastolic blood pressure 2023-10-07 15:19:00 73 mm[Hg] [facility] Heart rate 2023-10-07 15:19:00 83 /min [facility] Body temperature 2023-10-07 15:19:00 36.72 Emilie [facility] Respiratory rate 2023-10-07 15:19:00 17 /min [facility] Body weight 2023-10-07 15:19:00 68.901 kg [facility] BMI 2023-10-07 15:19:00 23.43 kg/m2 [facility] Oxygen saturation in Arterial blood by Pulse oximetry 2023-10-07 15:19:00 100 /min [facility] Systolic blood pressure 2023-10-07 15:46:00 123 mm[Hg] [facility] Diastolic blood pressure 2023-10-07 15:46:00 85 mm[Hg] [facility] Heart rate 2023-10-07 15:46:00 87 /min [facility] Body temperature 2023-10-07 15:46:00 35.94 Emilie [facility] Respiratory rate 2023-10-07 15:46:00 17 /min [facility] Body weight 2023-10-07 15:46:00 69.219 kg [facility] BMI 2023-10-07 15:46:00 23.53 kg/m2 [facility] Oxygen saturation in Arterial blood by Pulse oximetry 2023-10-07 15:46:00 98 /min [facility] Systolic blood pressure 2023-09-22 14:02:00 125 mm[Hg] [facility] Diastolic blood pressure 2023-09-22 14:02:00 72 mm[Hg] [facility] Heart rate 2023-09-22 14:02:00 96 /min [facility] Body temperature 2023-09-22 14:02:00 36.06 Emilie [facility] Respiratory rate 2023-09-22 14:02:00 14 /min [facility] Body height 2023-09-22 14:02:00 171.5 cm verified by ASHLEY KIM [facility] Body weight 2023-09-22 14:02:00 65.137 kg verified by ASHLEY KIM [facility] BMI 2023-09-22 14:02:00 22.15 kg/m2 [facility] Oxygen saturation in Arterial blood by Pulse oximetry 2023-09-22 14:02:00 97 /min [facility] Systolic blood pressure 2023-09-16 13:21:00 122 mm[Hg] [facility] Diastolic blood pressure 2023-09-16 13:21:00 74 mm[Hg] [facility] Heart rate 2023-09-16 13:21:00 83 /min [facility] Body temperature 2023-09-16 13:21:00 36.44 Emilie [facility] Respiratory rate 2023-09-16 13:21:00 18 /min [facility] Body weight 2023-09-16 13:21:00 66.906 kg [facility] BMI 2023-09-16 13:21:00 23.09 kg/m2 [facility] Oxygen saturation in Arterial blood by Pulse oximetry 2023-09-16 13:21:00 99 /min [facility] Body height 2023-09-09 15:23:00 170.2 cm [facility] Body weight 2023-09-09 15:23:00 66.134 kg [facility] BMI 2023-09-09 15:23:00 22.83 kg/m2 [facility] Oxygen saturation in Arterial blood by Pulse oximetry 2023-09-09 15:23:00 99 /min [facility] Systolic blood pressure 2023-09-09 15:23:00 121 mm[Hg] [facility] Diastolic blood pressure 2023-09-09 15:23:00 82 mm[Hg] [facility] Heart rate 2023-09-09 15:23:00 92 /min [facility] Body temperature 2023-09-09 15:23:00 36.78 Emilie [facility] Respiratory rate 2023-09-09 15:23:00 17 /min [facility] Systolic blood pressure 2023-08-23 16:28:00 109 mm[Hg] [facility] Diastolic blood pressure 2023-08-23 16:28:00 73 mm[Hg] [facility] Heart rate 2023-08-23 16:28:00 91 /min [facility] Body temperature 2023-08-23 16:28:00 36.11 Emilie [facility] Respiratory rate 2023-08-23 16:28:00 18 /min [facility] Body weight 2023-08-23 16:28:00 62.007 kg [facility] BMI 2023-08-23 16:28:00 21.40 kg/m2 [facility] Oxygen saturation in Arterial blood by Pulse oximetry 2023-08-23 16:28:00 98 /min [facility] Systolic blood pressure 2023-08-20 14:28:00 115 mm[Hg] [facility] Diastolic blood pressure 2023-08-20 14:28:00 80 mm[Hg] [facility] Heart rate 2023-08-20 14:28:00 103 /min [facility] Body temperature 2023-08-20 14:28:00 36.67 Emilie [facility] Respiratory rate 2023-08-20 14:28:00 18 /min [facility] Body height 2023-08-20 14:28:00 170.2 cm [facility] Body weight 2023-08-20 14:28:00 60.782 kg [facility] BMI 2023-08-20 14:28:00 20.98 kg/m2 [facility] Oxygen saturation in Arterial blood by Pulse oximetry 2023-08-20 14:28:00 98 /min [facility] Systolic blood pressure 2023-08-02 13:49:00 109 mm[Hg] [facility] Diastolic blood pressure 2023-08-02 13:49:00 73 mm[Hg] [facility] Heart rate 2023-08-02 13:49:00 89 /min [facility] Body temperature 2023-08-02 13:49:00 36.28 Emilie [facility] Respiratory rate 2023-08-02 13:49:00 18 /min [facility] Body weight 2023-08-02 13:49:00 61.1 kg [facility] BMI 2023-08-02 13:49:00 21.09 kg/m2 [facility] Oxygen saturation in Arterial blood by Pulse oximetry 2023-08-02 13:49:00 100 /min [facility] Systolic blood pressure 2023-07-29 15:16:00 111 mm[Hg] [facility] Diastolic blood pressure 2023-07-29 15:16:00 69 mm[Hg] [facility] Heart rate 2023-07-29 15:16:00 105 /min [facility] Body temperature 2023-07-29 15:16:00 35.78 Emilie [facility] Respiratory rate 2023-07-29 15:16:00 18 /min [facility] Body height 2023-07-29 15:16:00 170.2 cm [facility] Body weight 2023-07-29 15:16:00 59.603 kg [facility] BMI 2023-07-29 15:16:00 20.58 kg/m2 [facility] Oxygen saturation in Arterial blood by Pulse oximetry 2023-07-29 15:16:00 98 /min [facility] Systolic blood pressure 2023-06-28 17:56:00 126 mm[Hg] [facility] Diastolic blood pressure 2023-06-28 17:56:00 75 mm[Hg] [facility] Heart rate 2023-06-28 17:56:00 116 /min [facility] Body temperature 2023-06-28 17:56:00 36.44 Emilie [facility] Oxygen saturation in Arterial blood by Pulse oximetry 2023-06-28 17:56:00 99 /min [facility] Respiratory rate 2023-06-28 17:49:00 20 /min [facility] Body height 2023-06-27 05:48:00 172.7 cm [facility] Body weight 2023-06-27 05:48:00 72.576 kg [facility] BMI 2023-06-27 05:48:00 24.33 kg/m2 [facility] Heart rate 2023-05-21 21:10:00 98 /min [facility] Respiratory rate 2023-05-21 21:10:00 18 /min [facility] Oxygen saturation in Arterial blood by Pulse oximetry 2023-05-21 21:10:00 95 /min [facility] Systolic blood pressure 2023-05-21 18:13:00 119 mm[Hg] [facility] Diastolic blood pressure 2023-05-21 18:13:00 67 mm[Hg] [facility] Body temperature 2023-05-21 18:13:00 37.28 Emilie [facility] Body height 2023-05-20 14:12:00 172.7 cm [facility] Body weight 2023-05-20 14:12:00 81.647 kg [facility] BMI 2023-05-20 14:12:00 27.37 kg/m2 [facility] Systolic blood pressure 2023-05-20 14:12:00 111 mm[Hg] [facility] Diastolic blood pressure 2023-05-20 14:12:00 66 mm[Hg] [facility] Heart rate 2023-05-20 14:12:00 96 /min [facility] Body temperature 2023-05-20 14:12:00 36.11 Emilie [facility] Respiratory rate 2023-05-20 14:12:00 18 /min [facility] Body height 2023-05-20 14:12:00 172.7 cm [facility] Body weight 2023-05-20 14:12:00 81.647 kg [facility] BMI 2023-05-20 14:12:00 27.37 kg/m2 [facility] Oxygen saturation in Arterial blood by Pulse oximetry 2023-05-20 14:12:00 98 /min [facility] Procedures Procedure Date / Time Performed Performing Clinician Source MR CERVICAL SPINE W WO CONTRAST 2023-12-23 20:53:18 Hima Lombardo [facility] MR LUMBAR SPINE W WO CONTRAST 2023-12-23 20:22:30 Hima Lombardo [facility] MR THORACIC SPINE W WO CONTRAST 2023-12-22 19:34:18 Hima Lombardo [facility] MR BRAIN W WO CONTRAST 2023-12-22 19:28:51 Bhavin Lombardo [facility] BASIC METABOLIC PANEL (NA, K, CL, CO2, GLUCOSE, BUN, CREATININE, CA) 2023-11-26 18:48:00 Jorge Barker [facility] BASIC METABOLIC PANEL (NA, K, CL, CO2, GLUCOSE, BUN, CREATININE, CA) 2023-09-16 13:35:00 Hima Lombardo [facility] POCT GLUCOSE (AUTOMATED) 2023-08-24 13:27:00 Alton Lombardo [facility] HB ABO GROUPING 2023-08-02 14:25:00 Hima Lombardo U [facility] LACTIC ACID WHOLE BLOOD 2023-06-29 14:04:00 Blaze Austin [facility] AC PANEL 20 + LACTIC ACID 2023-06-29 07:39:00 Julius Calhoun [facility] ACUTE CARE ARTERIAL BLOOD GAS 2023-06-29 03:34:00 Sravan Gardiner [facility] MRSA / MSSA SCREEN BY PCR, ANUPAMA 2023-06-29 03:12:00 Jackeline Austin [facility] XR CHEST 1 VW 2023-06-29 01:00:00 Herbie Mcdonald [facility] INTUBATION 2023-06-28 22:34:00 Betty Reece [facility] ARTERIAL LINE 2023-06-28 22:19:00 Betty Reece [facility] ABORH CONFIRMATION (LAB ONLY) 2023-06-28 21:50:00 Betty Reece [facility] RIGID BRONCHOSCOPY 2023-06-28 21:48:00 Osei Lombardo [facility] HB ABO GROUPING 2023-06-28 21:34:00 Betty Reece i [facility] LACTATE DEHYDROGENASE 2023-06-28 16:34:00 Elio Shaw [facility] TRANSTHORACIC ECHO (TTE) COMPLETE W/ CONTRAST 2023-06-28 15:30:00 Pam Hollins [facility] URIC ACID 2023-06-28 09:41:00 Alf Shaw [facility] BASIC METABOLIC PANEL (NA, K, CL, CO2, GLUCOSE, BUN, CREATININE, CA) 2023-06-28 09:41:00 Uzair Louis [facility] CBC WITH DIFF 2023-06-28 09:41:00 Lala Louis [facility] HIV 1/2 AG-AB WITH REFLEX 2023-06-28 09:41:00 Yumiko Hi [facility] OSMOLALITY URINE 2023-06-27 22:37:00 Uzair Louis [facility] SODIUM, URINE RANDOM 2023-06-27 22:37:00 Uzair Martinez Levy [facility] LACTATE DEHYDROGENASE 2023-06-27 09:08:00 Pam Hollins [facility] MAGNESIUM 2023-06-27 09:08:00 Pam Hollins [facility] OSMOLALITY, SERUM OR PLASMA 2023-06-27 09:08:00 Uzair Louis [facility] BASIC METABOLIC PANEL (NA, K, CL, CO2, GLUCOSE, BUN, CREATININE, CA) 2023-06-27 09:08:00 Pam Hollins [facility] DIFF CONSULT BY PATHOLOGIST 2023-06-27 09:08:00 Pam Hollins [facility] CBC WITH DIFF 2023-06-27 09:08:00 Pam Hollins [facility] PROTHROMBIN TIME / INR 2023-06-27 09:08:00 Jacob Hollins i [facility] DIFF CONSULT INTERPRETATION 2023-06-27 09:08:00 Pam Hollins [facility] CT THORAX W CONTRAST 2023-06-26 23:44:00 Chava Luna [facility] MAGNESIUM 2023-06-26 23:28:00 [facility] 2023-06-26 23:28:00 Pam Hollins [facility] VITAMIN B12, LEVEL 2023-06-26 23:28:00 [facility] 2023-[facility]-26 23:28:00 Gurvinder, Shini [facility] HAPTOGLOBIN, SERUM 2023-06-26 23:28:00 [facility]OL[facility] ([id number]) 2023-06-26 23:28:00 Anita Luna [facility] IRON PANEL 2023-06-26 23:28:00 Pam Hollins [facility] CBC WITH DIFF 2023-06-26 23:28:00 [facility] 2023-06-26 23:28:00 DeshawnYumiko frias Jennifer [facility] RETICULOCYTES AUTOMATED 2023-06-26 23:28:00 Milagros Hollins [facility] CONSENT/REFUSAL FOR DIAGNOSIS AND TREATMENT 2023-06-26 22:53:38 Doctor Unassigned, [place] [facility] EXTERNAL PROVIDER RECORDS 2023-05-26 06:01:00 Do ctor Unassigned, [place] [facility] MAGNESIUM 2023-05-21 10:23:00 Judith Bryant [facility] BASIC METABOLIC PANEL (NA, K, CL, CO2, GLUCOSE, BUN, CREATININE, CA) 2023-05-21 10:23:00 Judith Bryant [facility] CBC WITH DIFF 2023-05-21 10:23:00 Judith Bryant [facility] MAGNESIUM 2023-05-21 10:23:00 Judith Bryant [facility] BASIC METABOLIC PANEL (NA, K, CL, CO2, GLUCOSE, BUN, CREATININE, CA) 2023-05-21 10:23:00 Judith Bryant [facility] CBC WITH DIFF 2023-05-21 10:23:00 Judith Bryant [facility] FUNGUS (ROUTINE) CULTURE 2023-05-20 16:03:00 Sung Potter [facility] TISSUE CULTURE(AEROBIC/ANAEROBIC) 2023-05-20 16:03:00 Erendira Main [facility] FUNGUS (ROUTINE) CULTURE 2023-05-20 16:03:00 Sung Potter [facility] TISSUE CULTURE(AEROBIC/ANAEROBIC) 2023-05-20 16:03:00 Erendira Main [facility] FLEXIBLE BRONCHOSCOPY 2023-05-20 14:48:00 Sung Mathur [facility] FLEXIBLE BRONCHOSCOPY 2023-05-20 14:48:00 Sung Mathur [facility] BRONCHOSCOPY (ENDO) 2023-05-20 14:42:41 Josef Main [facility] BRONCHOSCOPY (ENDO) 2023-05-20 14:42:41 Josef Main [facility] MAGNESIUM 2023-05-20 10:31:00 Judith Bryant [facility] BASIC METABOLIC PANEL (NA, K, CL, CO2, GLUCOSE, BUN, CREATININE, CA) 2023-05-20 10:31:00 Judith Bryant [facility] CBC WITH DIFF 2023-05-20 10:31:00 Judith Bryant [facility] MAGNESIUM 2023-05-20 10:31:00 Judith Bryant [facility] BASIC METABOLIC PANEL (NA, K, CL, CO2, GLUCOSE, BUN, CREATININE, CA) 2023-05-20 10:31:00 Judith Bryant [facility] CBC WITH DIFF 2023-05-20 10:31:00 Judith Bryant [facility] ENDOSCOPY PROCEDURE DOCUMENTATION 2023-05-20 06:01:00 Doctor Unassigned, [place] [facility] ENDOSCOPY PROCEDURE DOCUMENTATION 2023-05-20 06:01:00 Doctor Unassigned, [place] [facility] MAGNESIUM 2023-05-19 10:55:00 Judith Bryant [facility] BASIC METABOLIC PANEL (NA, K, CL, CO2, GLUCOSE, BUN, CREATININE, CA) 2023-05-19 10:55:00 Judith Bryant [facility] CBC WITH DIFF 2023-05-19 10:55:00 Judith Bryant [facility] MAGNESIUM 2023-05-19 10:55:00 Judith Bryant [facility] BASIC METABOLIC PANEL (NA, K, CL, CO2, GLUCOSE, BUN, CREATININE, CA) 2023-05-19 10:55:00 Judith Bryant [facility] CBC WITH DIFF 2023-05-19 10:55:00 Judith Bryant [facility] CANCER ANTIGEN-GI (CA 19-9) 2023-05-18 21:04:00 Judith Bryant [facility] CARCINOEMBRYONIC ANTIGEN 2023-05-18 21:04:00 Sarai Bryant garrett [place] [facility] CANCER ANTIGEN-GI (CA 19-9) 2023-05-18 21:04:00 Judith Bryant [facility] CARCINOEMBRYONIC ANTIGEN 2023-05-18 21:04:00 Saria Bryant [facility] BASIC METABOLIC PANEL (NA, K, CL, CO2, GLUCOSE, BUN, CREATININE, CA) 2023-05-18 15:47:00 Judith Bryant [facility] CBC WITH DIFF 2023-05-18 15:47:00 Judith Bryant [facility] BASIC METABOLIC PANEL (NA, K, CL, CO2, GLUCOSE, BUN, CREATININE, CA) 2023-05-18 15:47:00 Judith Bryant [facility] CBC WITH DIFF 2023-05-18 15:47:00 Judith Bryant [facility] PROTHROMBIN TIME / INR 2023-05-18 08:55:00 Blackt javier [facility] PROTHROMBIN TIME / INR 2023-05-18 08:55:00 Blackt javier Tapia [facility] [place] MODIFIED BARIUM SWALLOW 2023-05-17 17:31:00 Dharmesh Watt [facility] [place] MODIFIED BARIUM SWALLOW 2023-05-17 17:31:00 Dharmesh Watt [facility] MAGNESIUM 2023-05-17 07:50:00 Judith Bryant [facility] HEPATIC FUNCTION PANEL (88489) (ALB,T.PRO,BILI T,BU/BC,ALT,AST,ALK PHOS) 2023-05-17 07:50:00 Willie Jolly [facility] BASIC METABOLIC PANEL (NA, K, CL, CO2, GLUCOSE, BUN, CREATININE, CA) 2023-05-17 07:50:00 [facility] [facility] CBC WITH DIFF 2023-05-17 07:50:00 Judith Bryant [facility] MAGNESIUM 2023-05-17 07:50:00 Judith Bryant [facility] HEPATIC FUNCTION PANEL (75514) (ALB,T.PRO,BILI T,BU/BC,ALT,AST,ALK PHOS) 2023-05-17 07:50:00 Mady Jollymad [facility] BASIC METABOLIC PANEL (NA, K, CL, CO2, GLUCOSE, BUN, CREATININE, CA) 2023-05-17 07:50:00 Judith Bryant [facility] CBC WITH DIFF 2023-05-17 07:50:00 Judith Bryant [facility] MR BRAIN W WO CONTRAST 2023-05-17 05:15:00 Sidiq [facility] MR BRAIN W WO CONTRAST 2023-05-17 05:15:00 Cathy Jose [facility] MAGNESIUM 2023-05-17 01:18:00 Eren Jolly weedsportalbina [facility] BASIC METABOLIC PANEL (NA, K, CL, CO2, GLUCOSE, BUN, CREATININE, CA) 2023-05-17 01:18:00 Willie Jolly [facility] CBC WITH DIFF 2023-05-17 01:18:00 Eren Jolly [facility] MAGNESIUM 2023-05-17 01:18:00 Eren Jolly amidalbina [facility] BASIC METABOLIC PANEL (NA, K, CL, CO2, GLUCOSE, BUN, CREATININE, CA) 2023-05-17 01:18:00 Willie Jolly [facility] CBC WITH DIFF 2023-05-17 01:18:00 [facility]AST 2023-05-15 16:39:00 Cathy Jose [facility] CT ABDOMEN PELVIS W CONTRAST 2023-05-15 16:39:00 Cathy Jose Torres [facility] XR CHEST 1 VW 2023-05-15 16:13:00 Neal Chanel [facility] XR CHEST 1 VW 2023-05-15 16:13:00 Neal Chanel [facility] MAGNESIUM 2023-05-15 09:30:00 Humera Pacheco [facility] BASIC METABOLIC PANEL (NA, K, CL, CO2, GLUCOSE, BUN, CREATININE, CA) 2023-05-15 09:30:00 [facility]ara [facility] CBC WITH DIFF 2023-05-15 09:30:00 [facility] MAGNESIUM 2023-05-15 09:30:00 Humera Pacheco [facility] BASIC METABOLIC PANEL (NA, K, CL, CO2, GLUCOSE, BUN, CREATININE, CA) 2023-05-15 09:30:00 [facility] CBC WITH DIFF 2023-05-15 09:30:00 [facility] XR CHEST 1 VW 2023-05-14 21:38:00 Herbie Mcdonald [facility] XR CHEST 1 VW 2023-05-14 21:38:00 Herbie Mcdonald Alexey [facility] CYTO PLEURAL FLUID 2023-05-14 21:21:00 Akhil Wheeler [facility] CYTO PLEURAL FLUID 2023-05-14 21:21:00 Liam [facility] BODY FLUID (BACTEC BOTTLE) 2023-05-14 21:07:00 Sandip Mullins [facility] WOUND/ASPIRATE OR ABSCESS CULTURE 2023-05-14 21:07:00 Akhil Wheeler [facility] LDH TOTAL BODY FLUID 2023-05-14 21:07:00 Luann Wheeler [facility] GLUCOSE BODY FLUID 2023-05-14 21:07:00 Akhil Wheeler [facility] TRIGLYCERIDE BODY FLUID 2023-05-14 21:07:00 Pat Wheeler [facility] T.PROTEIN BODY FLUID 2023-05-14 21:07:00 Luann Wheeler [facility] BODY FLUID DIRECT COUNT 2023-05-14 21:07:00 Pat Wheeler [facility] FLOW CYTOMETRY IMMUNOPHENOTYP 2023-05-14 21:07:00 Akhil Wheeler [facility] ASPIRATE OR ABSCESS CULTURE(AEROBIC/ANAEROBIC) 2023-05-14 21:07:00 Akhil Wheeler [facility] BODY FLUID (BACTEC BOTTLE) 2023-05-14 21:07:00 Sandip Mullins [facility] WOUND/ASPIRATE OR ABSCESS CULTURE 2023-05-14 21:07:00 Liam [facility] LDH TOTAL BODY FLUID 2023-05-14 21:07:00 Luann Wheeler [facility] GLUCOSE BODY FLUID 2023-05-14 21:07:00 Liam [facility] TRIGLYCERIDE BODY FLUID 2023-05-14 21:07:00 Pat Wheeler [facility] T.PROTEIN BODY FLUID 2023-05-14 21:07:00 Luann Wheeler [facility] BODY FLUID DIRECT COUNT 2023-05-14 21:07:00 Pat Wheeler [facility] FLOW CYTOMETRY IMMUNOPHENOTYP 2023-05-14 21:07:00 Liam [facility] ASPIRATE OR ABSCESS CULTURE(AEROBIC/ANAEROBIC) 2023-05-14 21:07:00 Akhil Wheeler [facility] COVID-19 (MOLECULAR TESTING NUCLEIC ACID AMPLIFICATION) 2023-05-14 20:32:00 Dharmesh Watt [facility] LAB ONLY COVID INTERPRETATION 2023-05-14 20:32:00 Dharmesh Watt [facility] COVID-19 (MOLECULAR TESTING NUCLEIC ACID AMPLIFICATION) 2023-05-14 20:32:00 Alysa Dharmesh [facility] LAB ONLY COVID INTERPRETATION 2023-05-14 20:32:00 Dharmesh Watt [facility] ACTIVATED PARTIAL THRMPLAS MARIA D 2023-05-14 17:01[facility] MARIA D 2023-05-14 17:01:00 Dharmesh Watt [facility] BLOOD CULTURE SCREEN 2023-05-14 12:41:00 [facility] 2023-05-14 12:41:00 [facility] 2023-05-14 12:34:00 [facility]OD [facility]EN 2023-05-14 12:34:00 Lala Pacheco [facility] PROTEIN TOTAL 2023-05-14 10:14:00 Akhil Wheeler [facility] MAGNESIUM 2023-05-14 10:14:00 Lala Louis [facility] BASIC METABOLIC PANEL (NA, K, CL, CO2, GLUCOSE, BUN, CREATININE, CA) 2023-05-14 10:14:00 Uzair Louis [facility] CBC WITH DIFF 2023-05-14 10:14:[address] [facility] PR[facility] TOTAL 2023-05-14 10:14:00 Akhil Wheeler [facility] MAGNESIUM 2023-05-14 10:14:00 Lala Louis [facility] BASIC METABOLIC PANEL (NA, K, CL, CO2, GLUCOSE, BUN, CREATININE, CA) 2023-05-14 10:14:00 Uzair Louis [facility] CBC WITH DIFF 2023-05-14 10:14:00 Lala Louis [facility] MRSA / MSSA SCREEN BY PCRANUPAMA 2023-05-14 03:50:00 [facility] PHOSPHORUS 2023-05-14 03:50:00 Humera Pacheco [facility] LACTATE DEHYDROGENASE 2023-05-14 03:50:00 [facility] MAGNESIUM 2023-05-14 03:50:00 Humera Pacheco [facility] THYROID STIMULATING HORMONE 2023-05-14 03:50:00 [facility]ara [facility] HEPATIC FUNCTION PANEL (90455) (ALB,T.PRO,BILI T,BU/BC,ALT,AST,ALK PHOS) 2023-05-14 03:50:00 [facility] BASIC METABOLIC PANEL (NA, K, CL, CO2, GLUCOSE, BUN, CREATININE, CA) 2023-05-14 03:50:00 [facility] CBC WITH DIFF 2023-05-14 03:50:00 [facility] GLYCOSYLATED HEMOGLOBIN (A1C) 2023-05-14 03:50:00 [facility] PROTHROMBIN TIME / INR 2023-05-14 03:50:00 [facility] ACTIVATED PARTIAL THRMPLAS MARIA D 2023-05-14 03:50:00 [facility] URINALYSIS 2023-05-14 03:50:00 Tara [facility] MRSA / MSSA SCREEN BY PCR, ANUPAMA 2023-05-14 03:50:00 [facility] PHOSPHORUS 2023-05-14 03:50:00 T[facility] LACTATE DEHYDROGENASE 2023-05-14 03:50:00 [facility] MAGNESIUM 2023-05-14 03:50:00 Tara [facility] THYROID STIMULATING HORMONE 2023-05-14 03:50:00 [facility] HEPATIC FUNCTION PANEL (99448) (ALB,T.PRO,BILI T,BU/BC,ALT,AST,ALK PHOS) 2023-05-14 03:50:00 [facility] BASIC METABOLIC PANEL (NA, K, CL, CO2, GLUCOSE, BUN, CREATININE, CA) 2023-05-14 03:50:00 [facility] CBC WITH DIFF 2023-05-14 03:50:00 [facility] GLYCOSYLATED HEMOGLOBIN (A1C) 2023-05-14 03:50:00 [facility] PROTHROMBIN TIME / INR 2023-05-14 03:50:00 [facility] ACTIVATED PARTIAL THRMPLAS MARIA D 2023-05-14 03:50:00 [facility] URINALYSIS 2023-05-14 03:50:00 [facility] N[facility] W CONTRAST 2023-05-14 03:07:24 Uzair Louis [facility] CT SOFT TISSUE NECK W CONTRAST 2023-05-14 03:07:24 Uzair Louis [facility] CT CHEST PULMONARY ANGIOGRAM 2023-05-14 03:06:50 Uzair Louis [facility] CT CHEST PULMONARY ANGIOGRAM 2023-05-14 03:06:50 Uzair Louis [facility] Encounters Start Date/Time End Date/Time Encounter Type Admission Type Attending Clinicians Care Facility Care Department Encounter ID Source 2024-02-08 13:00:00 2024-02-08 13:00:00 Outpatient HIMA REICH CHINTAN [facility] [id number] [facility] 2024-02-07 11:15:00 2024-02-07 11:15:00 Outpatient HIMA REICH CHINTAN [facility] [id number] [facility] 2024-01-04 00:00:00 2024-02-05 18:22:12 Patient Secure Msg Doctor Unassigned, [place] Doctor Unassigned, [place] [facility] 1.2.840.114 350.1.13.10 4.2.7.2.686 [id number] [facility] 2024-01-21 00:00:00 2024-01-25 16:08:55 Patient Outreach [facility] 1.2.840.114 350.1.13.10 4.2.7.2.686 [id number] [facility] 2024-01-17 11:15:00 2024-01-17 11:15:00 Outpatient R [facility] [id number] [facility] 2024-01-11 13:00:00 2024-01-11 13:00:00 Outpatient R HIMA LOMBARDO CHINTAN [facility] [id number] [facility] 2024-01-10 11:15:00 2024-01-10 11:15:00 Outpatient R HIMA LOMBARDO CHINTAN [facility] [id number] [facility] 2024-01-06 00:00:00 2024-01-07 09:35:31 [facility] 1.2.840.114 350.1.13.10 4.2.7.2.686 [id number] [facility] 2024-01-04 10:00:00 2024-01-04 10:00:00 Outpatient R [facility] [id number] [facility] 2024-01-04 00:00:00 2024-01-04 09:23:27 [facility] 1.2.840.114 350.1.13.10 4.2.7.2.686 [id number] [facility] 2023-12-29 09:00:00 2023-12-29 11:47:37 Outpatient R RUDY CA [facility] [id number] [facility] 2023-12-29 09:00:00 2023-12-29 11:47:37 [facility] 1..840.114 350.1.13.10 4.2.7.2.686 [id number] [facility] 2023-11-23 00:00:00 2023-12-25 18:20:25 Patient Secure Msg Doctor Unassigned, [place] Doctor Unassigned, [place] [facility] 1.2.840.114 350.1.13.10 4.2.7.2.686 [id number] [facility] 2023-12-23 12:11:19 2023-12-23 23:59:00 Hospital Encounter Hima Lombardo AT [facility] 1.2.840.114 350.1.13.10 4.2.7.2.686 [id number] [facility] 2023-12-23 12:10:58 2023-12-23 12:10:58 Outpatient R HIMA LOMBARDO CHINTAN [facility] [id number] [facility] 2023-12-23 12:10:58 2023-12-23 12:10:58 Hospital Encounter Hima Lombardo [facility] 1.2.840.114 350.1.13.10 4.2.7.2.686 [id number] [facility] 2023-12-22 12:16:36 2023-12-22 23:59:00 Hospital Encounter Hima Lombardo AT [facility] 1.2.840.114 350.1.13.10 4.2.7.2.686 [id number] [facility] 2023-12-17 00:00:00 2023-12-22 14:39:18 Telephone Hima Lombardo [facility] 1.2.840.114 350.1.13.10 4.2.7.2.686 [id number] [facility] 2023-12-22 12:15:34 2023-12-22 12:15:34 Outpatient R HIMA LOMBARDO CHINTAN [facility] [id number] [facility] 2023-12-22 12:15:34 2023-12-22 12:15:34 Hospital Encounter Hima Lombardo [facility] AT [facility] 1.2.840.114 350.1.13.10 4.2.7.2.686 [id number] [facility] 2023-12-21 10:30:00 2023-12-21 15:37:59 Outpatient R HIMA LOMBARDO CHINTAN [facility] [id number] [facility] 2023-12-21 10:30:00 2023-12-21 15:37:59 Nurse Visit 9, [facility] Infusion Chair Hima Lombardo 9, [facility] Infusion Chair [facility] ([facility] 1.2.840.114 350.1.13.10 4.2.7.2.686 [id number] [facility] 2023-12-20 00:00:00 2023-12-21 15:02:22 Case Management Hima Lombardo [facility] 1.2.840.114 350.1.13.10 4.2.7.2.686 [id number] [facility] 2023-12-21 13:30:00 2023-12-21 13:30:00 Outpatient R MARIANNE TILLEY [facility] [id number] [facility] 2023-12-21 09:30:00 2023-12-21 10:00:43 Office Visit Marianne Tilley [facility] 1.2.840.114 350.1.13.10 4.2.7.2.686 [id number] [facility] 2023-12-17 00:00:00 2023-12-17 12:54:54 Case Management Hima Lombardo [facility] 1.2.840.114 350.1.13.10 4.2.7.2.686 [id number] [facility] 2023-12-17 00:00:00 2023-12-17 12:53:43 Case Management Hima Lombardo [facility] 1.2.840.114 350.1.13.10 4.2.7.2.686 [id number] [facility] 2023-12-17 11:30:00 2023-12-17 11:45:00 Linen Checker Visit 2, Adc Lab [facility] Lombardo 2, [facility] 1.2.840.114 350.1.13.10 4.2.7.2.686 [id number] [facility] 2023-12-17 11:30:00 2023-12-17 11:30:00 Outpatient R HIMA LOMBARDO CHINTAN [facility] [id number] [facility] 2023-12-16 09:30:00 2023-12-16 09:30:00 Outpatient R MARIANNE TILLEY [facility] [id number] [facility] 2023-12-14 00:00:00 2023-12-14 22:05:39 Case Management Hima Lombardo [facility] 1.2.840.114 350.1.13.10 4.2.7.2.686 [id number] [facility] 2023-12-14 11:00:00 2023-12-14 11:00:00 Outpatient R HIMA LOMBARDO CHINTAN [facility] [id number] [facility] 2023-12-13 14:08:36 2023-12-13 23:59:00 Hospital Encounter Marianne Tilley [facility] 1.2.840.114 350.1.13.10 4.2.7.2.686 [id number] [facility] 2023-12-13 14:08:21 2023-12-13 14:07:00 Outpatient R MARIANNE TILLEY [facility] [id number] [facility] 2023-12-13 14:00:00 2023-12-13 14:07:00 Hospital Encounter Jarek Marianne [facility] 1.2.840.114 350.1.13.10 4.2.7.2.686 [id number] [facility] 2023-12-07 00:00:00 2023-12-07 14:50:33 Telephone Hima Lombardo [facility] 1.2.840.114 350.1.13.10 4.2.7.2.686 [id number] [facility] 2023-12-07 11:00:00 2023-12-07 11:15:07 Outpatient R HIMA LOMBARDO CHINTAN [facility] [id number] [facility] 2023-12-07 11:00:00 2023-12-07 11:15:07 Office Visit Hima Lombardo [facility] 1.2.840.114 350.1.13.10 4.2.7.2.686 [id number] [facility] 2023-12-06 00:00:00 2023-12-06 16:12:35 Patient Outreach Lynn Rodriguez Mary E [facility] 1.2.840.114 350.1.13.10 4.2.7.2.686 [id number] [facility] 2023-12-06 00:00:00 2023-12-06 00:00:00 Outpatient R MARIANNE TILLEY [facility] [id number] [facility] 2023-11-26 15:00:00 2023-11-26 15:54:20 Outpatient R HIMA LOMBARDO CHINTAN [facility] [id number] [facility] 2023-11-26 15:00:00 2023-11-26 15:54:20 Nurse Visit 1, [facility] Infusion Chair Hima Lombardo [facility] 1.2.840.114 350.1.13.10 4.2.7.2.686 [id number] [facility] 2023-11-26 13:11:00 2023-11-26 14:41:00 Emergency X LUKASZ KYLE [facility] ERT [id number] [facility] 2023-11-26 13:11:00 2023-11-26 14:41:00 Emergency Lukasz Kyle [facility] 1.2.840.114 350.1.13.10 4.2.7.2.686 [id number] [facility] 2023-11-26 00:00:00 2023-11-26 12:59:01 Case Management Hima Lombardo [facility] 1.2.840.114 350.1.13.10 4.2.7.2.686 [id number] [facility] 2023-11-26 11:00:00 2023-11-26 11:15:00 Linen Checker Visit [facility]-Lab Hima Lombardo [facility]-Lab [facility] 1.2.840.114 350.1.13.10 4.2.7.2.686 [id number] [facility] 2023-11-25 14:00:00 2023-11-25 14:00:00 Outpatient R HIMA LOMBARDO CHINTAN [facility] [id number] [facility] 2023-11-23 11:00:00 2023-11-23 11:00:00 Outpatient R HIMA LOMBARDO CHINTAN [facility] [id number] [facility] 2023-11-16 14:40:00 2023-11-16 14:44:22 Outpatient R HIMA LOMBARDO CHINTAN [facility] [id number] [facility] 2023-11-16 14:40:00 2023-11-16 14:44:22 Office Visit Hima Lombardo [facility] 1.840.114 350.1.13.10 4.2.7.2.686 [id number] [facility] 2023-11-12 13:00:00 2023-11-12 13:00:00 Outpatient R [facility] [id number] [facility] 2023-11-09 13:15:00 2023-11-09 13:15:00 Outpatient R [facility] [id number] [facility] 2023-11-08 13:15:00 2023-11-08 13:15:00 Outpatient R [facility] [id number] [facility] 2023-11-04 15:00:00 2023-11-04 16:03:56 Outpatient R HIMA LOMBARDO CHINTAN [facility] [id number] [facility] 2023-11-04 15:00:00 2023-11-04 16:00:00 Nurse Visit 4, [facility] Infusion Chair Hima Lombardo [facility] 1..114 350.1.13.10 4.2.7.2.686 [id number] [facility] 2023-11-04 00:00:00 2023-11-04 11:00:56 Case Management Hima Lombardo [facility] 1.2840.114 350.1.13.10 4.2.7.2.686 [id number] [facility] 2023-11-03 00:00:00 2023-11-03 10:20:35 Patient Outreach Lynn Rodriguez 1.2840.114 350.1.13.10 4.2.7.2.686 [id number] [facility] 2023-11-02 00:00:00 2023-11-03 08:59:10 Patient Outreach Lynn Rodriguez [facility] 1.2.840.114 350.1.13.10 4.2.7.2.686 [id number] [facility] 2023-11-02 11:00:00 2023-11-02 11:15:00 Linen Checker Visit [facility]-Lab Hima Lombardo [facility] 1.2840.114 350.1.13.10 4.2.7.2.686 [id number] [facility] 2023-11-02 11:00:00 2023-11-02 11:00:00 Outpatient HIMA REICH CHINTAN [facility] [id number] [facility] 2023-10-28 00:00:00 2023-10-28 12:36:43 Case Management Hima Lombardo [facility] 1.2840.114 350.1.13.10 4.2.7.2.686 [id number] [facility] 2023-10-28 00:00:00 2023-10-28 11:32:19 Patient Outreach Minerva Emery [facility] 1.2.840.114 350.1.13.10 4.2.7.2.686 [id number] [facility] 2023-10-28 11:30:00 2023-10-28 11:30:00 Outpatient HIMA REICH CHINTAN [facility] [id number] [facility] 2023-10-27 00:00:00 2023-10-27 14:14:02 Patient Outreach Lynn Rodriguez [facility] 1.2.840.114 350.1.13.10 4.2.7.2.686 [id number] [facility] 2023-10-26 11:00:00 2023-10-26 11:00:00 Outpatient HIMA REICH CHINTAN [facility] [id number] [facility] 2023-10-13 00:00:00 2023-10-14 11:11:12 Refill Hima Lombardo [facility] 1.2.840.114 350.1.13.10 4.2.7.2.686 [id number] [facility] 2023-10-11 14:00:00 2023-10-11 14:15:00 Linen Checker Visit 2, Adc Lab Hima Lombardo [facility] 1.2.840.114 350.1.13.10 4.2.7.2.686 [id number] [facility] 2023-10-11 14:00:00 2023-10-11 14:01:35 Outpatient R HIMA LOMBARDO CHINTAN [facility] [id number] [facility] 2023-10-08 00:00:00 2023-10-11 10:21:24 Case Management Hima Lombardo [facility] 1.2840.114 350.1.13.10 4.2.7.2.686 [id number] [facility] 2023-10-08 00:00:00 2023-10-08 11:28:12 Patient Outreach Lynn Rodriguez 1.2840.114 350.1.13.10 4.2.7.2.686 [id number] [facility] 2023-10-07 10:40:00 2023-10-07 12:12:25 Outpatient R HIMA LOMBARDO CHINTAN [facility] [id number] [facility] 2023-10-07 10:40:00 2023-10-07 12:12:25 [facility] 1.2840.114 350.1.13.10 4.2.7.2.686 [id number] [facility] 2023-10-07 11:00:00 2023-10-07 12:00:00 Nurse Visit 6, [facility] Infusion Chair Altagracia H[facility] 1.2.840.114 350.1.13.10 4.2.7.2.686 [id number] [facility] 2023-10-05 10:45:00 2023-10-05 11:00:00 Linen Checker Visit [facility]-Lab Hima Lombardo [facility] 1.2.840.114 350.1.13.10 4.2.7.2.686 [id number] [facility] 2023-10-05 10:45:00 2023-10-05 10:45:00 Outpatient R HIMA LOMBARDO CHINTAN [facility] [id number] [facility] 2023-09-29 00:00:00 2023-09-29 13:30:55 Patient Outreach Minerva Emery 1.2.840.114 350.1.13.10 4.2.7.2.686 [id number] [facility] 2023-09-27 00:00:00 2023-09-27 12:29:15 Patient Outreach Minerva Emery 1.2.840.114 350.1.13.10 4.2.7.2.686 [id number] [facility] 2023-08-20 00:00:00 2023-09-25 18:04:14 Patient Secure MsErendira Byrnes [facility] 1.2.840.114 350.1.13.10 4.2.7.2.686 [id number] [facility] 2023-09-22 09:30:00 2023-09-22 13:29:29 Outpatient R RUDY CA [facility] [id number] [facility] 2023-09-22 09:30:00 2023-09-22 13:29:29 [facility] 1.2.840.114 350.1.13.10 4.2.7.2.686 [id number] [facility] 2023-09-17 00:00:00 2023-09-20 11:08:07 Danielito Blanca [facility] 1.2.840.114 350.1.13.10 4.2.7.2.686 [id number] [facility] 2023-09-16 08:00:00 2023-09-16 14:45:35 Nurse Visit 12, [facility] Infusion Chair [facility] 1.2.840.114 350.1.13.10 4.2.7.2.686 [id number] [facility] 2023-09-16 08:00:00 2023-09-16 14:45:35 Outpatient R HIMA LOMBARDO CHINTAN [facility] [id number] [facility] 2023-09-16 00:00:00 2023-09-16 08:08:01 Case Management [facility] 1.2.840.114 350.1.13.10 4.2.7.2.686 [id number] [facility] 2023-09-15 00:00:00 2023-09-15 15:11:23 Patient Outreach Lynn Rodriguez 1.2.840.114 350.1.13.10 4.2.7.2.686 [id number] [facility] 2023-09-15 14:30:00 2023-09-15 15:03:04 Outpatient R [facility]IRA [facility] [facility] [id number] [facility] 2023-09-15 14:30:00 2023-09-15 15:03:04 Linen Checker Visit 2, Adc Lab Erendira Clement [facility] 1..114 350.1.13.10 4.2.7.2.686 [id number] [facility] 2023-09-14 00:00:00 2023-09-14 11:32:48 Patient Outreach Lynn Rodriguez 1..114 350.1.13.10 4.2.7.2.686 [id number] 403 [id number] [facility] 2023-09-14 00:00:00 2023-09-14 10:18:18 Case Management Hima Lombardo [facility] 1.114 350.1.13.10 4.2.7.2.686 [id number] 080 [id number] [facility] 2023-09-14 08:45:00 2023-09-14 08:45:00 Outpatient R HIMA LOMBARDO CHINTAN [facility] [id number] [facility] 2023-08-09 00:00:00 2023-09-11 18:09:12 Patient Secure Msg Doctor Unassigned, [place] [facility] 1.114 350.1.13.10 4.2.7.2.686 [id number] [id number] [facility] 2023-09-10 10:30:00 2023-09-10 10:30:00 Outpatient R OSEI LOMBARDO SHIWAN [facility] [id number] [facility] 2023-09-09 10:40:00 2023-09-09 11:02:09 Outpatient R HIMA LOMBARDO CHINTAN [facility] [id number] [facility] 2023-09-09 10:40:00 2023-09-09 11:02:09 Office Visit Hima Lombardo [facility] 1..114 350.1.13.10 4.2.7.2.686 [id number] [id number] [facility] 2023-09-07 00:00:00 2023-09-07 15:10:45 Patient Outreach Lynn Rodriguez 1.2.840.114 350.1.13.10 4.2.7.2.686 [id number] [facility] 2023-09-07 10:00:00 2023-09-07 10:00:00 Outpatient R RUDY CA [facility] [id number] [facility] 2023-07-30 00:00:00 2023-09-04 18:09:43 Patient Secure Msg Doctor Unassigned, [place] [facility] 1.2840.114 350.1.13.10 4.2.7.2.686 [id number] [id number] [facility] 2023-08-24 08:19:35 2023-08-24 23:59:00 Hospital Encounter Hima Lombardo [facility] 1.840.114 350.1.13.10 4.2.7.2.686 [id number] [facility] 2023-08-24 08:18:48 2023-08-24 08:18:48 Outpatient R HIMA LOMBARDO CHINTAN [facility] [id number] [facility] 2023-08-24 08:18:48 2023-08-24 08:18:48 Hospital Encounter Hima Lombardo [facility] 1.840.114 350.1.13.10 4.2.7.2.686 [id number] [facility] 2023-08-23 11:30:00 2023-08-24 07:44:51 Outpatient R HIMA LOMBARDO CHINTAN [facility] [id number] [facility] 2023-08-23 11:30:00 2023-08-23 16:00:00 Nurse Visit 1, [facility] Infusion Chair Hima Lombardo [facility] 1.2.840.114 350.1.13.10 4.2.7.2.686 [id number] 053 [id number] [facility] 2023-08-23 00:00:00 2023-08-23 11:50:34 Patient Outreach Minerva Emery 1.2.840.114 350.1.13.10 4.2.7.2.686 [id number] 403 [id number] [facility] 2023-08-20 10:30:00 2023-08-20 11:00:00 [facility] 1.2.840.114 350.1.13.10 4.2.7.2.686 [id number] 080 [id number] [facility] 2023-08-20 09:15:00 2023-08-20 09:30:00 Linen Checker Visit [facility] 1.2840.114 350.1.13.10 4.2.7.2.686 [id number] [facility] 2023-08-20 09:15:00 2023-08-20 09:15:00 Outpatient R HIMA LOMBARDO CHINTAN [facility] [id number] [facility] 2023-08-20 00:00:00 2023-08-20 00:00:00 Patient Outreach Minerva Emery 1.2.840.114 350.1.13.10 4.2.7.2.686 [id number] [facility] 2023-08-20 00:00:00 2023-08-20 00:00:00 Patient Outreach Minerva Emery 1.2.840.114 350.1.13.10 4.2.7.2.686 [id number] 403 [id number] [facility] 2023-08-19 00:00:00 2023-08-19 00:00:00 Patient Outreach Lynn Rodriguez 1.2.840.114 350.1.13.10 4.2.7.2.686 [id number] 403 [id number] [facility] 2023-08-18 00:00:00 2023-08-18 00:00:00 Patient Outreach Minerva Emery 1.2.840.114 350.1.13.10 4.2.7.2.686 [id number] 403 [id number] [facility] 2023-08-17 00:00:00 2023-08-17 00:00:00 Patient Outreach Lynn Rodriguez 1.2.840.114 350.1.13.10 4.2.7.2.686 [id number] [facility] 2023-08-17 00:00:00 2023-08-17 00:00:00 Patient Outreach Minerva Emery 1.2.840.114 350.1.13.10 4.2.7.2.686 [id number] 403 [id number] [facility] 2023-08-16 00:00:00 2023-08-16 00:00:00 Patient Outreach Minerva Emery 1.2.840.114 350.1.13.10 4.2.7.2.686 [id number] 403 [id number] [facility] 2023-08-16 00:00:00 2023-08-16 00:00:00 Patient Outreach Lynn Rodriguez 1.2.840.114 350.1.13.10 4.2.7.2.686 [id number] [facility] 2023-08-16 00:00:00 2023-08-16 00:00:00 Patient Outreach Minerva Emery [facility] 1.2.840.114 350.1.13.10 4.2.7.2.686 [id number] 403 [id number] [facility] 2023-08-11 13:00:00 2023-08-11 13:00:00 [facility] 1.2.840.114 350.1.13.10 4.2.7.2.686 [id number] [id number] [facility] 2023-08-11 00:00:00 2023-08-11 00:00:00 Outpatient R HIMA LOMBARDO CHINTAN [facility] [id number] [facility] 2023-08-10 00:00:00 2023-08-10 00:00:00 Patient Outreach EmeryMinerva green [facility] 1.2.840.114 350.1.13.10 4.2.7.2.686 [id number] 403 [id number] [facility] 2023-08-10 00:00:00 2023-08-10 00:00:00 Telephone Osei Lombardo [facility] 1.2.840.114 350.1.13.10 4.2.7.2.686 [id number] [facility] 2023-08-06 00:00:00 2023-08-06 00:00:00 Patient Outreach Minerva Emery [facility] 1.2.840.114 350.1.13.10 4.2.7.2.686 [id number] 403 [id number] [facility] 2023-08-06 00:00:00 2023-08-06 00:00:00 Patient Outreach Minerva Emery [facility] 1.2.840.114 350.1.13.10 4.2.7.2.686 [id number] 403 [id number] [facility] 2023-08-05 10:00:00 2023-08-05 10:45:00 Patient Outreach Minerva Emery 1.2840.114 350.1.13.10 4.2.7.2.686 [id number] 403 [id number] [facility] 2023-08-05 10:00:00 2023-08-05 10:30:00 Patient Outreach Lynn Rodriguez 1.2840.114 350.1.13.10 4.2.7.2.686 [id number] [facility] 2023-08-04 13:00:00 2023-08-04 13:00:00 Outpatient R [facility] [id number] [facility] 2023-08-02 08:00:00 2023-08-02 15:43:13 Outpatient R YUMIKO HESS ROHIT [facility] [id number] [facility] 2023-08-02 08:00:00 2023-08-02 15:43:13 Nurse Visit 12, [facility] Infusion Chair Yumiko Hess [facility] 1.0.114 350.1.13.10 4.2.7.2.686 [id number] 053 [id number] [facility] 2023-08-02 00:00:00 2023-08-02 00:00:00 Patient Outreach Lynn Rodriguez 1.2840.114 350.1.13.10 4.2.7.2.686 [id number] [facility] 2023-08-02 00:00:00 2023-08-02 00:00:00 Case Management Hima Lombardo [facility] 1.2840.114 350.1.13.10 4.2.7.2.686 [id number] 080 [id number] [facility] 2023-07-30 12:30:00 2023-07-30 13:00:00 Patient Outreach Lynn RodriguezLg LEVINE [facility] 1.2840.114 350.1.13.10 4.2.7.2.686 [id number] 403 [id number] [facility] 2023-07-30 08:30:00 2023-07-30 08:31:45 Outpatient R DESHAWN YUMIKODEISI DELAROSADESHAWN, ROHIT [facility] [id number] [facility] 2023-07-30 08:30:00 2023-07-30 08:31:45 Linen Checker Visit 2, Adc Lab DeshawnRhonait [facility] 1.2.840.114 350.1.13.10 4.2.7.2.686 [id number] [facility] 2023-07-29 10:00:00 2023-07-29 10:40:00 Office Visit Hima Lombardo [facility]ILD[facility] 1.2840.114 350.1.13.10 4.2.7.2.686 [id number] [facility] 2023-07-29 10:00:00 2023-07-29 10:00:00 Outpatient R HIMA LOMBARDO CHINTAN [facility] [id number] [facility] 2023-07-29 00:00:00 2023-07-29 00:00:00 Patient Outreach Minerva Emery 1.2840.114 350.1.13.10 4.2.7.2.686 [id number] 403 [id number] [facility] 2023-07-29 00:00:00 2023-07-29 00:00:00 Patient Outreach Minerva Emery [facility] 1.2840.114 350.1.13.10 4.2.7.2.686 [id number] [facility] 2023-07-28 00:00:2023-07-28 00:00:00 Case Management Hima Lombardo [facility] 1.2.840.114 350.1.13.10 4.2.7.2.686 [id number] [id number] [facility] 2023-07-28 00:00:00 2023-07-28 00:00:00 Patient Outreach Lynn Rodriguez [facility] 1.2.840.114 350.1.13.10 4.2.7.2.686 [id number] 403 [id number] [facility] 2023-07-27 00:00:00 2023-07-27 00:00:00 Patient Outreach Lynn RodriguezIsrael [facility] 1.2.840.114 350.1.13.10 4.2.7.2.686 [id number] 403 [id number] [facility] 2023-07-23 00:00:00 2023-07-23 00:00:00 Patient Outreach Minerva EmeryIsrael [facility] 1.2.840.114 350.1.13.10 4.2.7.2.686 [id number] [facility] 2023-06-26 16:58:00 2023-07-12 17:02:00 Inpatient X NOY [facility] [id number] [facility] 2023-07-09 00:00:00 2023-07-09 00:00:00 Patient Outreach Lynn RodriguezIsrael [facility] 1.2.840.114 350.1.13.10 4.2.7.2.686 [id number] 403 [id number] [facility] 2023-07-07 00:00:00 2023-07-07 00:00:00 Patient Outreach Lynn RodriguezLg LEVINE PLASANTI 1.2.840.114 350.1.13.10 4.2.7.2.686 [id number] 403 [id number] [facility] 2023-06-28 17:04:00 2023-06-28 19:20:00 Anesthesia Event Lucia Suggs Betty Carmeni [facility] 1.2.840.114 350.1.13.10 4.2.7.2.686 [id number] [facility] 2023-06-28 15:51:00 2023-06-28 19:07:00 Surgery Osei Lombardo [facility] 1.2.840.114 350.1.13.10 4.2.7.2.686 [id number] [facility] 2023-06-28 00:00:00 2023-06-28 00:00:00 Patient Outreach Minerva Emery 1.2.840.114 350.1.13.10 4.2.7.2.686 [id number] 403 [id number] [facility] 2023-06-23 00:00:00 2023-06-23 00:00:00 Patient Outreach Minerva Emery 1.2.840.114 350.1.13.10 4.2.7.2.686 [id number] 403 [id number] [facility] 2023-06-21 00:00:00 2023-06-21 00:00:00 Patient Outreach Minerva Emery 1.2.840.114 350.1.13.10 4.2.7.2.686 [id number] 403 [id number] [facility] 2023-06-18 00:00:00 2023-06-18 00:00:00 Patient Outreach Minerva Emery 1.2.840.114 350.1.13.10 4.2.7.2.686 [id number] [facility] 2023-06-17 00:00:00 2023-06-17 00:00:00 Patient Outreach Minerva Emery 1.2.840.114 350.1.13.10 4.2.7.2.686 [id number] [facility] 2023-06-15 00:00:00 2023-06-15 00:00:00 Telephone Altagracia Aimeelg [facility] 1.2.840.114 350.1.13.10 4.2.7.2.686 [id number] 048 [id number] [facility] 2023-06-14 00:00:00 2023-06-14 00:00:00 Telephone Moe Byers [facility] 1.2.840.114 350.1.13.10 4.2.7.2.686 [id number] 084 [id number] [facility] 2023-06-11 00:00:00 2023-06-11 00:00:00 Patient Outreach Minerva Emery 1.2.840.114 350.1.13.10 4.2.7.2.686 [id number] 403 [id number] [facility] 2023-06-09 00:00:00 2023-06-09 00:00:00 Patient Outreach Lynn Rodriguez 1.2.840.114 350.1.13.10 4.2.7.2.686 [id number] [facility] 2023-06-08 00:00:00 2023-06-08 00:00:00 Case Management Jennyfer Maynard [facility] 1.2.840.114 350.1.13.10 4.2.7.2.686 [id number] [id number] [facility] 2023-06-07 11:45:00 2023-06-07 12:45:00 Patient Outreach Lynn Rodriguez 1.2.840.114 350.1.13.10 4.2.7.2.686 [id number] 403 [id number] [facility] 2023-06-07 11:30:00 2023-06-07 12:15:00 Patient Outreach Emery, Minerva DEANNE LEVINE [facility] 1.2.840.114 350.1.13.10 4.2.7.2.686 [id number] 403 [id number] [facility] 2023-06-07 00:00:00 2023-06-07 00:00:00 Patient Outreach Manish Gilbert 1.2.840.114 350.1.13.10 4.2.7.2.686 [id number] 403 [id number] [facility] 2023-06-03 00:00:00 2023-06-03 00:00:00 Patient Outreach Fatuma Price [facility] 1.2840.114 350.1.13.10 4.2.7.2.686 [id number] [id number] [facility] 2023-06-03 00:00:00 2023-06-03 00:00:00 Case Management Osei Lombardo [facility] 1.2.840.114 350.1.13.10 4.2.7.2.686 [id number] 085 [id number] [facility] 2023-06-03 00:00:00 2023-06-03 00:00:00 Patient Outreach Emery, Minerva DEANNE LEVINE [facility] 1.2840.114 350.1.13.10 4.2.7.2.686 [id number] [facility] 2023-06-02 00:00:00 2023-06-02 00:00:00 Telephone Ry [facility] 1.2840.114 350.1.13.10 4.2.7.2.686 [id number] 084 [id number] [facility] 2023-06-02 00:00:00 2023-06-02 00:00:00 Case Management Ry [facility] 1.2.840.114 350.1.13.10 4.2.7.2.686 [id number] 084 [id number] [facility] 2023-05-26 00:00:00 2023-05-26 00:00:00 Telephone Jose Manuel Huynh [facility] 1.2.840.114 350.1.13.10 4.2.7.2.686 [id number] 084 [id number] [facility] 2023-05-26 00:00:00 2023-05-26 00:00:00 Orders Only Doctor Unassigned, [place] [facility] 1.2.840.114 350.1.13.10 4.2.7.2.686 [id number] [facility] 2023-05-25 00:00:00 2023-05-25 00:00:00 Transition of Care GarciaVirgen arriazaDiana DUSTINLg [facility] 1.2.840.114 350.1.13.10 4.2.7.2.686 [id number] 403 [id number] [facility] 2023-05-25 00:00:00 2023-05-25 00:00:00 Patient Outreach Lynn Rodriguez DEANNE [facility] 1.2.840.114 350.1.13.10 4.2.7.2.686 [id number] 403 [id number] [facility] 2023-05-24 00:00:00 2023-05-24 00:00:00 Transition of Care Diana Garcia DEANNE LEVINEIsrael [facility] 1.2.840.114 350.1.13.10 4.2.7.2.686 [id number] 403 [id number] [facility] 2023-05-13 20:15:00 2023-05-21 16:35:00 Hospital Encounter Sandip Mullins [facility] 1.2.840.114 350.1.13.10 4.2.7.2.686 [id number] [id number] [facility] 2023-05-13 20:15:00 2023-05-21 16:35:00 Inpatient [facility]ENDIRA [facility] [id number] [facility] 2023-05-20 09:00:00 2023-05-20 10:08:00 Surgery Sung Bautista [facility] 1.2.840.114 350.1.13.10 4.2.7.2.686 [id number] [id number] [facility] Results Test Description Test Time Test [...] anterior arch of C1, C5 vertebral body, Y0vplmzhi process represent metastatic lesions. Modic type II [...] MR thoracic spine dated 12/22/2023. Additional T1 hypo-/H8uunpabdwpw enhancing lesions involving the iliac bones bilaterally. Thesedemonstrate early extraosseous extension into the adjacent musculature. At L5-S1, spondylolisthesis results in uncovering of the intervertebraldisc. Spondylolisthesis and disc height loss at this level result in nosignificant spinal canal stenosis and moderate to severe bilateral neuralforaminal narrowing, more pronounced on the left. [facility] MR CERVICAL SPINE W WO CONTRAST 22:31:49 [...] anterior arch of C1, C5 vertebral body, X4kelnyjf process represent metastatic lesions. Modic type II [...] MR thoracic spine dated 12/22/2023. Additional T1 hypo-/U5asbtolgsxv enhancing lesions involving the iliac bones bilaterally. Thesedemonstrate early extraosseous extension into the adjacent musculature. At L5-S1, spondylolisthesis results in uncovering of the intervertebraldisc. Spondylolisthesis and disc height loss at this level result in nosignificant spinal canal stenosis and moderate to severe bilateral neuralforaminal narrowing, more pronounced on the left. [facility] MR BRAIN W WO CONTRAST 20:29:10 MR [...] the mastoid air cells or paranasal airsinuses. [facility] MR THORACIC SPINE W WO CONTRAST 19:59:21 [...] STIR hyperintensity is noted in T10 and T15xmcavyvbq body likely representing additional metastasis. Focal abnormalenhancement [...] and left lung collapse withloculated pleural effusion. [facility] Aqqbq0320-08-26 14:10:26* Test Item Value Reference Range Interpretation Comme nts LACTIC ACID (test code = 1993224241) 2.91 mmol/L 0.50-2.20 H QUES Lab Interpretation (test cod e = 78176-8) Abnormal [facility] 20 + Lactic Fpzj8332-01-43 07:44:16* Test Item Value Reference Range Interpretation Comme nts PH (test code = 2) 7.41 7.35-7.45 PCO2 (test code = 6578391086) 44 35-45 PO2 (test code = 2898846285) 121 80-100 H HCO3 (test code = 5341857285) 27 22-26 H BE (test code = 9818949842) 2.0 -3.0-3.0 THB (test code = 0412813173) 10.0 g/dL 13.5-18.0 L %O2HB (test code = 9636312592) 98.2 % 94.0-99.0 %COHB ART (test code = 0948840543) 0.3 % 0.0-1.5 %METHB ART (test code = 0705876686) 0.1 % 0.4-1.5 L VOL%O2 ART (test code = 5685778407) 14.0 % 15.0-23.0 L NA (test code = 0744070997) 132 mmol/L 135-145 L K+ (test code = 3779452042) 5.1 mmol/L 3.5-5.0 H AC CA IONZ (test code = 1725787005) 5.70 mg/dL 4.50-5.30 H GLUCOSE (test code = 4538484969) 182 mg/dL 70-110 H LACTIC ACID (test code = 3653899803) 3.35 mmol/L 0.50-2.20 H QUES Lab Interpretation (test cod e = 77239-4) [facility]normal [facility] Arterial Blood Gas.2023-06-29 03:37:55* Test Item Value Reference Range Interpretation Comme nts PH (test code = 2) 7.45 7.35-7.45 PCO2 (test code = 2033431399) 41 35-45 PO2 (test code = 8736203441) 85 80-100 QUES HCO3 (test code = 7161132088) 28 22-26 H BE (test code = 2551260947) 3.4 -3.0-3.0 H Lab Interpretation (test cod e = 60834-2) Abnormal [facility] 1 [id number] 03:09:11EXAM: XR CHEST 1 VW COMPARISON: 05/15/2023. CT 04/27/2023 HISTORY: codeTexas [facility]wallIntubation2024-03-11 22:34:00Betty Reece MD ? ? 06/28/2023 ?8:12 PMIntubationDate/Time: 06/28/2023 5:34 PMUrgency: emergent Airway not difficult General Information and Staff Patient location during procedure: ORPerformed: resident/SUPERVISOR ACCOUNTING CLERKS Performed by: Betty Reece MDAuthorized by: Betty [...] CommentsSmooth, atraumatic, dentition and lips unchanged from pre-op.[facility]ubation2024-03-11 22:34:00Betty Reece MD ? ? 06/28/2023 ?8:12 PMIntubationDate/Time: 06/28/2023 5:34 PMUrgency: emergent Airway not difficult General Information and Staff Patient location during procedure: ORPerformed: resident/SUPERVISOR ACCOUNTING CLERKS Performed by: Betty Reece MDAuthorized by: Betty [...] CommentsSmooth, atraumatic, dentition and lips unchanged from pre-op.[facility] RockwallHcv Svtxvifz8259-08-10 22:25:15* Test Item Value Reference Range Interpretation Comme nts HCV Ab (test code = 56804-0) Negative HCV Semi-Quantitative (test code = 24199-5) 0.01 [facility]wallAr[facility]ial Bhgf9869-81-78 22:19:00Betty Reece MD ? ? 06/28/2023 ?8:11 [...] infiltration with Lidocaine, STF, smooth and atraumatic. [facility] Smjs5841-81-14 22:19:00Betty Reece MD ? ? 06/28/2023 ?8:11 PM Arterial Line Date/Time: 06/28/2023 5:19 PM Performedby: Betty Reece MDArtsan juan regional medical centerrebecca Line Placement: ?Ultrasound-Guided: ultrasound guided and surface [...] infiltration with Lidocaine, STF, smooth and atraumatic. [facility]wallTransthoracic echo (TTE)2023-06-28 20:31:20* Test Item Value Reference Range Interpretation Comme nts Height (test code = 6964449448) 68 in Weight (test code = 4004634700) 160 lbs Systolic BP (test code = 6886179255) 127 mmHg Diastolic BP (test code = 0548247954) 78 mmHg Heart Rate (test code = 2745141846) 114 bpm LVOT stroke volume (test code = 6106010116) 50.80 cm3 EF(Teich) (test code = 2080761695) 67.20 % LVIDD (test code = 6447837008) 4.10 cm LVIDS (test code = 0904411178) 2.60 cm Left Ventricular End Systolic Volume by Teichholz Method (test code = 2372138) 24.8 mL Left Ventricular End Diastolic Volume by Teichholz Method (test code = 8136677) 75.4 mL IVS (test code = 1979811236) 0.98 cm LVPWD (test code = 3686919257) 0.96 cm LVOT diameter (test code = 5766245780) 2.05 cm LVOT area (test code = 2924399701) 3.30 cm2 FS (test code = 9904967174) 37 % MV Peak E Alexi (test code = 1587893910) 117.4 cm/s MV Peak A Aleix (test code = 3054348555) 102.9 cm/s E/A ratio (test code = 9500829808) 1.14 ratio E wave decelartion time (test code = 7246485607) 0.08 s MV E/e' septal (test code = 0441067703) 10.7 cm/s LVOT peak alexi (test code = 9566769523) 89.3 cm/s LVOT mn grad (test code = 1436259495) 1.7 mmHg BSA (test code = 4306163296) 1.86 m2 LA size (test code = 5370155131) 3.3 cm LAV(MOD-sp4) (test code = 1547025560) 13.60 mL Tapse (test code = 7849569903) 3.4 cm AV LVOT peak gradient (test code = 3235627092) 3.2 mmHg LVOT peak VTI (test code = 4089085009) 15.5 cm LV V1 mean (test code = 2949730118) 61.80 cm/s MV Prop V (test code = 0220162733) 44.10 cm/s Ao root diam (test code = 3961835507) 3.20 cm Aortic root (test code = 9172030661) 3.2 cm Ao root annulus (test code = 6686122698) 3.2 cm PW (test code = 6479666790) 0.96 cm 0.6-1.1 EF - 2D (test code = 90908351) 67.20 % Interventricular Septum Diastolic Thickness by 2D (test code = 0201659) 0.98 cm A4C EF (test code = 3398353459) 84.30 % EF(sp4-el) (test code = 7533598827) 84.40 % SV(MOD-sp4) (test code = 0944837454) 71.80 mL SV(sp4-el) (test code = 7058215733) 73.80 mL LV Diastolic Volume (BP) (test code = 4814939760) 78.4 mL A2C EF (test code = 6321510449) 60.80 % EF(MOD-bp) (test code = 4991477183) 76.60 % EF(sp2-el) (test code = 0663396562) 61.60 % LV Systolic Volume (BP) (test code = 6995295017) 18.3 mL SV(MOD-bp) (test code = 8394604072) 60.10 mL SV(MOD-sp2) (test code = 4547709628) 39.90 mL EF (test code = 2597637739) 77 Left Ventricular Stroke Volume by 2-D Biplane-MOD (test code = 7611807) 60.1 mL LA Volume Index (BP) (test code = 7308419415) 8.4 mL/m2 LA volume (BP) (test code = 1393449305) 15.6 mL LAV(MOD-sp2) (test code = 9984832126) 15.30 mL LV Diastolic Volume Index (BP) (test code = 0635169544) 42.2 mL/m2 LV Systolic Volume Index (BP) (test code = 1054300566) 9.8 mL/m2 Radiology Study observation (narrative) (test code = 61842-0) NIYAH (test code = NIYAH) ?Left?Ventricle: Left [...] Darci Leavitt MD, FESCCardiology FellowDivision of Cardiovascular MedicineMountain [facility] VentricleLeft ventricle size is normal. [...] left ventricular wall motion is globally hyperkinetic. [facility] THORAX W [id number] 15:10:36 PROCEDURE: CT CHEST WITH CONTRAST - [...] osseous lesions are detected.The soft tissues appear normal.[facility]wallHaptoglobin, [id number] 14:11:30* Test Item Value Reference Range Interpretation Comme nts HAPTOGLOB (test code = 0440614175) 705 mg/dL 16-200 H Lab Interpretation (test cod e = 06841-9) Abnormal [facility]wallVitamin B12, [id number] 08:20:17* Test Item Value Reference Range Interpretation Comme nts VIT B12 (test code = 3897703802) 314 pg/mL 240-930 NIYAH (test code = NIYAH) Biotin has been reported to cause a positive bias, interpret results relative to patient's use of biotin. Lab Interpretation (test code = 64396-6) Normal [facility]wallFolate2024-03-10 08:20:17* Test Item Value Reference Range Interpretation Comme nts FOLATE SER (test code = 2063851132) 4.6 ng/mL 3.0-20.0 Lab Interpretation (test cod e = 51905-6) [facility] Uyhoe9226-07-02 07:48:55* Test Item Value Reference Range Interpretation Comme nts FERRITIN (test code = 9912751396) 561.0 ng/mL 18.0-464.0 H NIYAH (test code = NIYAH) Biotin has been reported to cause a negative bias, interpret results relative to patient's use of biotin. Lab Interpretation (test code = 49583-8) [facility]normal [facility] [id number] 07:21:55* Test Item Value Reference Range Interpretation Comme nts IRON (test code = 7980289607) 29 ug/dL 50-160 L TIBC (test code = 6573501716) 196 ug/dL 250-410 L % FE SAT (test code = 7914940658) 15 % 20-50 L Lab Interpretation (test cod e = 80769-1) [facility]normal [facility]esium2024-03-10 07:12:32* Test Item Value Reference Range Interpretation Comme nts MAGNESIUM (test code = 9345438188) 2.1 mg/dL 1.7-2.4 Lab Interpretation (test cod e = 24788-0) Normal [facility]eticulocytes Jjfhjxgug4444-33-28 06:44:52* Test Item Value Reference Range Interpretation Comme nts RETIC Count Automated (test code = 4805745546) 2.53 % 0.59-2.24 H RETIC Absolute Count (test c ode = 8841362510) 0.1012 0.0260-0.1170 IRF % (test code = 9678744113) 32.20 % 2.00-19.10 H RETIC-HE (test code = 5927974985) 24.6 pg 27.3-36.4 L Lab Interpretation (test cod e = 30979-3) Abnormal [facility]. METABOLIC PANEL (62308)2023-06-26 23:55:15* Test Item Value Reference Range Interpretation Comme nts NA (test code = 9592723472) 133 mmol/L 135-145 L K (test code = 0363023962) 5.1 mmol/L 3.5-5.0 H CL (test code = 7847661225) 94 mmol/L 98-108 L CO2 TOTAL (test code = 7235445924) 30 mmol/L 23-31 AGAP (test code = 9007926341) 9 2-16 BUN (test code = 7997924874) 21 mg/dL 7-23 GLUCOSE (test code = 4749652759) 100 mg/dL 70-110 CREATININE (test code = 2160-0) 0.52 mg/dL 0.60-1.25 L TOTAL BILI (test code = 9390394735) 0.6 mg/dL 0.1-1.1 CALCIUM (test code = 6318933524) 11.4 mg/dL 8.6-10.6 H T PROTEIN (test code = 3050434694) 7.3 g/dL 6.3-8.2 ALBUMIN (test code = 8823679495) 3.7 g/dL 3.5-5.0 ALK PHOS (test code = 2012089748) 174 U/L 34-122 H ALTv (test code = 1742-6) 36 U/L 5-50 AST(SGOT) (test code = 9767398755) 23 U/L 13-40 eGFR (test code = 98901-3) 123.6 mL/min/1.73m2 CKD-EPI eGFR (2020). Assuming creatinine has been stable day-to-day for at least three months, the eGFR indicates Category G1 (>= 90 mL/min/1.73 m2) Lab Interpretation (test code = 07184-1) Abnormal [facility] WITH [id number] 23:38:53* Test Item Value Reference Range Interpretation [...] g/dL 31.2-35.0 L RDW-SD (test code = 44210-0) 40.7 fL 38.5-51.6 RDW-CV (test code = 788-0) 13.9 % 12.1-15.4 PLT (test code = 777-3) 891 150-328 H MPV (test code = 49070-1) 8.9 fL 9.8-13.0 L NRBC/100 WBC (test code = 3574378983) 0.0 0.0-10.0 NRBC x10^3 (test code = 9779804173) See_Comment [Automated message] The system which generated this result transmitted reference range: 10*3/?L. The reference range was not used to interpret this result as normal/abnormal. GRAN MAT (NEUT) % (test code = 770-8) 83.7 % IMM GRAN % (test code = 8042325737) 0.40 % LYMPH % (test code = 736-9) 7.7 % MONO % (test code = 5905-5) 7.4 % EOS % (test code = 713-8) 0.6 % BASO % (test code = 706-2) 0.2 % GRAN MAT x10^3(ANC) (test code = 8250594611) 14.50 10*3/uL 1.99-6.95 H IMM GRAN x10^3 (test code = 7262131687) 0.07 10*3/uL 0.00-0.06 H LYMPH x10^3 (test code = 731-0) 1.33 10*3/uL 1.09-3.23 MONO x10^3 (test code = 742-7) 1.29 10*3/uL 0.36-1.02 H EOS x10^3 (test code = 711-2) 0.11 10*3/uL 0.06-0.53 BASO x10^3 (test code = 704-7) 0.03 10*3/uL 0.01-0.09 Lab Interpretation (test code = 04747-3) Abnormal [facility] with [id number] 11:41:46* Test Item Value Reference Range Interpretation [...] 31.8 g/dL 31.2-35.0 RDW-SD (test code = 77039-2) 37.6 fL 38.5-51.6 L RDW-CV (test code = 788-0) 12.6 % 12.1-15.4 PLT (test code = 777-3) 485 150-328 H MPV (test code = 25974-1) 8.8 fL 9.8-13.0 L NRBC/100 WBC (test code = 2976234031) 0.0 0.0-10.0 NRBC x10^3 (test code = 4882963615) See_Comment [Automated messa ge] The system which generated this result transmitted reference range: 10*3/?L. The reference range was not used to interpret this result as normal/abnormal. GRAN MAT (NEUT) % (test code = 770-8) 67.1 % IMM GRAN % (test code = 8135210936) 0.60 % LYMPH % (test code = 736-9) 13.7 % MONO % (test code = 5905-5) 14.8 % EOS % (test code = 713-8) 3.2 % BASO % (test code = 706-2) 0.6 % GRAN MAT x10^3(ANC) (test code = 5679608545) 7.85 10*3/uL 1.99-6.95 H IMM GRAN x10^3 (test code = 9459412648) 0.07 10*3/uL 0.00-0.06 H LYMPH x10^3 (test code = 731-0) 1.61 10*3/uL 1.09-3.23 MONO x10^3 (test code = 742-7) 1.74 10*3/uL 0.36-1.02 H EOS x10^3 (test code = 711-2) 0.38 10*3/uL 0.06-0.53 BASO x10^3 (test code = 704-7) 0.07 10*3/uL 0.01-0.09 REACT LYMPHS (test code = 8158821983) Rare Lab Interpretation (test code = 02756-5) Abnormal [facility] with [id number] 11:41:46* Test Item Value Reference Range Interpretation [...] 31.8 g/dL 31.2-35.0 RDW-SD (test code = 30769-3) 37.6 fL 38.5-51.6 L RDW-CV (test code = 788-0) 12.6 % 12.1-15.4 PLT (test code = 777-3) 485 150-328 H MPV (test code = 61372-5) 8.8 fL 9.8-13.0 L NRBC/100 WBC (test code = 7127887047) 0.0 0.0-10.0 NRBC x10^3 (test code = 5337413620) See_Comment [Automated messa ge] The system which generated this result transmitted reference range: 10*3/?L. The reference range was not used to interpret this result as normal/abnormal. GRAN MAT (NEUT) % (test code = 770-8) 67.1 % IMM GRAN % (test code = 1930743257) 0.60 % LYMPH % (test code = 736-9) 13.7 % MONO % (test code = 5905-5) 14.8 % EOS % (test code = 713-8) 3.2 % BASO % (test code = 706-2) 0.6 % GRAN MAT x10^3(ANC) (test code = 6860879012) 7.85 10*3/uL 1.99-6.95 H IMM GRAN x10^3 (test code = 9871461013) 0.07 10*3/uL 0.00-0.06 H LYMPH x10^3 (test code = 731-0) 1.61 10*3/uL 1.09-3.23 MONO x10^3 (test code = 742-7) 1.74 10*3/uL 0.36-1.02 H EOS x10^3 (test code = 711-2) 0.38 10*3/uL 0.06-0.53 BASO x10^3 (test code = 704-7) 0.07 10*3/uL 0.01-0.09 REACT LYMPHS (test code = 0519609396) Rare Lab Interpretation (test code = 65430-1) Abnormal [facility] Metabolic Panel (NA, K, CL, CO2, GLUCOSE, BUN, CREATININE, CA)2023-05-21 11:34:48* Test Item Value Reference Range Interpretation Comme nts NA (test code = 5648277950) 133 mmol/L 135-145 L K (test code = 8918982603) 4.6 mmol/L 3.5-5.0 CL (test code = 5323686928) 99 mmol/L 98-108 CO2 TOTAL (test code = 9698417637) 28 mmol/L 23-31 AGAP (test code = 4830869890) 6 2-16 BUN (test code = 1849580399) 18 mg/dL 7-23 GLUCOSE (test code = 7583079114) 113 mg/dL 70-110 H CREATININE (test code = 8327537112) 0.64 mg/dL 0.60-1.25 CALCIUM (test code = 8532594235) 10.4 mg/dL 8.6-10.6 eGFR (test code = 29169-0) 116.1 mL/min/1.73m2 CKD-EPI eGFR (2020). Assuming creatinine has been stable day-to-day for at least three months, the eGFR indicates Category G1 (>= 90 mL/min/1.73 m2) Lab Interpretation (test code = 10153-9) [facility]normal [facility]wall[facility]2024-02-02 11:34:48* Test Item Value Reference Range Interpretation Comme nts MAGNESIUM (test code = 1061049665) 2.4 mg/dL 1.7-2.4 Lab Interpretation (test cod e = 81189-3) [facility] (NA, K, CL, CO2, GLUCOSE, BUN, CREATININE, CA)2023-05-21 11:34:48* Test Item Value Reference Range Interpretation Comme nts NA (test code = 4144211160) 133 mmol/L 135-145 L K (test code = 0779471849) 4.6 mmol/L 3.5-5.0 CL (test code = 1582729673) 99 mmol/L 98-108 CO2 TOTAL (test code = 8687168785) 28 mmol/L 23-31 AGAP (test code = 9536503564) 6 2-16 BUN (test code = 6100076115) 18 mg/dL 7-23 GLUCOSE (test code = 4175005898) 113 mg/dL 70-110 H CREATININE (test code = 8780203109) 0.64 mg/dL 0.60-1.25 CALCIUM (test code = 2253601851) 10.4 mg/dL 8.6-10.6 eGFR (test code = 90694-2) 116.1 mL/min/1.73m2 CKD-EPI eGFR (2020). Assuming creatinine has been stable day-to-day for at least three months, the eGFR indicates Category G1 (>= 90 mL/min/1.73 m2) Lab Interpretation (test code = 38333-7) [facility]normal [facility]2024-02-02 11:34:48* Test Item Value Reference Range Interpretation Comme nts MAGNESIUM (test code = 9061771730) 2.4 mg/dL 1.7-2.4 Lab Interpretation (test cod e = 37729-8) [facility]2023-05-20 01:01:56 * Test Item Value Reference Range Interpretation Comme nts Body Fluid Culture Screen-Aerobic (test code = 3090721650) No organisms isolated No growth Previous preliminary [...] at 4 days on 05/18/2023 at 1901 INFORMATION TECHNOLOGY PROGRAM MANAGER Body Fluid Culture Screen-Anaerobic (test code = 4655471070) No organisms isolated No growth Previous preliminary [...] at 4 days on 05/18/2023 at 1901 INFORMATION TECHNOLOGY PROGRAM MANAGER [facility]wall[facility] ([employer])2023-05-20 01:01:56 * Test Item Value Reference Range Interpretation Comme [facility] Body Fluid Culture Screen-Aerobic (test code = 7168453791) No organisms isolated No growth Previous preliminary [...] at 4 days on 05/18/2023 at 1901 INFORMATION TECHNOLOGY PROGRAM MANAGER Body Fluid Culture Screen-Anaerobic (test code = 5656824814) No organisms isolated No growth Previous preliminary [...] at 4 days on 05/18/2023 at 1901 INFORMATION TECHNOLOGY PROGRAM MANAGER [facility] [id number] 13:02:07* Test Item Value Reference Range Interpretation Comme nts Blood Culture-Aerobic (test code = 23758-1) No organisms isolated No growth Previous preliminary verified result was Culture In Progress on 05/14/2023 at 1001 CSTPrevious preliminary verified result was No growth at 24 hours on 05/15/2023 at 0701 CSTPrevious preliminary verified result was No growth at 48 hours on 05/16/2023 at 0701 CSTPrevious preliminary verified result was No growth at 72 hours on 05/17/2023 at 0701 INFORMATION TECHNOLOGY PROGRAM MANAGER Blood Culture-Anaerobic (test code = 82966-6) No organisms isolated No growth Previous preliminary verified result was Culture In Progress on 05/14/2023 at 1001 CSTPrevious preliminary verified result was No growth at 24 hours on 05/15/2023 at 0701 CSTPrevious preliminary verified result was No growth at 48 hours on 05/16/2023 at 0701 CSTPrevious preliminary verified result was No growth at 72 hours on 05/17/2023 at 0701 INFORMATION TECHNOLOGY PROGRAM MANAGER Lab Interpretation (test code = 00879-3) Normal [facility] [id number] 13:02:07* Test Item Value Reference Range Interpretation Comme nts Blood Culture-Aerobic (test code = 78686-0) No organisms isolated No growth Previous preliminary verified result was Culture In Progress on 05/14/2023 at 1001 CSTPrevious preliminary verified result was No growth at 24 hours on 05/15/2023 at 0701 CSTPrevious preliminary verified result was No growth at 48 hours on 05/16/2023 at 0701 CSTPrevious preliminary verified result was No growth at 72 hours on 05/17/2023 at 0701 INFORMATION TECHNOLOGY PROGRAM MANAGER Blood Culture-Anaerobic (test code = 98919-4) No organisms isolated No growth Previous preliminary verified result was Culture In Progress on 05/14/2023 at 1001 CSTPrevious preliminary verified result was No growth at 24 hours on 05/15/2023 at 0701 CSTPrevious preliminary verified result was No growth at 48 hours on 05/16/2023 at 0701 CSTPrevious preliminary verified result was No growth at 72 hours on 05/17/2023 at 0701 INFORMATION TECHNOLOGY PROGRAM MANAGER Lab Interpretation (test code = 36429-3) Normal [facility] 1 [id number] 06:28:22EXAM: XR CHEST 1 VW COMPARISON: CT [...] glenoid andhumeral head. Osseous metastasisis in the differential.[facility] 1 [id number] 06:28:22EXAM: XR CHEST 1 VW COMPARISON: CT [...] glenoid andhumeral head. Osseous metastasisis in the differential.[facility] with Mfyu5914-40-60 16:47:14* Test Item Value Reference Range Interpretation [...] 32.1 g/dL 31.2-35.0 RDW-SD (test code = 81948-4) 36.2 fL 38.5-51.6 L RDW-CV (test code = 788-0) 12.4 % 12.1-15.4 PLT (test code = 777-3) 583 150-328 H MPV (test code = 16694-9) 8.8 fL 9.8-13.0 L NRBC/100 WBC (test code = 3096387367) 0.0 0.0-10.0 NRBC x10^3 (test code = 8569344952) See_Comment [Automated message] The system which generated this result transmitted reference range: 10*3/?L. The reference range was not used to interpret this result as normal/abnormal. GRAN MAT (NEUT) % (test code = 770-8) 79.4 % IMM GRAN % (test code = 1880493991) 0.70 % LYMPH % (test code = 736-9) 6.9 % MONO % (test code = 5905-5) 10.1 % EOS % (test code = 713-8) 2.5 % BASO % (test code = 706-2) 0.4 % GRAN MAT x10^3(ANC) (test code = 6070709038) 11.95 10*3/uL 1.99-6.95 H IMM GRAN x10^3 (test code = 5378940051) 0.10 10*3/uL 0.00-0.06 H LYMPH x10^3 (test code = 731-0) 1.04 10*3/uL 1.09-3.23 L MONO x10^3 (test code = 742-7) 1.52 10*3/uL 0.36-1.02 H EOS x10^3 (test code = 711-2) 0.37 10*3/uL 0.06-0.53 BASO x10^3 (test code = 704-7) 0.06 10*3/uL 0.01-0.09 Lab Interpretation (test code = 34006-3) Abnormal [facility] with [id number] 16:47:14* Test Item Value Reference Range Interpretation [...] 32.1 g/dL 31.2-35.0 RDW-SD (test code = 85842-5) 36.2 fL 38.5-51.6 L RDW-CV (test code = 788-0) 12.4 % 12.1-15.4 PLT (test code = 777-3) 583 150-328 H MPV (test code = 34013-7) 8.8 fL 9.8-13.0 L NRBC/100 WBC (test code = 9313630556) 0.0 0.0-10.0 NRBC x10^3 (test code = 6364956427) See_Comment [Automated message] The system which generated this result transmitted reference range: 10*3/?L. The reference range was not used to interpret this result as normal/abnormal. GRAN MAT (NEUT) % (test code = 770-8) 79.4 % IMM GRAN % (test code = 0337286616) 0.70 % LYMPH % (test code = 736-9) 6.9 % MONO % (test code = 5905-5) 10.1 % EOS % (test code = 713-8) 2.5 % BASO % (test code = 706-2) 0.4 % GRAN MAT x10^3(ANC) (test code = 5517943802) 11.95 10*3/uL 1.99-6.95 H IMM GRAN x10^3 (test code = 7037149807) 0.10 10*3/uL 0.00-0.06 H LYMPH x10^3 (test code = 731-0) 1.04 10*3/uL 1.09-3.23 L MONO x10^3 (test code = 742-7) 1.52 10*3/uL 0.36-1.02 H EOS x10^3 (test code = 711-2) 0.37 10*3/uL 0.06-0.53 BASO x10^3 (test code = 704-7) 0.06 10*3/uL 0.01-0.09 Lab Interpretation (test code = 30881-9) Abnormal [facility] Metabolic Panel (NA, K, CL, CO2, GLUCOSE, BUN, CREATININE, CA)2023-05-18 16:18:49* Test Item Value Reference Range Interpretation Comme nts NA (test code = 5049955652) 132 mmol/L 135-145 L K (test code = 0852175532) 4.6 mmol/L 3.5-5.0 CL (test code = 3796241428) 99 mmol/L 98-108 CO2 TOTAL (test code = 1496944398) 26 mmol/L 23-31 AGAP (test code = 1083229932) 7 2-16 BUN (test code = 0135853321) 18 mg/dL 7-23 GLUCOSE (test code = 0123840667) 109 mg/dL 70-110 CREATININE (test code = 3910871053) 0.61 mg/dL 0.60-1.25 CALCIUM (test code = 5055586525) 11.1 mg/dL 8.6-10.6 H eGFR (test code = 58568-6) 117.7 mL/min/1.73m2 CKD-EPI eGFR (2020). Assuming creatinine has been stable day-to-day for at least three months, the eGFR indicates Category G1 (>= 90 mL/min/1.73 m2) Lab Interpretation (test code = 41842-6) [facility] (NA, K, CL, CO2, GLUCOSE, BUN, CREATININE, CA)2023-05-18 16:18:49* Test Item Value Reference Range Interpretation Comme nts NA (test code = 1543277128) 132 mmol/L 135-145 L K (test code = 7049703810) 4.6 mmol/L 3.5-5.0 CL (test code = 1327481196) 99 mmol/L 98-108 CO2 TOTAL (test code = 7437794360) 26 mmol/L 23-31 AGAP (test code = 1765558930) 7 2-16 BUN (test code = 0601180039) 18 mg/dL 7-23 GLUCOSE (test code = 0721692822) 109 mg/dL 70-110 CREATININE (test code = 0811385372) 0.61 mg/dL 0.60-1.25 CALCIUM (test code = 0884711095) 11.1 mg/dL 8.6-10.6 H eGFR (test code = 15149-6) 117.7 mL/min/1.73m2 CKD-EPI eGFR (2020). Assuming creatinine has been stable day-to-day for at least three months, the eGFR indicates Category G1 (>= 90 mL/min/1.73 m2) Lab Interpretation (test code = 75858-5) [facility]normal [facility]wall[facility]IUM SWALLOW, (COOKIE)2023-05-18 14:27:34Exam: [place] MODIFIED BARIUM [...] reviewed this study and agree with theabove report.[facility]wallMOD BARIUM SWALLOW, (COOKIE)2023-05-18 14:27:34Exam: [place] MODIFIED BARIUM [...] reviewed this study and agree with theabove report.[facility]wallMR BRAIN W WO [id number] 15:14:36EXAM: MR BRAIN W WO CONTRAST HISTORY: [...] the mastoid air cells or paranasalair sinuses. [facility]wallMR BRAIN W WO [id number] 15:14:36EXAM: MR BRAIN W WO CONTRAST HISTORY: [...] the mastoid air cells or paranasalair sinuses. [facility]wallCT CHEST PULMONARY [id number] 01:57:29Ordering Physician: SANDIP MULLINS Clinical history: Pulmonary [...] separate report for CT of theabdomen and pelvis.[facility]wallCT CHEST PULMONARY [id number] 01:57:29Ordering Physician: SANDIP MULLINS Clinical history: Pulmonary [...] separate report for CT of theabdomen and pelvis.[facility]wallCT ABDOMEN PELVIS W [id number] 23:28:46Ordering Physician: ERENDIRA MAIN Clinical indication: Left [...] Nolytic or blastic bony lesions are seen. [facility]wallCT ABDOMEN PELVIS W [id number] 23:28:46Ordering Physician: ERENDIRA MAIN Clinical indication: Left [...] L5. Nolytic or blastic bony lesions are seen.[facility] 1 [id number] 23:16:04EXAM: XR CHEST 1 VW COMPARISON: CT chest 05/13/2023 HISTORY: S/p thoracentesis FINDINGS: Lungs: The right lung is well-expanded and clear. Complete collapse of theleft lung with large pleural effusion/ hydrothorax. No pneumothorax is seen. Heart/Mediastinum: The cardiac silhouette is obscured. Mild leftwardmediastinal shift. Bones and soft tissues: Advanced degenerative changes of the left shoulderwith cystic lucencies in the glenoid and humeral head.[facility] 1 [id number] 23:16:04EXAM: XR CHEST 1 VW COMPARISON: CT chest 05/13/2023 HISTORY: S/p thoracentesis FINDINGS: Lungs: The right lung is well-expanded and clear. Complete collapse of theleft lung with large pleural effusion/hydrothorax. No pneumothorax is seen. Heart/Mediastinum: The cardiac silhouette is obscured. Mild leftwardmediastinal shift. Bones and soft tissues: Advanced degenerative changes of the left shoulderwith cystic lucencies in the glenoid and humeral head.[facility] RockwallProtein Total [id number] 21:19:00* Test Item Value Reference Range Interpretation Comme nts T PROTEIN (test code = 7060429990) 7.6 g/dL 6.3-8.2 Lab Interpretation (test cod e = 63133-3) Normal [facility] RockwallProtein Total [id number] 21:19:00* Test Item Value Reference Range Interpretation Comme nts T PROTEIN (test code = 4012164726) 7.6 g/dL 6.3-8.2 Lab Interpretation (test cod e = 48888-3) Normal [facility]wallCT SOFT TISSUE NECK W [id number] 14:37:23EXAM: CT SOFT TISSUE NECK W CONTRAST [...] however, clearly accounts for the vocal cord paralysis.[facility]wallCT SOFT TISSUE NECK W [id number] 14:37:23EXAM: CT SOFT TISSUE NECK W CONTRAST [...] however, clearly accounts for the vocal cord paralysis.[facility] Metabolic Panel (NA, K, CL, CO2, GLUCOSE, BUN, CREATININE, CA)2023-05-14 11:35:47* Test Item Value Reference Range Interpretation Comme nts NA (test code = 7450645914) 133 mmol/L 135-145 L K (test code = 1342086920) 5.0 mmol/L 3.5-5.0 CL (test code = 6111408431) 97 mmol/L 98-108 L CO2 TOTAL (test code = 8627835873) 29 mmol/L 23-31 AGAP (test code = 0761020205) 7 2-16 BUN (test code = 0546638116) 18 mg/dL 7-23 GLUCOSE (test code = 5623189061) 131 mg/dL 70-110 H CREATININE (test code = 4612669161) 0.60 mg/dL 0.60-1.25 CALCIUM (test code = 6330015659) 11.0 mg/dL 8.6-10.6 H eGFR (test code = 86643-8) 118.3 mL/min/1.73m2 CKD-EPI eGFR (2020). Assuming creatinine has been stable day-to-day for at least three months, the eGFR indicates Category G1 (>= 90 mL/min/1.73 m2) Lab Interpretation (test code = 35758-0) Abnormal [facility] RockwallMagnesium2024-01-26 11:35:47* Test Item Value Reference Range Interpretation Comme nts MAGNESIUM (test code = 3483343209) 2.2 mg/dL 1.7-2.4 Lab Interpretation (test cod e = 36917-3) Normal [facility] Metabolic Panel (NA, K, CL, CO2, GLUCOSE, BUN, CREATININE, CA)2023-05-14 11:35:47* Test Item Value Reference Range Interpretation Comme nts NA (test code = 5698639046) 133 mmol/L 135-145 L K (test code = 5389944699) 5.0 mmol/L 3.5-5.0 CL (test code = 7455536160) 97 mmol/L 98-108 L CO2 TOTAL (test code = 7950302169) 29 mmol/L 23-31 AGAP (test code = 8275549750) 7 2-16 BUN (test code = 0224831594) 18 mg/dL 7-23 GLUCOSE (test code = 4561470254) 131 mg/dL 70-110 H CREATININE (test code = 7102605482) 0.60 mg/dL 0.60-1.25 CALCIUM (test code = 2535389838) 11.0 mg/dL 8.6-10.6 H eGFR (test code = 10358-9) 118.3 mL/min/1.73m2 CKD-EPI eGFR (2020). Assuming creatinine has been stable day-to-day for at least three months, the eGFR indicates Category G1 (>= 90 mL/min/1.73 m2) Lab Interpretation (test code = 56459-3) Abnormal [facility]wall[facility]esium2024-01-26 11:35:47* Test Item Value Reference Range Interpretation Comme nts MAGNESIUM (test code = 6161578398) 2.2 mg/dL 1.7-2.4 Lab Interpretation (test cod e = 72275-7) Normal [facility] with [id number] 11:09:40* Test Item Value Reference Range Interpretation [...] 33.3 g/dL 31.2-35.0 RDW-SD (test code = 07184-9) 36.3 fL 38.5-51.6 L RDW-CV (test code = 788-0) 12.5 % 12.1-15.4 PLT (test code = 777-3) 630 150-328 H MPV (test code = 55731-9) 9.1 fL 9.8-13.0 L NRBC/100 WBC (test code = 1132082977) 0.0 0.0-10.0 NRBC x10^3 (test code = 0412435783) See_Comment [Automated message] The system which generated this result transmitted reference range: 10*3/?L. The reference range was not used to interpret this result as normal/abnormal. GRAN MAT (NEUT) % (test code = 770-8) 81.8 % IMM GRAN % (test code = 8650273058) 0.50 % LYMPH % (test code = 736-9) 10.3 % MONO % (test code = 5905-5) 7.2 % EOS % (test code = 713-8) 0.0 % BASO % (test code = 706-2) 0.2 % GRAN MAT x10^3(ANC) (test code = 4581480105) 10.65 10*3/uL 1.99-6.95 H IMM GRAN x10^3 (test code = [id number]) 0.07 10*3/uL 0.00-0.06 H LYMPH x10^3 (test code = 731-0) 1.34 10*3/uL 1.09-3.23 MONO x10^3 (test code = 742-7) 0.94 10*3/uL 0.36-1.02 EOS x10^3 (test code = 711-2) 0.06-0.53 L BASO x10^3 (test code = 704-7) 0.01-0.09 Lab Interpretation (test code = 81210-1) Abnormal [facility] with [id number] 11:09:40* Test Item Value Reference Range Interpretation [...] 33.3 g/dL 31.2-35.0 RDW-SD (test code = 05507-6) 36.3 fL 38.5-51.6 L RDW-CV (test code = 788-0) 12.5 % 12.1-15.4 PLT (test code = 777-3) 630 150-328 H MPV (test code = 59910-2) 9.1 fL 9.8-13.0 L NRBC/100 WBC (test code = 5429013285) 0.0 0.0-10.0 NRBC x10^3 (test code = 4175958474) See_Comment [Automated message] The system which generated this result transmitted reference range: 10*3/?L. The reference range was not used to interpret this result as normal/abnormal. GRAN MAT (NEUT) % (test code = 770-8) 81.8 % IMM GRAN % (test code = 9623950315) 0.50 % LYMPH % (test code = 736-9) 10.3 % MONO % (test code = 5905-5) 7.2 % EOS % (test code = 713-8) 0.0 % BASO % (test code = 706-2) 0.2 % GRAN MAT x10^3(ANC) (test code = 5008076064) 10.65 10*3/uL 1.99-6.95 H IMM GRAN x10^3 (test code = 3502432806) 0.07 10*3/uL 0.00-0.06 H LYMPH x10^3 (test code = 731-0) 1.34 10*3/uL 1.09-3.23 MONO x10^3 (test code = 742-7) 0.94 10*3/uL 0.36-1.02 EOS x10^3 (test code = 711-2) 0.06-0.53 L BASO x10^3 (test code = 704-7) 0.01-0.09 Lab Interpretation (test code = 55963-3) [facility]2023-[facility]-14 07:26:52* Test Item Value Reference Range Interpretation Comme nts HGB A1C (test code = 4548-4) 5.9 % 4.0-5.7 H NIYAH (test code = NIYAH) Reference RangesNormal: <5.7%Prediabetes: 5.7 - 6.4%Diabetes: > 6.5% Lab Interpretation (test code = 14521-6) [facility]normal [facility]A1C)2023-05-14 07:26:52* Test Item Value Reference Range Interpretation Comme nts HGB A1C (test code = 4548-4) 5.9 % 4.0-5.7 H NIYAH (test code = NIYAH) Reference RangesNormal: <5.7%Prediabetes: 5.7 - 6.4%Diabetes: > 6.5% Lab Interpretation (test code = 05846-8) [facility]normal [facility] Zzezxru8700-09-21 04:51:21 * Test Item Value Reference Range Interpretation Comme nts TSH (test code = 5007979431) 0.36 0.45-4.70 L Lab Interpretation (test cod e = 22863-9) [facility]normal [facility] Pdaooou0823-14-41 04:51:21 * Test Item Value Reference Range Interpretation Comme nts TSH (test code = 2401742306) 0.36 0.45-4.70 L Lab Interpretation (test cod e = 35047-9) [facility]normal [facility]osphorus Nefyj8039-24-16 04:21:20* Test Item Value Reference Range Interpretation Comme nts PHOSPHORUS (test code = 5370450945) 4.5 mg/dL 2.5-5.0 Lab Interpretation (test cod e = 60166-8) [facility] Cmlix0927-69-09 04:21:20* Test Item Value Reference Range Interpretation Comme nts MAGNESIUM (test code = 7416733736) 2.1 mg/dL 1.7-2.4 Lab Interpretation (test cod e = 61146-7) Normal [facility]actate Fqmxtdujnojlk4841-99-09 04:21:20* Test Item Value Reference Range Interpretation Comme nts LDH (test code = 2734193731) 172 U/L 120-246 Lab Interpretation (test cod e = 29830-4) Normal [facility] Zsjey2856-93-43 04:21:20* Test Item Value Reference Range Interpretation Comme nts PHOSPHORUS (test code = 9553679899) 4.5 mg/dL 2.5-5.0 Lab Interpretation (test cod e = 32464-3) [facility] Uffis3286-24-28 04:21:20* Test Item Value Reference Range Interpretation Comme nts MAGNESIUM (test code = 5435545825) 2.1 mg/dL 1.7-2.4 Lab Interpretation (test cod e = 40002-9) [facility] Affxemjzqoeie0811-96-43 04:21:20* Test Item Value Reference Range Interpretation Comme nts LDH (test code = 0377398783) 172 U/L 120-246 Lab Interpretation (test cod e = 96621-7) Normal [facility] Met[facility] Panel (NA, K, CL, CO2, Glucose, BUN, Creatinine, CA)2023-05-14 04:21:19* Test Item Value Reference Range Interpretation Comme nts NA (test code = 9977753435) 134 mmol/L 135-145 L K (test code = 4373983662) 5.4 mmol/L 3.5-5.0 H CL (test code = 2932834357) 98 mmol/L 98-108 CO2 TOTAL (test code = 0998700322) 26 mmol/L 23-31 AGAP (test code = 1298123498) 10 2-16 BUN (test code = 7631900953) 17 mg/dL 7-23 GLUCOSE (test code = 5248832468) 149 mg/dL 70-110 H CREATININE (test code = 2802249424) 0.54 mg/dL 0.60-1.25 L CALCIUM (test code = 3461433399) 10.9 mg/dL 8.6-10.6 H eGFR (test code = 10458-8) 122.2 mL/min/1.73m2 CKD-EPI eGFR (2020). Assuming creatinine has been stable day-to-day for at least three months, the eGFR indicates Category G1 (>= 90 mL/min/1.73 m2) Lab Interpretation (test code = 80453-8) Abnormal [facility] (ALB, T.PRO, BILI T, BU/BC, ALT, AST, ALK, PHOS)2023-05-14 04:21:19* Test Item Value Reference Range Interpretation Comme nts TOTAL BILI (test code = 8880343649) 0.4 mg/dL 0.1-1.1 BILI UNCON (test code = 5560001656) 0.4 mg/dL 0.1-1.1 BILI CONJ (test code = 2223581830) 0.0 mg/dL 0.0-0.3 T PROTEIN (test code = 4027748079) 7.5 g/dL 6.3-8.2 ALBUMIN (test code = 6273277880) 4.0 g/dL 3.5-5.0 ALK PHOS (test code = 0818469666) 156 U/L 34-122 H ALTv (test code = 1742-6) 22 U/L 5-50 AST(SGOT) (test code = 4409060419) 17 U/L 13-40 Lab Interpretation (test cod e = 86638-5) Abnormal [facility] (NA, K, CL, CO2, Glucose, BUN, Creatinine, CA)2023-05-14 04:21:19* Test Item Value Reference Range Interpretation Comme nts NA (test code = 3372194317) 134 mmol/L 135-145 L K (test code = 5467242030) 5.4 mmol/L 3.5-5.0 H CL (test code = 4553200888) 98 mmol/L 98-108 CO2 TOTAL (test code = 6031378698) 26 mmol/L 23-31 AGAP (test code = 6157963082) 10 2-16 BUN (test code = 1954516687) 17 mg/dL 7-23 GLUCOSE (test code = 5701426133) 149 mg/dL 70-110 H CREATININE (test code = 3822009288) 0.54 mg/dL 0.60-1.25 L CALCIUM (test code = 3532088495) 10.9 mg/dL 8.6-10.6 H eGFR (test code = 90447-6) 122.2 mL/min/1.73m2 CKD-EPI eGFR (2020). Assuming creatinine has been stable day-to-day for at least three months, the eGFR indicates Category G1 (>= 90 mL/min/1.73 m2) Lab Interpretation (test code = 48234-1) Abnormal [facility] (ALB, T.PRO, BILI T, BU/BC, ALT, AST, ALK, PHOS)2023-05-14 04:21:19* Test Item Value Reference Range Interpretation Comme nts TOTAL BILI (test code = 1216735346) 0.4 mg/dL 0.1-1.1 BILI UNCON (test code = 1867706564) 0.4 mg/dL 0.1-1.1 BILI CONJ (test code = 1341192942) 0.0 mg/dL 0.0-0.3 T PROTEIN (test code = 6300819544) 7.5 g/dL 6.3-8.2 ALBUMIN (test code = 7460411265) 4.0 g/dL 3.5-5.0 ALK PHOS (test code = 9425039719) 156 U/L 34-122 H ALTv (test code = 1742-6) 22 U/L 5-50 AST(SGOT) (test code = 1107653083) 17 U/L 13-40 Lab Interpretation (test cod e = 39742-8) [facility]normal [facility]wallaPTT2024-01-26 04:11:17* Test Item Value Reference Range Interpretation Comme nts APTT Patient (test code = 3173-2) 34 26-36 Lab Interpretation (test cod e = 40453-5) Normal [facility]Prothrombin Time / PCO3286-02-48 04:11:17* Test Item Value Reference Range Interpretation Comme nts PROTIME PATIENT (test code = 5964-2) 13.6 10.1-12.6 H INR (test code = 6301-6) 1.2 Normal INR <1.1; Warfarin Therapeutic range 2.0 to 3.0 or 2.5 to 3.5, depending upon the indications. Lab Interpretation (test code = 97963-3) [facility]normal [facility]PTT2024-01-26 04:11:17* Test Item Value Reference Range Interpretation Comme nts APTT Patient (test code = 3173-2) 34 26-36 Lab Interpretation (test cod e = 53273-4) Normal [facility]Prothrombin Time / [id number] 04:11:17* Test Item Value Reference Range Interpretation Comme nts PROTIME PATIENT (test code = 5964-2) 13.6 10.1-12.6 H INR (test code = 6301-6) 1.2 Normal INR <1.1; Warfarin Therapeutic range 2.0 to 3.0 or 2.5 to 3.5, depending upon the indications. Lab Interpretation (test code = 06795-0) Abnormal [facility]wallCBC with Ucmaqpofvupq9347-81-75 04:05:59* Test Item Value Reference Range Interpretation Comme [facility] WBC (test code = 6690-2) 10.90 4.20-10.70 H RBC (test code = 789-8) 4.24 4.26-5.52 L HGB (test code = 718-7) 11.3 g/dL 12.2-16.4 L HCT (test code = 4544-3) 34.8 % 38.4-49.3 L MCV (test code = 787-2) 82.1 fL 81.7-95.6 MCH (test code = 785-6) 26.7 pg 26.1-32.7 MCHC (test code = 786-4) 32.5 g/dL 31.2-35.0 RDW-SD (test code = 92781-7) 37.3 fL 38.5-51.6 L RDW-CV (test code = 788-0) 12.5 % 12.1-15.4 PLT (test code = 777-3) 627 150-328 H MPV (test code = 02910-7) 8.7 fL 9.8-13.0 L NRBC/100 WBC (test code = 3202293464) 0.0 0.0-10.0 NRBC x10^3 (test code = 8512334607) See_Comment [Automated messa ge] The system which generated this result transmitted reference range: 10*3/?L. The reference range was not used to interpret this result as normal/abnormal. GRAN MAT (NEUT) % (test code = 770-8) 89.9 % IMM GRAN % (test code = 4826395761) 0.50 % LYMPH % (test code = 736-9) 7.4 % MONO % (test code = 5905-5) 2.0 % EOS % (test code = 713-8) 0.0 % BASO % (test code = 706-2) 0.2 % GRAN MAT x10^3(ANC) (test code = 1068946890) 9.80 10*3/uL 1.99-6.95 H IMM GRAN x10^3 (test code = 8587113108) 0.05 10*3/uL 0.00-0.06 LYMPH x10^3 (test code = 731-0) 0.81 10*3/uL 1.09-3.23 L MONO x10^3 (test code = 742-7) 0.22 10*3/uL 0.36-1.02 L EOS x10^3 (test code = 711-2) 0.06-0.53 L BASO x10^3 (test code = 704-7) 0.01-0.09 Lab Interpretation (test code = 21670-5) Abnormal [facility] with Ltcxpnleoslz9753-79-05 04:05:59* Test Item Value Reference Range Interpretation [...] 32.5 g/dL 31.2-35.0 RDW-SD (test code = 32450-3) 37.3 fL 38.5-51.6 L RDW-CV (test code = 788-0) 12.5 % 12.1-15.4 PLT (test code = 777-3) 627 150-328 H MPV (test code = 10742-4) 8.7 fL 9.8-13.0 L NRBC/100 WBC (test code = 9358151582) 0.0 0.0-10.0 NRBC x10^3 (test code = 6024430302) See_Comment [Automated messa ge] The system which generated this result transmitted reference range: 10*3/?L. The reference range was not used to interpret this result as normal/abnormal. GRAN MAT (NEUT) % (test code = 770-8) 89.9 % IMM GRAN % (test code = 3799849868) 0.50 % LYMPH % (test code = 736-9) 7.4 % MONO % (test code = 5905-5) 2.0 % EOS % (test code = 713-8) 0.0 % BASO % (test code = 706-2) 0.2 % GRAN MAT x10^3(ANC) (test code = 5220247979) 9.80 10*3/uL 1.99-6.95 H IMM GRAN x10^3 (test code = 3073907662) 0.05 10*3/uL 0.00-0.06 LYMPH x10^3 (test code = 731-0) 0.81 10*3/uL 1.09-3.23 L MONO x10^3 (test code = 742-7) 0.22 10*3/uL 0.36-1.02 L EOS x10^3 (test code = 711-2) 0.06-0.53 L BASO x10^3 (test code = 704-7) 0.01-0.09 Lab Interpretation (test code = 40872-5) Abnormal [facility] Consult Notes Date/Time Note Provider Source 2023-05-20 15:29:50 Associated Order(s): CONSULT PALLIATIVE CARE Images from the original note were not included. PALLIATIVE MEDICINE INITIAL CONSULTATION BRY YADAV MD; SHYLA JAMES MD; TRACEY CARDONA, RUBEN [phone] Patient Name: Erendira Zheng Age: [age] year old : 1975 Sex: male Race: /White Admit Date: 05/13/2023 Attending Physician: Erendira Main MD Requesting Physician: Willie Jolly DO Reason for Consultation: Goals of care CHIEF COMPLAINT: Stridor HISTORY OF PRESENT ILLNESS: The patient is a 48 year old male with significant past medical history of hoarseness over a yr,who presented to [facility] on 05/13/23 and admitted currently for pancreatic [...] History Narrative 05/18/23: Patient was seen by [facility] to Home Consult Team and the below barriers to health were identified: None Identified Narrative: Home and Living Situation Lives in a motel in [place]. 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 Lives by himself. Relationship Status Does not have a partner or children. Family is his boss Trevor and he looks out for him. Transportation Has a vehicle that is reliable. 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 Position is secure. Social Network & Interests His boss (Trevor) is his support system. No family or friends in the area. No special hobbies. Education & Health Literacy Completed high school. Earned an Associates degree in electronics in the [employer]. Outpatient Primary Care Does not currently have [...] Ricardo Horta as surrogate decision maker phone #[phone] POA/Decision maker: Primary surrogate Contact: Ricardo Horta Mobile Relation: Friend 3. Code Status: Full code 4. Shared Medical Decision Making: The patient is able to demonstrate capacity to make informed complex medical decisions at this time and does not require a surrogate decision maker. 5. Kairah-Ljyyi-Ttlmstwez Factors: His friend Mychal would be primary caregiver and administrative personal assistant. Mr. Escobar had a short-term goal of going to the [facility] when he is released from hospital. And to make further decisions as time goes by 1 day at a time. 7. Functional Status: Patient states that he currently has car that he would be able to move around with. His friend Mychal would be primary caregiver and administrative personal assistant. Thank you for giving us the opportunity to see Erendira Zheng. We will continue to follow him with you. If we can be of any assistance, please send us a message on [employer] secure [employer] or call us at [phone]. This note was created using voice recognition [...] Palliative Care Team 05/20/2023 4:46 PM Pager#: [phone]. RMATION TECHNOLOGY PROGRAM MANAGER Associated attestation - Ammon James MD - 05/20/2023 5:11 PM INFORMATION TECHNOLOGY PROGRAM MANAGER I personally examined the patient on 05/20 and agree with RUBNE Cardona'snote as written . I actively participated [...] evaluation, and Counseling and educating the patient/family/caregiver. [facility] 2023-05-19 08:27:01 Associated Order(s): CONSULT PSYCHIATRY DEPARTMENT OF PSYCHIATRY AND BEHAVIORAL SCIENCE Inpatient Psych/Consult Evaluation Patient Name: Erendira Zheng : 1975 Patient Address: [address] [address] Today's Date: 05/19/2023 REASON FOR CONSULT: "Patient [...] IVDA. SOCIAL HISTORY: Household: [facility] Highest level of Education: Graduated high school and obtained an associations degree in [employer] Employment: Previously in [employer] for 7 years, currently employed at [employer] he lives at Legal history: Denies Social [...] patient desires, he can follow up with [facility] Outpatient Psychiatry (Smith): [phone], (Tristin): [phone] or [facility]: or [facility]: [phone] after hospital discharge for psychiatric medications If [...] evaluation and management service. Akhil Delatorre MD [facility] Department of Psychiatry PGY-2 C/L Pager # [phone] RMATION TECHNOLOGY PROGRAM MANAGER Associated attestation - Erendira Mattson MD - 05/20/2023 4:30 PM INFORMATION TECHNOLOGY PROGRAM MANAGER I personally examined the patient on 05/19/23 and agree with the resident's note as written, including any changes or additions that the resident may have made to the medical student's note. I actively participated in the decision making process. Please see the resident's note for additional details. The patient is not an imminent suicide safety concern based on risk factor analysis. PN-PSYCHIATRY [facility] - Health 2023-05-18 12:17:12 Associated Order(s): CONSULT [...] DO PGY-1 | Department of Internal Medicine Justice Team RMATION TECHNOLOGY PROGRAM MANAGER Associated attestation - Sung Bautista MD - 05/19/2023 8:37 AM INFORMATION TECHNOLOGY PROGRAM MANAGER Attestation: Today 18 May 2023 I examined and discussed this patient with Dr Turcios. I agree with the observations, assessments, and recommendations. [facility] IM-INTERNAL MEDICINE [facility] 2023-05-14 09:49:44 Associated Order(s): CONSULT SPEECH Speech-Language Pathology Clinical Swallow Evaluation 05/14/2023 Erendira Zheng : 1975 Age/Sex: 48 year old male Time IN/OUT: 3728-8882 Referring Physician: Lala Pacheco Date of Referral: [...] accounting for left-sided vocal cord paralysis. Previous CORPORATE DEVELOPMENT MANAGER Services/Swallow History: None documented. No past medical [...] verbally. Discussed findings of evaluation, recommendations and CORPORATE DEVELOPMENT MANAGER plan of care. Discussed recommendation/option for instrumental [...] suspected, recommend pt be made NPO pending CORPORATE DEVELOPMENT MANAGER re-assessment. Instrumental Swallow Assessment: - Recommend medical team place order for Modified Barium Swallow Study (COOKIE) to rule out aspiration, further assess swallowing physiology, determine safety for PO intake, and determine need for further dysphagia interventions. Additional Referrals: - None evident at this time. Continued CORPORATE DEVELOPMENT MANAGER services while in-house: Recommend medical team place order for Modified Barium Swallow Study (COOKIE) to rule out aspiration, further assess swallowing physiology, determine safety for PO intake, and determine need for further dysphagia interventions. Discharge Recommendations: - None evident at this time. Olive Kurtz MA, [facility]-CORPORATE DEVELOPMENT MANAGER Speech-Language Pathologist Office [phone] Pager: [phone] [facility] 2023-05-13 21:40:24 Associated Order(s): CONSULT OTOLARYNGOLOGY OTOLARYNGOLOGY-HEAD AND NECK SURGERY Consultation History and Physical Date of Service: 05/13/2023 Reason for Consultation: Airway Eval Service: MICU HPI: Erendira Zheng is a 48 year old male with significant pmhx of smoking transferred to [facility] MICU for one-year history of dysphonia, several [...] a 48 year old male transferred to [facility] MICU for one-year history of dysphonia, several [...] consider stenting if symptoms worsen - Recommend CORPORATE DEVELOPMENT MANAGER/MBS consultation to rule out ander aspiration - Recommend NPO status until aspiration is ruled out - Can consider speech therapy vs injection augmentation if no improvement/fails MBS. However, underlying disease process should ultimately be addressed. Will discuss with faculty Annie Reza MD Otolaryngology- Head & Neck Surgery, PGY-2 RMATION TECHNOLOGY PROGRAM MANAGER Associated attestation - Blu Goodwin MD - 05/16/2023 9:09 PM INFORMATION TECHNOLOGY PROGRAM MANAGER I have reviewed and discussed this note with the resident, Annie Reza, and agree with the note as written. Blu Goodwin MD Head & Neck Surgical Oncology and Reconstructive Surgery Department of Otolaryngology-Head and Neck Surgery [facility] BRANDON-OTOLARYNGOLOGY [facility] History and Physical Notes Date/Time Note [...] MD Fellow, Pulmonary and Critical Care Medicine RMATION TECHNOLOGY PROGRAM MANAGER Associated attestation - Sung Bautista MD - 05/20/2023 8:59 AM INFORMATION TECHNOLOGY PROGRAM MANAGER Attestation: Today 20 May 2023 I examined and discussed this patient with Dr Huynh. I agree with the indications for bronchoscopy. [facility] 2023-05-13 21:36:40 Medicine Intensive Care History and Physical Date of Service: 05/13/2023 ICU Admit date: 05/13/23 Intubation Date: N/A CHIEF COMPLAINT: Stridor HISTORY OF PRESENT ILLNESS Erendira Zheng is a 48 year old male with no known past medical history presents to [facility] as a transfer from [facility] with concern for stridor and airway compromise. [...] doctor. Patient designates Ricardo Horta as MPOA (ad terminal makeup operator friend): [phone] PHYSICAL EXAMINATION Vitals: 05/13/23201405/13/232029 BP: 138/85 (!) [...] thorax read pending - Per ENT recs: CORPORATE DEVELOPMENT MANAGER/MBS consultation to rule out ander aspiration NPO [...] Monitor for now. Endo No acute problems Humera Pacheco, DO Internal Medicine, PGY-2 RMATION TECHNOLOGY PROGRAM MANAGER Associated attestation - Sandip Mullins MD - 05/14/2023 10:43 AM INFORMATION TECHNOLOGY PROGRAM MANAGER I personally examined the patient on 05/14/[address] Pacheco's resident note with the following addition(s): Patient with possible metastatic malignancy, stridor, hoarseness, left pleural effusion among other changes suggestive of advanced cancer. Attempt left pleural fluid thoracentesis today. Check ptt. Airway stable . I actively participated in the decision-making process. Please see the resident's note for additional details. [facility] Procedure Notes Date/Time Note Provider Source 2023-06-28 20:11:47 Associated Order(s): Intubation Intubation Date/Time: 06/28/2023 5:34 PM Urgency: emergent Airway not difficult General Information and Staff Patient location during procedure: OR Performed: resident/SUPERVISOR ACCOUNTING CLERKS Performed by: Betty Reece MD Authorized by: [...] atraumatic, dentition and lips unchanged from pre-op. [facility] 2023-06-28 20:09:29 Associated Order(s): Arterial Line Arterial [...] infiltration with Lidocaine, STF, smooth and atraumatic. [facility] 2023-05-14 18:22:39 PROCEDURE NOTE Ultrasound Guided [...] & Critical Care Medicine 05/14/2023 6:22 PM RMATION TECHNOLOGY PROGRAM MANAGER Associated attestation - Sandip Mullins MD - 05/15/2023 12:54 PM INFORMATION TECHNOLOGY PROGRAM MANAGER Agree with indication for procedure. I was not personally present but available, if needed, at the time of this procedure. IM-PULMONARY DISEASE [facility] Notes Date/Time Note Provider Source 2024-01-06 14:45:40 Routed refill request for fentanyl 25 mcg/hr patch to Dr. Lombardo Erma Kendall RN [facility] 2024-01-04 09:09:17 Called to speak to Mr. Zheng regarding his CT Simulation appointment, no answer so left ExactTargethart message and numbers for him to call [...] wanting to pursue treatment. Susanne Lundberg RN [facility] 2023-12-29 09:00:00 Addended by: RUDY CA MD on: 01/01/2024 03:35 PM Modules accepted: Level of Service [facility] 2023-12-22 14:38:44 Access Center: [facility] Open Encounter Maintenance Chart Review: Patient was seen in Clinic 12/21/2023. Nurse Note: RN closing encounter in [facility] r/t clinical action items completed. Deisy Rodriguez RN [facility] Access Center Triage Nurse Deisy Rodriguez RN [facility] 2023-12-21 10:30:00 Addended by: MARIA L SUGGS RN on: 02/03/2024 06:44 PM Modules accepted: Orders Maria L Suggs RN [facility] 2023-12-17 12:40:08 Called patient and asked him to check with the pharmacy this afternoon as medications should be there and ready for picker packer. Patient verbalized his understanding. [facility] 2023-12-17 12:36:02 Called pharmacy and they do have the hydrocodone rx but not the Dexamethasone. Abner Webster NP will resend to pharmacy. [facility] 2023-12-17 11:52:26 Patient contacted our clinic stating HYDROcodone-acetaminophen and steroid have not been refilled. Please assist. Charlee Meeks [facility] 2023-12-17 11:30:00 Images from the original note were not included. Venipuncture collection performed by clean technique on the right anticubitus. Total of 1 attempts were made. Slight pressure and a bandage/dressing were applied to the site(s). The patient experienced no complications. The following specimens were processed according to instructions and sent to [facility] laboratories per lab order on 12/17/2023 : LT BLUE SST 2 RED LAV 1 PPT DK GREEN (LiHep) DK GREEN (SodH) DAWKINS DK BLUE (K2) DK BLUE (S) ACD Blood Culture NIPT/NTD Patient has been identified by and name and was provided with cup, antiseptic towelette, and clean catch instructions. Patient unable to void. Unpreserved Urine Culture Aptima tube Other urine Jennyfer Tam [facility] 2023-12-07 14:31:09 Called and spoke with clinical pharmacy coordinator. She informed medication timing would need to be adjusted to Q 4 hours or 4-6 hours, otherwise patient will need to wait until 12/12 for refill. Provided information to Dr. Lombardo and he will correct to allow patient to receive medicine for pain control. New Rx sent to pharmacy. Mynor Aguilar RN [facility] 2023-12-07 13:35:51 Elver with [facility] Out patient pharmacy would like clarification on the times he should be taking the Hydrocodrone. She can be reached at [phone]... Patient is waiting. Cheo Aguilera [facility] 2023-11-26 14:37:48 Patient discharged to go to [facility] [place] for continuation of chemotherapy. Patient ambulatory from the ED in [facility] Zhane Orozco RN [facility] 2023-11-26 14:33:41 Patient will be discharged to the [facility] Infusion center to continue with his chemotherapy. He does have an IV in place 18G to the right AC. Provider orders IV to remain inplace for infusion. [facility] 2023-11-26 14:08:41 Patient due to void. Urinal at bedside [facility] 2023-11-26 13:09:52 Erendira Zheng is a 48 year old male presents to ED triage with chief compliant of hyperkalemia. Pt states his doctor told him to come in for a potassium of 6.5. AAOx4. Skin warm and dry. VSS. RR E/U. NAD noted. EKG done in triage Roomed for eval Janett Finney RN [facility] 2023-11-26 11:00:00 Images from the original note were not included. Venipuncture collection performed by clean technique on the left anticubitus. Total of 1 attempts were made. Slight pressure and a bandage/dressing were applied to the site(s). The patient experienced no complications. The following specimens were processed according to instructions and sent to [facility] laboratories per lab order on 11/26/2023 : LT BLUE SST 2 RED LAV 1 PPT DK GREEN (LiHep) DK GREEN (SodH) DAWKINS DK BLUE (K2) DK BLUE (S) ACD Blood Culture NIPT/NTD Eyal Juarez [facility] 2023-11-02 11:00:00 Images from the original note were not included. Venipuncture collection performed by clean technique on the right anticubitus. Total of 1 attempts were made. Slight pressure and a bandage/dressing were applied to the site(s). The patient experienced no complications. The following specimens were processed according to instructions and sent to [facility] laboratories per lab order on 11/02/2023 : LT BLUE SST 2 RED LAV 1 PPT DK GREEN (LiHep) DK GREEN (SodH) DAWKINS DK BLUE (K2) DK BLUE (S) ACD Blood Culture NIPT/NTD Shyla Villatoro [facility] 2023-10-13 09:56:[address] Lombardo refill request for hydrocodone-acetaminophen. Sekou Garcia RN [facility] 2023-10-13 09:55:40 Routed refill request for hydrocodone to Dr. Lombardo. Erma Kendall RN [facility] 2023-10-11 14:00:00 Images from the original note were not included. Venipuncture collection performed by clean technique on the left anticubitus. Total of 1 attempts were made. Slight pressure and a bandage/dressing were applied to the site(s). The patient experienced no complications. The following specimens were processed according to instructions and sent to [facility] laboratories per lab order on 10/11/2023 : LT BLUE SST 3 RED LAV PPT DK GREEN (LiHep) DK GREEN (SodH) DAWKINS DK BLUE (K2) DK BLUE (S) ACD Blood Culture NIPT/NTD 1 [facility] 2023-10-05 10:45:00 Images from the original note were not included. Venipuncture collection performed by clean technique on the right anticubitus. Total of 1 attempts were made. Slight pressure and a bandage/dressing were applied to the site(s). The patient experienced no complications. The following specimens were processed according to instructions and sent to [facility] laboratories per lab order on 10/05/2023 : LT BLUE SST 2 RED LAV 1 PPT DK GREEN (LiHep) DK GREEN (SodH) DAWKINS DK BLUE (K2) DK BLUE (S) ACD Blood Culture NIPT/NTD Eyal Juarez [facility] 2023-09-17 12:31:[address] Lombardo Mynor Aguilar RN [facility] 2023-09-15 14:30:00 Images from the original note were not included. Venipuncture collection performed by clean technique on the left anticubitus. Total of 1 attempts were made. Slight pressure and a bandage/dressing were applied to the site(s). The patient experienced no complications. The following specimens were processed according to instructions and sent to [facility] laboratories per lab order on 09/15/2023: LT BLUE SST 2 RED LAV 1 PPT DK GREEN (LiHep) DK GREEN (SodH) DAWKINS DK BLUE (K2) DK BLUE (S) ACD Blood Culture NIPT/NTD [facility] 2023-08-20 09:15:00 Images from the original note were not included. Venipuncture collection performed by clean technique on the right anticubitus. Total of 1 attempts were made. Slight pressure and a bandage/dressing were applied to the site(s). The patient experienced no complications. The following specimens were processed according to instructions and sent to [facility] laboratories per lab order on 08/20/2023 : LT BLUE SST 1 RED LAV 1 PPT DK GREEN (LiHep) DK GREEN (SodH) DAWKINS DK BLUE (K2) DK BLUE (S) ACD Blood Culture NIPT/NTD Shyla Villatoro [facility] 2023-08-13 16:28:37 Tried to contact pt to let him know we can get him booked in sooner, did not answer so I left a voicemail to give clinic a call back, thank you. Ximena Delacruz [facility] 2023-08-13 10:34:15 OK to overbook in late August IM-PULMONARY DISEASE STAFF [facility] 2023-08-12 08:40:18 Based on chart review, not able to see anything indicating that patient would need to be seen by pulm prior to initiating chemo. Will route to Dr. Lombardo for review and advise if current appointment scheduled 10/08/2023 is an appropriate time frame. Maria Chan RN [facility] 2023-08-10 12:18:45 We needed to reschedule patients appt per email, patient is wondering if this will affect him getting his chemo since he was referred to see Dr Lombardo in between. Please advise, thank you. [facility] 2023-07-30 08:30:00 Images from the original note were not included. Venipuncture collection performed by clean technique on the right anticubitus. Total of 1 attempts were made. Slight pressure and a bandage/dressing were applied to the site(s). The patient experienced no complications. The following specimens were processed according to instructions and sent to [facility] laboratories per lab order on 07/30/2023: LT BLUE SST 2 RED LAV 1 PPT DK GREEN (LiHep) DK GREEN (SodH) DAWKINS DK BLUE (K2) DK BLUE (S) ACD Blood Culture NIPT/NTD [facility] 2023-07-08 07:49:16 Addendum created 07/08/23 0749 by Betty Reece MD Attestation recorded in Intraprocedure, Flowsheet accepted, Intraprocedure Attestations filed [facility] 2023-06-29 13:59:14 Addendum created 06/29/23 1359 by Phong Mohan MD Intraprocedure Meds edited AN-ANESTHESIOLOGY [facility] 2023-06-28 20:16:17 Patient: Erendira Zheng Procedure Summary Date: 06/28/23 Room / Location: [address] LOCATION Anesthesia Start: 170 Anesthesia Stop: [...] status: ETT and ventilator Hydration status: acceptable [facility] 2023-06-28 14:33:34 Name/ MRN / Age / Gender: Erendira Zheng [id number] 48 year old male BMI: Estimated body [...] Anesthesia Preop Eval (physical exam) Anesthesia Preop: [id number] [facility] Communication: Erendira Zheng is a 48 year [...] METS: 4 Pulmonary Comments: CC See above [facility] communication Tobacco use: quit in 2022. Neuro/Musculoskeletal [...] ROS Other Tobacco use: quit in 2022. GROUP BILLING COORDINATOR Pediatric Pediatric N/A N/A Preoperative Medication Instructions Continue taking all prescribed medications except: BARRETT inhibitors, ARBs, diuretics, all oral diabetes medications Anticoagulant Therapy: Defer to surgeons Insulin: Take 1/2 dose the night prior to surgery. Hold on DOS. Phentermine: Alert [facility] anesthesiologist SGLT2 Inhibitors: "gliflozins" to be held [...] line Anesthesia plan discussed with: patient or accounts payable representative Post-Operative Analgesia: routine analgesia & antiemetics Recovery Plan: PACU Additional comments: [facility] 2023-06-15 15:02:12 Phoned patient to follow-up on status of application to [facility]. Per patient he last spoke with [facility] on 06/09 who stated the application was under consideration. Recommended pt call tomorrow for update. He agreed and will update me at that time. OACANO Stewart RN [facility] 2023-06-14 11:27:22 Images from the original note were not included. Clarified funding support with marketing technology coordinator. [facility] for patient to return my call. From: Financial Counselor <[email or web address]> Sent: May 1:06 PM To: Adriana Stewart <[email or web address]>; Financial Counselor <[email or web address]> Cc: Jose Manuel Huynh <[email or web address]>; Osei Lombardo <[email or web address]>; Julius Mcdonald <[email or web address]> Subject: RE: Casebook dao: RILEY Erendira Zheng has been referred to [facility] to apply for assistance as he may be eligible for their program due to his financial status. Asked the patient to contact our department once he receives approval or denial. Thank you, Jerrica Coker ------ OACANO Stewart RN [facility] 2023-06-02 13:44:57 Spoke w/ patient over phone regarding tumor board discussion conclusions and the urgent need to be seen in the clinic w/ various teams (oncology, radiation oncology, pulmonary). He has filled paper to get insurance earlier last week and is now waiting for [facility] approval/processing. His respiratory status is baseline from previous admission and denies productive cough/hemoptysis. Denies fevers chills, shakes. Able to eat soft foods. Has a car and is able to see pulmonary in [place] and able to drive to [place] to see other providers. Told him to expect phone calls regarding scheduling [facility] appointments. Erendira Raza M.D. Dept. Pulmonary Critical Care PGY4 RMATION TECHNOLOGY PROGRAM MANAGER IM-INTERNAL MEDICINE [facility] 2023-05-26 15:28:47 Called the patient today to give him the pathology results from bronchoscopy. 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 Patient will be presented at [facility]. Patient is working on obtaining insurance and financial help. RMATION TECHNOLOGY PROGRAM MANAGER [facility] 2023-05-25 07:56:21 CHP referral submitted to Lynn Rodriguez CM. RMATION TECHNOLOGY PROGRAM MANAGER Diana Garcia LVN [facility] 2023-05-24 12:41:27 TRANSITIONAL CARE MANAGEMENT ASSESSMENT 05/24/2023 Erendira Zheng [id number] Erendira Zheng is a 48 year old /White male was admitted on 05/13/[address] He was discharged on 05/21/23 with discharge disposition of HR- Routine Discharge. Admitting Physician: Sandip Mullins Discharge Diagnosis: Stridor [R06.1] Pt. confirmed my number and instructed to call back if has questions. I thanked the patient for their time and choosing [facility].pt. asked if biopsy results in. Reviewed pathology pendingPt. Voices working on casebook application. Linked Episodes Type: Episode: Status: Noted: Resolved: Last update: Updated by: TRANSITION OF CARE tcm Active 05/24/2023 05/24/2023 12:40 PM Diana Garcia LVN Comments: TCM Tve-yooa-gm-face outreach documentation: Discharge Assessment Chart Assessed: 05/24/23 [...] with the names or descriptions of any [id number] or supplements you are currently taking?: Yes [...] anyone you would like to recognize?: Yes ([facility] provided good care.) Do you have any suggestions for improvement?: No Do you have any other questions or concerns at this time?: Yes Future Appointments: RMATION TECHNOLOGY PROGRAM MANAGER Diana Garcia LVN [facility] 2023-05-21 15:54:41 Problem: Respiratory Function - [...] patient's documented comfort goal 05/21/2023 1554 by Marifre Koroma RN Outcome: Adequate for discharge 05/21/2023 [...] Koroma RN Outcome: Progressing as expected Problem: Discharge [...] Outcome: Progressing as expected OACANO Koroma RN [facility] 2023-05-21 13:30:30 Problem: Respiratory Function - [...] of infection Outcome: Progressing as expected [facility] 2023-05-21 02:24:15 Problem: Respiratory Function - Impaired [...] Goal: Effective communication Outcome: Progressing as expected [facility] Rae Govea RN [facility] 2023-05-20 18:31:48 Problem: Respiratory Function - [...] Absence of infection Outcome: Progressing as expected RMATION TECHNOLOGY PROGRAM MANAGER Kimber Ellis RN [facility] 2023-05-19 23:44:10 Problem: Respiratory Function - [...] Absence of infection Outcome: Progressing as expected RMATION TECHNOLOGY PROGRAM MANAGER Lela Andrews RN [facility] 2023-05-19 20:07:01 Problem: Respiratory Function - [...] Absence of infection Outcome: Progressing as expected [facility] Himanshu Juan RN [facility] 2023-05-18 23:11:59 Problem: Respiratory Function - [...] of infection Outcome: Progressing as expected [facility] 2023-05-18 19:45:21 Problem: Respiratory Function - Impaired [...] of infection Outcome: Progressing as expected [facility] 2023-05-17 23:39:29 Problem: Pain Goal: Control of [...] of falls Outcome: Progressing as expected [facility] 2023-05-17 09:03:31 Problem: Respiratory Function - Impaired [...] Absence of infection Outcome: Progressing as expected [facility] Lena Zavala RN [facility] 2023-05-17 03:40:43 Problem: Respiratory Function - [...] Outcome: Progressing as expected OACANO Sanchez RN [facility] 2023-05-16 20:24:43 Problem: Respiratory Function - [...] Goal: Effective communication Outcome: Progressing as expected RMATION TECHNOLOGY PROGRAM MANAGER Lela Goode RN [facility] 2023-05-16 03:21:54 Problem: Respiratory Function - [...] Effective communication Outcome: Progressing as expected [facility] 2023-05-15 07:59:32 Problem: Respiratory Function - Impaired [...] Goal: Effective communication Outcome: Progressing as expected [facility] Elver Cooney RN [facility] 2023-05-15 01:48:11 Problem: Respiratory Function - [...] Effective communication Outcome: Progressing as expected [facility] 2023-05-13 23:07:46 Problem: Respiratory Function - Impaired Goal: Able to cough effectively Outcome: Progressing as expected Goal: Adequate oxygenation Outcome: Progressing as expected Goal: Adequate work of breathing Outcome: Progressing as expected Goal: Patent airway Outcome: Progressing as expected OACANO Abbott RN [facility]
--- NOTE | 2024-02-09 19:50 | ER ---
Nurse's Notes [facility] Name: Yeison Zheng Age: 48 yrs Sex: Male : 1975 Arrival Date: 02/09/2024 Time: 19:02 Bed Waiting Private MD: Diagnosis: ED Course: 02/08 19:04 Patient arrived in ED. mr 19:14 [facility] kb 19:14 Andrye Louis MD is Attending Physician. kb 19:49 Patient's name was called from [facility]. Unable to locate patient. Will disposition as cm10 left without being seen by a provider. Administered Medications: No medications were administered Outcome: 19:49 Patient left the ED. cm10 Signatures: Paty Hannon FNP-C FNP-Ckb Rivera, Mary, Alyssa Starr, RN RN cm10
== END 2024-02-09 19:49 | disposition left against medical advice (07) ==
LOC: ER 19:02
DX: Z02.9 Encounter for administrative examinations, unspecified (principal)